=== PATIENT | female | born 1945 | race Caucasian/White ===

== ENCOUNTER 2016-11-01 10:04 | Outpatient (CLI) | payer MEDICARE, OTHER | END 2016-11-01 10:05 | disposition home or self-care (01) | DX: G47.33 Obstructive sleep apnea (adult) (pediatric) (principal) | CPT/HCPCS: 99214; G0463 ==

== ENCOUNTER 2017-01-19 09:19 | Outpatient (CLI) | payer MEDICARE, OTHER | END 2017-01-19 09:20 | disposition home or self-care (01) | LOC: SC 09:19 | PROVIDERS: ATTEND Nurse Practitioner Family | DX: G47.33 Obstructive sleep apnea (adult) (pediatric) (principal) | CPT/HCPCS: 99214; G0463; 99212 ==

== ENCOUNTER 2017-02-02 08:00 | Outpatient (CLI) | payer MEDICARE, OTHER | END 2017-02-02 08:01 | disposition home or self-care (01) | LOC: LAB.WCP 08:00 | PROVIDERS: ATTEND Specialist | DX: Z00.00 Encounter for general adult medical examination without abnormal findings (principal); R53.83 Other fatigue; E78.5 Hyperlipidemia, unspecified; R25.1 Tremor, unspecified | CPT/HCPCS: 36415; 80053; 80061; 84439; 84443; 84481; 85025 ==

== ENCOUNTER 2017-02-02 08:00 | Outpatient (CLI) | payer MEDICARE, OTHER ==
[2017-02-02 20:15] LABS: BASOPHILS # (AUTO) 0.1 10^3/uL (0.0-0.1); EOSINOPHILS # (AUTO) 0.1 10^3/uL (0.0-0.7); EOSINOPHILS % (AUTO) 1.5 %; HCT - HEMATOCRIT 43.6 % (37.0-47.0); HGB - HEMOGLOBIN 14.3 g/dL (12.0-16.0); LYMPHOCYTES # (AUTO) 2.1 10^3/uL (1.5-3.5); LYMPHOCYTES % (AUTO) 31.9 %; MEAN CORPUSCULAR HEMOGLOBIN 30.3 pg (27.0-31.0); MEAN CORPUSCULAR HGB CONC 32.8 g/dL (32.0-36.0); MEAN CORPUSCULAR VOLUME 92.3 fL (81.0-99.0); MEAN PLATELET VOLUME 9.7 fL (7.9-10.8); MONOCYTES # (AUTO) 0.5 10^3/uL (0.0-1.0); MONOCYTES % (AUTO) 7.6 %; NEUTROPHILS # (AUTO) 3.9 10^3/uL (1.5-6.6); NUCLEATED RED BLOOD CELLS AUTO 0.2 /100WBC; RED BLOOD COUNT 4.73 10^6/uL (4.20-5.40); RED CELL DISTRIBUTION WIDTH 13.6 % (12.0-15.0); UNCORRECTED WHITE BLOOD COUNT 6.7 x10^3/uL; WHITE BLOOD COUNT 6.7 x10^3/uL (4.8-10.8)
[2017-02-02 20:30] LABS: ALBUMIN/GLOBULIN RATIO 1.3 (1.0-2.2); BILIRUBIN,TOTAL 0.5 mg/dL (0.2-1.0); BUN - BLOOD UREA NITROGEN 17 mg/dL (6-20); CALCIUM 9.3 mg/dL (8.5-10.3); CARBON DIOXIDE - CO2 27 mmol/L (21-32); CHLORIDE 105 mmol/L (101-111); CHOL/HDL RATIO 3.1 (<4.4); CHOLESTEROL 206 mg/dL; CREATININE 0.9 mg/dL (0.4-1.0); GFR - MDRD 62 (>89); GLUCOSE 97 mg/dL (70-100); HDL CHOLESTEROL 66 mg/dL; LDL/HDL RATIO 1.8 (<4.4); POTASSIUM 4.2 mmol/L (3.5-5.0); SODIUM 140 mmol/L (135-145); TRIGLYCERIDES 103 mg/dL; VLDL CHOLESTEROL 21 mg/dL
== END 2017-02-02 08:01 | disposition home or self-care (01) ==
LOC: LAB.WCP 08:00
PROVIDERS: ATTEND Family Medicine
DX: Z00.00 Encounter for general adult medical examination without abnormal findings (principal); R53.83 Other fatigue; E78.5 Hyperlipidemia, unspecified
CPT/HCPCS: 36415; 80053; 80061; 84443; 85025

== ENCOUNTER 2017-03-21 11:19 | Outpatient (CLI) | payer MEDICARE, OTHER | END 2017-03-21 11:20 | disposition home or self-care (01) | LOC: SC 11:19 | PROVIDERS: ATTEND Nurse Practitioner Family | DX: G47.33 Obstructive sleep apnea (adult) (pediatric) (principal) | CPT/HCPCS: 99214; G0463; 99212 ==

== ENCOUNTER 2017-04-18 10:00 | Outpatient (CLI) | payer MEDICARE, OTHER | END 2017-04-18 10:01 | disposition home or self-care (01) | LOC: SC 10:00 | PROVIDERS: ATTEND Nurse Practitioner Family | DX: G47.33 Obstructive sleep apnea (adult) (pediatric) (principal) | CPT/HCPCS: 99214; G0463; 99212 ==

== ENCOUNTER 2017-04-27 14:27 | Outpatient (CLI) | payer MEDICARE, OTHER | END 2017-04-27 14:28 | disposition home or self-care (01) | LOC: SC 14:27 | PROVIDERS: ATTEND Nurse Practitioner Family | DX: G47.33 Obstructive sleep apnea (adult) (pediatric) (principal) | CPT/HCPCS: 99214; G0463; 99212 ==

== ENCOUNTER 2017-06-08 13:18 | Outpatient (CLI) | payer MEDICARE, OTHER | END 2017-06-08 13:19 | disposition home or self-care (01) | LOC: SC 13:18 | PROVIDERS: ATTEND Nurse Practitioner Family | DX: G47.33 Obstructive sleep apnea (adult) (pediatric) (principal) | CPT/HCPCS: 99214; G0463; 99212 ==

== ENCOUNTER 2017-07-06 13:07 | Outpatient (CLI) | payer MEDICARE, OTHER | END 2017-07-06 13:08 | disposition home or self-care (01) | LOC: SC 13:07 | PROVIDERS: ATTEND Nurse Practitioner Family | DX: G47.33 Obstructive sleep apnea (adult) (pediatric) (principal) | CPT/HCPCS: 99214; G0463; 99212 ==

== ENCOUNTER 2017-09-14 16:50 | Outpatient (CLI) | payer MEDICARE, OTHER | END 2017-09-14 16:51 | disposition home or self-care (01) | LOC: LAB.R 16:50 | PROVIDERS: ATTEND Family Medicine | DX: N39.0 Urinary tract infection, site not specified (principal) | CPT/HCPCS: 87086 ==

== ENCOUNTER 2017-09-25 16:06 | Outpatient (CLI) | payer MEDICARE, OTHER ==
--- NOTE | 2017-09-27 18:00 | Mammography Report ---
DIGITAL SCREENING MAMMOGRAM: 09/25/2017 CLINICAL INDICATION: A 72-year-old for screening. COMPARISON: 06/2016, 01/2015, 02/2013, 11/2011, 10/2010, 10/2009. TECHNIQUE: Routine CC and MLO projections were obtained of the breasts. FINDINGS: The breasts again demonstrate scattered fibroglandular densities bilaterally. Coarse and punctate, typically benign calcifications are present. No suspicious masses, clustered microcalcifications, or regions of architectural distortion are identified. IMPRESSION: BENIGN FINDINGS. RECOMMENDATION: ROUTINE ANNUAL SCREENING UNLESS OTHERWISE CLINICALLY INDICATED. BIRADS category 2 benign findings. STANDARD QUALIFYING STATEMENTS 1. This examination was reviewed with the aid of Computed-Aided Detection (CAD). 2. A negative or benign imaging report should not delay biopsy if clinically suspicious findings are present. Consider surgical consultation if warranted. More than 5% of cancers are not identified by imaging. 3. Dense breasts may obscure an underlying neoplasm. TD: 09/27/2017 17:58
== END 2017-09-25 16:07 | disposition home or self-care (01) ==
LOC: DI.N 16:06
PROVIDERS: ATTEND Family Medicine
DX: Z12.31 Encounter for screening mammogram for malignant neoplasm of breast (principal)
CPT/HCPCS: 77067

== ENCOUNTER 2017-10-05 13:15 | Outpatient (CLI) | payer MEDICARE, OTHER | END 2017-10-05 13:16 | disposition home or self-care (01) | LOC: SC 13:15 | PROVIDERS: ATTEND Nurse Practitioner Family | DX: G47.33 Obstructive sleep apnea (adult) (pediatric) (principal) | CPT/HCPCS: 99214; G0463; 99212 ==

== ENCOUNTER 2018-01-04 17:42 | Outpatient (CLI) | payer MEDICARE, OTHER ==
--- NOTE | 2018-01-04 18:18 | XRAY Report ---
Procedure Date: 01/04/2018 Accession Number: [id number] / [id number] Procedure: XR - Foot 3 View RT CPT Code: FULL RESULT: EXAM: RIGHT FOOT RADIOGRAPHY EXAM DATE: 01/04/2018 05:59 PM. CLINICAL HISTORY: FOOT PAIN,RIGHT. COMPARISON: None. TECHNIQUE: 3 views. FINDINGS: Bones: There is a 5 mm linear bony density adjacent to the lateral margin of the anterior process of the calcaneus. No other evidence of acute fracture. There is an old fracture deformity of the fifth metatarsal shaft. Joints: First MTP joint osteoarthritis. Soft Tissues: Lateral soft tissue swelling in region of calcaneus. IMPRESSION: Probable small lateral avulsion fracture of the anterior process of the calcaneus. Old fifth metatarsal fracture deformity. RADIA The call report notification system was initiated by Dr. Victor Hugo Hogan at 18:13 hrs on 01/04/18. The above findings were discussed with Dr. Kimberly Dr by Dr. Victor Hugo Hogan at 18:17 hrs on 01/04/18.
--- NOTE | 2018-01-04 18:18 | XRAY Report ---
Procedure Date: 01/04/2018 Accession Number: [id number] / [id number] Procedure: XR - Ankle 3 View RT CPT Code: FULL RESULT: EXAM: RIGHT ANKLE RADIOGRAPHY EXAM DATE: 01/04/2018 05:59 PM. CLINICAL HISTORY: FOOT PAIN, RIGHT. COMPARISON: None. TECHNIQUE: 3 views. FINDINGS: Bones: There is a 5 mm linear bony density adjacent to the lateral anterior process of the calcaneus. No other evidence of fracture. Joints: Normal. No effusion. No subluxations. The ankle mortise is normally aligned. Soft Tissues: Marked lateral soft tissue swelling. IMPRESSION: Probable small lateral calcaneus avulsion fracture. RADIA The call report notification system was initiated by Dr. Victor Hugo Hogan at 18:11 hrs on 01/04/18. The above findings were discussed with Dr. Kimberly Dr by Dr. Victor Hugo Hogan at 18:16 hrs on 01/04/18.
== END 2018-01-04 17:43 | disposition home or self-care (01) ==
LOC: DI 17:42
PROVIDERS: ATTEND Family Medicine
DX: M79.671 Pain in right foot (principal)

== ENCOUNTER 2018-05-14 08:46 | Outpatient (CLI) | payer MEDICARE, OTHER | END 2018-05-14 08:47 | disposition home or self-care (01) | LOC: SC 08:46 | PROVIDERS: ATTEND Nurse Practitioner Family | DX: G47.33 Obstructive sleep apnea (adult) (pediatric) (principal) | CPT/HCPCS: 99214; G0463; 99212 ==

== ENCOUNTER 2018-06-21 13:11 | Outpatient (CLI) | payer MEDICARE, OTHER | END 2018-06-21 13:12 | disposition home or self-care (01) | LOC: SC 13:11 | PROVIDERS: ATTEND Nurse Practitioner Family | DX: G47.33 Obstructive sleep apnea (adult) (pediatric) (principal) | CPT/HCPCS: 99214; G0463; 99212 ==

== ENCOUNTER 2018-10-09 10:42 | Outpatient (CLI) | payer MEDICARE, OTHER | END 2018-10-09 10:43 | disposition home or self-care (01) | LOC: SC 10:42 | PROVIDERS: ATTEND Nurse Practitioner Family | DX: G47.33 Obstructive sleep apnea (adult) (pediatric) (principal) | CPT/HCPCS: 99214; G0463; 99212 ==

== ENCOUNTER 2018-11-16 11:34 | Outpatient (CLI) | payer MEDICARE, OTHER ==
--- NOTE | 2018-11-19 15:35 | Mammography Report ---
Reason: SCREENING MAMMO Procedure Date: 11/16/2018 Accession Number: [id number] / [id number] Procedure: MGN - Screening Mammo Dig Bilat CPT Code: FULL RESULT: EXAM: Screening Mammo Dig Bilat DATE: 11/16/2018 11:57 AM CLINICAL HISTORY: Routine screening TECHNIQUE: (B) - Bilateral CC and MLO views were obtained. COMPARISON: 09/25/2017, 06/24/2016, 01/27/2015, 02/28/2013. PARENCHYMAL PATTERN: (A) - The breasts demonstrate scattered fibroglandular densities bilaterally. FINDINGS: There has been no significant interval change on the right. There are no suspicious masses, calcifications, or areas of distortion. On the left there is a questionable area of developing architectural distortion in the 12:00 position approximately 7 cm posterior to the nipple. Otherwise no suspicious masses, calcifications or interval change on the left. IMPRESSION: Incomplete examination. BI-RADS category 0. Needs additional evaluation left breast by spot compression and true lateral views. Negative right breast. RECOMMENDATION: (ADDMAM) - Recommend additional mammographic views. Left breast BI-RADS CATEGORY: (0) - Incomplete Examination - need additional evaluation. STANDARD QUALIFYING STATEMENTS: 1. This examination was not reviewed with the aid of Computer-Aided Detection (CAD). 2. A negative or benign imaging report should not preclude biopsy if clinically suspicious findings are present. 3. Dense breasts may obscure an underlying neoplasm. 4. This examination was reviewed without the aid of 3D breast imaging (tomosynthesis).
== END 2018-11-16 11:35 | disposition home or self-care (01) ==
LOC: DI.N 11:34
DX: Z12.31 Encounter for screening mammogram for malignant neoplasm of breast (principal); R92.8 Other abnormal and inconclusive findings on diagnostic imaging of breast
CPT/HCPCS: 77067

== ENCOUNTER 2018-11-22 10:33 | Outpatient (CLI) | payer MEDICARE, OTHER ==
--- NOTE | 2018-11-22 11:34 | Mammography Report ---
Reason: ABNORMAL MAMMOGRAM Procedure Date: 11/22/2018 Accession Number: [id number] / [id number] Procedure: ISMAEL - Diag Special Views Dig LT CPT Code: FULL RESULT: EXAM: Diag Special Views Dig LT DATE: 11/22/2018 11:11 AM CLINICAL HISTORY: Follow-up abnormal left mammogram 11/16/2018 TECHNIQUE: (B) - Bilateral CC and MLO views were obtained. COMPARISON: None PARENCHYMAL PATTERN: (A) - The breasts demonstrate scattered fibroglandular densities bilaterally. FINDINGS: The questionable area of developing architectural distortion left breast dissipates on additional views. IMPRESSION: Negative examination. BI-RADS category 1. RECOMMENDATION: (ANNUAL) - Recommend routine annual screening mammography. BI-RADS CATEGORY: (1) - Negative. STANDARD QUALIFYING STATEMENTS: 1. This examination was not reviewed with the aid of Computer-Aided Detection (CAD). 2. A negative or benign imaging report should not preclude biopsy if clinically suspicious findings are present. 3. Dense breasts may obscure an underlying neoplasm. 4. This examination was reviewed with the aid of 3D breast imaging (tomosynthesis).
== END 2018-11-22 10:34 | disposition home or self-care (01) ==
LOC: DI 10:33
PROVIDERS: ATTEND Physician Assistant Medical
DX: R92.8 Other abnormal and inconclusive findings on diagnostic imaging of breast (principal)

== ENCOUNTER 2018-11-26 10:33 | Outpatient (CLI) | payer MEDICARE, OTHER ==
[2018-11-26 19:54] LABS: BASOPHILS # (AUTO) 0.1 10^3/uL (0.0-0.1); BASOPHILS % (AUTO) 0.9 %; EOSINOPHILS # (AUTO) 0.1 10^3/uL (0.0-0.7); EOSINOPHILS % (AUTO) 1.7 %; HGB - HEMOGLOBIN 13.9 g/dL (12.0-16.0); LYMPHOCYTES # (AUTO) 1.9 10^3/uL (1.5-3.5); LYMPHOCYTES % (AUTO) 24.3 %; MEAN CORPUSCULAR HEMOGLOBIN 30.2 pg (27.0-31.0); MEAN CORPUSCULAR HGB CONC 32.7 g/dL (32.0-36.0); MEAN CORPUSCULAR VOLUME 92.3 fL (81.0-99.0); MEAN PLATELET VOLUME 9.8 fL (7.9-10.8); MONOCYTES # (AUTO) 0.5 10^3/uL (0.0-1.0); MONOCYTES % (AUTO) 6.5 %; NEUTROPHILS # (AUTO) 5.2 10^3/uL (1.5-6.6); NEUTROPHILS % (AUTO) 66.6 %; PLT - PLATELET COUNT 188 10^3/uL (130-450); RED BLOOD COUNT 4.62 10^6/uL (4.20-5.40); WHITE BLOOD COUNT 7.8 x10^3/uL (4.8-10.8)
[2018-11-26 20:25] LABS: ALBUMIN 3.9 g/dL (3.2-5.5); ALBUMIN/GLOBULIN RATIO 1.2 (1.0-2.2); ALKALINE PHOSPHATASE 81 IU/L (42-121); ALT ALANINE AMINOTRANSFERASE 17 IU/L (10-60); AST ASPARTATE AMINOTRANSFERASE 23 IU/L (10-42); BILIRUBIN,TOTAL 0.7 mg/dL (0.2-1.0); BUN - BLOOD UREA NITROGEN 17 mg/dL (6-20); CALCIUM 9.3 mg/dL (8.5-10.3); CARBON DIOXIDE - CO2 27 mmol/L (21-32); CHLORIDE 105 mmol/L (101-111); CHOL/HDL RATIO 3.1 (<4.4); CHOLESTEROL 195 mg/dL; GFR - MDRD 54 (>89); GLUCOSE 105 mg/dL (70-100); HDL CHOLESTEROL 63 mg/dL; LDL CHOLESTEROL,CALCULATED 112 mg/dL; LDL/HDL RATIO 1.8 (<4.4); SODIUM 139 mmol/L (135-145); TOTAL PROTEIN 7.1 g/dL (6.7-8.2); VLDL CHOLESTEROL 20 mg/dL
== END 2018-11-26 10:34 | disposition home or self-care (01) ==
LOC: LAB.WCP 10:33
PROVIDERS: ATTEND Family Medicine
DX: G62.9 Polyneuropathy, unspecified (principal); E78.5 Hyperlipidemia, unspecified; F03.90 Unspecified dementia, unspecified severity, without behavioral disturbance, psychotic disturbance, mood disturbance, and anxiety; M79.671 Pain in right foot; K21.9 Gastro-esophageal reflux disease without esophagitis
CPT/HCPCS: 36415; 80053; 80061; 83721; 84443; 85025

== ENCOUNTER 2019-02-07 09:47 | Day surgery (SDC) | payer MEDICARE, OTHER ==
[2019-02-07] MEDS ORDERED: LIDO GARGLE 30 ML BOTTLE ONE (10:12)
[2019-02-07] MEDS ORDERED: LACTATED RINGERS 1,000 ML IV ONE (10:23)
[2019-02-07] MEDS ORDERED: MIDAZOLAM 2 MG/2 ML VIAL IVP ONE (11:28)
[2019-02-07] MEDS ORDERED: fentaNYL 100 MCG/2 ML VIAL IVP ONE (11:28)
[2019-02-07] MEDS ORDERED: BENZOCAINE/TETRACAINE/BUTAMBEN 20 GM TOP ONE (11:30)
[2019-02-07 13:01] VITALS: BP 124/76
== END 2019-02-07 09:48 | disposition home or self-care (01) ==
LOC: SDS 09:47
PROVIDERS: ATTEND Surgery
PROC: 0DB78ZX Excision of Stomach, Pylorus, Via Natural or Artificial Opening Endoscopic, Diagnostic (ICD-10-PCS; 2019-02-07)
PROC: 0DB58ZX Excision of Esophagus, Via Natural or Artificial Opening Endoscopic, Diagnostic (ICD-10-PCS; 2019-02-07)
PROC: 0DB98ZX Excision of Duodenum, Via Natural or Artificial Opening Endoscopic, Diagnostic (ICD-10-PCS; principal; 2019-02-07 11:15)
DX: K21.9 Gastro-esophageal reflux disease without esophagitis (principal); K29.70 Gastritis, unspecified, without bleeding; K44.9 Diaphragmatic hernia without obstruction or gangrene; K20.9 Esophagitis, unspecified; E66.9 Obesity, unspecified; Z68.27 Body mass index [BMI] 27.0-27.9, adult
CPT/HCPCS: 43239; 87081; A9270; J7120

== ENCOUNTER 2019-03-04 13:39 | Outpatient (CLI) | payer MEDICARE, OTHER ==
[2019-03-04 15:04] VITALS: BP 120/60
--- NOTE | 2019-03-04 15:04 | SLEEP CARE CONSULTATION ---
Information from patient questionnaire entered by Ariadna Humphries. I have reviewed and concur with the information entered by Ariadna Humphries. This document represents the service I personally performed and the decisions made by me, Farheen Avalos, RN, MSN, BRAKE REPAIR MECHANIC. History of Present Illness Previous diagnosis: Mild, Obstructive Sleep Apnea-Hypopnea Syndrome AHI: 10.3 Reason for CPAP/BiPAP follow up: six month Accompanied by: Spouse Equipment type: CPAP Equipment obtained from: [facility] (having difficulty getting supplies especially filters so spouse is washing both.) Mask style: Nasal Mask brand: Respironics Backup mask available: No Last cushion change: a few weeks. Year and Where: 2015 [facility] additional information: She tried a full face mask but did not like. So is back to nasal mask with and without chinstrap. CPAP Compliance Data - Data Reviewed with Patient Average duration of nightly device use: 6h 10 m Compliance rate %: 81.7 Current pressure setting (cmH2O): 16-18 Humidity settin Heated hose settin Average residual AHI: 5.7 Central apnea: 1.1 Obstructive apnea: 1.1 Hypopnea: 3.5 Average large leak: 25minutes Subjective Patient concerns: reports: dry mouth, nose, throat (1/2 the time. Spouse has noted drooling most nights. ), other (headache when naps without CPAP at base of head / neck area- mild that resolves in short while after wakens. ). denies: aerophagia, mask discomfort, air blowing in eyes, mask leak noise, condensation in mask/hose, nasal congestion, epistaxis Observed to snore while using device: Yes (rare) On therapy, patient: reports: sleeping better, awakening more refreshed, being more awake and alert during the day, more rested overall. denies: drowsiness while driving Initial [place] Sleepiness Scale score: 10 Current [place] Sleepiness Scale score: 8 Allergies and Home Medications Known drug allergies: No Home medication list reviewed: Yes Allergy and home medication list: Medication Name (generic/name brand) Strength & Dosage Omeprazole 20mg tab one twice daily Colace 50mg tab daily as needed Multivitamin Tab one daily Vitamin B complex 1 tablet a day Review of Systems Gastrointestinal: reports: heartburn Urinary: reports: incontinence, frequency, urgency Neurological: reports: headaches, disorientation Psychiatric: reports: anxiety, other (jerky arms) Ear/Nose/Throat: reports: nasal congestion, sinus problems, dry mouth/throat, wisdom teeth removed Endocrine: reports: sluggishness, too hot or cold, excessive thirst, increased urination Musculoskeletal: reports: back pain Immunologic: reports: sneezing, rash Physical Exam Blood Pressure: 120/60 Cuff size: regular Heart Rate: 58 O2 Saturation: 97 Weight (kg): 64.047 kg Impression and Plan 1. Obstructive Sleep Apnea-Hypopnea Syndrome, mild with good treatment compliance and slightly elevated residual apnea control. The mask leaks may be due to large mask leaks. On CPAP therapy, the patient has better sleep quality and is more rested overall. For her oral dryness and drooling, I showed her spouse how to increase the humidity and reduce heated hose again on sample device and wrote instructions out. She also advised to use her CPAP if she needs a nap. The occipital headache could be from her apnea or position of head while sleeping. Since her spouse helps with her set up of mask, she is encouraged to practice so can use if he is out of house. The mask leaks could be from her ill fitting chinstrap. For supply problems , I will have my program coordinator executive education inform of choices and then make out a DWO prescription. A chinstrap fitting will be included as well as updating mask. spouse states current mask and headgear worn out . Patient's apnea severity and rationale for treatment to reduce apnea, improve sleep quality and reduce cardiovascular and cerebrovascular events was reviewed. I also reviewed the benefit of consistent device use of CPAP for depression/anxiety and memory. * Continue CPAP pressure at 16-18 cmH2O * Transfer to new DME * update supplies * chin strap fitting * Adjust humidity and heated hose. * Notify me if snoring with mask or feeling that the pressure is too much or too little * Attempt to lose weight * Return for follow up in 2-3 months , or sooner if concerns arise I spent 100% of this [38 ] minute visit face to face with the patient with greater than 50% of this was spent time counseling the patient and coordination of care.
== END 2019-03-04 13:40 | disposition home or self-care (01) ==
LOC: SC 13:39
PROVIDERS: ATTEND Nurse Practitioner Family
DX: G47.33 Obstructive sleep apnea (adult) (pediatric) (principal)
CPT/HCPCS: 99214; G0463; 99212

== ENCOUNTER 2019-05-09 13:10 | Outpatient (CLI) | payer MEDICARE, OTHER ==
[2019-05-09 14:16] VITALS: BP 110/60
--- NOTE | 2019-05-09 14:16 | SLEEP CARE CONSULTATION ---
Information from patient questionnaire entered by Marie Collins. I have reviewed and concur with the information entered by Marie Collins. This document represents the service I personally performed and the decisions made by me, Farheen Avalos, RN, MSN, SENIOR PAYROLL ADMINISTRATOR. History of Present Illness Previous diagnosis: Mild, Obstructive Sleep Apnea-Hypopnea Syndrome AHI: 10.3 Reason for CPAP/BiPAP follow up: other (2 month) Equipment type: CPAP Equipment obtained from: [facility] Mask style: Nasal Mask brand: Respironics HPI additional information: Tried to transfer to [facility], but due to patient and spouse hearing difficulty and hard to understand on phone they were unable to get supplies. Then they tried to get supplies from [facility] but unable to access despite several attempts. They would like to transfer to another DME that is easier for them to work with. A chinstrap was tried but still drooling and felt claustrophobic. Also has been difficult to remember how to change the humidity as instructed. . CPAP Compliance Data - Data Reviewed with Patient Average duration of nightly device use: 7.25 Compliance rate %: 95 (60 days) Current pressure setting (cmH2O): 16-18 Humidity settin Heated hose settin Average residual AHI: 5.5 Average large leak: 28 mins 13 sec Subjective Patient concerns: reports: mask discomfort, air blowing in eyes (mask dislodges in sleep intermittently ), mask leak noise (intermittently), dry mouth, nose, throat (waking with dry mouth in middle of night). denies: condensation in mask/hose, nasal congestion, epistaxis Observed to snore while using device: No (rare snore) Current pressure setting perceived as: comfortable On therapy, patient: reports: sleeping better, awakening more refreshed, being more awake and alert during the day, more rested overall. denies: drowsiness while driving (does not drive) Initial [place] Sleepiness Scale score: 11 Current [place] Sleepiness Scale score: 14 Allergies and Home Medications Known drug allergies: No Home medication list reviewed: Yes Allergy and home medication list: Omeprazole 20mg tab one twice daily Colace 50mg tab daily as needed Multivitamin Tab one daily Review of Systems Review of systems same as previous: Yes Physical Exam Blood Pressure: 110/60 Cuff size: regular Heart Rate: 74 O2 Saturation: 97 Height: 5 ft 0.5 in Weight: 138 lb Body Mass Index: 26.5 BMI Classification: Overweight Impression and Plan 1. Obstructive Sleep Apnea-Hypopnea Syndrome, mild, with good treatment compliance and good apnea control. ( The AHI is slightly elevated and current pressure the most comfortable pressure used so far so will not be changed) On CPAP therapy, the patient has better sleep quality and is more rested overall. For humidity directions, I showed them where to access in users manual and again reviewed the process on a sample CPAP. I will also print out some printed instructions to see if easier. For their supply concerns, it appears they need a company that can come to them to assist with their concerns and has a written method of obtaining supplies as current one is not working. So I will transfer again, this time to [facility] as the RT comes to home and their method of ordering can be written. A new DWO prescription will be made. For oral dryness, since the fullface mask and chinstrap did not work, the heated hose will be reduced to allow more moisture. I will also order a headgear adaptor to keep mask from dislodging which may also reduce oral dryness from the mask leaks. If continued problems, a mask refitting may be needed. Patient's apnea severity and rationale for treatment to reduce apnea, improve sleep quality and reduce cardiovascular and cerebrovascular events was reviewed. I also reviewed the benefit of consistent device use of CPAP for depression/anxiety. * Continue CPAP pressure at 16-18 cmH2O * Adjust heated hose. * Transfer to new [facility] * Notify me if snoring with mask or feeling that the pressure is too much or too little * Return for follow up in 6 months , or sooner if concerns arise I spent 100% of this 30 minute visit face to face with the patient with greater than 50% of this was spent time counseling the patient and coordination of care.
== END 2019-05-09 13:11 | disposition home or self-care (01) ==
LOC: SC 13:10
PROVIDERS: ATTEND Nurse Practitioner Family
DX: G47.33 Obstructive sleep apnea (adult) (pediatric) (principal)
CPT/HCPCS: 99214; G0463; 99212

== ENCOUNTER 2019-09-12 08:00 | Outpatient (CLI) | payer MEDICARE, OTHER | END 2019-09-12 23:59 | disposition home or self-care (01) | LOC: LAB.WCP 08:00 | PROVIDERS: ATTEND Family Medicine | DX: Z53.9 Procedure and treatment not carried out, unspecified reason (principal) ==

== ENCOUNTER 2019-09-12 08:00 | Outpatient (CLI) | payer MEDICARE, OTHER, BC | END 2019-09-12 23:59 | disposition home or self-care (01) | LOC: LAB.WCP 08:00 | PROVIDERS: ATTEND Family Medicine | DX: R30.0 Dysuria (principal) | CPT/HCPCS: 87086; 87181 ==

== ENCOUNTER 2019-09-12 09:14 | Outpatient (CLI) | payer MEDICARE, OTHER ==
--- NOTE | 2019-09-12 16:39 | XRAY Report ---
Reason: CHRONIC LOW BACK PAIN Procedure Date: 09/12/2019 Accession Number: [id number] / [id number] Procedure: WCP - Lumbar Spine 2 View CPT Code: Final Report FULL RESULT: EXAM: LUMBOSACRAL SPINE RADIOGRAPHY, 2 view EXAM DATE: 09/12/2019 09:14 AM. CLINICAL HISTORY: Chronic low back pain. COMPARISONS: None. TECHNIQUE: AP and lateral views FINDINGS: AP and lateral views of the lumbar spine have been performed. There are 5 nonrib-bearing, lumbar type vertebrae. There is generalized osteopenia, likely representing osteoporosis. There is mild anterior wedging of the T12 vertebral body, likely the sequela of old healed endplate compression fracture. There is minimal anterior wedging of the L1 vertebral body, also likely the sequela of old healed endplate compression fracture. The vertebral body heights are otherwise preserved. The pedicles appear intact. No lytic or destructive bone lesion is identified. There is a mild dextroconvex lower thoracic curvature with apex at the T10-T11 disk space and there is a mild, compensatory, levoconvex lumbar curvature with apex at L3. In the sagittal plane there appears to be minor retrolisthesis of L5 on S1 (roughly 2 mm). Alignment is otherwise unremarkable. There is fairly severe, degenerative disk space narrowing at L5-S1. There is mild to moderate degenerative disk space narrowing at L1-L2. The lumbar disk space heights are otherwise relatively preserved. There is diskogenic vertebral sclerosis in the vertebral endplates at L5-S1. Suspect degenerative facet arthrosis in the lower lumbar spine, most prominent at L4-L5 and L5-S1. There is minor opacity laterally at the left lung base, likely representing minor atelectasis or scarring. No other obvious intrathoracic pathology is demonstrated on images provided. Gas and stool are seen in nondistended colon. There is vascular calcification in the right hemipelvis. IMPRESSION: 1. Mild thoracolumbar scoliosis as described. 2. There is evidence of lower lumbar degenerative disk disease, most prominent at L5-S1 where there appears to be fairly severe disk space narrowing and reactive sclerosis in the vertebral endplates. 3. Suspect degenerative facet arthrosis in the lower lumbar spine most prominent at L4-L5 and L5-S1. 4. Mild anterior wedging of T12 with minimal anterior wedging of L1. Evaluation of acuity is limited on conventional radiographs. These probably represent old healed endplate compression fractures. However, clinical correlation is required. In particular, is there evidence of localized point tenderness at either the T12 or L1 level to suggest the possibility of acute fracture? RADIA
== END 2019-09-12 23:59 | disposition home or self-care (01) ==
LOC: DI.WCP 09:14
PROVIDERS: ATTEND Family Medicine
DX: M51.36 Other intervertebral disc degeneration, lumbar region (principal); M51.37 Other intervertebral disc degeneration, lumbosacral region; M47.816 Spondylosis without myelopathy or radiculopathy, lumbar region; M47.817 Spondylosis without myelopathy or radiculopathy, lumbosacral region; M48.56XD Collapsed vertebra, not elsewhere classified, lumbar region, subsequent encounter for fracture with routine healing; M48.54XD Collapsed vertebra, not elsewhere classified, thoracic region, subsequent encounter for fracture with routine healing; M41.9 Scoliosis, unspecified
CPT/HCPCS: 72100

== ENCOUNTER 2019-11-07 13:44 | Outpatient (CLI) | payer MEDICARE, OTHER ==
--- NOTE | 2019-11-07 11:00 | SLEEP CARE CONSULTATION ---
Information from patient questionnaire entered by Ariadna Humphries. I have reviewed and concur with the information entered by Ariadna Humphries. This document represents the service I personally performed and the decisions made by me, Farheen Avalos, RN, MSN, SOLID WASTE COLLECTOR. History of Present Illness Service Date and Time: 11/07/2019 1344 Previous diagnosis: Mild, Obstructive Sleep Apnea-Hypopnea Syndrome AHI: 10.3 Reason for follow up: six month (no usage since July due to illness) Equipment type: CPAP Equipment obtained from: [employer] Mask style: Nasal Backup mask available: Yes Last cushion change: 1 month or les Subjective Missed days of use due to: reports: other (due to difficulty using CPAP with nasal congestion / not seen by Dr has appointment 11/07) Patient concerns: reports: nasal congestion (h), dry mouth, nose, throat (dry mouth on wakening - humidifier setting is unknown. ), other (drooling with CPAP and wakes numerouc times during the night. ). denies: aerophagia, mask discomfort, air blowing in eyes, mask leak noise, condensation in mask/hose, epistaxis Observed to snore while using device: Yes Current pressure setting perceived as: comfortable On therapy, patient: reports: sleeping better (and reduction of nightmares in past ), being more awake and alert during the day (in past) Initial [place] Sleepiness Scale score: 11 Physical Exam Height: 5 ft 0.5 in Impression and Plan 1. Obstructive Sleep Apnea-Hypopnea Syndrome, mild, with no use since late last year per patient. No compliance available at this visit. Patient stopped use due to nasal congestion making it difficult to use her nasal mask and increase of drooling with use. She has tried a full face mask but she was unable to use due to claustrophobia. She also awakens to dry mouth which can be a cause of her drooling. It is unknown what her humidity setting was. She has an appointment tomorrow with Dr Orlando for evaluation of her nasal congestion which is important if patient wants to resume CPAP use. I reviewed past benefit from CPAP treatment. She reports that she slept better, had reduction of nightmares and was more alert during the day. I discussed her apnea severity and rationale for treatment to reduce apnea, improve sleep quality and reduce cardiovascular and cerebrovascular events was reviewed. I asked if she would like to resume CPAP use or stop therapy. She would like to resume use after she sees Dr. Orlando. Thus I will have the [facility] respiratory therapist contact her to discuss humidity adjustment for oral dryness and check to see if current mask is working in fit. If the mask is leaking, it can contribute to oral dryness. In addition, I will adjust pressure at next visit after use if continued snoring. Patient agreed with plan. I will have my staff contact her for a 1-2 month follow up after resuming CPAP. * Restart CPAP pressure at 16-18 cmH2O * Adjust humidity * Mask evaluation * Notify me if snoring with mask or feeling that the pressure is too much or too lit * Call this office if any problems using CPAP * Return for follow up in 1-2 months , or sooner if concerns arise Visit Type: Telehealth Phone (to minimize the risk of COVID 19 exposure, the patient has agreed to a telehealth visit and to have insurance billed.) Other Participants: Spouse/Significant Other Patient agrees and consents to this telehealth visit type: Yes Time Spent with Patient (minutes): 10 Provider Statement: I spent 100% of the Telehealth Phone Call with the patient with greater than 50% spent counseling the patient and coordination of care.
== END 2019-11-07 13:45 | disposition home or self-care (01) ==
LOC: SC 13:44
PROVIDERS: ATTEND Nurse Practitioner Family
DX: G47.33 Obstructive sleep apnea (adult) (pediatric) (principal)

== ENCOUNTER 2020-02-10 13:01 | Outpatient (CLI) | payer MEDICARE, OTHER ==
--- NOTE | 2020-02-11 07:48 | Mammography Report ---
BILATERAL DIGITAL SCREENING MAMMOGRAM: 02/10/2020 CLINICAL: Routine screening. Comparison is made to exams dated: 11/22/2018 mammogram, 11/16/2018 mammogram, 10/05/2017 mammogram, 06/24/2016 mammogram, 01/27/2015 mammogram, and 02/28/2013 mammogram - [facility]. There a re scattered fibroglandular elements in both breasts. No significant masses, calcifications, or other findings are seen in either breast. There has been no significant interval change. IMPRESSION: NEGATIVE There is no mammographic evidence of malignancy. A 1 year screening mammogram is recommended. This exam was interpreted at Station ID: [id number]. NOTE: For mammograms, a report in lay terms will be sent to the patient. Approximately 15% of breast malignancies will not be visualized mammographically. In the management of a palpable breast mass, a negative mammogram must not discourage biopsy of a clinically suspicious lesion. Electronically Signed By: Jaren Dodge M.D. [email or web address]:02/10/2020 16:50:17 ACR BI-RADS Category 1: Negative 3341F PARENCHYMAL PATTERN: (A) - The breast(s) demonstrate(s) scattered fibroglandular densities. BI-RADS CATEGORY: (1) - 1 RECOMMENDATION: (ANNUAL) - Recommend routine annual screening mammography. [id number] 1 year screening LATERALITY: (B)
== END 2020-02-10 13:02 | disposition home or self-care (01) ==
LOC: DI 13:01
PROVIDERS: ATTEND Family Medicine
DX: Z12.31 Encounter for screening mammogram for malignant neoplasm of breast (principal)
CPT/HCPCS: 77067

== ENCOUNTER 2020-03-19 15:07 | Outpatient (CLI) | payer MEDICARE, OTHER ==
--- NOTE | 2020-03-19 17:44 | XRAY Report ---
PROCEDURE: Hips 2V BILAT INDICATIONS: hip pain, bilateral TECHNIQUE: 2 views of the right hip and left hip were acquired. COMPARISON: 03/05/2015, 05/22/2014 FINDINGS: Bones: No fractures or dislocations. No suspicious bony lesions. The visualized pelvic ring appear s intact. Mild osseous hypertrophy noted in the right hip and the left hip compatible with osteoarthr itis. Soft tissues: No suspicious soft tissue masses. Curvilinear right pelvic calcifications and left pel josé antonio phleboliths are stable. IMPRESSION: Mild bilateral hip osteoarthritis. Reviewed by: Marilee Alvarez MD, PhD on 03/19/2020 5:43 PM PDT Approved by: Marilee Alvarez MD, PhD on 03/19/2020 5:43 PM PDT Station ID: [id number]
== END 2020-03-19 15:08 | disposition home or self-care (01) ==
LOC: DI.N 15:07
PROVIDERS: ATTEND Family Medicine
DX: M16.0 Bilateral primary osteoarthritis of hip (principal)
CPT/HCPCS: 73521

== ENCOUNTER 2020-03-25 09:34 | Outpatient (CLI) | payer MEDICARE, OTHER ==
--- NOTE | 2020-03-25 13:08 | SLEEP CARE CONSULTATION ---
Information from patient questionnaire entered by Tavo Vargas. I have reviewed and concur with the information entered by Tavo Vargas. This document represents the service I personally performed and the decisions made by , Kindra Montes ARNP. History of Present Illness Service Date and Time: 03/25/2020 0934 Previous diagnosis: Mild, Obstructive Sleep Apnea-Hypopnea Syndrome AHI: 10.3 Reason for follow up: other (4-month followup) Equipment type: CPAP Equipment obtained from: [employer] Prior sleep studies: Yes Year and Where: 2015 [facility] Type of Sleep Study: Polysomnography HPI additional information: ERIBERTO ZIMMERMAN was diagnosed to have mild, AHI 10.3, obstructive sleep apnea- hypopnea syndrome and returned today with spouse for CPAP therapy annual follow- up. Sleep Study - Results Year and Where: 2015 [facility] CPAP Compliance Data - Data Reviewed with Patient Average duration of nightly device use: 5 h 40 min Compliance rate %: 15.0 Current pressure setting (cmH2O): 16-18 Humidity settin Heated hose settin Average residual AHI: 6.3 Average large leak: 2 min Subjective Patient concerns: reports: air blowing in eyes, condensation in mask/hose, nasal congestion, dry mouth, nose, throat, other (headache). denies: aerophagia, mask discomfort, mask leak noise, epistaxis Observed to snore while using device: No Current pressure setting perceived as: too high On therapy, patient: reports: other (patient has not been using CPAP since end september). denies: sleeping better, awakening more refreshed, being more awake and alert during the day, more rested overall, drowsiness while driving Initial [place] Sleepiness Scale score: 11 Current [place] Sleepiness Scale score: 9 Allergies and Home Medications Drug allergies reviewed: Yes (NKDA) Home medication list reviewed: Yes (no changes) Review of Systems Review of systems same as previous: Yes (no changes) Physical Exam Heart Rate: 57 O2 Saturation: 93 Height: 5 ft 0.5 in Weight: 131 lb Body Mass Index: 25.1 BMI Classification: Overweight Impression and Plan 1. Obstructive Sleep Apnea-Hypopnea Syndrome, mild, with poor treatment compliance and poor apnea control. On CPAP therapy, the patient has had better sleep quality and is more rested overall but due to claustrophobia and night terrors she has not been using the CPAP therapy machine. Patient has a history of having night terror, panic attacks and claustrophobia issues with use of the CPAP mask according to her . She would not wear the mask and then her obtained a wedge with a neck roll/pillow for her to sleep on and he has heard less snoring intensity. He does not sleep in the same room but he has a monitor set up that picks up her sounds at night which he uses to watch her at night. He states she mainly sleeps on her back, but he has noted that when she sleeps on her side during naps that he does not hear snoring. He states his is having intermittent trouble with memory loss and inability to complete a sentence. I discussed with them that in her original study in 2016, she did not sleep on her side at all and her AHI was 10.3 on her back. We discussed in length that since we do not know how severe her AHI is on her side, I could not recommend for sure the positional therapy management without a repeat study to determine severity of apnea non-supine. She has less snoring on her side and may have less apneic events. They could consider an oral appliance since she has mild apnea as well. Patient and decided that they would like to repeat the study with her on her side and back to see if positional therapy could be considered. Patient's apnea severity and rationale for treatment to reduce apnea, improve sleep quality and reduce cardiovascular and cerebrovascular events was reviewed. I also reviewed the benefit of consistent device use of CPAP for depression/anxiety. * Schedule polysomnography with patient sleeping good amount of time on her side as well as back. * Avoid sleeping on back until study is completed. * Avoid alcohol, sedative and muscle relaxant around bedtime. * Attempt to lose weight. * Review instructions provided by trained office staff on how to prepare for the sleep study. * Return for follow-up after sleep study completed. Visit Type: In Office Time Spent with Patient (minutes): 25 Provider Statement: I spent 100% of the Face to Face Visit with the patient with greater than 50% spent counseling the patient and coordination of care.
== END 2020-03-25 09:35 | disposition home or self-care (01) ==
LOC: SC 09:34
PROVIDERS: ATTEND Nurse Practitioner Family
DX: G47.33 Obstructive sleep apnea (adult) (pediatric) (principal); E66.3 Overweight; Z68.25 Body mass index [BMI] 25.0-25.9, adult
CPT/HCPCS: 99213; G0463; 99212

== ENCOUNTER 2020-06-25 08:00 | Outpatient (CLI) | payer MEDICARE, OTHER | END 2020-06-25 23:59 | disposition home or self-care (01) | LOC: LAB.N 08:00 | PROVIDERS: ATTEND Physician Assistant Medical | DX: N30.00 Acute cystitis without hematuria (principal) | CPT/HCPCS: 87077; 87086 ==

== ENCOUNTER 2020-08-07 08:00 | Outpatient (CLI) | payer MEDICARE, OTHER | END 2020-08-07 23:59 | disposition home or self-care (01) | LOC: LAB.R 08:00 | PROVIDERS: ATTEND Physician Assistant Medical | DX: N39.46 Mixed incontinence (principal) | CPT/HCPCS: 87086 ==

== ENCOUNTER 2020-08-07 08:00 | Outpatient (CLI) | payer MEDICARE, OTHER | END 2020-08-07 23:59 | disposition home or self-care (01) | LOC: LAB.WCP 08:00 | PROVIDERS: ATTEND Physician Assistant Medical | DX: N39.46 Mixed incontinence (principal) | CPT/HCPCS: 81002 ==

== ENCOUNTER 2020-08-11 08:00 | Outpatient (CLI) | payer MEDICARE, OTHER ==
[2020-08-11 19:17] LABS: BASOPHILS # (AUTO) 0.1 10^3/uL (0.0-0.1); BASOPHILS % (AUTO) 0.5 %; EOSINOPHILS # (AUTO) 0.1 10^3/uL (0.0-0.7); EOSINOPHILS % (AUTO) 0.7 %; HGB - HEMOGLOBIN 13.9 g/dL (12.0-16.0); LYMPHOCYTES # (AUTO) 1.9 10^3/uL (1.5-3.5); LYMPHOCYTES % (AUTO) 20.4 %; MEAN CORPUSCULAR HEMOGLOBIN 30.3 pg (27.0-31.0); MEAN CORPUSCULAR HGB CONC 31.2 g/dL (32.0-36.0); MEAN CORPUSCULAR VOLUME 97.2 fL (81.0-99.0); MEAN PLATELET VOLUME 11.6 fL (7.9-10.8); MONOCYTES # (AUTO) 0.6 10^3/uL (0.0-1.0); MONOCYTES % (AUTO) 5.9 %; NEUTROPHILS # (AUTO) 6.8 10^3/uL (1.5-6.6); NEUTROPHILS % (AUTO) 72.2 %; PLT - PLATELET COUNT 177 10^3/uL (130-450); RED BLOOD COUNT 4.59 10^6/uL (4.20-5.40); RED CELL DISTRIBUTION WIDTH 13.2 % (12.0-15.0); WHITE BLOOD COUNT 9.4 x10^3/uL (4.8-10.8)
[2020-08-11 19:24] LABS: ALBUMIN 4.2 g/dL (3.2-5.5); ALBUMIN/GLOBULIN RATIO 1.2 (1.0-2.2); ALKALINE PHOSPHATASE 79 IU/L (42-121); ALT ALANINE AMINOTRANSFERASE 19 IU/L (10-60); AST ASPARTATE AMINOTRANSFERASE 21 IU/L (10-42); BILIRUBIN,TOTAL 0.6 mg/dL (0.2-1.0); BUN - BLOOD UREA NITROGEN 24 mg/dL (6-20); CALCIUM 9.5 mg/dL (8.5-10.3); CARBON DIOXIDE - CO2 25 mmol/L (21-32); CHLORIDE 104 mmol/L (101-111); CHOL/HDL RATIO 3.2 (<4.4); CHOLESTEROL 223 mg/dL; CREATININE 1.1 mg/dL (0.4-1.0); GLUCOSE 109 mg/dL (70-100); HDL CHOLESTEROL 69 mg/dL; LDL CHOLESTEROL,CALCULATED 130 mg/dL; LDL/HDL RATIO 1.9 (<4.4); TOTAL PROTEIN 7.8 g/dL (6.7-8.2); VLDL CHOLESTEROL 24 mg/dL
== END 2020-08-11 23:59 | disposition home or self-care (01) ==
LOC: LAB.WCP 08:00
PROVIDERS: ATTEND Physician Assistant Medical
DX: E78.5 Hyperlipidemia, unspecified (principal); K21.9 Gastro-esophageal reflux disease without esophagitis; N39.46 Mixed incontinence
CPT/HCPCS: 36415; 80053; 80061; 83721; 85025; 87086

== ENCOUNTER 2020-08-17 13:03 | Outpatient (CLI) | payer MEDICARE, OTHER ==
--- NOTE | 2020-08-17 14:34 | DEXA Report ---
PROCEDURE: Dexa Spine and/or Hip INDICATIONS: POSTMENOPAUSAL TECHNIQUE: Dual energy x-ray absorptiometry (DXA) was performed on a [employer] 46 System. Regions measur ed are the AP Spine, femoral neck, and if needed forearm. COMPARISON: None. FINDINGS: Lumbar Spine: Bone Mineral Density 1.044 g/cm/cm,T score -1.3, Left Hip: Bone Mineral Density 0.861 g/cm/cm,T score -1.2, Left Femoral Neck: Bone Mineral Density 0.788 g/cm/cm, T score -1.8, Impression: Osteopenia. Patients with diagnosis of osteoporosis or osteopenia should have regular bone mineral density assess ment. For those eligible for Medicare, routine testing is allowed once every 2 years. Testing frequ ency can be increased for patients who have rapidly progressing disease or for those who are receivin g medical therapy to restore bone mass. Reviewed by: Jayson Perales MD on 08/17/2020 2:32 PM PST Approved by: Jayson Perales MD on 08/17/2020 2:32 PM PST Station ID: [id number]
== END 2020-08-17 13:04 | disposition home or self-care (01) ==
LOC: DI 13:03
PROVIDERS: ATTEND Physician Assistant Medical
DX: M85.89 Other specified disorders of bone density and structure, multiple sites (principal); Z78.0 Asymptomatic menopausal state

== ENCOUNTER 2020-10-09 08:00 | Outpatient (CLI) | payer MEDICARE, OTHER ==
[2020-10-09 18:15] LABS: CALCIUM 9.7 mg/dL (8.5-10.3); POTASSIUM 4.2 mmol/L (3.5-5.0)
== END 2020-10-09 23:59 | disposition home or self-care (01) ==
LOC: LAB.WCP 08:00
PROVIDERS: ATTEND Physician Assistant Medical
DX: N18.9 Chronic kidney disease, unspecified (principal); R41.3 Other amnesia
CPT/HCPCS: 36415; 80048; 82607

== ENCOUNTER 2021-01-21 14:15 | Outpatient (CLI) | payer MEDICARE, OTHER ==
--- NOTE | 2021-01-21 16:52 | SLEEP CARE CONSULTATION ---
Information from patient questionnaire entered by Marie Collins. I have reviewed and concur with the information entered by Marie Collins. This document represents the service I personally performed and the decisions made by , Kindra Montes ARNP. History of Present Illness Service Date and Time: 01/21/2021 1415 Previous diagnosis: Mild, Obstructive Sleep Apnea-Hypopnea Syndrome AHI: 10.3 (in 2016) Reason for follow up: other (8 month, wants HST to see if she needs to use CPAP still) Equipment type: CPAP Equipment obtained from: [employer] (getting supplies as need) Mask style: Nasal Backup mask available: Yes Prior sleep studies: Yes Year and Where: [address] [facility] Type of Sleep Study: Polysomnography HPI additional information: ERIBERTO ZIMMERMAN was diagnosed to have mild, AHI 10.3, obstructive sleep apnea-hypopnea syndrome and returned today with spouse for CPAP therapy 8 month follow-up. CPAP Compliance Data - Data Reviewed with Patient Average duration of nightly device use: 5 hr 49 min Compliance rate %: 27.8 (180 days) Current pressure setting (cmH2O): 16-18 Humidity settin Heated hose settin Average residual AHI: 6.1 Average large leak: 7 min 54 sec Subjective Missed days of use due to: reports: mask issues, other (night terror) Patient concerns: reports: mask discomfort, air blowing in eyes, condensation in mask/hose, nasal congestion, dry mouth, nose, throat, other (headache, snore while using device). denies: aerophagia, epistaxis Observed to snore while using device: Yes Current pressure setting perceived as: too high On therapy, patient: denies: sleeping better, awakening more refreshed, being more awake and alert during the day, more rested overall Initial [place] Sleepiness Scale score: 10 (in 2016) Current [place] Sleepiness Scale score: 5 Allergies and Home Medications Home medication list reviewed: Yes (no new meds) Review of Systems Review of systems same as previous: Yes (no changes) Physical Exam Heart Rate: 48 O2 Saturation: 98 Height: 5 ft 0.5 in Weight: 124 lb Body Mass Index: 23.8 BMI Classification: Healthy weight Impression and Plan 1. Obstructive Sleep Apnea-Hypopnea Syndrome, mild, with poor treatment compliance and fair apnea control with minimal elevation of residual AHI. On CPAP therapy, the patient has night terrors and is unable to tolerate using the CPAP mask. She is seen a doctor of psychology that thinks it would be good to have a repeat of her sleep study. Patient and spouse would like to repeat a home study. I did order a in lab study at her last visit but she would like to do it at home since she needs a caregiver at her bedside at night. I will order home study test and follow-up with her after this is completed. I discussed with them the [employer] recall and encouraged him to go on to do would be helpful website to find the link for [employer] to register her machine. Patient has not been using her machine for the month of December and does not think she will use it before having her sleep study done. Moving forward, they are interested in possibly being evaluated for Inspire therapy but want to wait till after the sleep study before they make a decision. Patient's apnea severity and rationale for treatment to reduce apnea, improve sleep quality and reduce cardiovascular and cerebrovascular events was reviewed. I also reviewed the benefit of consistent device use of CPAP for depression/anxiety. * HST * Continue auto CPAP pressure at 16-18 cmH2O * Notify me if snoring with mask or feeling that the pressure is too much or too little * Maintain healthy weight * Call this office if any problems using CPAP * Return for follow up after HST complete, or sooner if concerns arise Counseling Topics: Spare mask, Weight control Visit Type: In Office Time Spent with Patient (minutes): 32 Provider Statement: I spent 100% of the Face to Face Visit with the patient with greater than 50% spent counseling the patient and coordination of care.
== END 2021-01-21 14:16 | disposition home or self-care (01) ==
LOC: SC 14:15
PROVIDERS: ATTEND Nurse Practitioner Family
DX: G47.33 Obstructive sleep apnea (adult) (pediatric) (principal)
CPT/HCPCS: 99213; G0463; 99212

== ENCOUNTER 2021-01-28 15:22 | Outpatient (CLI) | payer MEDICARE, OTHER | END 2021-01-28 15:23 | disposition home or self-care (01) | LOC: SC 15:22 | PROVIDERS: ATTEND Nurse Practitioner Family | DX: G47.33 Obstructive sleep apnea (adult) (pediatric) (principal); R09.02 Hypoxemia | CPT/HCPCS: G0399 ×2; 95806 ==

== ENCOUNTER 2021-02-10 14:08 | Outpatient (CLI) | payer MEDICARE, OTHER ==
--- NOTE | 2021-02-10 15:08 | SLEEP CARE CONSULTATION ---
Information from patient questionnaire entered by Marie Collins. I have reviewed and concur with the information entered by Marie Collins. This document represents the service I personally performed and the decisions made by , Kindra Montes ARNP. History of Present Illness Service Date and Time: 02/10/2021 1408 Accompanied by: Spouse Initial [place] Sleepiness Scale score: 10 (in 2016) Current [place] Sleepiness Scale score: 8 Additional HPI information: ERIBERTO ZIMMERMAN returns with spouse for follow up and results of the recently performed home sleep study. I explained the pathophysiology behind obstructive sleep apnea. We then spent quite a bit of time discussing different treatment options. For mild obstructive sleep apnea, surgery and oral appliance are alternatives to nasal CPAP therapy but in moderate or severe cases, nasal CPAP is the most effective and reliable treatment. Sleep Study - Results Type of Sleep Study: Home sleep study Prior sleep studies: Yes Year and Where: 2015(PSG) - [facility] Polysomnography/Home Sleep Study results: Physician Impression: The quality of the study is fair due to partial loss of airflow signal.. The length of the study is adequate (> 240 minutes). Please also see the tabulated and graphic data. 1. Obstructive Sleep Apnea-Hypopnea (ICD-10 G47.33), moderate, with an AHI of 24.0/hr and delilah SaO2 of 89%. During the study, the patient had 211 apneas (210 obstructive, 1 central, 0 mixed) and 5 hypopneas. The longest episode lasted 103.5 seconds. The patient only slept supine during this study (supine AHI was 24.0 and non-supine, 0.00). 2. Hypoxemia (ICD-10 R09.02), minimal, with the lowest oxygen saturation of 89 % and 0.6 minutes with SaO2 under 90%. Baseline oxygen saturation was normal (Average oxygen saturation was 93%). Allergies and Home Medications Home medication list reviewed: Yes (no changes) Review of Systems Review of systems same as previous: Yes (no changes) Physical Exam Heart Rate: 62 O2 Saturation: 93 Height: 5 ft 0.5 in Weight: 123 lb Body Mass Index: 23.6 BMI Classification: Healthy weight Impression and Plan 1. Obstructive Sleep Apnea-Hypopnea Syndrome, moderate, with lowest oxygen saturation of 89%. This study verifies patient still needs therapy to reduce her sleep apnea. Positive pressure therapy could benefit depression/anxiety. Patient has been having her CPAP machine. She stopped using it in November because she could not tolerate it. She has been sleeping on a wedge but she states helps her to feel better in the morning. I reviewed with her that her home study did verify that she has moderate obstructive sleep apnea which she could treated with the CPAP or she could try for evaluation for inspire implant. I also discussed oral appliances and positional therapy. She did not appear to sleep on her side but she states she sleeps mostly on her side due to the wedge she is using to sleep with and is feeling better. Patient would like to discontinue the CPAP at this time. She will see how she does over the next month or so and call back if she decides to seek further evaluation or restart CPAP machine. I discussed inspire implant therapy in detail with patient and her do not want to have to travel to get the testing done. I also discussed with her quality of life issues that by continuing CPAP she is disrupting her quality of life where she feels using a form of positional therapy is helping her feel better physically and is also giving her a better quality of life. We will discontinue the CPAP at this time and she will continue with her positional therapy. Follow up as needed. * Discontinue CPAP. * Positional therapy * Avoid supine sleep. * Return as needed or if decides to restart therapy. Counseling Topics: Weight control Visit Type: In Office Time Spent with Patient (minutes): 29 Provider Statement: I spent 100% of the Face to Face Visit with the patient with greater than 50% spent counseling the patient and coordination of care.
== END 2021-02-10 14:09 | disposition home or self-care (01) ==
LOC: SC 14:08
PROVIDERS: ATTEND Nurse Practitioner Family
DX: G47.33 Obstructive sleep apnea (adult) (pediatric) (principal)
CPT/HCPCS: 99213; G0463; 99212

== ENCOUNTER 2021-05-19 16:12 | Outpatient (CLI) | payer MEDICARE, OTHER ==
[2021-05-19 17:31] VITALS: BP 122/68
--- NOTE | 2021-05-19 17:31 | SLEEP CARE CONSULTATION ---
Information from patient questionnaire entered by Tavo Vargas. I have reviewed and concur with the information entered by Tavo Vargas. This document represents the service I personally performed and the decisions made by me, Kindra Montes ARNP. History of Present Illness Service Date and Time: 05/19/2021 1612 Previous diagnosis: Mild, Moderate, Obstructive Sleep Apnea-Hypopnea Syndrome AHI: 24.0 (in 2016) Reason for follow up: three month (followup - CPAP issues) Equipment type: CPAP Equipment obtained from: [employer] (getting supplies as need) Mask style: Nasal [facility] Type of Sleep Study: Home sleep study HPI additional information: ERIBERTO ZIMMERMAN was diagnosed to have moderate, AHI 24.0, obstructive sleep apnea- hypopnea syndrome and returned today with spouse for CPAP therapy three month with CPAP issues follow-up. Subjective Missed days of use due to: reports: family emergency, mask issues, other (Loss of sleep, communication) Patient concerns: reports: mask discomfort, air blowing in eyes, mask leak noise, condensation in mask/hose, nasal congestion, dry mouth, nose, throat, other (Snore while using device) Initial [place] Sleepiness Scale score: 10 (in 2016) Current [place] Sleepiness Scale score: 15 Allergies and Home Medications Home medication list reviewed: Yes (no changes) Review of Systems Review of systems same as previous: No (neurological and speech issues) Physical Exam Blood Pressure: 122/68 (left) Cuff size: wrist Heart Rate: 66 O2 Saturation: 96 Height: 5 ft 0.5 in Weight: 121 lb 1.6 oz Body Mass Index: 23.2 BMI Classification: Healthy weight Impression and Plan 1. Obstructive Sleep Apnea-Hypopnea Syndrome, moderate. Patient is using positional therapy since our last visit. Patient is accompanied by her because she is having many neurological issues, according to the . She is not talking very much in the office today. Her states she was doing well with the positional therapy but recently is having more problems. She is waking up about 1:00 AM and then wandering around doing things without much idea of what she is doing. He is just concerned about his and her PCP would like her to possibly restart the CPAP.Her does not feel she will tolerate that. Patient's also stating they have a lot of issues with communicating with doctors and other people. He would like to have his son come to the appointment to try and make sense of what they need to do. I feel this is a good idea so that we might pull our resources and try to find a good solution. Patient's will call to make a follow-up appointment once he can coordinate this with his son. * Continue positional therapy * Maintain a healthy weight * Call this office if any problems * Return for follow up as soon as can coordinate meeting with son Counseling Topics: Weight control Visit Type: In Office Other Participants: Spouse/Significant Other Time Spent with Patient (minutes): 29 Provider Statement: I spent 100% of the Face to Face Visit with the patient with greater than 50% spent counseling the patient and coordination of care.
== END 2021-05-19 16:13 | disposition home or self-care (01) ==
LOC: SC 16:12
PROVIDERS: ATTEND Nurse Practitioner Family
DX: G47.33 Obstructive sleep apnea (adult) (pediatric) (principal)
CPT/HCPCS: 99213; G0463; 99212

== ENCOUNTER 2021-06-09 16:46 | Outpatient (CLI) | payer MEDICARE, OTHER ==
--- NOTE | 2021-06-10 16:37 | XRAY Report ---
PROCEDURE: Lumbar Spine 2 View INDICATIONS: LOW BACK PX TECHNIQUE: 3 views of the lumbar spine were acquired. COMPARISON: X-ray lumbar spine 09/12/2019 FINDINGS: Bones: 5 [id number] vertebrae are present. There is normal bony alignment. No vertebral body compression fractures. No suspicious bony lesions. There is moderate to severe disc and foraminal n arrowing noted L5-S1. Multilevel degenerative disc space narrowing is present throughout the remainde r of the lumbar spine. Foraminal narrowing is also present with moderate degree at L1-2 and L2-3. Soft tissues: Overlying bowel gas pattern is normal. No suspicious soft tissue calcifications. IMPRESSION: Degenerative changes as above. Reviewed by: Harper Zapata MD on 06/10/2021 4:36 PM PST Approved by: Harper Zapata MD on 06/10/2021 4:36 PM PST Station ID: [id number]
== END 2021-06-09 16:47 | disposition home or self-care (01) ==
LOC: DI.N 16:46
PROVIDERS: ATTEND Physician Assistant Medical
DX: M47.816 Spondylosis without myelopathy or radiculopathy, lumbar region (principal); M47.817 Spondylosis without myelopathy or radiculopathy, lumbosacral region

== ENCOUNTER 2021-08-24 16:13 | Outpatient (CLI) | payer MEDICARE, OTHER ==
[2021-08-24 18:25] LABS: BASOPHILS # (AUTO) 0.1 10^3/uL (0.0-0.1); EOSINOPHILS # (AUTO) 0.1 10^3/uL (0.0-0.7); EOSINOPHILS % (AUTO) 1.1 %; HCT - HEMATOCRIT 42.9 % (37.0-47.0); LYMPHOCYTES # (AUTO) 2.5 10^3/uL (1.5-3.5); LYMPHOCYTES % (AUTO) 26.9 %; MEAN CORPUSCULAR HEMOGLOBIN 30.6 pg (27.0-31.0); MEAN CORPUSCULAR HGB CONC 32.6 g/dL (32.0-36.0); MEAN CORPUSCULAR VOLUME 93.9 fL (81.0-99.0); MEAN PLATELET VOLUME 11.5 fL (7.9-10.8); MONOCYTES # (AUTO) 0.6 10^3/uL (0.0-1.0); MONOCYTES % (AUTO) 6.6 %; NEUTROPHILS # (AUTO) 6.1 10^3/uL (1.5-6.6); NEUTROPHILS % (AUTO) 64.1 %; PLT - PLATELET COUNT 199 10^3/uL (130-450); RED BLOOD COUNT 4.57 10^6/uL (4.20-5.40); WHITE BLOOD COUNT 9.5 x10^3/uL (4.8-10.8)
[2021-08-24 18:55] LABS: ALBUMIN/GLOBULIN RATIO 1.1 (1.0-2.2); ALKALINE PHOSPHATASE 73 IU/L (42-121); ALT ALANINE AMINOTRANSFERASE 15 IU/L (10-60); AST ASPARTATE AMINOTRANSFERASE 21 IU/L (10-42); BILIRUBIN,TOTAL 0.5 mg/dL (0.2-1.0); BUN - BLOOD UREA NITROGEN 21 mg/dL (6-20); CALCIUM 9.3 mg/dL (8.5-10.3); CARBON DIOXIDE - CO2 25 mmol/L (21-32); CHLORIDE 104 mmol/L (101-111); CHOL/HDL RATIO 2.9 (<4.4); CHOLESTEROL 224 mg/dL; GFR - MDRD 54 (>89); GLUCOSE 94 mg/dL (70-100); HDL CHOLESTEROL 76 mg/dL; LDL CHOLESTEROL,CALCULATED 130 mg/dL; LDL/HDL RATIO 1.7 (<4.4); POTASSIUM 4.5 mmol/L (3.5-5.0); SODIUM 139 mmol/L (135-145); TOTAL PROTEIN 7.5 g/dL (6.7-8.2); TRIGLYCERIDES 89 mg/dL; VLDL CHOLESTEROL 18 mg/dL
== END 2021-08-24 16:14 | disposition home or self-care (01) ==
LOC: LAB.N 16:13
PROVIDERS: ATTEND Physician Assistant Medical
DX: E78.5 Hyperlipidemia, unspecified (principal); K21.9 Gastro-esophageal reflux disease without esophagitis
CPT/HCPCS: 36415; 80053; 80061; 83721; 85025

== ENCOUNTER 2021-11-24 14:32 | Outpatient (CLI) | payer MEDICARE, OTHER ==
--- NOTE | 2021-11-24 17:43 | MRI Report ---
PROCEDURE: Lumbar Spine W/O INDICATIONS: LUMBAR BACK PAIN TECHNIQUE: Noncontrast sagittal T1 spin echo and T2 fast echo, sagittal STIR, axial T1 and T2 fast spin echo thr ough the lumbar spine. In cases with scoliosis, additional coronal T2 fast spin echo may be performe d. COMPARISON: Correlation is made with prior lumbar radiographs, 06/10/2021. FINDINGS: Image quality: Motion artifact is noted. Alignment and Curvature: There is normal bony alignment. Bone Marrow: Marrow is of normal overall signal. No acute vertebral body compression fractures. Spinal Cord: Conus medullaris terminates at the L1 level. Visualized cord demonstrates normal signa l and size. Paraspinous Soft Tissues: No paravertebral masses. T12-L1: The disc height is well-preserved. There is loss of disc signal seen. No significant neur al foraminal or central canal narrowing can be seen. L1-L2: Moderate loss of disc height and signal are seen. Mildly moderate disc bulge is seen, wit h a mild central disc protrusion. Mild facet hypertrophy is seen. Moderate bilateral neural forami nal narrowing is seen. Mild central canal narrowing is seen. L2-L3: The disc height is well-preserved. There is loss of disc signal seen. Moderate disc bulge is seen at this level. Moderate facet hypertrophy is seen. Moderate bilateral neural foraminal na rrowing is seen, left worse than right. Moderate central canal narrowing is seen. L3-L4: The disc height is well-preserved. There is loss of disc signal seen. Moderate disc bulge i s seen at this level. Moderate to prominent facet hypertrophy is seen. Associated hypertrophy of the ligamentum flavum can be seen. There is at least moderate right-sided and moderate to severe left-s ided neuroforaminal narrowing. There is a mild degree of compression seen upon the exiting left L3 ne rve root. Moderate central canal narrowing is seen. L4-L5: The disc height is well-preserved. There is loss of disc signal seen. Moderate disc bulge i s seen at this level. Moderate to prominent facet hypertrophy is seen. Associated hypertrophy of th e ligamentum flavum can be seen. There is at least moderate bilateral neuroforaminal narrowing. Mini mal degree of compression can be seen upon the exiting nerve roots. Moderate to severe central canal narrowing is seen, as on series 701 image 12. L5-S1: Moderate to severe loss of disc height and disc signal can be seen. Reactive marrow endplat e changes are seen anteriorly, which are hyperintense on T1-weighted and T2-weighted imaging, without significant increased STIR signal. 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 At least moderate disc bulge is seen. Moderate facet hypertrophy is seen. There is moderate left-sided and moderate to severe right-sided neuroforaminal narrowing. There is a degree of compression seen upon the exiting right L5 nerve root. Moderate central canal narrowing is seen. IMPRESSION: Multiple levels of lumbar spine degenerative change are seen, which are worst inferiorly . Moderate to severe central canal narrowing is seen at the L4-L5 level. Several sites of significant neuroforaminal narrowing can be seen, with associated exiting nerve root compression. Reviewed by: Nate Marie MD on 11/24/2021 4:42 PM HARESH Approved by: Nate Marie MD on 11/24/2021 4:42 PM HARESH Station ID: [id number]
== END 2021-11-24 14:33 | disposition home or self-care (01) ==
LOC: DI 14:32
PROVIDERS: ATTEND Family Medicine
DX: M47.26 Other spondylosis with radiculopathy, lumbar region (principal); M47.27 Other spondylosis with radiculopathy, lumbosacral region; M51.16 Intervertebral disc disorders with radiculopathy, lumbar region; M48.061 Spinal stenosis, lumbar region without neurogenic claudication; M51.37 Other intervertebral disc degeneration, lumbosacral region; M48.07 Spinal stenosis, lumbosacral region

== ENCOUNTER 2022-02-15 17:18 | Outpatient (CLI) | payer MEDICARE, OTHER ==
[2022-02-15 20:43] LABS: BASOPHILS # (AUTO) 0.1 10^3/uL (0.0-0.1); BASOPHILS % (AUTO) 0.6 %; EOSINOPHILS # (AUTO) 0.1 10^3/uL (0.0-0.7); HCT - HEMATOCRIT 40.1 % (37.0-47.0); HGB - HEMOGLOBIN 13.1 g/dL (12.0-16.0); LYMPHOCYTES # (AUTO) 1.9 10^3/uL (1.5-3.5); LYMPHOCYTES % (AUTO) 23.3 %; MEAN CORPUSCULAR HEMOGLOBIN 30.7 pg (27.0-31.0); MEAN CORPUSCULAR HGB CONC 32.7 g/dL (32.0-36.0); MEAN CORPUSCULAR VOLUME 93.9 fL (81.0-99.0); MEAN PLATELET VOLUME 11.2 fL (7.9-10.8); MONOCYTES # (AUTO) 0.6 10^3/uL (0.0-1.0); MONOCYTES % (AUTO) 7.2 %; NEUTROPHILS # (AUTO) 5.6 10^3/uL (1.5-6.6); NEUTROPHILS % (AUTO) 67.7 %; PLT - PLATELET COUNT 198 10^3/uL (130-450); RED BLOOD COUNT 4.27 10^6/uL (4.20-5.40); RED CELL DISTRIBUTION WIDTH 13.6 % (12.0-15.0); WHITE BLOOD COUNT 8.2 x10^3/uL (4.8-10.8)
[2022-02-15 20:57] LABS: ALBUMIN/GLOBULIN RATIO 1.3 (1.0-2.2); BILIRUBIN,TOTAL 0.6 mg/dL (0.2-1.0); CALCIUM 9.6 mg/dL (8.5-10.3); CREATININE 1.2 mg/dL (0.4-1.0); POTASSIUM 4.4 mmol/L (3.5-5.0); TOTAL PROTEIN 7.1 g/dL (6.7-8.2)
== END 2022-02-15 17:19 | disposition home or self-care (01) ==
LOC: LAB.N 17:18
PROVIDERS: ATTEND Physician Assistant Medical
DX: N18.9 Chronic kidney disease, unspecified (principal); K21.9 Gastro-esophageal reflux disease without esophagitis; F03.90 Unspecified dementia, unspecified severity, without behavioral disturbance, psychotic disturbance, mood disturbance, and anxiety
CPT/HCPCS: 36415; 80053; 82607; 85025

== ENCOUNTER 2022-05-19 18:31 | Outpatient (CLI) | payer MEDICARE, OTHER | END 2022-05-19 18:32 | disposition critical access hospital (66) | LOC: EMS 18:31 | DX: R55 Syncope and collapse (principal); I95.9 Hypotension, unspecified; R53.1 Weakness | CPT/HCPCS: A0425; A0429 ==

== ENCOUNTER 2022-05-19 18:48 | Emergency (ER) | payer MEDICARE, OTHER ==
--- OUTSIDE RECORDS SUMMARY | 2022-05-19 18:55 | EXTERNAL MEDICAL SUMMARY RPT | Continuity of Care Document ---
:1945 Author Organization [facility] Address [address] [place] [address] Phone Allergies No information. Encounters No information. Functional Status No information. Immunizations No information. Medications No information. Problems No information. Procedures No information. Results/Labs test date author facility value unit interpret ation Result panel 1 (unknown) (no (unknown) (unknown) (no value) (units (unk nown) date) unknown) (unknown) (no (unknown) (unknown) [id number] (units (unkn own) date) unknown) (unknown) (no (unknown) (unknown) 05/11/22 (units (unkno wn) date) [History unknown) Confirmed 05/11/22] (unknown) (no (unknown) (unknown) 05/11/22 (units (unkno wn) date) unknown) (unknown) (no (unknown) (unknown) 05/11/22] (units (unkn own) date) unknown) (unknown) (no (unknown) (unknown) Accompanied by: (units (unknown) date) Family/Other unknown) (unknown) (no (unknown) (unknown) Age/Sex: 76 / F (units (unknown) date) Date of Service: unknown) (unknown) (no (unknown) (unknown) Allergies (units (unkn own) date) unknown) (unknown) (no (unknown) (unknown) [place] (units ( unknown) date) [id number] unknown) (unknown) (no (unknown) (unknown) Assessment + (units (u nknown) date) Plan unknown) (unknown) (no (unknown) (unknown) Attending Dr: (units ( unknown) date) Jas Campo unknown) D.O. (unknown) (no (unknown) (unknown) Confirmed (units (unkn own) date) 05/11/22] unknown) (unknown) (no (unknown) (unknown) : 1945 (units (unknown) date) Acct:[id number] unknown) (unknown) (no (unknown) (unknown) Dept at (units (unkno wn) date) . unknown) (unknown) (no (unknown) (unknown) Documented By: (units (unknown) date) Jas Campo unknown) D.O. 05/11/22 1204 (unknown) (no (unknown) (unknown) Draft (units (unkno wn) date) unknown) (unknown) (no (unknown) (unknown) Intake Clinical (units (unknown) date) Staff unknown) (unknown) (no (unknown) (unknown) Intake performed (units (unknown) date) by: Dipti Jurado unknown) (unknown) (no (unknown) (unknown) Intake (units (unkno wn) date) unknown) (unknown) (no (unknown) (unknown) Loc: PAIN (units (unkn own) date) unknown) (unknown) (no (unknown) (unknown) Medications (units (un known) date) unknown) (unknown) (no (unknown) (unknown) No Known Drug (units ( unknown) date) Allergies Allergy unknown) (Unverified 05/11/22 12:05) (unknown) (no (unknown) (unknown) Orders (units (unkno wn) date) unknown) (unknown) (no (unknown) (unknown) Orders: (units (unkno wn) date) unknown) (unknown) (no (unknown) (unknown) Pain Visit (units (unk nown) date) unknown) (unknown) (no (unknown) (unknown) Patient: (units (unkno wn) date) Roula Brewer Patricia unknown) MR#: M (unknown) (no (unknown) (unknown) Reason For Visit (units (unknown) date) unknown) (unknown) (no (unknown) (unknown) Signed By: (units (unk nown) date) unknown) (unknown) (no (unknown) (unknown) [facility] ([facility] unknown) (unknown) (no (unknown) (unknown) This note may (units ( unknown) date) have been all or unknown) partially generated using voice recognition (unknown) (no (unknown) (unknown) Visit 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 (units (unknown) date) If there are any unknown) questions, please contact the Medical Records (unknown) (no (unknown) (unknown) ketoconazole 2 % (units (unknown) date) shampoo 1 applic unknown) topical Q2W 05/11/22 [History Confirmed (unknown) (no (unknown) (unknown) ketoconazole 2 % (units (unknown) date) topical cream 1 unknown) applic topical DAILY 05/11/22 [History (unknown) (no (unknown) (unknown) may occur. (units (unk nown) date) Occasional unknown) wrong-word or 'sound-alike' substitutions may have (unknown) (no (unknown) (unknown) occurred due to (units (unknown) date) the inherent unknown) limitations of voice recognition software. Please (unknown) (no (unknown) (unknown) omeprazole 20 mg (units (unknown) date) capsule,delayed unknown) release 20 mg PO DAILY 05/11/22 [History (unknown) (no (unknown) (unknown) oxybutynin (units (unk nown) date) chloride 10 mg unknown) tablet,extended release 24 hr 10 mg PO BEDTIME (unknown) (no (unknown) (unknown) read the note (units ( unknown) date) carefully and unknown) recognize, using context, where these substitutions (unknown) (no (unknown) (unknown) software. (units (unkn own) date) Although every unknown) effort is made to edit content, stagecraft professor errors Result panel 2 (unknown) (no (unknown) (unknown) (no value) (units (unk nown) date) unknown) (unknown) (no (unknown) (unknown) [id number] (units (unkn own) date) unknown) (unknown) (no (unknown) (unknown) 05/11/22 (units (unkno wn) date) [History unknown) Confirmed 05/11/22] (unknown) (no (unknown) (unknown) 05/11/22 (units (unkno wn) date) unknown) (unknown) (no (unknown) (unknown) 05/11/22] (units (unkn own) date) unknown) (unknown) (no (unknown) (unknown) Accompanied by: (units (unknown) date) Spouse unknown) (unknown) (no (unknown) (unknown) Age/Sex: 76 / F (units (unknown) date) Date of Service: unknown) (unknown) (no (unknown) (unknown) Allergies (units (unkn own) date) unknown) (unknown) (no (unknown) (unknown) [place] (units ( unknown) date) [id number] unknown) (unknown) (no (unknown) (unknown) Assessment + (units (u nknown) date) Plan unknown) (unknown) (no (unknown) (unknown) Attending Dr: (units ( unknown) date) Jas Campo unknown) D.O. (unknown) (no (unknown) (unknown) Confirmed (units (unkn own) date) 05/11/22] unknown) (unknown) (no (unknown) (unknown) : 1945 (units (unknown) date) Acct:[id number] unknown) (unknown) (no (unknown) (unknown) Dept at (units (unkno wn) date) . unknown) (unknown) (no (unknown) (unknown) Documented By: (units (unknown) date) Jas Campo unknown) D.O. 05/11/22 1204 (unknown) (no (unknown) (unknown) Draft (units (unkno wn) date) unknown) (unknown) (no (unknown) (unknown) HERE FOR LUMBAR (units (unknown) date) SPINE unknown) (unknown) (no (unknown) (unknown) Intake Clinical (units (unknown) date) Staff unknown) (unknown) (no (unknown) (unknown) Intake Note: (units (u nknown) date) unknown) (unknown) (no (unknown) (unknown) Intake performed (units (unknown) date) by: Dipti Jurado unknown) (unknown) (no (unknown) (unknown) Intake (units (unkno wn) date) unknown) (unknown) (no (unknown) (unknown) Is patient in (units ( unknown) date) pain?: Yes (HERE unknown) FOR 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) Pain scale (1-10): 5 (unknown) (no (unknown) (unknown) Loc: PAIN (units (unkn own) date) unknown) (unknown) (no (unknown) (unknown) Medications (units (un known) date) unknown) (unknown) (no (unknown) (unknown) No Known Drug (units ( unknown) date) Allergies Allergy unknown) (Unverified 05/11/22 12:05) (unknown) (no (unknown) (unknown) Orders (units (unkno wn) date) unknown) (unknown) (no (unknown) (unknown) Orders: (units (unkno wn) date) unknown) (unknown) (no (unknown) (unknown) PFSH (units (unkno wn) date) unknown) (unknown) (no (unknown) (unknown) Pain Scale (units (unk nown) date) unknown) (unknown) (no (unknown) (unknown) Pain Visit (units (unk nown) date) unknown) (unknown) (no (unknown) (unknown) Patient: (units (unkno wn) date) Roula Brewer unknown) MR#: M (unknown) (no (unknown) (unknown) Reason For Visit (units (unknown) date) unknown) (unknown) (no (unknown) (unknown) Signed By: (units (unk nown) date) unknown) (unknown) (no (unknown) (unknown) Smoking Status: (units (unknown) date) Never smoker unknown) (unknown) (no (unknown) (unknown) [facility] ([facility] ([facility]) date) [facility] Management unknown) (unknown) (no (unknown) (unknown) This note may (units ( unknown) date) have been all or unknown) partially generated using voice recognition (unknown) (no (unknown) (unknown) Tobacco + (units (unkn own) date) Substance Use unknown) (unknown) (no (unknown) (unknown) Tobacco Status (units (unknown) date) unknown) (unknown) (no (unknown) (unknown) Visit 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 (units (unknown) date) If there are any unknown) questions, please contact the Medical Records (unknown) (no (unknown) (unknown) ibuprofen 200 mg (units (unknown) date) capsule 200 mg PO unknown) Q6H PRN 05/11/22 [History Confirmed 05/11/22] (unknown) (no (unknown) (unknown) ketoconazole 2 % (units (unknown) date) shampoo 1 applic unknown) topical Q2W 05/11/22 [History Confirmed (unknown) (no (unknown) (unknown) ketoconazole 2 % (units (unknown) date) topical cream 1 unknown) applic topical DAILY 05/11/22 [History (unknown) (no (unknown) (unknown) may occur. (units (unk nown) date) Occasional unknown) wrong-word or 'sound-alike' substitutions may have (unknown) (no (unknown) (unknown) occurred due to (units (unknown) date) the inherent unknown) limitations of voice recognition software. Please (unknown) (no (unknown) (unknown) omeprazole 20 mg (units (unknown) date) capsule,delayed unknown) release 20 mg PO DAILY 05/11/22 [History (unknown) (no (unknown) (unknown) oxybutynin (units (unk nown) date) chloride 10 mg unknown) tablet,extended release 24 hr 10 mg PO BEDTIME (unknown) (no (unknown) (unknown) read the note (units ( unknown) date) carefully and unknown) recognize, using context, where these substitutions (unknown) (no (unknown) (unknown) software. (units (unkn own) date) Although every unknown) effort is made to edit content, stagecraft professor errors Result panel 3 (unknown) (no (unknown) (unknown) (no value) (units (unk nown) date) unknown) (unknown) (no (unknown) (unknown) [id number] (units (unkn own) date) unknown) (unknown) (no (unknown) (unknown) 05/11/22 (units (unkno wn) date) [History unknown) Confirmed 05/11/22] (unknown) (no (unknown) (unknown) 05/11/22 (units (unkno wn) date) unknown) (unknown) (no (unknown) (unknown) 05/11/22] (units (unkn own) date) unknown) (unknown) (no (unknown) (unknown) 12:20 (units (unkno wn) date) unknown) (unknown) (no (unknown) (unknown) Accompanied by: (units (unknown) date) Spouse unknown) (unknown) (no (unknown) (unknown) Age/Sex: 76 / F (units (unknown) date) Date of Service: unknown) (unknown) (no (unknown) (unknown) Allergies (units (unkn own) date) unknown) (unknown) (no (unknown) (unknown) [place], [place] (units ( unknown) date) [id number] unknown) (unknown) (no (unknown) (unknown) Assessment + (units (u nknown) date) Plan unknown) (unknown) (no (unknown) (unknown) Attending Dr: (units ( unknown) date) Jas Campo unknown) D.O. (unknown) (no (unknown) (unknown) BMI 19.7 (units (unkno wn) date) unknown) (unknown) (no (unknown) (unknown) BP 100/62 (units (unkn own) date) unknown) (unknown) (no (unknown) (unknown) Blood Pressure (units (unknown) date) Location Lt unknown) brachial (unknown) (no (unknown) (unknown) Confirmed (units (unkn own) date) 05/11/22] unknown) (unknown) (no (unknown) (unknown) : 1945 (units (unknown) date) Acct:[id number] unknown) (unknown) (no (unknown) (unknown) Dept at (units (unkno wn) date) . unknown) (unknown) (no (unknown) (unknown) Documented By: (units (unknown) date) Jas Campo unknown) D.O. 05/11/22 1204 (unknown) (no (unknown) (unknown) Draft (units (unkno wn) date) unknown) (unknown) (no (unknown) (unknown) H/O: (units (unkno wn) date) hysterectomy unknown) (unknown) (no (unknown) (unknown) HERE FOR LUMBAR (units (unknown) date) SPINE unknown) (unknown) (no (unknown) (unknown) Height 5 ft 4 in (units (unknown) date) unknown) (unknown) (no (unknown) (unknown) Hx of (units (unkno wn) date) appendectomy unknown) (unknown) (no (unknown) (unknown) Intake Clinical (units (unknown) date) Staff unknown) (unknown) (no (unknown) (unknown) Intake Note: (units (u nknown) date) unknown) (unknown) (no (unknown) (unknown) Intake performed (units (unknown) date) by: Dipti Jurado unknown) (unknown) (no (unknown) (unknown) Intake (units (unkno wn) date) unknown) (unknown) (no (unknown) (unknown) Is patient in (units ( unknown) date) pain?: Yes (HERE unknown) FOR 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) Pain scale (1-10): 5 (unknown) (no (unknown) (unknown) Loc: PAIN (units (unkn own) date) unknown) (unknown) (no (unknown) (unknown) Medications (units (un known) date) unknown) (unknown) (no (unknown) (unknown) No Known Drug (units ( unknown) date) Allergies Allergy unknown) (Unverified 05/11/22 12:05) (unknown) (no (unknown) (unknown) Orders (units (unkno wn) date) unknown) (unknown) (no (unknown) (unknown) Orders: (units (unkno wn) date) unknown) (unknown) (no (unknown) (unknown) Oxygen Delivery (units (unknown) date) Method room air unknown) (unknown) (no (unknown) (unknown) PFSH (units (unkno wn) date) unknown) (unknown) (no (unknown) (unknown) Pain Scale (units (unk nown) date) unknown) (unknown) (no (unknown) (unknown) Pain Visit (units (unk nown) date) unknown) (unknown) (no (unknown) (unknown) Patient: (units (unkno wn) date) Roula Brewer unknown) MR#: M (unknown) (no (unknown) (unknown) Position Sitting (units (unknown) date) unknown) (unknown) (no (unknown) (unknown) Pulse 74 (units (unkno wn) date) unknown) (unknown) (no (unknown) (unknown) Pulse Oximetry (units (unknown) date) (%) 98 unknown) (unknown) (no (unknown) (unknown) Pulse Source (units (u nknown) date) Monitor unknown) (unknown) (no (unknown) (unknown) Reason For Visit (units (unknown) date) unknown) (unknown) (no (unknown) (unknown) Signed By: (units (unk nown) date) unknown) (unknown) (no (unknown) (unknown) Smoking Status: (units (unknown) date) Never smoker unknown) (unknown) (no (unknown) (unknown) Surgical History (units (unknown) date) (Updated 05/11/22 unknown) @ 12:19 by Dipti Jurado LPN) (unknown) (no (unknown) (unknown) Temp 97.8 F (units (un known) date) unknown) (unknown) (no (unknown) (unknown) Temp Source (units (un known) date) Temporal Artery unknown) Scan (unknown) (no (unknown) (unknown) [facility] (units (unknown) date) [facility] Management unknown) (unknown) (no (unknown) (unknown) This note may (units ( unknown) date) have been all or unknown) partially generated using voice recognition (unknown) (no (unknown) (unknown) Tobacco + (units (unkn own) date) Substance Use unknown) (unknown) (no (unknown) (unknown) Tobacco Status (units (unknown) date) unknown) (unknown) (no (unknown) (unknown) 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 (units (unknown) date) If there are any unknown) questions, please contact the Medical Records (unknown) (no (unknown) (unknown) ibuprofen 200 mg (units (unknown) date) capsule 200 mg PO unknown) Q6H PRN 05/11/22 [History Confirmed 05/11/22] (unknown) (no (unknown) (unknown) ketoconazole 2 % (units (unknown) date) shampoo 1 applic unknown) topical Q2W 05/11/22 [History Confirmed (unknown) (no (unknown) (unknown) ketoconazole 2 % (units (unknown) date) topical cream 1 unknown) applic topical DAILY 05/11/22 [History (unknown) (no (unknown) (unknown) may occur. (units (unk nown) date) Occasional unknown) wrong-word or 'sound-alike' substitutions may have (unknown) (no (unknown) (unknown) occurred due to (units (unknown) date) the inherent unknown) limitations of voice recognition software. Please (unknown) (no (unknown) (unknown) omeprazole 20 mg (units (unknown) date) capsule,delayed unknown) release 20 mg PO DAILY 05/11/22 [History (unknown) (no (unknown) (unknown) oxybutynin (units (unk nown) date) chloride 10 mg unknown) tablet,extended release 24 hr 10 mg PO BEDTIME (unknown) (no (unknown) (unknown) read the note (units ( unknown) date) carefully and unknown) recognize, using context, where these substitutions (unknown) (no (unknown) (unknown) software. (units (unkn own) date) Although every unknown) effort is made to edit content, stagecraft professor errors Result panel 4 (unknown) (no (unknown) (unknown) (no value) (units (unk nown) date) unknown) (unknown) (no (unknown) (unknown) [id number] (units (unkn own) date) unknown) (unknown) (no (unknown) (unknown) 05/11/22 [History (units (unknown) date) Confirmed 05/11/22] unknown) (unknown) (no (unknown) (unknown) 05/11/22 (units (unkno wn) date) unknown) (unknown) (no (unknown) (unknown) 05/11/22] (units (unkn own) date) unknown) (unknown) (no (unknown) (unknown) 12:20 (units (unkno wn) date) unknown) (unknown) (no (unknown) (unknown) Accompanied by: (units (unknown) date) Spouse unknown) (unknown) (no (unknown) (unknown) Age/Sex: 76 / F (units (unknown) date) Date of Service: unknown) (unknown) (no (unknown) (unknown) All other systems (units (unknown) date) reviewed and are unknown) negative except as noted in HPI. (unknown) (no (unknown) (unknown) Allergies (units (unkn own) date) unknown) (unknown) (no (unknown) (unknown) [place] [address] (unit s (unknown) date) unknown) (unknown) (no (unknown) (unknown) Assessment + Plan (units (unknown) date) unknown) (unknown) (no (unknown) (unknown) Attending Dr: (units ( unknown) date) Jas Campo D.O. unknown) (unknown) (no (unknown) (unknown) BMI 19.7 (units (unkno wn) date) unknown) (unknown) (no (unknown) (unknown) BP 100/62 (units (unkn own) date) unknown) (unknown) (no (unknown) (unknown) Blood Pressure (units (unknown) date) Location Lt brachial unknown) (unknown) (no (unknown) (unknown) Confirmed 05/11/22] (unit s (unknown) date) unknown) (unknown) (no (unknown) (unknown) : 1945 (units (unknown) date) Acct:[id number] unknown) (unknown) (no (unknown) (unknown) Denies recent (units ( unknown) date) trauma, fever or unknown) weight loss of unknown origin, immunocompromise (unknown) (no (unknown) (unknown) Dept at (units (unkno wn) date) . unknown) (unknown) (no (unknown) (unknown) Documented By: (units (unknown) date) Jas Campo D.O. unknown) 05/11/22 1204 (unknown) (no (unknown) (unknown) Draft (units (unkno wn) date) unknown) (unknown) (no (unknown) (unknown) Endorses memory (units (unknown) date) issues, chronic unknown) progressive LBP (unknown) (no (unknown) (unknown) H/O: hysterectomy (units (unknown) date) unknown) (unknown) (no (unknown) (unknown) HERE FOR LUMBAR (units (unknown) date) SPINE unknown) (unknown) (no (unknown) (unknown) Height 5 ft 4 in (units (unknown) date) unknown) (unknown) (no (unknown) (unknown) Hold Comment: None (units (unknown) date) 200 mg PO Q6H PRN unknown) (unknown) (no (unknown) (unknown) Hx of appendectomy (units (unknown) date) unknown) (unknown) (no (unknown) (unknown) Intake Clinical (units (unknown) date) Staff unknown) (unknown) (no (unknown) (unknown) Intake Note: (units (u nknown) date) unknown) (unknown) (no (unknown) (unknown) Intake performed (units (unknown) date) by: Dipti Jurado unknown) (unknown) (no (unknown) (unknown) Intake (units (unkno wn) date) unknown) (unknown) (no (unknown) (unknown) Is patient in (units ( unknown) date) pain?: Yes (HERE FOR unknown) 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) Pain scale (1-10): 5 (unknown) (no (unknown) (unknown) Loc: PAIN (units (unkn own) date) unknown) (unknown) (no (unknown) (unknown) MSK: System (units (un known) date) reviewed and no unknown) additional complaints, except as documented. (unknown) (no (unknown) (unknown) Medications (units (un known) date) unknown) (unknown) (no (unknown) (unknown) Medications: (units (u nknown) date) unknown) (unknown) (no (unknown) (unknown) Neuro: System (units ( unknown) date) reviewed and no unknown) additional complaints, except as documented. (unknown) (no (unknown) (unknown) New (units (unkno wn) date) unknown) (unknown) (no (unknown) (unknown) No Known Drug (units ( unknown) date) Allergies Allergy unknown) (Unverified 05/11/22 12:05) (unknown) (no (unknown) (unknown) On Hold (units (unkno wn) date) unknown) (unknown) (no (unknown) (unknown) Orders (units (unkno wn) date) unknown) (unknown) (no (unknown) (unknown) Orders: (units (unkno wn) date) unknown) (unknown) (no (unknown) (unknown) Oxygen Delivery (units (unknown) date) Method room air unknown) (unknown) (no (unknown) (unknown) PFSH (units (unkno wn) date) unknown) (unknown) (no (unknown) (unknown) Pain Scale (units (unk nown) date) unknown) (unknown) (no (unknown) (unknown) Pain Visit (units (unk nown) date) unknown) (unknown) (no (unknown) (unknown) Patient: (units (unkno wn) date) Roula Brewer unknown) MR#: M (unknown) (no (unknown) (unknown) Position Sitting (units (unknown) date) unknown) (unknown) (no (unknown) (unknown) Pulse 74 (units (unkno wn) date) unknown) (unknown) (no (unknown) (unknown) Pulse Oximetry (%) (units (unknown) date) 98 unknown) (unknown) (no (unknown) (unknown) Pulse Source (units (u nknown) date) Monitor unknown) (unknown) (no (unknown) (unknown) ROS Narrative (units ( unknown) date) unknown) (unknown) (no (unknown) (unknown) ROS Narrative: (units (unknown) date) unknown) (unknown) (no (unknown) (unknown) ROS (units (unkno wn) date) unknown) (unknown) (no (unknown) (unknown) Reason For Visit (units (unknown) date) unknown) (unknown) (no (unknown) (unknown) Signed By: (units (unk nown) date) unknown) (unknown) (no (unknown) (unknown) Smoking Status: (units (unknown) date) Never smoker unknown) (unknown) (no (unknown) (unknown) Surgical History (units (unknown) date) (Updated 05/11/22 @ unknown) 12:19 by Dipti Jurado LPN) (unknown) (no (unknown) (unknown) Temp 97.8 F (units (un known) date) unknown) (unknown) (no (unknown) (unknown) Temp Source (units (un known) date) Temporal Artery Scan unknown) (unknown) (no (unknown) (unknown) [facility] (unit s (unknown) date) Management unknown) (unknown) (no (unknown) (unknown) This note may have (units (unknown) date) been all or unknown) partially generated using voice recognition (unknown) (no (unknown) (unknown) Tobacco + Substance (unit s (unknown) date) Use unknown) (unknown) (no (unknown) (unknown) Tobacco Status (units (unknown) date) unknown) (unknown) (no (unknown) (unknown) Visit Reasons: (units (unknown) date) 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, 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) Lspine (unknown) (no (unknown) (unknown) Vitals (units (unkno wn) date) unknown) (unknown) (no (unknown) (unknown) Weight 115 lb (units ( unknown) date) unknown) (unknown) (no (unknown) (unknown) XR lumbar spine min (unit s (unknown) date) 4V 05/06/22 M54.9 - unknown) Dorsalgia, unspecified (unknown) (no (unknown) (unknown) celecoxib (units (unkn own) date) (Celebrex) 200 mg PO unknown) DAILY 30 caps 2RF (unknown) (no (unknown) (unknown) celecoxib 200 mg (units (unknown) date) capsule (Celebrex) unknown) 200 mg PO DAILY #30 caps 05/11/22 [Rx (unknown) (no (unknown) (unknown) donepezil 5 mg (units (unknown) date) tablet 5 mg PO unknown) BEDTIME 05/11/22 [History Confirmed 05/11/22] (unknown) (no (unknown) (unknown) have occurred. If (units (unknown) date) there are any unknown) questions, please contact the Medical Records (unknown) (no (unknown) (unknown) ibuprofen 200 mg (units (unknown) date) capsule 200 mg PO unknown) Q6H PRN 05/11/22 [History Confirmed 05/11/22] (unknown) (no (unknown) (unknown) ibuprofen (units (unkn own) date) unknown) (unknown) (no (unknown) (unknown) intravenous drug (units (unknown) date) use, sustained unknown) glucocorticoid use, osteoporosis, or a focal (unknown) (no (unknown) (unknown) ketoconazole 2 % (units (unknown) date) shampoo 1 applic unknown) topical Q2W 05/11/22 [History Confirmed (unknown) (no (unknown) (unknown) ketoconazole 2 % (units (unknown) date) topical cream 1 unknown) applic topical DAILY 05/11/22 [History (unknown) (no (unknown) (unknown) may occur. (units (unk nown) date) Occasional unknown) wrong-word or 'sound-alike' substitutions may have (unknown) (no (unknown) (unknown) neurological (units (u nknown) date) deficit with unknown) progressive or disabling symptoms. (unknown) (no (unknown) (unknown) occurred due to the (unit s (unknown) date) inherent limitations unknown) of voice recognition software. Please (unknown) (no (unknown) (unknown) omeprazole 20 mg (units (unknown) date) capsule,delayed unknown) release 20 mg PO DAILY 05/11/22 [History (unknown) (no (unknown) (unknown) or (units (unkno wn) date) immunosuppressive unknown) therapy, previous or current cancer diagnosis, history of (unknown) (no (unknown) (unknown) oxybutynin chloride (unit s (unknown) date) 10 mg unknown) tablet,extended release 24 hr 10 mg PO BEDTIME (unknown) (no (unknown) (unknown) read the note (units ( unknown) date) carefully and unknown) recognize, using context, where these substitutions (unknown) (no (unknown) (unknown) software. 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: (unknown) (no (unknown) (unknown) (3) Memory loss: (units (unknown) date) unknown) (unknown) (no (unknown) (unknown) (4) Gait (units (unkno wn) date) instability: unknown) (unknown) (no (unknown) (unknown) [id number] (units (unkn own) date) unknown) (unknown) (no (unknown) (unknown) 05/11/22 1243 (units ( unknown) date) unknown) (unknown) (no (unknown) (unknown) 05/11/22 [History (units (unknown) date) Confirmed 05/11/22] unknown) (unknown) (no (unknown) (unknown) 05/11/22 (units (unkno wn) date) unknown) (unknown) (no (unknown) (unknown) 05/11/22] (units (unkn own) date) unknown) (unknown) (no (unknown) (unknown) 12:20 (units (unkno wn) date) unknown) (unknown) (no (unknown) (unknown) Accompanied by: (units (unknown) date) Spouse unknown) (unknown) (no (unknown) (unknown) Age/Sex: 76 / F (units (unknown) date) Date of Service: unknown) (unknown) (no (unknown) (unknown) All other systems (units (unknown) date) reviewed and are unknown) negative except as noted in HPI. (unknown) (no (unknown) (unknown) Allergies (units (unkn own) date) unknown) (unknown) (no (unknown) (unknown) [place], [place] [id number] (unit s (unknown) date) unknown) (unknown) (no (unknown) (unknown) Assessment + Plan (units (unknown) date) unknown) (unknown) (no (unknown) (unknown) Attending Dr: (units ( unknown) date) Jas Billow D.O. unknown) (unknown) (no (unknown) (unknown) BMI 19.7 (units (unkno wn) date) unknown) (unknown) (no (unknown) (unknown) BP 100/62 (units (unkn own) date) unknown) (unknown) (no (unknown) (unknown) Blood Pressure (units (unknown) date) Location Lt brachial unknown) (unknown) (no (unknown) (unknown) Chief Complaint (units (unknown) date) unknown) (unknown) (no (unknown) (unknown) Chief Complaint: (units (unknown) date) chronic progressive unknown) LBP (unknown) (no (unknown) (unknown) Confirmed 05/11/22] (unit s (unknown) date) unknown) (unknown) (no (unknown) (unknown) : 1945 (units (unknown) date) Acct:[id number] unknown) (unknown) (no (unknown) (unknown) DTR's symmetric. (units (unknown) date) unknown) (unknown) (no (unknown) (unknown) Denies recent (units ( unknown) date) trauma, fever or unknown) weight loss of unknown origin, immunocompromise (unknown) (no (unknown) (unknown) Dept at (units (unkno wn) date) . unknown) (unknown) (no (unknown) (unknown) Details: (units (unkno wn) date) unknown) (unknown) (no (unknown) (unknown) Documented By: (units (unknown) date) Jas Campo D.O. unknown) 05/11/22 1204 (unknown) (no (unknown) (unknown) Endorses memory (units (unknown) date) issues, chronic unknown) progressive LBP, bladder issues, htn (unknown) (no (unknown) (unknown) Exam Narrative (units (unknown) date) unknown) (unknown) (no (unknown) (unknown) Exam Narrative: (units (unknown) date) unknown) (unknown) (no (unknown) (unknown) Exam (units (unkno wn) date) unknown) (unknown) (no (unknown) (unknown) Facet arthropathy, (units (unknown) date) lumbar unknown) (unknown) (no (unknown) (unknown) Gait instability (units (unknown) date) unknown) (unknown) (no (unknown) (unknown) Gait: Full (units (unk nown) date) weightbearing. No unknown) assistive device. Stooped Gait Posture due to (unknown) (no (unknown) (unknown) General: The (units (u nknown) date) patient is in no unknown) obvious distress. Normal affect. Fully (unknown) (no (unknown) (unknown) H/O: hysterectomy (units (unknown) date) unknown) (unknown) (no (unknown) (unknown) HERE FOR LUMBAR (units (unknown) date) SPINE unknown) (unknown) (no (unknown) (unknown) HPI (units (unkno wn) date) unknown) (unknown) (no (unknown) (unknown) Height 5 ft 4 in (units (unknown) date) unknown) (unknown) (no (unknown) (unknown) Her current (units (un known) date) clinical examination unknown) chronic progressive difficulty with axial low (unknown) (no (unknown) (unknown) Hold Comment: None (units (unknown) date) 200 mg PO Q6H PRN unknown) (unknown) (no (unknown) (unknown) Hx of appendectomy (units (unknown) date) unknown) (unknown) (no (unknown) (unknown) I would like to (units (unknown) date) follow up with her unknown) in approximately 6-8 weeks in order to (unknown) (no (unknown) (unknown) Intake Clinical (units (unknown) date) Staff unknown) (unknown) (no (unknown) (unknown) Intake Note: (units (u nknown) date) unknown) (unknown) (no (unknown) (unknown) Intake performed (units (unknown) date) by: Dipti Jurado unknown) (unknown) (no (unknown) (unknown) Intake (units (unkno wn) date) unknown) (unknown) (no (unknown) (unknown) Is patient in (units ( unknown) date) pain?: Yes (HERE FOR unknown) 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) Pain scale (1-10): 5 (unknown) (no (unknown) (unknown) Left Lower (units (unk nown) date) Extremity: No edema, unknown) joint effusion or atrophy. tenderness over the (unknown) (no (unknown) (unknown) Left Upper (units (unk nown) date) Extremity: Left unknown) upper extremity exam shows grossly normal alignment, (unknown) (no (unknown) (unknown) Loc: PAIN (units (unkn own) date) unknown) (unknown) (no (unknown) (unknown) Lumbar MRI from (units (unknown) date) 11/24/2021 [place] unknown) [facility] does reveal facet cysts at (unknown) (no (unknown) (unknown) Lumbar stenosis (units (unknown) date) with neurogenic unknown) claudication (unknown) (no (unknown) (unknown) MSK: System (units (un known) date) reviewed and no unknown) additional complaints, except as documented. (unknown) (no (unknown) (unknown) Medical History (units (unknown) date) (Updated 05/11/22 @ unknown) 12:41 by Jas Campo DO) (unknown) (no (unknown) (unknown) Medications (units (un known) date) unknown) (unknown) (no (unknown) (unknown) Medications: (units (u nknown) date) unknown) (unknown) (no (unknown) (unknown) Memory loss (units (un known) date) unknown) (unknown) (no (unknown) (unknown) Neuro: System (units ( unknown) date) reviewed and no unknown) additional complaints, except as documented. (unknown) (no (unknown) (unknown) Neurologic: (units (un known) date) Sensation is grossly unknown) intact to light touch throughout the upper and (unknown) (no (unknown) (unknown) New (units (unkno wn) date) unknown) (unknown) (no (unknown) (unknown) No Known Drug (units ( unknown) date) Allergies Allergy unknown) (Unverified 05/11/22 12:05) (unknown) (no (unknown) (unknown) Objective Data (units (unknown) date) unknown) (unknown) (no (unknown) (unknown) Objective Data: (units (unknown) date) unknown) (unknown) (no (unknown) (unknown) On Hold (units (unkno wn) date) unknown) (unknown) (no (unknown) (unknown) Orders (units (unkno wn) date) unknown) (unknown) (no (unknown) (unknown) Orders: (units (unkno wn) date) unknown) (unknown) (no (unknown) (unknown) Oxygen Delivery (units (unknown) date) Method room air unknown) (unknown) (no (unknown) (unknown) PFSH (units (unkno wn) date) unknown) (unknown) (no (unknown) (unknown) Pain Scale (units (unk nown) date) unknown) (unknown) (no (unknown) (unknown) Pain Visit (units (unk nown) date) unknown) (unknown) (no (unknown) (unknown) Patient: (units (unkno wn) date) Roula Brewer unknown) MR#: M (unknown) (no (unknown) (unknown) Plan (units (unkno wn) date) unknown) (unknown) (no (unknown) (unknown) Position Sitting (units (unknown) date) unknown) (unknown) (no (unknown) (unknown) Pulse 74 (units (unkno wn) date) unknown) (unknown) (no (unknown) (unknown) Pulse Oximetry (%) (units (unknown) date) 98 unknown) (unknown) (no (unknown) (unknown) Pulse Source (units (u nknown) date) Monitor unknown) (unknown) (no (unknown) (unknown) ROS Narrative (units ( unknown) date) unknown) (unknown) (no (unknown) (unknown) ROS Narrative: (units (unknown) date) unknown) (unknown) (no (unknown) (unknown) ROS (units (unkno wn) date) unknown) (unknown) (no (unknown) (unknown) Reason For Visit (units (unknown) date) unknown) (unknown) (no (unknown) (unknown) Right Lower (units (un known) date) Extremity: No edema, unknown) effusion or atrophy. tenderness over the (unknown) (no (unknown) (unknown) Right Upper (units (un known) date) Extremity: Right unknown) upper extremity exam shows grossly normal (unknown) (no (unknown) (unknown) Roula and her (units (u nknown) date) Олег and I unknown) discussed at length her underlying pathology. (unknown) (no (unknown) (unknown) Roual presents today (unit s (unknown) date) accompanied by her unknown) Олег for further evaluation (unknown) (no (unknown) (unknown) She reports no (units (unknown) date) other traumas or unknown) illnesses at this time and feels quite well (unknown) (no (unknown) (unknown) Signed By: (units (unk nown) date) <Electronically unknown) signed by Jas Campo D.O.> (unknown) (no (unknown) (unknown) Signed (units (unkno wn) date) unknown) (unknown) (no (unknown) (unknown) Skin: No (units (unkno wn) date) significant skin unknown) lesions are noted. (unknown) (no (unknown) (unknown) Smoking Status: (units (unknown) date) Never smoker unknown) (unknown) (no (unknown) (unknown) Spine: Cervical (units (unknown) date) spine ROM unknown) functional. Lumbar spine ROM was reduced in all (unknown) (no (unknown) (unknown) Status: Acute (units ( unknown) date) unknown) (unknown) (no (unknown) (unknown) Subsequently of (units (unknown) date) lengthy discussion unknown) with her we will elect to proceed with a (unknown) (no (unknown) (unknown) Surgical History (units (unknown) date) (Updated 05/11/22 @ unknown) 12:19 by Dipti Jurado LPN) (unknown) (no (unknown) (unknown) Temp 97.8 F (units (un known) date) unknown) (unknown) (no (unknown) (unknown) Temp Source (units (un known) date) Temporal Artery Scan unknown) (unknown) (no (unknown) (unknown) [facility] (unit s (unknown) date) Management unknown) (unknown) (no (unknown) (unknown) This note may have (units (unknown) date) been all or unknown) partially generated using voice recognition (unknown) (no (unknown) (unknown) Tobacco + Substance (unit s (unknown) date) Use unknown) (unknown) (no (unknown) (unknown) Tobacco Status (units (unknown) date) unknown) (unknown) (no (unknown) (unknown) Visit 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: (units (unknown) date) 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, 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) 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 (unknown) (no (unknown) (unknown) Vitals (units (unkno wn) date) unknown) (unknown) (no (unknown) (unknown) Weight 115 lb (units ( unknown) date) unknown) (unknown) (no (unknown) (unknown) XR lumbar spine min (unit s (unknown) date) 4V 05/06/22 M54.9 - unknown) Dorsalgia, unspecified (unknown) (no (unknown) (unknown) alignment, range of (unit s (unknown) date) motion, strength and unknown) stability with no swelling, atrophy or (unknown) (no (unknown) (unknown) and provided a copy (unit s (unknown) date) of the [facility] unknown) back exercises to further offset her (unknown) (no (unknown) (unknown) anti-inflammatories (unit s (unknown) date) she is currently unknown) utilizing. Additionally she was reviewed (unknown) (no (unknown) (unknown) as formal physical (units (unknown) date) therapy in [place] unknown) sound physical therapy. (unknown) (no (unknown) (unknown) axial LBP (units (unkn own) date) unknown) (unknown) (no (unknown) (unknown) ay occur. (units (unkn own) date) Occasional unknown) wrong-word or 'sound-alike' substitutions may have (unknown) (no (unknown) (unknown) back pain is likely (units (unknown) date) associated with the unknown) severe facet arthropathy at the L4-5 and (unknown) (no (unknown) (unknown) celecoxib (units (unkn own) date) (Celebrex) 200 mg PO unknown) DAILY 30 caps 2RF (unknown) (no (unknown) (unknown) celecoxib 200 mg (units (unknown) date) capsule (Celebrex) unknown) 200 mg PO DAILY #30 caps 05/11/22 [Rx (unknown) (no (unknown) (unknown) current (units (unkno wn) date) symptomatology. unknown) (unknown) (no (unknown) (unknown) despite this. All (units (unknown) date) their questions were unknown) answered to the best my ability they are (unknown) (no (unknown) (unknown) distance especially (unit s (unknown) date) to the corner where unknown) she regularly type attempts to walk. (unknown) (no (unknown) (unknown) donepezil 5 mg (units (unknown) date) tablet 5 mg PO unknown) BEDTIME 05/11/22 [History Confirmed 05/11/22] (unknown) (no (unknown) (unknown) effusion. (units (unkn own) date) unknown) (unknown) (no (unknown) (unknown) facet mediated (units (unknown) date) interventions at the unknown) L4-5 5 1 levels should her symptoms persist (unknown) (no (unknown) (unknown) foraminal and (units ( unknown) date) central stenosis as unknown) well as disc space narrowing at the L5-S1 (unknown) (no (unknown) (unknown) greater (units (unkno wn) date) trochanteric region unknown) (unknown) (no (unknown) (unknown) greater (units (unkno wn) date) trochanteric region. unknown) (unknown) (no (unknown) (unknown) have occurred. If (units (unknown) date) there are any unknown) questions, please contact the Medical Records (unknown) (no (unknown) (unknown) ibuprofen 200 mg (units (unknown) date) capsule 200 mg PO unknown) Q6H PRN 05/11/22 [History Confirmed 05/11/22] (unknown) (no (unknown) (unknown) ibuprofen as needed (unit s (unknown) date) but reports she unknown) tries not to take this as she is not sure (unknown) (no (unknown) (unknown) ibuprofen (units (unkn own) date) unknown) (unknown) (no (unknown) (unknown) in agreement with (units (unknown) date) the above-stated unknown) plan. (unknown) (no (unknown) (unknown) in formal physical (units (unknown) date) therapy at [place] unknown) sound physical therapy and she does believe (unknown) (no (unknown) (unknown) increased tenderness (unit s (unknown) date) with axial loading unknown) and extension based maneuvers tenderness (unknown) (no (unknown) (unknown) intravenous drug (units (unknown) date) use, sustained unknown) glucocorticoid use, osteoporosis, or a focal (unknown) (no (unknown) (unknown) ketoconazole 2 % (units (unknown) date) shampoo 1 applic unknown) topical Q2W 05/11/22 [History Confirmed (unknown) (no (unknown) (unknown) ketoconazole 2 % (units (unknown) date) topical cream 1 unknown) applic topical DAILY 05/11/22 [History (unknown) (no (unknown) (unknown) less so L5-S1 (units ( unknown) date) levels. She does unknown) have disc space loss at the L5-S1 level but does (unknown) (no (unknown) (unknown) level no signs of (units (unknown) date) fracture or occult unknown) pathology noted. (unknown) (no (unknown) (unknown) liver and kidneys. (units (unknown) date) She reports that she unknown) has difficulty ambulating any extensive (unknown) (no (unknown) (unknown) lower extremities. (units (unknown) date) motor 5/5 all LE unknown) muscle groups. Coordination appears normal. (unknown) (no (unknown) (unknown) maintain the (units (u nknown) date) Covid19 social unknown) restrictions without cough fever fatigue at this (unknown) (no (unknown) (unknown) monitor her (units (un known) date) progress with the unknown) above-stated medication regimen. We will consider (unknown) (no (unknown) (unknown) neurological (units (u nknown) date) deficit with unknown) progressive or disabling symptoms. (unknown) (no (unknown) (unknown) not have any (units (u nknown) date) current radicular unknown) features. We discussed her ongoing (unknown) (no (unknown) (unknown) occurred due to the (unit s (unknown) date) inherent limitations unknown) of voice recognition software. Please (unknown) (no (unknown) (unknown) omeprazole 20 mg (units (unknown) date) capsule,delayed unknown) release 20 mg PO DAILY 05/11/22 [History (unknown) (no (unknown) (unknown) or (units (unkno wn) date) immunosuppressive unknown) therapy, previous or current cancer diagnosis, history of (unknown) (no (unknown) (unknown) oriented. (units (unkn own) date) unknown) (unknown) (no (unknown) (unknown) oxybutynin chloride (unit s (unknown) date) 10 mg unknown) tablet,extended release 24 hr 10 mg PO BEDTIME (unknown) (no (unknown) (unknown) planes. On (units (unk nown) date) palpation, there is unknown) tenderness over the spinous processes. With (unknown) (no (unknown) (unknown) precipitated the (units (unknown) date) above-stated unknown) symptomatology. She reports she has been involved (unknown) (no (unknown) (unknown) provocative (units (unk nown) date) maneuvers including unknown) sacra shear test as well as pelvic obliquity are (unknown) (no (unknown) (unknown) range of motion, (units (unknown) date) strength and unknown) stability with no swelling, atrophy or effusion. (unknown) (no (unknown) (unknown) read the note (units ( unknown) date) carefully and unknown) recognize, using context, where these substitutions (unknown) (no (unknown) (unknown) software. Although (units (unknown) date) every effort is made unknown) to edit content, stagecraft professor errors m (unknown) (no (unknown) (unknown) symptomatology (units (unknown) date) despite her use of unknown) [id number] anti-inflammatories as well (unknown) (no (unknown) (unknown) that radiates out (units (unknown) date) to the hip. She unknown) reports no specific injury illness the (unknown) (no (unknown) (unknown) the L4-5 level with (units (unknown) date) associated unknown) significant facet arthropathy causing significant (unknown) (no (unknown) (unknown) this is mildly (units (unknown) date) beneficial for her. unknown) She additionally uses [id number] (unknown) (no (unknown) (unknown) time. She has been (units (unknown) date) fully vaccinated. unknown) (unknown) (no (unknown) (unknown) to palpation on (units (unknown) date) paraspinals.straight unknown) leg raising negative bilaterally. Sacral (unknown) (no (unknown) (unknown) treatment of (units (u nknown) date) chronic progressive unknown) low back pain. She reports axial low back pain (unknown) (no (unknown) (unknown) trial with Celebrex (units (unknown) date) 200 mg capsules p.o. unknown) q.day. This offset any [id number] (unknown) (no (unknown) (unknown) whether this (units (un known) date) beneficial at the unknown) same time is aware that it may be harmful for her (unknown) (no (unknown) (unknown) within normal (units ( unknown) date) limits. unknown) Social History No information. Vital Signs No information.
[2022-05-19 19:16] LABS: BASOPHILS # (AUTO) 0.1 10^3/uL (0.0-0.1); BASOPHILS % (AUTO) 0.8 %; EOSINOPHILS # (AUTO) 0.1 10^3/uL (0.0-0.7); EOSINOPHILS % (AUTO) 1.3 %; HCT - HEMATOCRIT 40.5 % (37.0-47.0); HGB - HEMOGLOBIN 12.7 g/dL (12.0-16.0); LYMPHOCYTES % (AUTO) 25.9 %; MEAN CORPUSCULAR HEMOGLOBIN 30.2 pg (27.0-31.0); MEAN CORPUSCULAR HGB CONC 31.4 g/dL (32.0-36.0); MEAN CORPUSCULAR VOLUME 96.2 fL (81.0-99.0); MEAN PLATELET VOLUME 10.6 fL (7.9-10.8); MONOCYTES # (AUTO) 0.5 10^3/uL (0.0-1.0); MONOCYTES % (AUTO) 6.2 %; NEUTROPHILS % (AUTO) 65.4 %; PLT - PLATELET COUNT 170 10^3/uL (130-450); RED BLOOD COUNT 4.21 10^6/uL (4.20-5.40); WHITE BLOOD COUNT 7.7 x10^3/uL (4.8-10.8)
[2022-05-19 19:32] LABS: ALBUMIN 3.7 g/dL (3.2-5.5); ALBUMIN/GLOBULIN RATIO 1.2 (1.0-2.2); BILIRUBIN,TOTAL 0.4 mg/dL (0.2-1.0); CALCIUM 9.1 mg/dL (8.5-10.3); CREATININE 1.3 mg/dL (0.4-1.0); POTASSIUM 4.6 mmol/L (3.5-5.0); TOTAL PROTEIN 6.7 g/dL (6.7-8.2)
--- NOTE | 2022-05-19 20:18 | ED Physician Documentation ---
History of Present Illness - Stated complaint Stated Complaint: SYNCOPE - Chief complaint Chief Complaint: Neuro - Additonal information Additional information: Patient is 76-year-old female presenting to the emergency department after synco pal episode. Occurred while out to dinner with family. She reports history of chronically low blood pressure. States has had multiple presyncopal and at least 1 syncopal episode in the past. States that the symptoms have been ongoing for several years. Reports that she often experiences nausea associated with her syncopal and presyncopal events and she experienced nausea this evening. She denies any chest pain, shortness of breath or heart palpitations. States that she did not hit her head and family reports that there was a telephone coin box collector in the restaurant with them who helped her to the ground. Denies taking any blood thinning medications. Currently reports that she feels somewhat sleepy but denies any other acute complaints. Review of Systems Ten Systems: 10 systems reviewed and negative Constitutional: denies: Fever Eyes: denies: Loss of vision Ears: denies: Loss of hearing Nose: denies: Rhinorrhea / runny nose Throat: denies: Dental pain / toothache Cardiac: denies: Chest pain / pressure, Palpitations Respiratory: denies: Dyspnea, Cough GI: denies: Abdominal Pain, Vomiting, Diarrhea : denies: Dysuria Musculoskeletal: denies: Neck pain Neurologic: reports: Syncope. 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 - Present Medications Home Medications: Ambulatory Orders Medication Instructions Recorded Confirmed Omeprazole 40 mg PO DAILY 07/01/13 02/23/15 Aspirin 325 mg PO 02/07/19 - Allergies Allergies/Adverse Reactions: Allergies Allergy/AdvReac Type Severity Reaction Status Date / Time No Known Drug Allergies Allergy Verified 05/19/22 18:53 - Social History Does the pt smoke?: No Smoking Status: Never smoker Results - Vitals Vitals: Vital Signs - 24 hr 05/19/22 05/19/22 05/19/22 18:53 19:31 20:40 Temperature 36.5 C Heart Rate 63 58 L Heart Rate [ 65 Sitting] Heart Rate [ 67 Standing] Heart Rate [ 65 Supine] Respiratory 16 14 Rate Blood Pressure 124/60 131/69 H Blood Pressure 117/63 [Sitting] Blood Pressure 99/61 [Standing] Blood Pressure 122/66 [Supine] O2 Saturation 100 99 05/19/22 05/19/22 05/19/22 20:54 21:51 22:16 Temperature Heart Rate 57 L 56 L 57 L Heart Rate [ Sitting] Heart Rate [ Standing] Heart Rate [ Supine] Respiratory 14 12 16 Rate Blood Pressure 99/61 110/58 L 125/74 Blood Pressure [Sitting] Blood Pressure [Standing] Blood Pressure [Supine] O2 Saturation 99 96 97 05/19/22 05/19/22 23:07 23:14 Temperature Heart Rate 54 L Heart Rate [ 55 L Sitting] Heart Rate [ 60 Standing] Heart Rate [ 61 Supine] Respiratory 12 Rate Blood Pressure 126/96 H Blood Pressure 148/62 H [Sitting] Blood Pressure 128/65 [Standing] Blood Pressure 126/96 H [Supine] O2 Saturation 97 Oxygen O2 Source Room air - EKG (time done) 1855 Rate: Rate (enter#) (63) Rhythm: NSR Intervals: Normal WI. No: Prolonged QT QRS: Normal Ischemia: Normal ST segments Compare to prior EKG: Unchanged from prior EKG - Labs Labs: Laboratory Tests 05/19/22 05/19/22 05/19/22 19:12 19:12 19:12 WBC 7.7 RBC 4.21 Hgb 12.7 Hct 40.5 MCV 96.2 MCH 30.2 MCHC 31.4 L RDW 13.0 Plt Count 170 MPV 10.6 Neut # (Auto) 5.0 Lymph # (Auto) 2.0 [place] # (Auto) 0.5 Eos # (Auto) 0.1 Baso # (Auto) 0.1 Absolute Nucleated RBC 0.00 Nucleated RBC % 0.0 Sodium 135 Potassium 4.6 Chloride 104 Carbon Dioxide 23 Anion Gap 8.0 BUN 21 H Creatinine 1.3 H Estimated GFR (MDRD) 40 L Glucose 159 H Calcium 9.1 Total Bilirubin 0.4 AST 21 ALT 16 Alkaline Phosphatase 72 Troponin I High Sens 3.0 Total Protein 6.7 Albumin 3.7 Globulin 3.0 Albumin/Globulin Ratio 1.2 Lipase 36 05/19/22 20:17 WBC RBC Hgb Hct MCV MCH MCHC RDW Plt Count MPV Neut # (Auto) Lymph # (Auto) [place] # (Auto) Eos # (Auto) Baso # (Auto) Absolute Nucleated RBC Nucleated RBC % Sodium Potassium Chloride Carbon Dioxide Anion Gap BUN Creatinine Estimated GFR (MDRD) Glucose Calcium Total Bilirubin AST ALT Alkaline Phosphatase Troponin I High Sens 3.9 Total Protein Albumin Globulin Albumin/Globulin Ratio Lipase PD MEDICAL DECISION MAKING - ED course Complexity details: reviewed results, re-evaluated patient, d/w patient, d/w family ED course: Patient is 76-year-old female presenting to the emergency department after a syncopal episode that occurred earlier this evening. She endorse for history of chronically low blood pressure and multiple presyncop al episodes and at least one syncopal episode that is occurred in the past. She reported the symptoms have been ongoing for several years. Reports that she is followed with her primary care doctor concerning these findings. Afebrile, hemodynamically stable. She denied any head trauma, stating that she was gently lowered to the ground by another attendee at the restaurant that they were in this evening. Denied any chest pain, heart palpitations or shortness of breath associated with the event. Was asymptomatic on arrival to the emergency department. EKG is on above was negative for indications of acute cardiac ischemia or dysrhythmia. Troponin negative. Labs obtained within normal limits. Patient's initial orthostatic vital signs were positive for a greater than 10 mm per mercury drop from sitting from standing. She was given IV hydration. A recheck of her orthostatic vital signs were within normal limits. Physical exam was negative for any appreciable murmur. Or overall presentation I believe is low risk and I will discharge at this time for follow-up with primary care as needed. I will encourage her to increase her fluid intake. Otherwise encouraged to return to the emergency department for new or worsening symptoms. Departure - Departure Disposition: 01 Home, Self Care Clinical Impression: Syncope Instructions: ED Fainting Unkn Cause Comments: Thank you for allowing us to care for you today at [facility]. Today in the emergency department your evaluated for any possible life- threatening medical emergency. The testing performed in the emergency department including your EKG and lab work were all very reassuring. You were noted to have a drop in blood pressure that seemed to be postural and was most notable when you stood up from a sitting position. You are given IV fluids and that this Drop in blood pressure was not identified on recheck. I would like you to increase your fluid intake over the course of the next several days. Please be extraordinarily cautious particularly with changes in p osition such as sitting up or standing up. Please perform these activities slowly and cautiously in order to ensure that they do not trigger dizzinessOr other symptoms similar to the ones you experienced this evening. Please continue to use your walker and have it available to you at all times. This can be especially helpful with changes in position. You will never regret having the walker present when you need it. You may very much regret not having it present if you need it. Please make a follow-up appoint with your primary care doctor soon as possible. If it anytime you have any new or worsening symptoms please not hesitate to return to the emergency department.
[2022-05-19] MEDS ORDERED: SODIUM CHLORIDE 0.9% 1,000 ML IV STA (22:03)
[2022-05-19 23:39] VITALS: BP 145/62
== END 2022-05-19 23:53 | disposition home or self-care (01) ==
LOC: EDBD → EDUNIT# → ED 18:48
DX: R55 Syncope and collapse (principal)
CPT/HCPCS: 36415; 80053; 83690; 84484; 85025; 93005; 96360; 99282

== ENCOUNTER 2022-05-24 11:52 | Emergency (ER) | payer MEDICARE, OTHER ==
--- OUTSIDE RECORDS SUMMARY | 2022-05-24 12:18 | EXTERNAL MEDICAL SUMMARY RPT | Continuity of Care Document ---
:1945 Author Organization [facility] Address [address] [place] [address] Phone Allergies No information. Encounters No information. Functional Status No information. Immunizations No information. Medications No information. Problems No information. Procedures No information. Results/Labs test date author facility value unit interpret ation Result panel 1 (unknown) (no (unknown) (unknown) (no value) (units (unk nown) date) unknown) (unknown) (no (unknown) (unknown) [id number] (units (unkn own) date) unknown) (unknown) (no [...] own) date) unknown) (unknown) (no (unknown) (unknown) [place], [place] (units ( unknown) date) [id number] unknown) (unknown) (no (unknown) (unknown) Assessment + (units (u nknown) date) Plan unknown) (unknown) (no (unknown) (unknown) Attending Dr: (units ( unknown) date) Jas Campo unknown) D.O. 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) SPINE (unknown) (no (unknown) [...] unknown) effort is made to edit content, product development technician errors Result panel 3 (unknown) (no (unknown) (unknown) (no value) (units (unk nown) date) unknown) (unknown) (no (unknown) (unknown) [id number] (units (unkn own) date) unknown) (unknown) (no [...] own) date) unknown) (unknown) (no (unknown) (unknown) [place], [place] (units ( unknown) date) [id number] unknown) (unknown) (no (unknown) (unknown) Assessment + [...] (unknown) (unknown) : 1945 (units (unknown) date) Acct:[id number] unknown) (unknown) (no (unknown) (unknown) Dept at [...] (unknown) (unknown) Patient: (units (unkno wn) date) Eriberto Brewer unknown) MR#: M (unknown) (no (unknown) [...] (unknown) (unknown) Visit Reasons: (units (unknown) date) 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, 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) SPINE (unknown) (no (unknown) [...] unknown) effort is made to edit content, product development technician errors Result panel 4 (unknown) (no (unknown) (unknown) (no value) (units (unk nown) date) unknown) (unknown) (no (unknown) (unknown) [id number] (units (unkn own) date) unknown) (unknown) (no [...] own) date) unknown) (unknown) (no (unknown) (unknown) [place] [address] (unit s (unknown) date) unknown) (unknown) (no [...] (unknown) (unknown) : 1945 (units (unknown) date) Acct:[id number] unknown) (unknown) (no (unknown) (unknown) Denies recent [...] (unknown) (unknown) Patient: (units (unkno wn) date) Eriberto Brewer unknown) MR#: M (unknown) (no (unknown) [...] Visit Reasons: (units (unknown) date) 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 [...] Lumbar MRI from (units (unknown) date) 11/24/2021 Pb unknown) [facility] does reveal facet cysts at (unknown) (no [...] (unknown) (unknown) Patient: (units (unkno wn) date) Eriberto Brewer unknown) MR#: M (unknown) (no (unknown) [...] shows grossly normal (unknown) (no (unknown) (unknown) Eriberto and her (units (u nknown) date) Олег and I unknown) discussed at length her underlying pathology. 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 Additionally she was reviewed (unknown) (no (unknown) (unknown) as formal physical (units (unknown) date) therapy in [place] unknown) [facility] physical therapy. (unknown) (no (unknown) [...] formal physical (units (unknown) date) therapy at [place] unknown) [facility] and she does [...] effort is made unknown) to edit content, product development technician errors m (unknown) (no (unknown) (unknown) symptomatology (units (unknown) date) despite her use of unknown) [id number] anti-inflammatories as well (unknown) (no (unknown) (unknown) that radiates out (units (unknown) date) to the hip. She unknown) reports no specific injury illness the (unknown) (no (unknown) (unknown) the L4-5 level with (units (unknown) date) associated unknown) significant facet arthropathy causing significant (unknown) (no (unknown) (unknown) this is mildly (units (unknown) date) beneficial for her. unknown) She additionally uses [id number] (unknown) (no (unknown) (unknown) time. She has [...] capsules p.o. unknown) q.day. This offset any [id number] (unknown) (no (unknown) (unknown) whether this (units (un known) date) beneficial at the unknown) same time is aware that it may be harmful for her (unknown) (no (unknown) (unknown) within normal (units ( unknown) date) limits. unknown) Social History No information. Vital Signs No information.
[2022-05-24 12:30] LABS: BASOPHILS # (AUTO) 0.1 10^3/uL (0.0-0.1); BASOPHILS % (AUTO) 0.8 %; EOSINOPHILS # (AUTO) 0.1 10^3/uL (0.0-0.7); EOSINOPHILS % (AUTO) 1.7 %; HCT - HEMATOCRIT 40.9 % (37.0-47.0); HGB - HEMOGLOBIN 13.2 g/dL (12.0-16.0); LYMPHOCYTES # (AUTO) 1.7 10^3/uL (1.5-3.5); MEAN CORPUSCULAR HEMOGLOBIN 30.5 pg (27.0-31.0); MEAN CORPUSCULAR HGB CONC 32.3 g/dL (32.0-36.0); MEAN CORPUSCULAR VOLUME 94.5 fL (81.0-99.0); MEAN PLATELET VOLUME 10.5 fL (7.9-10.8); MONOCYTES # (AUTO) 0.5 10^3/uL (0.0-1.0); MONOCYTES % (AUTO) 5.8 %; NEUTROPHILS # (AUTO) 6.1 10^3/uL (1.5-6.6); NEUTROPHILS % (AUTO) 71.6 %; PLT - PLATELET COUNT 173 10^3/uL (130-450); RED BLOOD COUNT 4.33 10^6/uL (4.20-5.40); RED CELL DISTRIBUTION WIDTH 12.7 % (12.0-15.0); WHITE BLOOD COUNT 8.5 x10^3/uL (4.8-10.8)
--- NOTE | 2022-05-24 12:36 | XRAY Report ---
PROCEDURE: Chest 1 View X-Ray INDICATIONS: Chest pain TECHNIQUE: One view of the chest was acquired. COMPARISON: Chest x-ray 2721 FINDINGS: Surgical changes and devices: None. Lungs and pleura: No pleural effusions or pneumothorax. Lungs are clear. Mediastinum: Mediastinal contours appear normal. Heart size is normal. Bones and chest wall: No suspicious bony lesions. Overlying soft tissues appear unremarkable. IMPRESSION: No acute pulmonary process. Reviewed by: Harper Zapata MD on 05/24/2022 12:35 PM PDT Approved by: Harper Zapata MD on 05/24/2022 12:35 PM PDT Station ID: [id number]
[2022-05-24 12:49] LABS: ALBUMIN/GLOBULIN RATIO 1.3 (1.0-2.2); BILIRUBIN,TOTAL 0.7 mg/dL (0.2-1.0); CALCIUM 9.5 mg/dL (8.5-10.3); CREATININE 1.2 mg/dL (0.4-1.0); POTASSIUM 4.3 mmol/L (3.5-5.0)
--- NOTE | 2022-05-24 13:28 | ED Physician Documentation ---
PD HPI CHEST PAIN - Stated complaint Stated Complaint: CHEST PX,HIGH BP,SHALLOW BREATHING - Chief complaint Chief Complaint: Cardiac - History obtained from History obtained from: Patient - History of Present Illness Timing - onset: Today, Last night Timing - onset during: Rest Timing - details: Abrupt onset, Still present Quality: Aching, Sharp, Pain Location: Substernal, Left chest Radiation: Back Improved by: Rest Worsened by: Inspiration, Movement. No: Eating, Palpation Associated symptoms: Shortness of air. No: Nausea, Vomiting, Feeling faint / dizzy, Cough Similar symptoms before: Has not had sx before Recently seen: Emergency Dept (4 days ago when had postural fainting without any testing abnormality in eR. Was feeling okay without chest pain at that time and no apparent chest/trunk injury. No URI symptoms nor cough.) Review of Systems Constitutional: denies: Fever, Chills Nose: denies: Rhinorrhea / runny nose, Congestion Throat: denies: Sore throat Cardiac: reports: Chest pain / pressure. 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, 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 - Present Medications Home Medications: Ambulatory Orders Medication Instructions Recorded Confirmed Omeprazole 40 mg PO DAILY 07/01/13 02/23/15 Aspirin 325 mg PO 02/07/19 - Allergies Allergies/Adverse Reactions: Allergies Allergy/AdvReac Type Severity Reaction Status Date / Time No Known Drug Allergies Allergy Verified 05/19/22 18:53 - Social History Does the pt smoke?: No Smoking Status: Never smoker PD ED PE NORMAL - Vitals Vital signs reviewed: Yes - General General: Alert and oriented X 3, No acute distress, Well developed/nourished - HEENT HEENT: Atraumatic - Neck Neck: Supple, no meningeal sign, No bony TTP - Cardiac Cardiac: RRR, No murmur - Respiratory Respiratory: Clear bilaterally, Other (some chest tenderness sternal area without deformity. ) - Abdomen Abdomen: Normal bowel sounds, Non tender - Back Back: No spinal TTP - Derm Derm: Normal color, Warm and dry, No rash - Extremities Extremities: Normal ROM s pain, No edema, No calf tenderness / cord - Neuro Neuro: Alert and oriented X 3, No motor deficit, No sensory deficit, Normal speech Results - Vitals Vitals: Oxygen O2 Source Room air - EKG (time done) 11:59 Rate: Rate (enter#) (52) Rhythm: Sinus bradycardia [place]: Normal Intervals: Normal MS QRS: Normal Ischemia: Normal ST segments. No: ST elevation c/w ischemia, ST depression - Labs Labs: Laboratory Tests 05/24/22 05/24/22 05/24/22 12:25 12:25 12:25 WBC 8.5 RBC 4.33 Hgb 13.2 Hct 40.9 MCV 94.5 MCH 30.5 MCHC 32.3 RDW 12.7 Plt Count 173 MPV 10.5 Neut # (Auto) 6.1 Lymph # (Auto) 1.7 [place] # (Auto) 0.5 Eos # (Auto) 0.1 Baso # (Auto) 0.1 Absolute Nucleated RBC 0.00 Nucleated RBC % 0.0 Sodium 138 Potassium 4.3 Chloride 104 Carbon Dioxide 26 Anion Gap 8.0 BUN 18 Creatinine 1.2 H Estimated GFR (MDRD) 44 L Glucose 100 Calcium 9.5 Total Bilirubin 0.7 AST 18 ALT 15 Alkaline Phosphatase 70 Troponin I High Sens 5.5 Total Protein 7.0 Albumin 4.0 Globulin 3.0 Albumin/Globulin Ratio 1.3 Lipase 29 - Rads (name of study) chest CTA Radiology: Prelim report reviewed (no pulmonary emboli, lungs are clear. No osseous abnormalities. ), See rad report PD MEDICAL DECISION MAKING - ED course Complexity details: considered differential (pain with movement and inspiration. No change with eating. Normal testing including CTA. Presume muscular/cartilage pains related to syncope/fall 4 days ago. ), d/w patient Departure - Departure Disposition: Home, Self Care Clinical Impression: Pleuritic chest pain Condition: Stable Record reviewed to determine appropriate education?: Yes Instructions: ED Chest Pain Pleurisy Comments: It is unclear the cause of your chest pain. I presume some musculoskeletal component or perhaps some inflammation around the lung. These could be treated with anti-inflammatories such as a small amount of naproxen twice daily for 4 to 5 days. Add Tylenol every 4-6 hours if needed for pain. There is no signs of more significant cause for your pain. In particular we look for signs of heart attack, heart failure, blood clots, pneumonia, spine fractures. None of these are evident. Recheck if not improving well over the next several days. Return if worse or other symptoms develop. Discharge Date/Time: 05/24/22 17:26
[2022-05-24] MEDS ORDERED: KETOROLAC 15 MG/ML VIAL IVP STA (13:56)
[2022-05-24] MEDS ORDERED: MORPHINE 2 MG/ML CARPUJECT IVP STA (13:56)
[2022-05-24] MEDS ORDERED: SODIUM CHLORIDE 0.9% 1,000 ML IV STA (13:57)
[2022-05-24] MEDS ORDERED: iohexoL-300 100 ML VIAL ONE (14:21)
--- NOTE | 2022-05-24 16:43 | CT Report ---
PROCEDURE: ANGIO CHEST W/WO INDICATIONS: chest pain with breathing; syncope CONTRAST: 80ml Omnipaque 300 TECHNIQUE: After the administration of intravenous contrast, 2 mm axial images were acquired from the pulmonary apices to the posterior costophrenic angles during the arterial phase. In addition, 1 mm lung kernel and 5 mm soft tissue kernel reconstructions were performed. 3-dimensional coronal oblique maximum int ensity projection (MIP) reformats, 8 mm axial MIP, and 5 mm coronal and sagittal MPR reformats were t hen performed through the thorax. For radiation dose reduction, the following was used: automated exp osure control, adjustment of mA and/or kV according to patient size. COMPARISON: Chest x-ray 05/24/2022 FINDINGS: Image quality: Excellent. Pulmonary arteries: Pulmonary arteries are normal in size, and demonstrate no intraluminal filling d efects to suggest central pulmonary embolism. Lungs and pleura: Lungs are clear. No pleural effusions or pneumothorax. Central and peripheral ai rways are patent. Mediastinum: Heart size is normal, without pericardial effusion. No mediastinal or hilar adenopathy . Thoracic aorta is normal in caliber and enhancement. Esophagus is normal in caliber, without hiat al hernia. Bones and chest wall: No suspicious bony lesions. Ribs and thoracic spine appear intact throughout. No axillary or supraclavicular adenopathy. The thyroid is normal in size and there are no incident al findings. Abdomen: Visualized upper abdominal solid organs appear normal in the early arterial phase of enhanc ement. IMPRESSION: No pulmonary embolus. Lungs are clear. CLINICAL RECOMMENDATION STATEMENTS: In patients <35 years with an ITN detected on CT, MRI, or extrathyroidal ultrasound, the Committee re commends further evaluation with dedicated thyroid ultrasound if the nodule is "e1 cm and has no susp icious imaging features, and if the patient has normal life expectancy. In patients "e35 years with an ITN detected on CT, MRI, or extrathyroidal ultrasound, the Committee r ecommends further evaluation with dedicated thyroid ultrasound if the nodule is "e1.5 cm and has no s uspicious imaging features, and if the patient has normal life expectancy. (ACR, 2014) Reviewed by: Harper Zapata MD on 05/24/2022 4:41 PM PDT Approved by: Harper Zapata MD on 05/24/2022 4:41 PM PDT Station ID: [id number]
[2022-05-24] MEDS ORDERED: ACETAMINOPHEN 325 MG TABLET PO STA (17:01)
[2022-05-24 17:10] VITALS: BP 174/90
[2022-05-24] MEDS ORDERED: iohexoL-300 100 ML VIAL IVP ONE (18:47)
== END 2022-05-24 17:26 | disposition home or self-care (01) ==
LOC: ED 11:52
DX: R07.81 Pleurodynia (principal)
CPT/HCPCS: 36415; 71045; 71275; 80053; 83690; 84484; 85025; 93005; 96374; 99284; A9270; Q9967

== ENCOUNTER 2022-08-14 12:13 | Outpatient (CLI) | payer MEDICARE, OTHER | END 2022-08-14 12:14 | disposition critical access hospital (66) | LOC: EMS 12:13 | DX: R53.1 Weakness (principal); R42 Dizziness and giddiness | CPT/HCPCS: A0425; A0429 ==

== ENCOUNTER 2022-08-14 12:36 | Emergency (ER) | payer MEDICARE, OTHER ==
--- NOTE | 2022-08-14 13:31 | ED Physician Documentation ---
History of Present Illness - Stated complaint Stated Complaint: WEAKNESS/DIZZINESS - Chief complaint Chief Complaint: Neuro - History obtained from History obtained from: Patient, Family, EMS - History of Present Illness Timing: Today Pain level max: 0 Pain level now: 0 - Additonal information Additional information: 77-year-old female lives at home with her . Has a history of dementia and Parkinson's. She stood up to go to the bathroom when she felt lightheaded and dizzy, her sat her down in an office chair. He is unsure if she passed out or not. He states that if she did pass out it was for a "split second". They have a caregiver that helps them at home. She does have a history of syncope in the past. Patient denies any chest pain, shortness of breath. The triage note states that this happened in the car, but the patient and his adamantly deny this. Apparently he was driving her to the hospital when he stopped at EMS quarters and had them bring her the rest of the way. Review of Systems Unable to obtain: Dementia Constitutional: denies: Fever Nose: denies: Rhinorrhea / runny nose Throat: denies: Sore throat Cardiac: denies: Chest pain / pressure, Palpitations Respiratory: denies: Dyspnea, Cough, Wheezing GI: denies: Vomiting, Diarrhea Skin: denies: Rash Musculoskeletal: denies: Neck pain, Back pain Neurologic: reports: Headache (yesterday, none today) PD PAST MEDICAL HISTORY - Past Medical History Past Medical History: Yes Cardiovascular: None Respiratory: None Endocrine/Autoimmune: None GI: GERD : Incontinence, Other HEENT: Chronic vision loss Psych: None Musculoskeletal: Osteoarthritis Derm: None - Past Surgical History Past Surgical History: Yes General: Colonoscopy, EGD, Other /RN CARDIAC REHAB: Hysterectomy, Oophrectomy - Present Medications Home Medications: Ambulatory Orders Medication Instructions Recorded Confirmed Omeprazole 40 mg PO DAILY 07/01/13 02/23/15 Aspirin 325 mg PO 02/07/19 Cefdinir 300 mg PO BID #10 cap 08/14/22 - Allergies Allergies/Adverse Reactions: Allergies Allergy/AdvReac Type Severity Reaction Status Date / Time No Known Drug Allergies Allergy Verified 05/19/22 18:53 - Social History Does the pt smoke?: No Smoking Status: Never smoker Does the pt drink ETOH?: No Does the pt have substance abuse?: No PD ED PE NORMAL - Vitals Vital signs reviewed: Yes - General General: No acute distress - HEENT HEENT: Atraumatic, PERRL, EOMI, Moist mucous membranes, Pharynx benign - Neck Neck: Supple, no meningeal sign, No bony TTP - Cardiac Cardiac: RRR - Respiratory Respiratory: No respiratory distress, Clear bilaterally - Abdomen Abdomen: Soft, Non tender, Non distended - Back Back: No CVA TTP, No spinal TTP - Derm Derm: Warm and dry, No rash - Extremities Extremities: No edema, No calf tenderness / cord - 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, No motor deficit, No sensory deficit, Other (Alert, oriented to person and place, not To time) Eye Opening: Spontaneous Motor: Obeys Commands Verbal: Oriented GCS Score: 15 - Psych Psych: Normal mood, Normal affect Results - Vitals Vitals: Vital Signs - 24 hr 08/14/22 08/14/22 08/14/22 12:46 14:47 16:00 Temperature 37.0 C 36.7 C Heart Rate 53 L 55 L 60 Respiratory 13 12 14 Rate Blood Pressure 138/65 H 150/75 H 129/87 H O2 Saturation 100 100 100 Oxygen O2 Source Room air - EKG (time done) 1341 Rate: Rate (enter#) (47) Rhythm: Sinus bradycardia [place]: Normal Intervals: Normal [place] QRS: Normal Ischemia: Normal ST segments - Labs Labs: Laboratory Tests 08/14/22 08/14/22 08/14/22 13:49 13:49 13:49 WBC 8.8 RBC 4.31 Hgb 13.1 Hct 41.1 MCV 95.4 MCH 30.4 MCHC 31.9 L RDW 12.4 Plt Count 179 MPV 10.8 Neut # (Auto) 6.1 Lymph # (Auto) 2.0 [place] # (Auto) 0.5 Eos # (Auto) 0.1 Baso # (Auto) 0.1 Absolute Nucleated RBC 0.00 Nucleated RBC % 0.0 Sodium 140 Potassium 4.8 Chloride 105 Carbon Dioxide 25 Anion Gap 10.0 BUN 41 H Creatinine 1.4 H Estimated GFR (MDRD) 36 L Glucose 109 H Calcium 9.7 Total Bilirubin 0.8 AST 17 ALT 12 Alkaline Phosphatase 66 Troponin I High Sens 11.2 Total Protein 7.4 Albumin 4.0 Globulin 3.4 Albumin/Globulin Ratio 1.2 Lipase 40 Urine Color Urine Clarity Urine pH Ur Specific [place] Urine Protein Urine Glucose (UA) Urine Ketones Urine Occult Blood Urine Nitrite Urine Bilirubin Urine Urobilinogen Ur Leukocyte Esterase Urine RBC Urine WBC Ur Epithelial Cells Ur Squamous Epith Cells Urine Bacteria Ur Microscopic Review Urine Culture Comments 08/14/22 15:11 WBC RBC Hgb Hct MCV MCH MCHC RDW Plt Count MPV Neut # (Auto) Lymph # (Auto) [place] # (Auto) Eos # (Auto) Baso # (Auto) Absolute Nucleated RBC Nucleated RBC % Sodium Potassium Chloride Carbon Dioxide Anion Gap BUN Creatinine Estimated GFR (MDRD) Glucose Calcium Total Bilirubin AST ALT Alkaline Phosphatase Troponin I High Sens Total Protein Albumin Globulin Albumin/Globulin Ratio Lipase Urine Color YELLOW Urine Clarity HAZY Urine pH 6.0 Ur Specific [place] >=1.030 H Urine Protein NEGATIVE Urine Glucose (UA) NEGATIVE Urine Ketones NEGATIVE Urine Occult Blood NEGATIVE Urine Nitrite NEGATIVE Urine Bilirubin NEGATIVE Urine Urobilinogen 0.2 (NORMAL) Ur Leukocyte Esterase MODERATE H Urine RBC 0-5 Urine WBC 11-25 H Ur Epithelial Cells FEW Transitional Ur Squamous Epith Cells MANY Squamous H Urine Bacteria Moderate H Ur Microscopic Review INDICATED Urine Culture Comments NOT INDICATED - Rads (name of study) head Ct Radiology: Final report received, See rad report cxr Radiology: Final report received, See rad report PD Medical Decision Making - ED course Complexity details: reviewed results, re-evaluated patient, considered differential, d/w patient, d/w family Reviewed Lab Results: CBC does not show any acute abnormalities. Chemistry is significant for an elevated BUN to creatinine ratio consistent with dehydration. High-sensitivity troponin is negative. LFTs are normal. Urinalysis is positive for a urinary tract infection. ED course: 77-year-old female with dehydration and a UTI. Given IV Rocephin. Also given IV normal saline. I will place on oral antibiotics for home. She is well- appearing, nontoxic. Afebrile. No hypoxia. No respiratory distress. No acute findings on chest x-ray or head CT. No acute findings on EKG. Patient lives at home with her and they have a caregiver. Patient and family counseled regarding signs and symptoms for which I believe and urgent re-evaluation would be necessary. Patient with good understanding of and agreement to plan and is comfortable going home at this time This document was made in part using voice recognition software. While efforts are made to proofread this document, sound alike and grammatical errors may occur. NIH stroke scale of 0, normal gait. No focal neurological deficits Departure - Departure Disposition: 01 Home, Self Care Clinical Impression: Dehydration UTI (urinary tract infection) Qualifiers: Urinary tract infection type: acute cystitis Hematuria presence: without hematuria Qualified Code(s): N30.00 - Acute cystitis without hematuria Condition: Good Instructions: ED Dehydration, ED UTI Cystitis Female Follow-Up: your,doctor in 3 days [Other] Prescriptions: Cefdinir 300 mg PO BID #10 cap Comments: Please follow-up with your doctor for further care. Continue her current medications at home. We will add an antibiotic on today as well. This was sent to [facility] in [place]. 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 She may take her normal medications at home tonight. Make sure she is drinking plenty of fluids. Return if she worsens. Discharge Date/Time: 08/14/22 16:40
--- NOTE | 2022-08-14 13:46 | XRAY Report ---
PROCEDURE: Chest 1 View X-Ray INDICATIONS: Chest Pain TECHNIQUE: One view of the chest was acquired. COMPARISON: 05/24/2022 FINDINGS: Surgical changes and devices: None. Lungs and pleura: No pleural effusions or pneumothorax. Lungs are clear. Mediastinum: Mediastinal contours appear normal. Heart size is normal. Bones and chest wall: No suspicious bony lesions. Overlying soft tissues appear unremarkable. IMPRESSION: No acute cardiopulmonary disease. Reviewed by: Cira Burroughs MD on 08/14/2022 12:45 PM [facility] Approved by: Cira Burroughs MD on 08/14/2022 12:45 PM [facility] Station ID: [id number]
--- NOTE | 2022-08-14 13:47 | CT Report ---
PROCEDURE: HEAD WO INDICATIONS: headache TECHNIQUE: Noncontrast 4.5 mm thick angled axial sections acquired from the foramen magnum to the vertex. For r adiation dose reduction, the following was used: automated exposure control, adjustment of mA and/or kV according to patient size. COMPARISON: 04/20/2016 FINDINGS: Image quality: Excellent. CSF spaces: Basal cisterns are patent. No extra-axial fluid collections. Ventricles are normal in size and shape. Brain: No midline shift. No intracranial masses or hemorrhage. Padilla-white matter interface is norm al. Skull and face: Calvarium and visualized facial bones are intact, without suspicious lesions. Sinuses: Visualized sinuses and mastoids are clear. IMPRESSION: 1. No CT evidence of acute intracranial process. 2. No CT evidence of acute sinus disease. Reviewed by: Cira Burroughs MD on 08/14/2022 12:46 PM [place] Approved by: Cira Burroughs MD on 08/14/2022 12:46 PM [place] Station ID: [id number]
[2022-08-14 13:57] LABS: BASOPHILS # (AUTO) 0.1 10^3/uL (0.0-0.1); BASOPHILS % (AUTO) 0.8 %; EOSINOPHILS # (AUTO) 0.1 10^3/uL (0.0-0.7); EOSINOPHILS % (AUTO) 1.4 %; HCT - HEMATOCRIT 41.1 % (37.0-47.0); HGB - HEMOGLOBIN 13.1 g/dL (12.0-16.0); LYMPHOCYTES % (AUTO) 22.5 %; MEAN CORPUSCULAR HEMOGLOBIN 30.4 pg (27.0-31.0); MEAN CORPUSCULAR HGB CONC 31.9 g/dL (32.0-36.0); MEAN CORPUSCULAR VOLUME 95.4 fL (81.0-99.0); MEAN PLATELET VOLUME 10.8 fL (7.9-10.8); MONOCYTES # (AUTO) 0.5 10^3/uL (0.0-1.0); MONOCYTES % (AUTO) 5.8 %; NEUTROPHILS # (AUTO) 6.1 10^3/uL (1.5-6.6); NEUTROPHILS % (AUTO) 69.4 %; PLT - PLATELET COUNT 179 10^3/uL (130-450); RED BLOOD COUNT 4.31 10^6/uL (4.20-5.40); RED CELL DISTRIBUTION WIDTH 12.4 % (12.0-15.0); WHITE BLOOD COUNT 8.8 x10^3/uL (4.8-10.8)
[2022-08-14 14:13] LABS: ALBUMIN/GLOBULIN RATIO 1.2 (1.0-2.2); BILIRUBIN,TOTAL 0.8 mg/dL (0.2-1.0); CALCIUM 9.7 mg/dL (8.5-10.3); CREATININE 1.4 mg/dL (0.4-1.0); POTASSIUM 4.8 mmol/L (3.5-5.0); TOTAL PROTEIN 7.4 g/dL (6.7-8.2)
[2022-08-14] MEDS ORDERED: SODIUM CHLORIDE 0.9% 1,000 ML IV STA (14:22)
[2022-08-14 15:17] LABS: BILIRUBIN,URINE NEGATIVE (NEGATIVE); GLUCOSE, URINE (UA) NEGATIVE (NEGATIVE); KETONES,URINE (UA) NEGATIVE (NEGATIVE); LEUKOCYTE ESTERASE, URINE MODERATE (NEGATIVE); NITRITE,URINE NEGATIVE (NEGATIVE); OCCULT BLOOD,URINE NEGATIVE (NEGATIVE); PROTEIN,URINE NEGATIVE (NEGATIVE); UROBILINOGEN,URINE 0.2 (NORMAL) E.U./dL (NORMAL)
[2022-08-14 15:19] LABS: CLARITY,URINE HAZY (CLEAR)
[2022-08-14 15:25] LABS: BACTERIA,URINE Moderate /HPF (None Seen); EPITHELIAL CELLS,UR FEW Transitional /HPF (<= Few); RBC,URINE 0-5 /HPF (0-5); SQUAMOUS EPITHELIAL CELL,UR MANY Squamous (<= Few)
[2022-08-14] MEDS ORDERED: cefTRIAXone 1 GM VIAL IVP STA (16:02)
[2022-08-14 16:21] VITALS: BP 129/87
== END 2022-08-14 16:40 | disposition home or self-care (01) ==
LOC: EDUNIT# → ED 12:36
DX: E86.0 Dehydration (principal); N30.00 Acute cystitis without hematuria
CPT/HCPCS: 36415; 80053; 81001; 81003; 83690; 84484; 85025; 87086; 93005; 96361; 96374; 99284

== ENCOUNTER 2022-08-25 11:00 | Outpatient (CLI) | payer MEDICARE, OTHER | END 2022-08-25 23:59 | disposition home or self-care (01) | LOC: LAB.WCP 11:00 | PROVIDERS: ATTEND Physician Assistant Medical | DX: N39.0 Urinary tract infection, site not specified (principal) | CPT/HCPCS: 87086 ==

== ENCOUNTER 2022-09-01 11:20 | Outpatient (CLI) | payer MEDICARE, OTHER ==
--- NOTE | 2022-09-06 12:22 | Mammography Report ---
BILATERAL DIGITAL SCREENING MAMMOGRAM: 09/01/2022 CLINICAL: Routine screening. Comparison is made to exams dated: 02/10/2020 mammogram, 11/22/2018 mammogram, 11/16/2018 mammogram, 09/21 mammogram, 06/24/2016 mammogram, and 01/27/2015 mammogram - [facility]. There are scattered areas of fibroglandular density in both breasts (category b / 25%-50% glandular t issue). No significant masses, calcifications, or other findings are seen in either breast. There has been no significant interval change. IMPRESSION: NEGATIVE There is no mammographic evidence of malignancy. A 1 year screening mammogram is recommended. Based on the Tyrer Cuzick model (a risk assessment model) the patients lifetime risk is 2.1% and her 10 year risk is 0.0%. According to the ACR, ACS, and NCCN guidelines, an annual breast MRI exam arely g with mammogram is recommended if the patients lifetime risk is 20% or greater. This exam was interpreted at Station ID: [id number]. NOTE: For mammograms, a report in lay terms will be sent to the patient. Approximately 15% of breast malignancies will not be visualized mammographically. In the management of a palpable breast mass, a negative mammogram must not discourage biopsy of a clinically suspicious lesion. Electronically Signed By: Edith rolon/jabari:09/05/2022 12:49:28 ACR BI-RADS Category 1: Negative 3341F PARENCHYMAL PATTERN: (A) - The breast(s) demonstrate(s) scattered fibroglandular densities. BI-RADS CATEGORY: (1) - 1 RECOMMENDATION: (ANNUAL) - Recommend routine annual screening mammography. [id number] 1 year screening LATERALITY: (B)
== END 2022-09-01 11:21 | disposition home or self-care (01) ==
LOC: DI.N 11:20
DX: Z12.31 Encounter for screening mammogram for malignant neoplasm of breast (principal)

== ENCOUNTER 2022-11-01 15:41 | Outpatient (CLI) | payer MEDICARE, OTHER | END 2022-11-01 15:42 | disposition critical access hospital (66) | LOC: EMS 15:41 | DX: R47.81 Slurred speech (principal); R47.1 Dysarthria and anarthria; R26.81 Unsteadiness on feet | CPT/HCPCS: A0425; A0429 ==

== ENCOUNTER 2022-11-01 15:57 | Emergency (ER) | payer MEDICARE, OTHER ==
[2022-11-01] MEDS ORDERED: SODIUM CHLORIDE 0.9% 1,000 ML IV STA (16:04)
[2022-11-01 16:15] LABS: BASOPHILS # (AUTO) 0.1 10^3/uL (0.0-0.1); EOSINOPHILS # (AUTO) 0.3 10^3/uL (0.0-0.7); EOSINOPHILS % (AUTO) 2.9 %; HCT - HEMATOCRIT 38.7 % (37.0-47.0); HGB - HEMOGLOBIN 12.4 g/dL (12.0-16.0); LYMPHOCYTES % (AUTO) 21.9 %; MEAN CORPUSCULAR HEMOGLOBIN 30.9 pg (27.0-31.0); MEAN CORPUSCULAR VOLUME 96.5 fL (81.0-99.0); MEAN PLATELET VOLUME 10.6 fL (7.9-10.8); MONOCYTES # (AUTO) 0.6 10^3/uL (0.0-1.0); MONOCYTES % (AUTO) 7.2 %; NEUTROPHILS % (AUTO) 66.8 %; PLT - PLATELET COUNT 212 10^3/uL (130-450); RED BLOOD COUNT 4.01 10^6/uL (4.20-5.40); RED CELL DISTRIBUTION WIDTH 12.8 % (12.0-15.0); WHITE BLOOD COUNT 8.9 x10^3/uL (4.8-10.8)
--- NOTE | 2022-11-01 16:24 | ED Physician Documentation ---
PD HPI FOCAL NEURO - Stated complaint Stated Complaint: CODE STROKE - Chief complaint Chief Complaint: General - History obtained from History obtained from: Patient, Family, EMS - Additional information Additional information: Patient is a 77-year-old female with a history of Parkinson's and dementia. She and her "overslept" this morning and she missed her morning dose of her medication for her Parkinson's. Began to feel like she was having difficulty speaking and more trouble walking. Her caregiver found the medication and gave it to her. Symptoms all resolved about an hour after receiving her Parkinson's medications. Patient is otherwise asymptomatic. No headache, no vomiting, no fevers. No falls. No trauma. Currently at her normal baseline. Review of Systems Constitutional: denies: Fever, Chills Cardiac: denies: Chest pain / pressure, Palpitations Respiratory: denies: Dyspnea, Cough GI: denies: Vomiting, Diarrhea Skin: denies: Rash Musculoskeletal: denies: Neck pain, Back pain Neurologic: denies: Focal weakness, Numbness, Headache, Head injury, LOC PD PAST MEDICAL HISTORY - Past Medical History Past Medical History: Yes Cardiovascular: None Respiratory: None Endocrine/Autoimmune: None GI: GERD : Incontinence, Other HEENT: Chronic vision loss Psych: None Musculoskeletal: Osteoarthritis Derm: None - Past Surgical History Past Surgical History: Yes General: Colonoscopy, EGD, Other /SEARCH LEAD: Hysterectomy, Oophrectomy - Present Medications Home Medications: Ambulatory Orders Medication Instructions Recorded Confirmed Omeprazole 4,010 mg PO DAILY 07/01/13 02/23/15 Aspirin 325 mg PO DAILY 02/07/19 Celecoxib [Celebrex] 200 mg PO DAILY 11/01/22 11/01/22 Donepezil HCl [Aricept] 5 mg PO DAILY 11/01/22 Oxybutynin Chloride [Ditropan Xl] 10 mg PO DAILY 11/01/22 - Allergies Allergies/Adverse Reactions: Allergies Allergy/AdvReac Type Severity Reaction Status Date / Time No Known Drug Allergies Allergy Verified 11/01/22 16:13 - Social History Does the pt smoke?: No Smoking Status: Never smoker Does the pt drink ETOH?: No Does the pt have substance abuse?: No PD ED PE NORMAL - Vitals Vital signs reviewed: Yes - General General: No acute distress, Well developed/nourished, Other (Alert, oriented to person and place, Baseline for patient) - HEENT HEENT: PERRL, EOMI, Moist mucous membranes - Neck Neck: Supple, no meningeal sign - Cardiac Cardiac: RRR, Strong equal pulses - Respiratory Respiratory: No respiratory distress, Clear bilaterally - Abdomen Abdomen: Soft, Non tender, Non distended - Back Back: No spinal TTP - Derm Derm: Warm and dry, No rash - Extremities Extremities: No edema, No calf tenderness / cord - 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, No motor deficit, No sensory deficit, Normal speech Eye Opening: Spontaneous Motor: Obeys Commands Verbal: Oriented GCS Score: 15 - Psych Psych: Normal mood, Normal affect NIHSS - Time Time: 16:00 - Level of Consciousness Level of consciousness: (0) Alert, Keenly responsive LOC Questions: (0) Answers both Q's correct LOC Commands: (0) Performs both correctly - Gaze Best Gaze: (0) Normal - Visual Visual: (0) No loss - Facial Palsy Facial Palsy: (0) Normal, symmetrical movement - Motor Arms (both separate) Motor Arm (right): (0) No drift Motor Arm (left): (0) No drift - Motor Legs (both separate) Motor Leg (right): (0) No drift Motor Leg (left): (0) No drift - Limb Ataxia Limb Ataxia: (0) Absent - Sensory Sensory: (0) Normal - Best Language Best Language: (0) No aphasia - Dysarthria Dysarthria: (0) Normal - Extinction and Inattention (formally neg Extinction and inattention: (0) No abnormality - Total Score/Results Total Score/Result: 0 Results - Vitals Vitals: Vital Signs - 24 hr 11/01/22 11/01/22 11/01/22 15:55 16:13 16:20 Temperature 36.4 C L Heart Rate 53 L 54 L Respiratory 16 16 15 Rate Blood Pressure 134/80 H O2 Saturation 100 100 11/01/22 11/01/22 18:18 19:10 Temperature 36.5 C Heart Rate 77 Respiratory 16 16 Rate Blood Pressure 170/68 H O2 Saturation 100 Oxygen O2 Source Room air - EKG (time done) 1608 EKG releavant findings:: EKG personally interpreted by author of this note. Relevant findings are: Rate: Rate (enter#) (45) Rhythm: Sinus bradycardia [place]: Normal Intervals: Normal IN QRS: Normal Ischemia: Normal ST segments - Labs Labs: Laboratory Tests 11/01/22 11/01/22 11/01/22 16:10 16:10 18:05 WBC 8.9 RBC 4.01 L Hgb 12.4 Hct 38.7 MCV 96.5 MCH 30.9 MCHC 32.0 RDW 12.8 Plt Count 212 MPV 10.6 Neut # (Auto) 6.0 Lymph # (Auto) 2.0 [place] # (Auto) 0.6 Eos # (Auto) 0.3 Baso # (Auto) 0.1 Absolute Nucleated RBC 0.00 Nucleated RBC % 0.0 Sodium 139 Potassium 4.9 Chloride 106 Carbon Dioxide 25 Anion Gap 8.0 BUN 33 H Creatinine 1.5 H Estimated GFR (MDRD) 34 L Glucose 131 H Calcium 9.4 Total Bilirubin 0.7 AST 19 ALT 17 Alkaline Phosphatase 73 Total Protein 7.1 Albumin 3.9 Globulin 3.2 Albumin/Globulin Ratio 1.2 Lipase 35 Urine Color YELLOW Urine Clarity HAZY Urine pH 6.0 Ur Specific [place] 1.010 Urine Protein NEGATIVE Urine Glucose (UA) NEGATIVE Urine Ketones NEGATIVE Urine Occult Blood NEGATIVE Urine Nitrite NEGATIVE Urine Bilirubin NEGATIVE Urine Urobilinogen 0.2 (NORMAL) Ur Leukocyte Esterase NEGATIVE Urine RBC 0-5 Urine WBC 4-5 Ur Squamous Epith Cells MANY Squamous H Amorphous Sediment Rare Urine Bacteria None Seen Urine Casts 3-5 Hyaline Casts Ur Microscopic Review INDICATED Urine Culture Comments NOT INDICATED - Rads (name of study) Head CT Relevant Findings:: Final report received, See rad report PD Medical Decision Making - ED course Complexity details: reviewed results, re-evaluated patient, considered differential, d/w patient, d/w family ED course: 77-year-old female with Parkinson's and dementia. She is at her normal baseline here. Appears that she was late taking her Parkinson's medication, likely causing her symptoms today. She is currently asymptomatic. No significant lab abnormalities. No focal neurological deficits to suggest stroke. Recommend that she take her medications as prescribed, especially the Parkinson's medication. NIH stroke scale of 0. Patient and family counseled regarding si gns and symptoms for which I believe and urgent re-evaluation would be necessary. Patient with good understanding of and agreement to plan and is comfortable going home at this time This document was made in part using voice recognition software. While efforts are made to proofread this document, sound alike and grammatical errors may occur. Departure - Departure Disposition: 01 Home, Self Care Clinical Impression: Parkinsons disease Condition: Good Instructions: Parkinson Disease Follow-Up: Candice Oreilly PA-C [Primary Care Provider] - Comments: Your testing today does not show any acute abnormalities. Please follow-up with your doctor for further care. Please make sure you are taking your medications as prescribed. There is no evidence of stroke, infection, electrolyte abnormality or other acute emergency today. Discharge Date/Time: 11/01/22 19:11
[2022-11-01 16:28] LABS: ALBUMIN 3.9 g/dL (3.2-5.5); ALBUMIN/GLOBULIN RATIO 1.2 (1.0-2.2); BILIRUBIN,TOTAL 0.7 mg/dL (0.2-1.0); CALCIUM 9.4 mg/dL (8.5-10.3); CREATININE 1.5 mg/dL (0.4-1.0); POTASSIUM 4.9 mmol/L (3.5-5.0); TOTAL PROTEIN 7.1 g/dL (6.7-8.2)
--- NOTE | 2022-11-01 16:50 | CT Report ---
PROCEDURE: HEAD WO INDICATIONS: aphasia, resolved with taking parkinsons meds TECHNIQUE: Noncontrast 4.5 mm thick angled axial sections acquired from the foramen magnum to the vertex. For r adiation dose reduction, the following was used: automated exposure control, adjustment of mA and/or kV according to patient size. COMPARISON: 08/14/2022 FINDINGS: Image quality: Good CSF spaces: Basal cisterns are patent. Lateral ventricles are symmetric. Volume: Vascular calcifications. Periventricular white matter disease is commonly seen with chronic m icroangiopathy. Volume loss is present. These findings are moderate. Brain: No intracranial hemorrhage. Padilla-white differentiation is grossly maintained. Craniofacial structures: No displaced fracture. Sinuses are clear. Orbits are intact. IMPRESSION: No acute intracranial abnormality. If there is high concern for parenchymal pathology, consider furth er evaluation with MRI. Reviewed by: Temo Fox MD on 11/01/2022 4:49 PM PDT Approved by: Temo Fox MD on 11/01/2022 4:49 PM PDT Station ID: [id number]
[2022-11-01 18:19] VITALS: BP 170/68
[2022-11-01 18:30] LABS: BILIRUBIN,URINE NEGATIVE (NEGATIVE); GLUCOSE, URINE (UA) NEGATIVE (NEGATIVE); KETONES,URINE (UA) NEGATIVE (NEGATIVE); LEUKOCYTE ESTERASE, URINE NEGATIVE (NEGATIVE); NITRITE,URINE NEGATIVE (NEGATIVE); OCCULT BLOOD,URINE NEGATIVE (NEGATIVE); PROTEIN,URINE NEGATIVE (NEGATIVE); UROBILINOGEN,URINE 0.2 (NORMAL) E.U./dL (NORMAL)
[2022-11-01 18:41] LABS: CLARITY,URINE HAZY (CLEAR)
[2022-11-01 18:43] LABS: AMORPHOUS SEDIMENT,UR Rare /LPF; BACTERIA,URINE None Seen /HPF (None Seen); CASTS, URINE 3-5 Hyaline Casts /LPF; RBC,URINE 0-5 /HPF (0-5); SQUAMOUS EPITHELIAL CELL,UR MANY Squamous (<= Few)
== END 2022-11-01 19:11 | disposition home or self-care (01) ==
LOC: EDUNIT# → ED 15:57
DX: G20 Parkinson's disease (principal); F02.80 Dementia in other diseases classified elsewhere, unspecified severity, without behavioral disturbance, psychotic disturbance, mood disturbance, and anxiety
CPT/HCPCS: 36415; 80053; 81001; 81003; 83690; 85025; 87086; 93005; 99283; 99284

== ENCOUNTER 2022-11-08 14:22 | Outpatient (CLI) | payer MEDICARE, OTHER ==
[2022-11-08 14:45] LABS: CREATININE 1.5 mg/dL (0.4-1.0)
[2022-11-08] MEDS ORDERED: iohexoL-300 100 ML VIAL ONE (15:35)
[2022-11-08] MEDS ORDERED: iohexoL-300 100 ML VIAL IVP ONE (16:01)
--- NOTE | 2022-11-08 17:03 | CT Report ---
PROCEDURE: ABDOMEN/PELVIS W INDICATIONS: WEIGHT LOSS CONTRAST: 100mL Omni 300 TECHNIQUE: After the administration of oral and intravenous contrast, 5 mm thick sections acquired from the diap hragms to the symphysis. 5 mm thick coronal and sagittal reformats were acquired. For radiation dos e reduction, the following was used: automated exposure control, adjustment of mA and/or kV accordin g to patient size. COMPARISON: None FINDINGS: Image quality: Excellent. Lung bases and heart: Unremarkable. Liver: Peripheral hyperattenuation in segment IVb, likely a vascular shunt. Gallbladder and biliary tree: Unremarkable. No biliary dilation. Spleen: Unremarkable. Pancreas: No pancreatic ductal dilation. Generalized atrophy. Adrenals: Unremarkable. Kidneys and ureters: No complex renal cystic lesions which require follow-up. Bowel and peritoneum: No bowel distension. No pathologic free fluid. Prominence of the ileocecal valv e (series 7, image 58). Lymph nodes: No central or retroperitoneal adenopathy. Vessels: Unremarkable. PELVIS Reproductive organs: Unremarkable. Bladder: Unremarkable. Lymph nodes: Unremarkable. Bones: No aggressive osseous abnormality. Other: None. IMPRESSION: Prominence of the ileocecal valve. Differential includes artifact from fecal debris/intraluminal cont rast versus mass. Consider colonoscopy, if not performed recently. Reviewed by: Solitario Camarena on 11/08/2022 5:01 PM PDT Approved by: Solitario Camarena on 11/08/2022 5:01 PM PDT Station ID: [id number]
== END 2022-11-08 14:23 | disposition home or self-care (01) ==
LOC: LAB 14:22
PROVIDERS: ATTEND Physician Assistant Medical
DX: R63.4 Abnormal weight loss (principal); R93.3 Abnormal findings on diagnostic imaging of other parts of digestive tract
CPT/HCPCS: 36415; 74177; 82565; Q9967

== ENCOUNTER 2022-12-22 08:00 | Outpatient (CLI) | payer MEDICARE, OTHER | END 2022-12-22 23:59 | disposition home or self-care (01) | LOC: LAB.WCP 08:00 | PROVIDERS: ATTEND Physician Assistant Medical | DX: R35.0 Frequency of micturition (principal) | CPT/HCPCS: 87086 ==

== ENCOUNTER 2022-12-23 14:24 | Outpatient (CLI) | payer MEDICARE, OTHER ==
[2022-12-23 17:59] LABS: BASOPHILS # (AUTO) 0.1 10^3/uL (0.0-0.1); BASOPHILS % (AUTO) 0.8 %; EOSINOPHILS # (AUTO) 0.2 10^3/uL (0.0-0.7); EOSINOPHILS % (AUTO) 1.9 %; HCT - HEMATOCRIT 36.9 % (37.0-47.0); HGB - HEMOGLOBIN 11.7 g/dL (12.0-16.0); LYMPHOCYTES # (AUTO) 2.4 10^3/uL (1.5-3.5); LYMPHOCYTES % (AUTO) 23.6 %; MEAN CORPUSCULAR HEMOGLOBIN 30.9 pg (27.0-31.0); MEAN CORPUSCULAR HGB CONC 31.7 g/dL (32.0-36.0); MEAN CORPUSCULAR VOLUME 97.4 fL (81.0-99.0); MEAN PLATELET VOLUME 11.4 fL (7.9-10.8); MONOCYTES # (AUTO) 0.7 10^3/uL (0.0-1.0); MONOCYTES % (AUTO) 7.2 %; NEUTROPHILS # (AUTO) 6.7 10^3/uL (1.5-6.6); NEUTROPHILS % (AUTO) 66.4 %; PLT - PLATELET COUNT 204 10^3/uL (130-450); RED BLOOD COUNT 3.79 10^6/uL (4.20-5.40); RED CELL DISTRIBUTION WIDTH 12.6 % (12.0-15.0); WHITE BLOOD COUNT 10.1 x10^3/uL (4.8-10.8)
[2022-12-23 18:10] LABS: ALBUMIN 3.8 g/dL (3.2-5.5); ALBUMIN/GLOBULIN RATIO 1.2 (1.0-2.2); BILIRUBIN,TOTAL 0.6 mg/dL (0.2-1.0); CALCIUM 9.2 mg/dL (8.5-10.3); CREATININE 1.6 mg/dL (0.4-1.0); POTASSIUM 5.1 mmol/L (3.5-5.0)
== END 2022-12-23 14:25 | disposition home or self-care (01) ==
LOC: LAB.N 14:24
PROVIDERS: ATTEND Physician Assistant Medical
DX: N18.9 Chronic kidney disease, unspecified (principal); I95.9 Hypotension, unspecified; R35.0 Frequency of micturition
CPT/HCPCS: 36415; 80053; 85025

== ENCOUNTER 2023-01-05 14:11 | Outpatient (CLI) | payer MEDICARE, OTHER ==
--- NOTE | 2023-01-05 17:06 | Ultrasound Report ---
PROCEDURE: Retroperitoneal INDICATIONS: RENAL INSUFFICIENCY TECHNIQUE: Real-time scanning was performed of the retroperitoneal organs, with image documentation. COMPARISON: None. FINDINGS: Kidneys: Kidneys are small in size. Right kidney measures 8 cm long; left kidney measures 8.9 cm lo ng. Right renal cortical thickness is 1.3 cm; left renal cortical thickness is 0.9 cm. No solid mas ses, hydronephrosis, or nephrolithiasis. Slightly increased echogenicity. Bladder: Pre-void bladder volume is 95 mL. Post-void residual is 82 mL. Pre-void images demonstrat e no intraluminal masses or stones. On pre-void images, neither ureteral jets are noted with color D oppler interrogation. (Of note, ureteral jets may not be detectable in up to 25% of cases due to ins ufficient differences in specific gravity between ureteral and bladder urine). Miscellaneous: No free abdominal fluid. IMPRESSION: Small kidneys with increased echogenicity, favoring chronic kidney disease. Reviewed by: Solitario Camarena on 01/05/2023 5:04 PM PDT Approved by: Solitario Camarena on 01/05/2023 5:04 PM PDT Station ID: [id number]
== END 2023-01-05 23:59 | disposition home or self-care (01) ==
LOC: DI 14:11
PROVIDERS: ATTEND Family Medicine
DX: N18.9 Chronic kidney disease, unspecified (principal)

== ENCOUNTER 2023-01-18 12:10 | Outpatient (CLI) | payer MEDICARE, OTHER | END 2023-01-18 23:59 | disposition short-term general hospital (02) | LOC: EMS 12:10 | DX: I95.9 Hypotension, unspecified (principal) | CPT/HCPCS: A0425; A0429 ==

== ENCOUNTER 2023-03-01 14:25 | Outpatient (CLI) | payer MEDICARE, OTHER ==
[2023-03-01 18:08] LABS: CREATININE 1.2 mg/dL (0.6-1.3); POTASSIUM 4.8 mmol/L (3.5-4.5)
[2023-03-01 18:14] LABS: CREATININE,URINE 75.4 mg/dL; SODIUM, URINE 33.6 mmol/L
== END 2023-03-01 14:26 | disposition home or self-care (01) ==
LOC: LAB.N 14:25
PROVIDERS: ATTEND Internal Medicine Nephrology
DX: N05.9 Unspecified nephritic syndrome with unspecified morphologic changes (principal); I50.32 Chronic diastolic (congestive) heart failure; N18.9 Chronic kidney disease, unspecified
CPT/HCPCS: 36415; 80048; 82570; 83880; 84300

== ENCOUNTER 2023-05-09 12:30 | Outpatient (CLI) | payer MEDICARE, OTHER | END 2023-05-09 12:31 | disposition home or self-care (01) | LOC: DI 12:30 | PROVIDERS: ATTEND Physician Assistant Medical | DX: I08.0 Rheumatic disorders of both mitral and aortic valves (principal); R07.9 Chest pain, unspecified | CPT/HCPCS: 93306 ==

== ENCOUNTER 2023-05-26 11:18 | Outpatient (CLI) | payer MEDICARE, OTHER ==
[2023-05-26 18:43] LABS: ALBUMIN 3.9 g/dL (3.2-5.5); ALBUMIN/GLOBULIN RATIO 1.3 (1.0-2.2); BILIRUBIN,TOTAL 0.4 mg/dL (0.2-1.0); CALCIUM 9.6 mg/dL (8.5-10.3); CREATININE 1.3 mg/dL (0.6-1.3); POTASSIUM 4.5 mmol/L (3.5-4.5); TOTAL PROTEIN 6.8 g/dL (6.4-8.9)
[2023-05-26 18:57] LABS: THYROID STIMULATING HORMONE 2.25 uIU/mL (0.34-5.60)
== END 2023-05-26 11:19 | disposition home or self-care (01) ==
LOC: LAB.N 11:18
PROVIDERS: ATTEND Psychiatry & Neurology Neurology
DX: R41.3 Other amnesia (principal); Z81.8 Family history of other mental and behavioral disorders; R53.83 Other fatigue; E55.9 Vitamin D deficiency, unspecified; R25.1 Tremor, unspecified
CPT/HCPCS: 36415; 80053; 81599; 82306; 82607; 82746; 84439; 84443

== ENCOUNTER 2023-06-24 09:55 | Outpatient (CLI) | payer MEDICARE, OTHER | END 2023-06-24 23:59 | disposition critical access hospital (66) | LOC: EMS 09:55 | DX: R52 Pain, unspecified (principal); R53.1 Weakness; R03.0 Elevated blood-pressure reading, without diagnosis of hypertension | CPT/HCPCS: A0425; A0429 ==

== ENCOUNTER 2023-06-24 10:15 | Emergency (ER) | payer MEDICARE, OTHER ==
[2023-06-24 10:33] VITALS: O2SAT 99
--- NOTE | 2023-06-24 10:40 | ED Physician Documentation ---
History of Present Illness - Stated complaint Stated Complaint: BODY PX - Chief complaint Chief Complaint: General - History obtained from History obtained from: Patient, Family (spouse), EMS - History of Present Illness Timing: Today Quality: the patient had episode of arm spasms/wide movements and some smaller tremorings for 30 seconds or so, followed by less responsive. Back to baseline alertness enroute here. Has had similar episodes though less dramatic at times in the past. Review of Systems Unable to obtain: Dementia (info per spouse and son) Constitutional: denies: Fever, Chills PD PAST MEDICAL HISTORY - Past Medical History Past Medical History: Yes Cardiovascular: None Respiratory: None Neuro: Dementia Endocrine/Autoimmune: None GI: GERD FACIAL OPERATOR: None : Incontinence, Other HEENT: Chronic vision loss Psych: None Musculoskeletal: Osteoarthritis Derm: None Other Past Medical History: Lewy Body Dementia - Past Surgical History Past Surgical History: Yes General: Colonoscopy, EGD, Other /FACIAL OPERATOR: Hysterectomy, Oophrectomy - Present Medications Home Medications: Ambulatory Orders Medication Instructions Recorded Confirmed Cholecalciferol [Vitamin D3] 400 unit PO DAILY 06/24/23 06/24/23 Lutein/Zeaxanthin [Ocuvite Lutein 1 each PO DAILY 06/24/23 06/24/23 25-5 mg Softgel] Multivitamin 1 each PO DAILY 06/24/23 06/24/23 Naproxen Sodium [Aleve] 220 mg PO DAILY 06/24/23 06/24/23 cephALEXin [Keflex] 500 mg PO TID #18 cap 06/24/23 - Allergies Allergies/Adverse Reactions: Allergies Allergy/AdvReac Type Severity Reaction Status Date / Time No Known Drug Allergies Allergy Verified 06/24/23 10:32 - Social History Does the pt smoke?: No Smoking Status: Never smoker Does the pt drink ETOH?: No Does the pt have substance abuse?: No - Immunizations Immunizations are current?: No - POLST Patient has POLST: No PD ED PE NORMAL - Vitals Vital signs reviewed: Yes - General General: No acute distress, Well developed/nourished, Other (awake and open eyed, looking at events around her, attentive. Nonverbal at this time. Follows simple commands. ) - HEENT HEENT: Atraumatic, PERRL, EOMI - Neck Neck: Supple, no meningeal sign, No adenopathy - Cardiac Cardiac: RRR, No murmur - Respiratory Respiratory: Clear bilaterally - Abdomen Abdomen: Soft, Non tender - Derm Derm: Normal color, Warm and dry - Extremities Extremities: Normal ROM s pain - Neuro Neuro: No motor deficit, No sensory deficit Eye Opening: Spontaneous Motor: Obeys Commands Verbal: None GCS Score: 11 Results - Vitals Vitals: Vital Signs - 24 hr 06/24/23 06/24/23 10:15 13:08 Temperature 36.5 C Heart Rate 55 L 59 L Respiratory 16 16 Rate Blood Pressure 154/97 H 148/113 H O2 Saturation 99 99 Oxygen O2 Source Room air - Labs Labs: Laboratory Tests 06/24/23 06/24/23 06/24/23 10:55 10:55 10:55 WBC 7.2 RBC 4.01 L Hgb 12.0 Hct 38.4 MCV 95.8 MCH 29.9 MCHC 31.3 L RDW 13.1 Plt Count 189 MPV 10.4 Neut # (Auto) 4.7 Lymph # (Auto) 1.7 [place] # (Auto) 0.5 Eos # (Auto) 0.2 Baso # (Auto) 0.1 Absolute Nucleated RBC 0.00 Nucleated RBC % 0.0 ESR 24 Sodium 138 Potassium 4.7 H Chloride 106 Carbon Dioxide 26 Anion Gap 6.0 BUN 25 H Creatinine 1.3 Estimated GFR (MDRD) 40 L Glucose 106 H Calcium 9.9 Magnesium 1.9 Total Bilirubin 0.4 AST 13 ALT 12 Alkaline Phosphatase 60 Total Protein 6.7 Albumin 4.0 Globulin 2.7 Albumin/Globulin Ratio 1.5 Lipase 24 Vitamin B12 1407 H Prolactin 14.72 Urine Color Urine Clarity Urine pH Ur Specific [place] Urine Protein Urine Glucose (UA) Urine Ketones Urine Occult Blood Urine Nitrite Urine Bilirubin Urine Urobilinogen Ur Leukocyte Esterase Urine RBC Urine WBC Ur Squamous Epith Cells Urine Bacteria Ur Microscopic Review Urine Culture Comments 06/24/23 11:19 WBC RBC Hgb Hct MCV MCH MCHC RDW Plt Count MPV Neut # (Auto) Lymph # (Auto) [place] # (Auto) Eos # (Auto) Baso # (Auto) Absolute Nucleated RBC Nucleated RBC % ESR Sodium Potassium Chloride Carbon Dioxide Anion Gap BUN Creatinine Estimated GFR (MDRD) Glucose Calcium Magnesium Total Bilirubin AST ALT Alkaline Phosphatase Total Protein Albumin Globulin Albumin/Globulin Ratio Lipase Vitamin B12 Prolactin Urine Color LIGHT YELLOW Urine Clarity CLEAR Urine pH 6.5 Ur Specific [place] 1.010 Urine Protein NEGATIVE Urine Glucose (UA) NEGATIVE Urine Ketones NEGATIVE Urine Occult Blood NEGATIVE Urine Nitrite NEGATIVE Urine Bilirubin NEGATIVE Urine Urobilinogen 0.2 (NORMAL) Ur Leukocyte Esterase TRACE H Urine RBC 0-5 Urine WBC 4-5 Ur Squamous Epith Cells RARE Squamous Urine Bacteria Moderate H Ur Microscopic Review INDICATED Urine Culture Comments INDICATED - Rads (name of study) brain MRI Relevant Findings:: Prelim report reviewed (Senescent changes without any acute abnormality nor signs of prior stroke.) PD Medical Decision Making - ED course Complexity details: re-evaluated patient, considered differential, d/w family (spouse and sons), 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 However since she was here in the ER, it was pointed out that she was not able to be registered for 2 spots at the same time so I ordered the brain MRI through the ER instead as she cannot be checked in for the outpatient 1. Tests were still pending so I cannot discharge her just yet. The brain MRI did not show any acute abnormalities other than senescent changes. ED course: The patient had an episode of seeming less responsive there was still having eyes open though unclear whether she is still fully awake as she does have baseline dementia and poor verbal interaction. The son and spouse states she appeared a little bit pale and had spasm type movement of her arms and a wide movement. Her son states that then was a little bit of tremoring of the arms as well. It did not appear to be full body tonic-clonic movements. However she was poorly interacting for 20 to 30 seconds and then seemed dazed for another few minutes. She had had similar episodes though not quite as dramatic epis odically in the past. They had seen her neurologist about a month ago and was trying carbidopa levodopa for some of her dementia. She had side effects to this in the family stopped the medicine in conjunction with their neurologist. The patient did not have any wetting of herself nor tongue biting. However the description could sound suggestive of seizure type episodes. I did talk with Dr. Mcleod who is neurologist on-call for Dr. Portillo. She stated the patient's with dementia Alzheimer's could have spasticity episodes like this and they can look at other medications to try to help. However she will pass a note to Dr. Portillo as an EEG will most likely be appropriate to evaluate. At this point not to start any new medications but to discuss with the neurologist, for the family to discuss with the neurologist any other medicines. Patient's blood test otherwise are good without any sodium more glucose or electrolyte problems. There is suggestion of UTI. I did discuss with the family that likely coincidental and not causative of the UTI causing any symptoms but we can treat it with antibiotics. Departure - Departure Disposition: Home, Self Care Clinical Impression: Dementia, Near syncope, Muscle stiffness, UTI (urinary tract infection) Condition: Stable Record reviewed to determine appropriate education?: Yes Follow-Up: Candice Oreilly PA-C [Primary Care Provider] - CAIN PORTILLO MD [Physician No Access] - Prescriptions: cephALEXin [Keflex] 500 mg PO TID #18 cap Comments: I talked with Dr. Mendez who is the neurologist on-call for Dr. Hussein. She will pass the information to your neurologist regarding the episodes. Your MRI did not show any obvious acute abnormalities aside from chronic age-related changes. Basic blood tests here are okay as well. Follow-up with your neurologist office on Monday to discuss it the episodes with the nurse there. They would likely want to do further testing that may include an EEG to look for seizure type episodes versus dementia related spasm episodes. Your neurologist will be able to discuss other medication options or perhaps a lower dose of the carbidopa/levodopa that may help with some of these. Otherwise stay well- hydrated. There is evidence for possible mild bladder infection which is likely just coincidental and unlikely to be causative of these episodes. However we can t reat with cephalexin 3 times daily for 5 days for that. I sent a prescription to [facility]. Forms: PCP List Discharge Date/Time: 06/24/23 13:55
[2023-06-24] MEDS ORDERED: SODIUM CHLORIDE 0.9% 1,000 ML IV STA (10:51)
[2023-06-24 11:04] LABS: BASOPHILS # (AUTO) 0.1 10^3/uL (0.0-0.1); BASOPHILS % (AUTO) 0.8 %; EOSINOPHILS # (AUTO) 0.2 10^3/uL (0.0-0.7); EOSINOPHILS % (AUTO) 2.1 %; HCT - HEMATOCRIT 38.4 % (37.0-47.0); LYMPHOCYTES # (AUTO) 1.7 10^3/uL (1.5-3.5); LYMPHOCYTES % (AUTO) 24.2 %; MEAN CORPUSCULAR HEMOGLOBIN 29.9 pg (27.0-31.0); MEAN CORPUSCULAR HGB CONC 31.3 g/dL (32.0-36.0); MEAN CORPUSCULAR VOLUME 95.8 fL (81.0-99.0); MEAN PLATELET VOLUME 10.4 fL (7.9-10.8); MONOCYTES # (AUTO) 0.5 10^3/uL (0.0-1.0); NEUTROPHILS # (AUTO) 4.7 10^3/uL (1.5-6.6); NEUTROPHILS % (AUTO) 65.6 %; PLT - PLATELET COUNT 189 10^3/uL (130-450); RED BLOOD COUNT 4.01 10^6/uL (4.20-5.40); RED CELL DISTRIBUTION WIDTH 13.1 % (12.0-15.0); WHITE BLOOD COUNT 7.2 x10^3/uL (4.8-10.8)
[2023-06-24 11:19] LABS: ALBUMIN/GLOBULIN RATIO 1.5 (1.0-2.2); BILIRUBIN,TOTAL 0.4 mg/dL (0.2-1.0); CALCIUM 9.9 mg/dL (8.5-10.3); CREATININE 1.3 mg/dL (0.6-1.3); MAGNESIUM 1.9 mg/dL (1.7-2.3); POTASSIUM 4.7 mmol/L (3.5-4.5); TOTAL PROTEIN 6.7 g/dL (6.4-8.9)
[2023-06-24 11:33] LABS: BILIRUBIN,URINE NEGATIVE (NEGATIVE); GLUCOSE, URINE (UA) NEGATIVE (NEGATIVE); KETONES,URINE (UA) NEGATIVE (NEGATIVE); LEUKOCYTE ESTERASE, URINE TRACE (NEGATIVE); NITRITE,URINE NEGATIVE (NEGATIVE); OCCULT BLOOD,URINE NEGATIVE (NEGATIVE); PH,URINE 6.5 PH (5.0-7.5); PROTEIN,URINE NEGATIVE (NEGATIVE); UROBILINOGEN,URINE 0.2 (NORMAL) E.U./dL (NORMAL)
[2023-06-24 11:36] LABS: PROLACTIN 14.72 ng/mL
[2023-06-24 11:59] LABS: CLARITY,URINE CLEAR (CLEAR)
[2023-06-24 12:13] LABS: BACTERIA,URINE Moderate /HPF (None Seen); RBC,URINE 0-5 /HPF (0-5); SQUAMOUS EPITHELIAL CELL,UR RARE Squamous (<= Few)
--- NOTE | 2023-06-24 13:05 | MRI Report ---
PROCEDURE: BRAIN WO INDICATIONS: altered mentation; tremors TECHNIQUE: Noncontrast axial T1 spin echo, axial T2 fast spin echo, sagittal and axial FLAIR, coronal T2 fast sp in echo, axial gradient echo, axial diffusion and ADC through the brain. COMPARISON: MRI dated 04/21/2016. Head CT 11/01/2022 and 08/14/2022 FINDINGS: Image quality: Diagnostic. CSF Spaces: Basal cisterns are patent. No extra-axial fluid collections. Ventricles are normal in size and shape. Brain: No intracranial masses or hemorrhage. Padilla/white matter interface is normal. Brainstem appe ars normal. Diffusion-weighted images demonstrate no acute ischemic insult. No chronic ischemic ins ults. Normal intravascular flow voids are present. Age-related senescent changes and diffuse cortic al volume loss. Skull and face: Calvarium has normal marrow signal. Orbits appear normal. Sinuses: Sinuses and mastoids are clear. IMPRESSION: MRI brain without acute intracranial abnormalities. No mass or mass effect. No evidence for acute cer ebral ischemia/infarction. Reviewed by: Jaren Dodge MD on 06/24/2023 1:04 PM PST Approved by: Jaren Dodge MD on 06/24/2023 1:04 PM PST Station ID: [id number]
[2023-06-24] MEDS ORDERED: cephALEXin 250 MG CAPSULE PO STA (13:11)
[2023-06-24 13:17] VITALS: BP 148/113
== END 2023-06-24 13:55 | disposition home or self-care (01) ==
LOC: EDUNIT# → ED 10:15
DX: N39.0 Urinary tract infection, site not specified (principal); R55 Syncope and collapse; F03.90 Unspecified dementia, unspecified severity, without behavioral disturbance, psychotic disturbance, mood disturbance, and anxiety; R53.83 Other fatigue
CPT/HCPCS: 36415; 70551; 80053; 81001; 82607; 83690; 83735; 84146; 85025; 85651; 87086; 99284; A9270; 81003

== ENCOUNTER 2023-08-03 11:10 | Outpatient (CLI) | payer MEDICARE, OTHER ==
--- NOTE | 2023-08-03 15:15 | XRAY Report ---
PROCEDURE: Hips w/Pelvis 2-3V BL INDICATIONS: HIP PAIN, BILATERAL TECHNIQUE: 3 view(s) of the hip were acquired. COMPARISON: 3 views of the hips and pelvis dated 03/19/2020. FINDINGS: Bones: No fractures or dislocations. No suspicious bony lesions. The visualized pelvic ring appears intact. Soft tissues: No suspicious soft tissue calcifications or masses. IMPRESSION: No acute bony abnormality. If there remains a high clinical concern for fracture, consider cross-sect ional imaging now. If pain persists, consider repeat x-ray in 10-14 days or cross-sectional imaging. Joint spaces are preserved. No significant osteoarthritis of the bilateral hip joints. Reviewed by: Edith Ferrer MD on 08/03/2023 3:13 PM PST Approved by: Edith Ferrer MD on 08/03/2023 3:13 PM PST Station ID: [id number]
== END 2023-08-03 11:11 | disposition home or self-care (01) ==
LOC: DI.N 11:10
PROVIDERS: ATTEND Physician Assistant Medical
DX: M25.551 Pain in right hip (principal)

== ENCOUNTER 2024-02-27 10:37 | Outpatient (CLI) | payer MEDICARE, OTHER ==
[2024-02-27 19:33] LABS: BASOPHILS # (AUTO) 0.1 10^3/uL (0.0-0.1); BASOPHILS % (AUTO) 1.1 %; EOSINOPHILS # (AUTO) 0.4 10^3/uL (0.0-0.7); EOSINOPHILS % (AUTO) 4.1 %; HCT - HEMATOCRIT 37.9 % (37.0-47.0); HGB - HEMOGLOBIN 11.8 g/dL (12.0-16.0); LYMPHOCYTES # (AUTO) 2.5 10^3/uL (1.5-3.5); LYMPHOCYTES % (AUTO) 27.8 %; MEAN CORPUSCULAR HEMOGLOBIN 30.4 pg (27.0-31.0); MEAN CORPUSCULAR HGB CONC 31.1 g/dL (32.0-36.0); MEAN CORPUSCULAR VOLUME 97.7 fL (81.0-99.0); MONOCYTES # (AUTO) 0.6 10^3/uL (0.0-1.0); MONOCYTES % (AUTO) 7.1 %; NEUTROPHILS # (AUTO) 5.4 10^3/uL (1.5-6.6); NEUTROPHILS % (AUTO) 59.6 %; PLT - PLATELET COUNT 221 10^3/uL (130-450); RED BLOOD COUNT 3.88 10^6/uL (4.20-5.40); RED CELL DISTRIBUTION WIDTH 13.2 % (12.0-15.0)
[2024-02-27 19:39] LABS: ALBUMIN 3.7 g/dL (3.2-5.5); ALBUMIN/GLOBULIN RATIO 1.4 (1.0-2.2); ALKALINE PHOSPHATASE 64 IU/L (42-121); ALT ALANINE AMINOTRANSFERASE 10 IU/L (10-60); AST ASPARTATE AMINOTRANSFERASE 12 IU/L (10-42); BILIRUBIN,TOTAL 0.3 mg/dL (0.2-1.0); BUN - BLOOD UREA NITROGEN 41 mg/dL (6-20); CALCIUM 9.4 mg/dL (8.5-10.3); CARBON DIOXIDE - CO2 26 mmol/L (21-32); CHLORIDE 108 mmol/L (101-111); CHOL/HDL RATIO 2.8 (<4.4); CHOLESTEROL 222 mg/dL; CREATININE 1.3 mg/dL (0.6-1.3); GFR - MDRD 40 (>89); GLUCOSE 92 mg/dL (74-104); HDL CHOLESTEROL 80 mg/dL; LDL CHOLESTEROL,CALCULATED 128 mg/dL; LDL/HDL RATIO 1.6 (<4.4); POTASSIUM 4.6 mmol/L (3.5-4.5); SODIUM 140 mmol/L (135-145); TOTAL PROTEIN 6.3 g/dL (6.4-8.9); TRIGLYCERIDES 69 mg/dL; VLDL CHOLESTEROL 14 mg/dL
== END 2024-02-27 10:38 | disposition home or self-care (01) ==
LOC: LAB.N 10:37
PROVIDERS: ATTEND Physician Assistant Medical
DX: E78.5 Hyperlipidemia, unspecified (principal); K21.9 Gastro-esophageal reflux disease without esophagitis
CPT/HCPCS: 36415; 80053; 80061; 83721; 85025

== ENCOUNTER 2024-03-18 20:27 | Outpatient (CLI) | payer MEDICARE, OTHER | END 2024-03-18 20:28 | disposition critical access hospital (66) | LOC: EMS 20:27 | DX: R53.83 Other fatigue (principal); R53.1 Weakness | CPT/HCPCS: A0425; A0429 ==

== ENCOUNTER 2024-03-18 20:46 | Emergency (ER) | payer MEDICARE, OTHER ==
--- NOTE | 2024-03-18 20:45 | ED Physician Documentation ---
History of Present Illness - Stated complaint Stated Complaint: LETHARGIC - History obtained from History obtained from: Patient, Family, EMS - Additonal information Additional information: BIBA. HPI from patient, family (at bedside), and EMS. Patient's family called 911 tonight due to patient exhibiting generalized weakness and lethargy since approximately 3 PM today. Symptoms were of gradual onset and without inciting event. No apparent exacerbating nor ameliorating factors. No fevers, sweats, chills. Denies cough, TORRES, visual changes, recent injury/fall, numbness. PMHx includes PD and dementia. FSBS 149 by EMS, bp 140s/70s en route , heart rate 50s sinus bradycardia and 99% pulse ox on room air. PD PAST MEDICAL HISTORY - Past Medical History Past Medical History: Yes Other Past Medical History: parkinsons disease, dementia - Present Medications Home Medications: Ambulatory Orders Medication Instructions Recorded Confirmed Cholecalciferol [Vitamin D3] 400 unit PO DAILY 06/24/23 06/24/23 Lutein/Zeaxanthin [Ocuvite Lutein 1 each PO DAILY 06/24/23 06/24/23 25-5 mg Softgel] Multivitamin 1 each PO DAILY 06/24/23 06/24/23 Naproxen Sodium [Aleve] 220 mg PO DAILY 06/24/23 06/24/23 cephALEXin [Keflex] 500 mg PO TID #18 cap 06/24/23 - Allergies Allergies/Adverse Reactions: Allergies Allergy/AdvReac Type Severity Reaction Status Date / Time No Known Drug Allergies Allergy Verified 03/18/24 20:57 PD ED PE NORMAL - Vitals Vital signs reviewed: Yes - General General: No acute distress, Well developed/nourished, Other (AAOx2 (says year is 2003; given second attempt but restates same)) - HEENT HEENT: Atraumatic, PERRL, EOMI, Other (tacky mucous membranes) - Neck Neck: Supple, no meningeal sign - Cardiac Cardiac: RRR, No murmur - Respiratory Respiratory: No respiratory distress, Clear bilaterally - Abdomen Abdomen: Normal bowel sounds, Soft, Non tender, Non distended - Neuro Neuro: mobile home servicer 2-12 intact, No motor deficit (cogwheel rigidity with movement of extremities noted but no tremulousness at rest), No sensory deficit, Normal speech Results - Vitals Vitals: Oxygen O2 Source Room air - Labs Labs: Laboratory Tests 03/18/24 03/18/24 03/18/24 20:53 20:53 21:18 WBC 8.3 RBC 3.75 L Hgb 11.6 L Hct 36.4 L MCV 97.1 MCH 30.9 MCHC 31.9 L RDW 13.1 Plt Count 179 MPV 10.7 Neut # (Auto) 5.2 Lymph # (Auto) 2.1 [place] # (Auto) 0.8 Eos # (Auto) 0.2 Baso # (Auto) 0.1 Absolute Nucleated RBC 0.00 Nucleated RBC % 0.0 Sodium 138 Potassium 4.6 H Chloride 107 Carbon Dioxide 25 Anion Gap 6.0 BUN 39 H Creatinine 1.3 Estimated GFR (MDRD) 40 L Glucose 129 H Lactic Acid 1.3 Calcium 9.5 Phosphorus 3.5 Magnesium 2.0 Total Bilirubin 0.3 AST 20 ALT 16 Alkaline Phosphatase 63 Total Protein 6.7 Albumin 3.6 Globulin 3.1 Albumin/Globulin Ratio 1.2 Lipase 35 Urine Color Urine Clarity Urine pH Ur Specific [place] Urine Protein Urine Glucose (UA) Urine Ketones Urine Occult Blood Urine Nitrite Urine Bilirubin Urine Urobilinogen Ur Leukocyte Esterase Ur Microscopic Review Urine Culture Comments 03/18/24 21:47 WBC RBC Hgb Hct MCV MCH MCHC RDW Plt Count MPV Neut # (Auto) Lymph # (Auto) [place] # (Auto) Eos # (Auto) Baso # (Auto) Absolute Nucleated RBC Nucleated RBC % Sodium Potassium Chloride Carbon Dioxide Anion Gap BUN Creatinine Estimated GFR (MDRD) Glucose Lactic Acid Calcium Phosphorus Magnesium Total Bilirubin AST ALT Alkaline Phosphatase Total Protein Albumin Globulin Albumin/Globulin Ratio Lipase Urine Color YELLOW Urine Clarity CLEAR Urine pH 6.0 Ur Specific [place] 1.025 Urine Protein NEGATIVE Urine Glucose (UA) NEGATIVE Urine Ketones NEGATIVE Urine Occult Blood TRACE-LYSE Urine Nitrite NEGATIVE Urine Bilirubin NEGATIVE Urine Urobilinogen 0.2 (NORMAL) Ur Leukocyte Esterase NEGATIVE Ur Microscopic Review NOT INDICATED Urine Culture Comments NOT INDICATED - Rads (name of study) CTA head/neck Relevant Findings:: Prelim report reviewed, See rad report chest xray Relevant Findings:: Prelim report reviewed, See rad report PD Medical Decision Making - ED course Complexity details: reviewed old records, reviewed results, re-evaluated patient, considered differential, d/w patient, d/w family ED course: No concerning nor diagnostic findings on tonight's tests including CBC, ER abdominal panel. Minimal hyperkalemia noted (4.6). Elevated BUN (39)/creatinine (1.3) ratio, differential would include dehydration and thus given 1 liter NS IV after which patient says she feels much improved. She is AAOx3 on reevaluation and patient and family are requesting d/c home. Also noted are normal UA and normal lactate level. CXR and CTA head/neck are without notable findings. Results d/w patient and family, return precautions reviewed. Advised to seek follow up with PCP as soon as can be arranged. Etiology of symptoms is not apparent at this time but no evidence of concerning cause such as infectious or electrolyte abnormality. Dehydration might have played a role given the elevated bun/cr ratio and improvement after IV fluids. Departure - Departure Disposition: 01 Home, Self Care Clinical Impression: Weakness Condition: Good Instructions: ED Altered Loc Follow-Up: Candice Oreilly PA-C [Primary Care Provider] - Comments: There were no concerning nor diagnostic findings on tonight's tests, including the blood tests, urinalysis, and the CT scans of your head and neck. Your chest x-ray was also unremarkable. The cause of your symptoms is not apparent at this time. Contact your primary care provider in the morning when their office next opens to arrange for the next available appointment for follow-up/reevaluation. Forms: PCP List Discharge Date/Time: 03/18/24 23:45
[2024-03-18 21:11] LABS: BASOPHILS # (AUTO) 0.1 10^3/uL (0.0-0.1); BASOPHILS % (AUTO) 0.8 %; EOSINOPHILS # (AUTO) 0.2 10^3/uL (0.0-0.7); EOSINOPHILS % (AUTO) 1.9 %; HCT - HEMATOCRIT 36.4 % (37.0-47.0); HGB - HEMOGLOBIN 11.6 g/dL (12.0-16.0); LYMPHOCYTES # (AUTO) 2.1 10^3/uL (1.5-3.5); LYMPHOCYTES % (AUTO) 25.2 %; MEAN CORPUSCULAR HEMOGLOBIN 30.9 pg (27.0-31.0); MEAN CORPUSCULAR HGB CONC 31.9 g/dL (32.0-36.0); MEAN CORPUSCULAR VOLUME 97.1 fL (81.0-99.0); MEAN PLATELET VOLUME 10.7 fL (7.9-10.8); MONOCYTES # (AUTO) 0.8 10^3/uL (0.0-1.0); MONOCYTES % (AUTO) 9.8 %; NEUTROPHILS # (AUTO) 5.2 10^3/uL (1.5-6.6); NEUTROPHILS % (AUTO) 62.2 %; PLT - PLATELET COUNT 179 10^3/uL (130-450); RED BLOOD COUNT 3.75 10^6/uL (4.20-5.40); RED CELL DISTRIBUTION WIDTH 13.1 % (12.0-15.0); WHITE BLOOD COUNT 8.3 x10^3/uL (4.8-10.8)
[2024-03-18] MEDS: SODIUM CHLORIDE 0.9% 1,000 ML IV STA (21:12)
[2024-03-18 21:26] LABS: ALBUMIN 3.6 g/dL (3.2-5.5); ALBUMIN/GLOBULIN RATIO 1.2 (1.0-2.2); BILIRUBIN,TOTAL 0.3 mg/dL (0.2-1.0); CALCIUM 9.5 mg/dL (8.5-10.3); CREATININE 1.3 mg/dL (0.6-1.3); PHOSPHORUS 3.5 mg/dL (2.5-5.0); POTASSIUM 4.6 mmol/L (3.5-4.5); TOTAL PROTEIN 6.7 g/dL (6.4-8.9)
[2024-03-18] MEDS ORDERED: iohexoL-300 100 ML VIAL ONE (21:35)
[2024-03-18 21:50] LABS: BILIRUBIN,URINE NEGATIVE (NEGATIVE); GLUCOSE, URINE (UA) NEGATIVE (NEGATIVE); KETONES,URINE (UA) NEGATIVE (NEGATIVE); LEUKOCYTE ESTERASE, URINE NEGATIVE (NEGATIVE); NITRITE,URINE NEGATIVE (NEGATIVE); OCCULT BLOOD,URINE TRACE-LYSE (NEGATIVE); PROTEIN,URINE NEGATIVE (NEGATIVE); UROBILINOGEN,URINE 0.2 (NORMAL) E.U./dL (NORMAL)
[2024-03-18 21:51] LABS: CLARITY,URINE CLEAR (CLEAR)
[2024-03-18] MEDS: iohexoL-300 100 ML VIAL IVP ONE (22:00)
--- NOTE | 2024-03-18 22:46 | XRAY Report ---
PROCEDURE: Chest 1V INDICATIONS: weakness, AMS TECHNIQUE: One view of the chest was acquired. COMPARISON: 08/14/2022 FINDINGS: Surgical changes and devices: None. Lungs and pleura: No pleural effusions or pneumothorax. Lungs are clear. Mediastinum: Mediastinal contours appear normal. Heart size is normal. Bones and chest wall: No suspicious bony lesions. Overlying soft tissues appear unremarkable. IMPRESSION: No acute cardiopulmonary process. Reviewed by: Jaren Gomes MD on 03/18/2024 10:45 PM PDT Approved by: Jaren Gomes MD on 03/18/2024 10:45 PM PDT Station ID: [id number]
--- NOTE | 2024-03-18 22:55 | CT Report ---
PROCEDURE: Angio Head/Neck INDICATIONS: AMS, generalized weakness TECHNIQUE: After the administration of intravenous contrast, 1 mm thick sections acquired from the aortic arch t hrough the [place]. 3-dimensional wutftqx-[id number]-[id number] (MIP) and/or volume renderin g reformats were acquired of the central intracranial vasculature and neck separately. For radiation dose reduction, the following was used: automated exposure control, adjustment of mA and/or kV acco rding to patient size. CONTRAST: OMNI 300, 80ml COMPARISON: MRI brain dated 06/24/2023, head CT dated 11/01/2022 FINDINGS: Image quality: Diagnostic. HEAD CT: CSF Spaces: Basal cisterns are patent. No extra-axial fluid collections. Ventricles are normal in size and shape. Brain: No significant abnormality is seen for scanning technique. Skull and face: Calvarium and visualized facial bones appear intact, without suspicious lesions. Sinuses: Scattered ethmoid and left maxillary sinus mucosal thickening. Other paranasal sinuses and mastoids are clear. HEAD CT ANGIOGRAPHY: Anterior circulation: Intracranial internal carotid arteries are normal in size and flow. The flow within the paired anterior cerebral arteries is normal and symmetric. The flow within the middle cer ebral arteries is normal and symmetric. The anterior communicating artery is seen. No aneurysms are seen. Posterior circulation: Visualized portions of the vertebral arteries demonstrate normal caliber, and join to form a normal appearing basilar artery. Flow within the posterior cerebral arteries is norm al and symmetric. No aneurysms are seen. NECK CT ANGIOGRAPHY: Carotid system: The great vessels demonstrate a conventional anatomy as they arise from the aortic a rch. The origins of the common carotid arteries appear patent. The common carotid arteries demonstr ate normal caliber and courses. The bifurcation regions are both widely patent. The internal caroti d arteries demonstrate normal calibers and courses. Posterior circulation: The origins of the vertebral arteries both appear widely patent. The more yanes perior extracranial portions of both vertebral arteries also demonstrate normal courses and calibers. They join to form a normal appearing basilar artery. Soft tissues: Visualized neck soft tissues demonstrate no suspicious abnormalities. No apical pneum othoraces. Bones: No suspicious bony lesions. Visualized cervical spine appears normally aligned. Multilevel cervical spondylosis. No acute compression fractures. Moderate degenerative changes of the left tempo romandibular joint. IMPRESSION: No significant intracranial arterial abnormality is seen. No significant abnormality is seen within the arteries of the neck. If there is persistent clinical concern for cerebral infarction, further evaluation with MRI can BE c onsidered. The estimate of stenosis included in the report of the imaging study was calculated using the NASCET method Reviewed by: Jaren Dodge MD on 03/18/2024 10:54 PM PDT Approved by: Jaren Dodge MD on 03/18/2024 10:54 PM PDT Station ID: [id number]
[2024-03-18 23:50] VITALS: BP 138/65; O2SAT 98
== END 2024-03-18 23:45 | disposition home or self-care (01) ==
LOC: EDUNIT# → ED 20:46
DX: R53.1 Weakness (principal)
CPT/HCPCS: 36415; 70496; 70498; 71045; 80053; 81003; 83605; 83690; 83735; 84100; 85025; 99283; 99284; Q9967; 81001; 87086

== ENCOUNTER 2024-04-04 11:30 | Outpatient (CLI) | payer MEDICARE, OTHER ==
[2024-04-04 18:09] LABS: BASOPHILS # (AUTO) 0.1 10^3/uL (0.0-0.1); BASOPHILS % (AUTO) 0.7 %; EOSINOPHILS # (AUTO) 0.4 10^3/uL (0.0-0.7); EOSINOPHILS % (AUTO) 3.6 %; HCT - HEMATOCRIT 39.9 % (37.0-47.0); HGB - HEMOGLOBIN 12.6 g/dL (12.0-16.0); LYMPHOCYTES # (AUTO) 1.9 10^3/uL (1.5-3.5); LYMPHOCYTES % (AUTO) 16.7 %; MEAN CORPUSCULAR HEMOGLOBIN 30.9 pg (27.0-31.0); MEAN CORPUSCULAR HGB CONC 31.6 g/dL (32.0-36.0); MEAN CORPUSCULAR VOLUME 97.8 fL (81.0-99.0); MEAN PLATELET VOLUME 10.8 fL (7.9-10.8); MONOCYTES # (AUTO) 0.6 10^3/uL (0.0-1.0); MONOCYTES % (AUTO) 5.4 %; NEUTROPHILS # (AUTO) 8.4 10^3/uL (1.5-6.6); NEUTROPHILS % (AUTO) 73.4 %; PLT - PLATELET COUNT 221 10^3/uL (130-450); RED BLOOD COUNT 4.08 10^6/uL (4.20-5.40); RED CELL DISTRIBUTION WIDTH 12.9 % (12.0-15.0); WHITE BLOOD COUNT 11.5 x10^3/uL (4.8-10.8)
[2024-04-04 18:46] LABS: ALBUMIN/GLOBULIN RATIO 1.2 (1.0-2.2); BILIRUBIN,TOTAL 0.3 mg/dL (0.2-1.0); CALCIUM 9.9 mg/dL (8.5-10.3); CREATININE 1.4 mg/dL (0.6-1.3); POTASSIUM 4.3 mmol/L (3.5-4.5); TOTAL PROTEIN 7.3 g/dL (6.4-8.9)
== END 2024-04-04 11:45 | disposition home or self-care (01) ==
LOC: LAB.N 11:30
PROVIDERS: ATTEND Family Medicine
DX: R10.9 Unspecified abdominal pain (principal)
CPT/HCPCS: 36415; 80053; 83690; 85025

== ENCOUNTER 2024-04-05 10:36 | Outpatient (CLI) | payer MEDICARE ==
--- NOTE | 2024-04-05 12:29 | CT Report ---
Abdomen/Pelvis WO: 04/05/2024 10:48 AM PDT CLINICAL HISTORY: 78 years of age, Female, ABD PAIN. COMPARISON: 11/08/2022. TECHNIQUE: A CT scan of the abdomen and pelvis was performed without the use of intravenous contrast. Images were recorded and evaluated at appropriate window settings. Reformats: coronal and sagittal. For radiation dose reduction, the following was used: automated exposure control, adjustment of mA a nd/or kV according to patient size. FINDINGS: Lower Chest: Within normal limits. Liver: Within normal limits. Gallbladder: unremarkable Pancreas: Within normal limits. Spleen: 9 mm small nodule anterior to the left kidney, unchanged from prior exam, and may represent a small splenial. Adrenal Glands: Within normal limits. Right kidney: No hydronephrosis or renal stone. Left kidney:Lobulated, 3.4 cm indeterminant lesion abutting the superior pole of the left kidney, unc hanged in size from prior exam. This lesion appears cystic on prior exam but measures soft tissue den sity on today's exam. Additional 1.1 cm indeterminate lesion in the upper pole (series 4, image 28) w hich appears cystic on prior exam as well. No hydronephrosis or renal stone. Bladder: Unremarkable Reproductive organ: Status post hysterectomy. 3.0 cm left adnexal cyst, with mildly thickened wall, n ew from prior exam. The right ovary is not visualized. GI Tract: Colonic diverticulosis, most pronounced and moderate in the sigmoid colon. No diverticuliti s. Appendix is nonvisualized. No bowel obstruction or bowel wall thickening. Aorta: Mild atherosclerotic calcification of the abdominal aorta and its side branches. No abdominal aortic aneurysm. Peritoneum/Retroperitoneum: No ascites. No abdominal or pelvic lymphadenopathy. Abdominal/Pelvic Wall: Within normal limits. Bones: No lytic or blastic lesion. IMPRESSION: 1.3.4 cm indeterminate lesion abutting the superior pole of the left kidney, and 1.1 cm indeterminate lesion in the upper pole of the left kidney, previously appeared cystic on prior exam but measures s oft tissue density on today's exam. No definitive correlate on prior ultrasound on 01/06/2023. Recomme nd further evaluation with CT or MR renal protocol. 2.3.0 cm left adnexal cyst, with mildly thickened mas. Recommend further evaluation with pelvic ult rasound. 3.Additional chronic findings described above. Reviewed by: Thelma Ruiz MD on 04/05/2024 12:28 PM PDT Approved by: Thelma Ruiz MD on 04/05/2024 12:28 PM PDT Station ID: [id number]
== END 2024-04-05 10:37 | disposition home or self-care (01) ==
LOC: DI 10:36
PROVIDERS: ATTEND Family Medicine
DX: N28.1 Cyst of kidney, acquired (principal); R19.09 Other intra-abdominal and pelvic swelling, mass and lump; K57.30 Diverticulosis of large intestine without perforation or abscess without bleeding

== ENCOUNTER 2025-02-23 17:25 | Inpatient (IN) ==
--- NOTE | 2025-02-23 17:34 | ED Physician Documentation ---
History of Present Illness Stated complaint Stated Complaint: AMS Chief complaint Chief Complaint: Neuro History obtained from History obtained from: Patient History of Present Illness Timing: Prior to arrival Additonal information Additional information: Patient is a 79-year-old female with history of recurrent UTIs presents to the emergency department with increased fatigue baseline GCS of 13 presents today with difficulty getting out of bed increased altered mental status and generalized weakness. She presents from home where her son takes care of her mainly. He notes usually she is able to ambulate from the bed to a chair but over the last 2 days she has not been able to blood sugar on EMS arrival was in the 100s that she has no nausea or vomiting no complaints of abdominal pain she has some mild back pain but that is not abnormal for her to complain about. She has no fevers or chills she was started on oxygen via EMS at 1 L nasal cannula for hypoxia 90% on their arrival but this seems to have resolved. Patient on room air at 96% she has had a dry cough for about a week and a half as well according to son. She has not eaten or drink much over the last 2 days. Patient unable to provide history she does follow simple commands at bedside. Raine Coma Scale Assess Eye opening: None Verbal response: Confused Motor response: Localizes to Pain Total score: 10 Meds/Allgy Home Medications Ambulatory Orders Medication Instructions Recorded Confirmed lutein 25 mg-zeaxanthin 5 mg 1 ea PO DAILY 06/24/23 capsule (Ocuvite Lutein) multivitamin 1 ea PO DAILY 06/24/2302/12 nystatin 100,000 unit/gram topical 1 applic topical BI D #30 grams 11/21/24 02/12/25 cream omeprazole 20 mg capsule,delayed See Rx Instructions . Route 12/02/24 02/23/25 release .COMPLEX #90 caps donepezil 5 mg tablet 2.5 mg (1/2 x 5 mg) PO QDAY #90 12/18/24 02/23/25 tabs estradiol 0.01% (0.1 mg/gram) See Rx Instructions vagi nal 02/12/25 02/12/25 vaginal cream .COMPLEX #42.5 grams Allergies Allergies Allergy/AdvReac Type Severity Reaction Status Date / Time sertraline (From Zoloft) Allergy Severe Unknown Verified 02/23/25 18:06 GRASSES, SPECIFIC HAY, WHEAT Allergy Severe Unknown Uncoded 02/23/25 18:06 [facility] Active Problems All Active Problems (Updated 02/23/25 @ 19:21 by Bianca Palacio PA-C) Weakness (Acute) Metabolic encephalopathy (Acute) Acute cystitis (Acute) GERD (gastroesophageal reflux disease) (Acute) Menopause (Acute) Mixed incontinence urge and stress (Acute) Hyperlipidemia (Acute) Night terrors (Acute) Memory loss (Acute) Constipation (Acute) Obstructive sleep apnea of adult (Acute) Neuropathy (Acute) Chronic renal insufficiency (Acute) Low back pain, unspecified (Acute) Lumbar back pain with radiculopathy affecting lower extremity (Acute) Hypotension (Acute) Physical deconditioning (Acute) Chronic neck pain (Acute) Weight loss (Acute) Mass of colon (Acute) Colon cancer screening (Acute) Frequency of urination (Acute) Vesicular rash (Acute) Toe pain, right (Acute) Vision changes (Acute) Hip pain, bilateral (Acute) Lewy body dementia (Acute) Abdominal pain (Acute) Renal mass (Acute) Adnexal mass (Acute) Chronic pelvic pain in female (Acute) Dysphasia (Acute) Medication side effect (Acute) Social History Social History Smoking Status: Never smoker Second hand tobacco smoke exposure: No Do you dip or chew tobacco?: No Do you vape?: No Patient requests smoking cessation consult: No Initiate information on smoking cessation: No Relationship: Caregiver Level: Dependent Home Mobility Equipment: Wheelchair Do you feel safe in your home environment?: Yes History of Abuse: No POLST Patient has POLST: No Exam Exam Vital Signs: Vital Signs x48h Temp Pulse Resp BP Pulse Ox 02/23/25 18:45 53 L 21 144/63 H 94 02/23/25 18:15 59 L 15 116/74 94 02/23/25 18:02 59 L 19 123/73 93 02/23/25 17:25 36.9 C 60 18 123/73 94 Constitutional Patient keeping eyes closed on initial exam she does follow commands and seemed to respond to my voice when asking her questions she responds to pain and sternal rub here in the ED. A & O x 0 HENMT normocephalic and head/scalp atraumatic Eyes PERRL, EOMs intact bilaterally and conjunctivae normal Results Vitals Vitals: Vital Signs - 24 hr 02/23/25 17:25 02/23/25 18:02 02/23/25 18:15 Temperature 36.9 C Temperature Source Oral Pulse Rate 60 59 L 59 L Respiratory Rate 18 19 15 Blood Pressure 123/73 123/73 116/74 O2 Saturation 94 93 94 O2 Source Room air Room air Room air Pain Intensity 0 8 02/23/25 18:45 Temperature Temperature Source Pulse Rate 53 L Respiratory Rate 21 Blood Pressure 144/63 H O2 Saturation 94 O2 Source Room air Pain Intensity Oxygen O2 Source Room air Labs Labs: Laboratory Tests 02/23/25 02/23/25 02/23/25 17:46 18:33 19:24 WBC 6.6 RBC 4.23 Hgb 13.1 Hct 40.0 MCV 94.6 MCH 31.0 MCHC 32.8 RDW 13.0 Plt Count 130 MPV 10.5 Neut # (Auto) 4.2 Lymph # (Auto) 1.6 [place] # (Auto) 0.8 Eos # (Auto) 0.0 Baso # (Auto) 0.0 Absolute Nucleated RBC 0.00 Nucleated RBC % 0.0 Sodium 135 Potassium 4.4 Chloride 102 Carbon Dioxide 25 Anion Gap 8.0 BUN 25 H Creatinine 1.2 Estimated GFR (MDRD) 43 L Glucose 110 H Lactic Acid 2.0 Calcium 9.8 Magnesium 2.0 Total Bilirubin 0.4 AST 22 ALT 24 Alkaline Phosphatase 90 Ammonia 27.3 Total Protein 7.5 Albumin 4.0 Globulin 3.5 Albumin/Globulin Ratio 1.1 Lipase 29 Urine Color LIGHT YELLOW Urine Clarity HAZY Urine pH 6.0 Ur Specific [place] 1.020 Urine Protein NEGATIVE Urine Glucose (UA) NEGATIVE Urine Ketones NEGATIVE Urine Occult Blood MODERATE H Urine Nitrite NEGATIVE Urine Bilirubin NEGATIVE Urine Urobilinogen 0.2 (NORMAL) Ur Leukocyte Esterase NEGATIVE Urine RBC 6-10 H Urine WBC 0-3 Ur Squamous Epith Cells MOD Squamous H Urine Bacteria Many H Ur Microscopic Review INDICATED Urine Culture Comments NOT INDICATED PD Medical Decision Making ED course Complexity details: reviewed old records and reviewed results ED course: Patient is a 79-year-old female presenting with generalized weakness and confusion worse than her baseline presents with suspected UTI she had been on 02/05 but at that time only grew polymicrobial bacteria. Per son on arrival whom she resides but she has significant weakness and difficulty ambulating x 1 day which is abnormal for her as she usually is able to get to the toilet and back he is concerned for her worsening demeanor and concerns for UTI. Vitals are stable here in the ED initially on EMS arrival she was hypoxic but she appears to be saturating well on room air here in the ED blood sugar in the 130s on arrival physical exam patient opening eyes to command with moving all extremities without drift here in the ED. no signs of trauma or head injury she is not on any blood thinners. Labs here in the emergency department showed no leukocytosis CMP is unremarkable UA shows blood but could be from straight cath trauma and shows no signs of bacteria or infection blood cultures are obtained lactic acid is negative ammonia levels are pending as well as respiratory swab but chest x-ray shows no acute cardiopulmonary findings and CT head shows no acute intracranial findings to explain her symptoms. I discussed with son he is concerned to bring patient home as she is not answering questions appropriately she usually is able to have a full conversation with him but today she is additionally she is unable to get up out of bed and be transferred which she is able to do more at baseline I discussed with nurs practitioner Abel who does accept patient to observation status for be evaluated by physical therapy in the a.m. Discharge Plan Discharge Patient Disposition: [facility] DC/Xfer Condition: Good Clinical Impression: Metabolic encephalopathy, Weakness Interventions: ED Admission Assessment Last Done: 02/23/25 20:16
--- OUTSIDE RECORDS SUMMARY | 2025-02-23 17:39 | EXTERNAL MEDICAL SUMMARY RPT | Continuity of Care Document ---
Author Organization [facility] Address [address] [place] [id number] Phone Problems date description facility 2024-12-03 07:15 Other chronic pain [facility] 2024-12-03 07:15 [facility] 2024-12-09 13:46 Other chronic pain [facility] 2024-12-09 13:46 [facility] 2024-12-09 13:48 Other chronic pain [facility] 2024-12-09 13:48 [facility]ine[facility] 2024-12-10 11:56 Other chronic pain [facility] 2024-12-10 11:56 Pelvic and [facility]ineal [facility] 2024-12-11 00:02 Other chronic pain [facility] 2024-12-11 00:02 [facility] 2025-02-05 12:03 Chronic kidney disease, [facility]speci fied [facility] 2025-02-05 12:24 Chronic kidney disease, [facility]speci fied [facility] 2025-02-05 12:24 Acute cystitis with hematuria [facility] 2025-02-05 12:30 Chronic kidney disease, [facility]speci fied [facility] 2025-02-05 12:30 Acute cystitis with hematuria [facility] 2025-02-06 00:04 Chronic kidney disease, unspeci fied [facility] 2025-02-06 00:04 Acute cystitis with hematuria [facility] 2025-02-12 15:11 Weakness [facility] 2025-02-12 15:11 Other [facility] 2025-02-12 16:10 Dementia in other di seases classified elsewhere, unspecified severity, without behavioral disturbance, psychotic disturbance, mood disturbance, and anxiety [facility] 2025-02-12 16:10 Neurocognitive disorder with [place] [facility] 2025-02-12 16:10 [facility]12 16:10 Other specified cond itions associated with female genital organs and menstrual cycle [facility] 2025-02-12 16:10 Other amnesia [facility] Results/Labs test date facility value unit notes Result panel 1 BILIRUBIN,TOTAL 2025-02-05 11:01 [facility] 0.4 mg /dl As of January 2023 testing method has changed, this may include reference ranges. ALBUMIN/GLOBULIN RATIO 2025-02-05 11:01 [facility] 1.3 (missing) (missing) CREATININE 2025-02-05 11:01 [facility] 1.3 mg/dl As of January 2023 testing method has changed, this may include reference ranges. CHLORIDE 2025-02-05 11:01 [facility] 107 mmol/l As of January 2023 testing method has changed, this may include reference ranges. GLUCOSE 2025-02-05 11:01 [facility] 121 mg/dl As of January 2023 testing method has changed, this may include reference ranges. SODIUM 2025-02-05 11:01 [facility] 139 mmol/l Unknown AST ASPARTATE AMINOTRANSFERASE 2025-02-05 11:01 [facility] 18 iu/l As of January 2023 testing method has changed, this may include reference ranges. GLOBULIN 2025-02-05 11:01 [facility] 2.9 g/dl (missing) ALT ALANINE AMINOTRANSFERASE 2025-02-05 11:01 [facility] 21 iu/l As of January 2023 testing method has changed, this may include reference ranges. BUN - BLOOD UREA NITROGEN 2025-02-05 11:01 [facility] 27 mg/dl As of Jan testing method has changed, this may include reference ranges. CARBON DIOXIDE - CO2 2025-02-05 11:01 [facility] 28 mmol/l As of January 2023 testing method has changed, this may include reference ranges. ALBUMIN 2025-02-05 11:01 [facility] 3.7 g/dl As of January 2023 testing method has changed, this may include reference ranges. ANION GAP 2025-02-05 11:01 [facility] 4.0 (missing ) (missing) POTASSIUM 2025-02-05 11:01 [facility] 4.2 mmol/l As of January 2023 testing method has changed, this may include reference ranges. GFR - MDRD 2025-02-05 11:01 [facility] 40 (montana rubio) Social History date description facility
[2025-02-23 17:57] LABS: HCT - HEMATOCRIT 40.0 % (37.0-47.0); HGB - HEMOGLOBIN 13.1 g/dL (12.0-16.0); MEAN PLATELET VOLUME 10.5 fL (7.9-10.8); NRBC ABSOLUTE COUNT (AUTO) 0.00 x10^3/uL; NUCLEATED RED BLOOD CELLS AUTO 0.0 /100WBC; PLT - PLATELET COUNT 130 10^3/uL (130-450); RED CELL DISTRIBUTION WIDTH 13.0 % (12.0-15.0)
--- NOTE | 2025-02-23 18:02 | XRAY Report ---
PROCEDURE: XR Chest 1V INDICATIONS: cough TECHNIQUE: One view of the chest was acquired. COMPARISON: 03/18/2024 FINDINGS: Surgical changes and devices: None. Lungs and pleura: On the semiupright images, no large pneumothorax or large pleural effusions can be seen. No focal infiltrates are seen. Low lung volumes can be seen, causing a crowded appearance to the lung markings. Mediastinum: Mediastinal contours appear normal. Heart size is normal. Bones and chest wall: No suspicious bony lesions. Overlying soft tissues appear unremarkable. IMPRESSION: Limited portable chest examination, without an acute abnormality identified. No randy infiltrates are seen. Reviewed by: Nate Marie MD on 02/23/2025 5:00 PM HARESH Approved by: Nate Marie MD on 02/23/2025 5:00 PM TNKAREN Station ID: [id number]
[2025-02-23 18:11] LABS: ALT ALANINE AMINOTRANSFERASE 24.0 IU/L (10-60); AST ASPARTATE AMINOTRANSFERASE 22.0 IU/L (10-42); BUN - BLOOD UREA NITROGEN 25.0 mg/dL (6-20); CARBON DIOXIDE - CO2 25.0 mmol/L (21-32); CREATININE 1.2 mg/dL (0.6-1.3); GFR - MDRD 43.0 (>89)
[2025-02-23 18:41] LABS: GLUCOSE, URINE (UA) NEGATIVE (NEGATIVE); KETONES,URINE (UA) NEGATIVE (NEGATIVE); OCCULT BLOOD,URINE MODERATE (NEGATIVE)
--- NOTE | 2025-02-23 18:49 | CT Report ---
PROCEDURE: CT Head WO INDICATIONS: increased confusion TECHNIQUE: CT of the head was performed, without intravenous contrast. Reformats: Coronal and sagittal. For radiation dose reduction, the following was used: automated exposure control, adjustment of mA and/or kV according to patient size. COMPARISON: 11/01/2022, 08/14/2022. Correlation is made with the accompanying imaging. FINDINGS: Image quality: Diagnostic. CSF spaces: Basal cisterns are patent. No extra-axial fluid collections. Ventricles are normal in size and shape. Brain: No midline shift. No intracranial mass effect or hemorrhage. Padilla- white matter interface is normal. Age-appropriate brain parenchymal volume loss and chronic small vessel ischemic change can be seen. Skull and face: Calvarium and visualized facial bones are intact, without suspicious lesions. Sinuses: Mild mucosal thickening can be seen within the inferior visualized left maxillary sinus. Visualized sinuses and mastoids are otherwise clear. IMPRESSION: No imaging explanation is found for the patient's presenting symptoms. Age-appropriate brain parenchymal volume loss and chronic small vessel ischemic change can be seen. To the limits of this noncontrast study, no findings of masses or mass effect can be seen. Reviewed by: Nate Marie MD on 02/23/2025 5:47 PM HARESH Approved by: Nate Marie MD on 02/23/2025 5:47 PM HARESH Station ID: [id number]
[2025-02-23 18:55] LABS: SQUAMOUS EPITHELIAL CELL,UR MOD Squamous (<= Few)
--- NOTE | 2025-02-23 19:56 | HISTORY & PHYSICAL EXAMINATION ---
Chief Complaint Chief Complaint Chief Complaint: Altered mental status History of Present Illness Admitted From Admitted From:: Home with son History Obtained From History obtained from: Interview with son at bedside History of Present Illness HPI Comment/Other: 79-year-old female with history of Lewy body dementia on Aricept, recurrent UTI presents to the hospital with altered mental status. Son reports that at baseline she is occasionally conversant and typically oriented, but usually needs significant assistance in transferring from bed to chair to toilet. He reports that he has been getting worse over the past few days, and today she would not eat or drink anything. He reports she felt warm at some point yesterday, but no objective fevers. Patient reports no fevers. She denies chest pain, dyspnea, bowel/bladder abnormalities In the ER, workup was overall unremarkable. White blood cell count normal, chemistry normal, UA with no concern for infection, ammonia level normal, CT head, chest x-ray normal. Given her history of Lewy body dementia and inability to ambulate and now she is not eating, hospitalist was contacted for observation for further Workup of AMS Meds/Allgy Home Medications Ambulatory Orders Medication Instructions Recorded Confirmed lutein 25 mg-zeaxanthin 5 mg 1 ea PO DAILY 06/24/23 capsule (Ocuvite Lutein) multivitamin 1 ea PO DAILY 06/24/2302/12 nystatin 100,000 unit/gram topical 1 applic topical BI D #30 grams 11/21/24 02/12/25 cream omeprazole 20 mg capsule,delayed See Rx Instructions . Route 12/02/24 02/23/25 release .COMPLEX #90 caps donepezil 5 mg tablet 2.5 mg (1/2 x 5 mg) PO QDAY #90 12/18/24 02/23/25 tabs estradiol 0.01% (0.1 mg/gram) See Rx Instructions vagi nal 02/12/25 02/12/25 vaginal cream .COMPLEX #42.5 grams Allergies Allergies Allergy/AdvReac Type Severity Reaction Status Date / Time sertraline (From Zoloft) Allergy Severe Unknown Verified 02/23/25 18:06 GRASSES, SPECIFIC HAY, WHEAT Allergy Severe Unknown Uncoded 02/23/25 18:06 PF[facility] Active Problems All Active Problems (Updated 02/23/25 @ 19:21 by Bianca Palacio PA-C) Weakness (Acute) Metabolic encephalopathy (Acute) Acute cystitis (Acute) GERD (gastroesophageal reflux disease) (Acute) Menopause (Acute) Mixed incontinence urge and stress (Acute) Hyperlipidemia (Acute) Night terrors (Acute) Memory loss (Acute) Constipation (Acute) Obstructive sleep apnea of adult (Acute) Neuropathy (Acute) Chronic renal insufficiency (Acute) Low back pain, unspecified (Acute) Lumbar back pain with radiculopathy affecting lower extremity (Acute) Hypotension (Acute) Physical deconditioning (Acute) Chronic neck pain (Acute) Weight loss (Acute) Mass of colon (Acute) Colon cancer screening (Acute) Frequency of urination (Acute) Vesicular rash (Acute) Toe pain, right (Acute) Vision changes (Acute) Hip pain, bilateral (Acute) Lewy body dementia (Acute) Abdominal pain (Acute) Renal mass (Acute) Adnexal mass (Acute) Chronic pelvic pain in female (Acute) Dysphasia (Acute) Medication side effect (Acute) Social History Social History Smoking Status: Never smoker Second hand tobacco smoke exposure: No Do you dip or chew tobacco?: No Do you vape?: No Relationship: Child History of Abuse: No POLST Patient has POLST: No Review of Systems Status of ROS: 10 or more systems reviewed and unremarkable except as noted in history and below Constitutional Reports: Fever (Son reported she felt warm) Cardiovascular Denies: Irregular heart rate, chest pain, palpitations or shortness of breath with exertion Respiratory Denies: Shortness of breath or Cough Gastrointestinal Denies: Abdominal pain Genitourinary Denies: Painful urination Exam Exam Vital Signs: Vital Signs x48h Temp Pulse Resp BP Pulse Ox 02/23/25 18:45 53 L 21 144/63 H 94 02/23/25 18:15 59 L 15 116/74 94 02/23/25 18:02 59 L 19 123/73 93 02/23/25 17:25 36.9 C 60 18 123/73 94 Elderly female in no acute distress [facility] normocephalic and head/scalp atraumatic Eyes EOMs intact bilaterally Neck/C-Spine visual inspection normal Lymph no lymphadenopathy noted Chest inspection of chest normal Respiratory breath sounds equal bilaterally, normal respiratory effort and clear to auscultation bilaterally Cardiovascular normal heart rate noted and regular rhythm noted Gastrointestinal abdomen normal to inspection and abdomen soft to palpation Extremities normal to inspection Neurology GCS calculation - Eye opening: Spontaneous Verbal response: Confused Motor response: Obeys Commands Raine Coma Scale total score: 14 Psychiatry orientation abnormal (disoriented to place) and (disoriented to time) Skin skin color normal Delayed skin turgor, Flaky skin Conclusion/Plan Problem List (1) Metabolic encephalopathy: Plan: At baseline, she is typically oriented and conversant. She does need help moving from bed to chair Today, son has not been able to get her to eat or drink anything, and she hardly talks UA, CXR, CT head all normal Respiratory viral panel pending She appears dehydrated, I have ordered 1 L LR bolus as well as LR at 100 This could possibly be progression of her Lewy body dementia PT eval MRI brain if symptoms persist (2) Lewy body dementia: Plan: Managed with donepezil at home This has been known to cause confusion, hallucinations, delirium Holding Aricept for now Plan Placed in observation DNR/DNI Her son is her surrogate decision maker and DPOA Lab Results Lab results reviewed: Yes 02/23/25 17:46 02/23/25 17:46 Core Measures Anticipated LOS I expect patient to be DC'd or transferred within 96 hours.: Yes DVT/VTE - Prophylaxis VTE/DVT Prophylaxis med ordered at admit?: Yes
[2025-02-23] MEDS ORDERED: ONDANSETRON ODT 4 MG TABLET TL PRN (20:18)
[2025-02-23] MEDS: LACTATED RINGERS 1,000 ML IV ONE (20:43)
[2025-02-23] MEDS: THIAMINE 100 MG/1 ML 2 ML MDV IVP STA (20:43)
[2025-02-23 21:05] LABS: CORONAVIRUS 229E-RESP PCR NOT DETECTED; CORONAVIRUS HKU1-RESP PCR NOT DETECTED; CORONAVIRUS NL63-RESP PCR NOT DETECTED; CORONAVIRUS OC43-RESP PCR NOT DETECTED
[2025-02-23 21:06] LABS: B. PARAPERTUSSIS- RESP PCR PAN NOT DETECTED; B. PERTUSSIS- RESP PCR PANEL NOT DETECTED; C. PNEUMONIAE- RESP PCR PANEL NOT DETECTED; HUMAN METAPNEUMOVIRUS NOT DETECTED; INFLUENZA A- RESP PCR PANEL NOT DETECTED; INFLUENZA B - RESP PCR PANEL NOT DETECTED; M. PNEUMONIAE- RESP PCR PANEL NOT DETECTED; PARAINFLUENZA VIRUS 1 NOT DETECTED; PARAINFLUENZA VIRUS 2 NOT DETECTED; PARAINFLUENZA VIRUS 4 NOT DETECTED; RHINOVIRUS/ENTEROVIRUS NOT DETECTED; RSV- RESP PCR PANEL NOT DETECTED; SARS-CoV-2 -RESP PCR PANEL DETECTED
[2025-02-23] MEDS: ACETAMINOPHEN 325 MG TABLET PO PRN (22:02)
[2025-02-23] MEDS: LACTATED RINGERS 1,000 ML IV SCH (22:02)
[2025-02-23] MEDS: PRENATAL VITAMIN TABLET PO SCH (22:02)
[2025-02-24] MEDS: SODIUM CHLORIDE FLUSH 0.9% 10 ML SYRINGE IVP SCH (00:08)
[2025-02-24 05:42] LABS: HCT - HEMATOCRIT 35.6 % (37.0-47.0); HGB - HEMOGLOBIN 11.8 g/dL (12.0-16.0); MEAN PLATELET VOLUME 10.4 fL (7.9-10.8); NRBC ABSOLUTE COUNT (AUTO) 0.00 x10^3/uL; NUCLEATED RED BLOOD CELLS AUTO 0.0 /100WBC; PLT - PLATELET COUNT 105 10^3/uL (130-450); RED CELL DISTRIBUTION WIDTH 13.0 % (12.0-15.0)
[2025-02-24 05:59] LABS: BUN - BLOOD UREA NITROGEN 22.0 mg/dL (6-20); CARBON DIOXIDE - CO2 25.0 mmol/L (21-32); CREATININE 1.1 mg/dL (0.6-1.3); GFR - MDRD 48.0 (>89)
[2025-02-24] MEDS: THIAMINE 100 MG TABLET PO SCH (08:09)
[2025-02-24] MEDS: ENOXAPARIN 30 MG/0.3 ML SYRINGE SUBQ SCH (08:18)
[2025-02-24] MEDS: NYSTATIN 500000 UNITS/5 ML UDC PO SCH (13:23)
[2025-02-24] MEDS: CARBOXYMETHYLCELLULOSE OPHTH DROPS EACHEYE SCH (13:23)
--- NOTE | 2025-02-24 14:12 | PHARMACY PROGRESS NOTE ---
Best Possible Medication History Admit Date and Time: 02/23/251941 Home Medications Medication Instructions Recorded Confirmed Type estradiol 0.01% (0.1 mg/gram) See Rx Instructions vagi nal 02/12/25 02/24/25 Rx vaginal cream .COMPLEX #42.5 grams donepezil 5 mg tablet 2.5 mg PO QPM 02/24/2502/24 History omeprazole 20 mg capsule,delayed 20 mg PO QDAC 5 02/24/25 History release Processed by: Pharmacy Medications reviewed in ED?: No Medication History completed: Yes Patient Interview: Pt unable to participate Secondary Source(s): Other family member (Son, Joshua) and Insurance records [facility] Statement: As the person ultimately responsible for medication therapy, providers are able to order a medication from an existing home medication list in [facility] via the "Reconcile Routine" prior to Confirmation of that medication by application support analyst. Such practice is discouraged except when the physician, in their clinical judg ment, deems that a medical need exists for a medication without regard to previous use. Joshua reports that his mother takes some vitamins but he is unsure of the names/strengths. I instructed him to bring in the list of medications/supplements if able so that the patient's chart can be updated accordingly.
--- NOTE | 2025-02-24 17:15 | PROVIDER PROGRESS NOTE ---
Subjective Prog Note Date Prog Note Date: 02/24/25 Subjective Pt reports feeling: No change Current Medications Current Medications Current Medications: Current Medications Generic Name Dose Route Start Last Admin Trade Name Freq PRN Reason Stop Dose Admin Acetaminophen 650 mg 02/23/25 20:18 02/23/25 22:02 Acetaminophen 325 Mg Tablet PO 650 mg Q4HR PRN Administration Pain 1 to 4, or Fever Carboxymethylcellulose 1 drops 02/24/25 14:00 02/24/25 16:12 Carboxymethylcellulose Ophth Drops EACHEYE 1 drops Q4HR BART Administration Cholecalciferol 50 mcg 02/25/25 09:00 Cholecalciferol 25 Mcg Tablet PO DAILY BART Donepezil HCl 2.5 mg 02/24/25 21:00 Donepezil 5 Mg Tablet PO QPM BART Enoxaparin Sodium 30 mg 02/24/25 09:00 02/24/25 08:18 Enoxaparin 30 Mg/0.3 Ml Syringe SUBQ 30 mg DAILY BART Administration Lactated Ringer's 1,000 mls @ 100 mls/hr 02/23/25 20:18 02/24/25 15:41 Lr IV 100 mls/hr .Q10H BART Administration Nystatin 5 ml 02/24/25 13:12 02/24/25 16:12 Nystatin 830848 Units/5 Ml Udc PO 5 ml QID BART Administration Ondansetron HCl 4 mg 02/23/25 20:18 Ondansetron Odt 4 Mg Tablet TL Q6HR PRN Nausea / Vomiting Ondansetron HCl 4 mg 02/23/25 20:18 Ondansetron 4 Mg/2 Ml Vial IVP Q6HR PRN Nausea / Vomiting Multivit/Folic Acid/Iron 1 tab 02/23/25 20:18 02/24/25 08:09 Vitamin Tablet PO 1 tab DAILYWM BART Administration Sodium Chloride 10 ml 02/23/25 20:18 Sodium Chloride Flush 0.9% 10 Ml Syringe IVP PRN PRN NEEDED PER PROVIDER ORDERS Sodium Chloride 10 ml 02/24/25 01:00 02/24/25 15:41 Sodium Chloride Flush 0.9% 10 Ml Syringe IVP 10 ml 0100,0900,1700 BART Administration Thiamine HCl 100 mg 02/24/25 09:00 08/04/25 08:09 Thiamine 100 Mg Tablet PO 100 mg DAILY BART Administration Objective Vital Signs/Intake & Output Reviewed Vital Signs: Yes Vital Signs: Vital Signs x48h Temp Pulse Resp BP BP Pulse Ox 02/24/25 15:36 36.7 C 62 16 143/61 H 94 02/24/25 13:00 36.5 C 58 L 16 154/62 H 94 02/24/25 12:15 36.5 C 58 L 16 154/62 H 94 Intake & Output: Intake & Output 02/21/25 02/22/25 02/23/25 02/24/25 23:59 23:59 23:59 23:59 Intake Total 1100 / 1100 2585 / 2585 Output Total 1575 / 1575 Balance 1100 / 1100 1010 / 1010 Weight (kg) 50.5 kg Objective General Appearance: positive No acute distress and Alert Eyes Bilateral: negative No lid inflammation Respiratory: positive Chest non-tender and No respiratory distress Cardiovascular: positive Regular rate & rhythm Abdomen: positive Non-tender Skin: positive Color nml Extremities: positive Non-tender Neurologic/Psychiatric: positive Other (Oriented x 2) Lab Results 02/24/25 05:31 02/24/25 05:31 Other Labs: Lab Results x24hrs 02/24/25 02/23/25 02/23/25 Range/Units 05:31 19:50 19:24 WBC 5.1 (4.8-10.8) x10^3/uL RBC 3.76 L (4.20-5.40) 10^6/uL Hgb 11.8 L (12.0-16.0) g/dL Hct 35.6 L (37.0-47.0) % MCV 94.7 (81.0-99.0) fL MCH 31.4 H (27.0-31.0) pg MCHC 33.1 (32.0-36.0) g/dL RDW 13.0 (12.0-15.0) % Plt Count 105 L (130-450) 10^3/uL MPV 10.4 (7.9-10.8) fL Neut # (Auto) 2.7 (1.5-6.6) 10^3/uL Lymph # (Auto) 1.7 (1.5-3.5) 10^3/uL Jenkins # (Auto) 0.7 (0.0-1.0) 10^3/uL Eos # (Auto) 0.0 (0.0-0.7) 10^3/uL Baso # (Auto) 0.0 (0.0-0.1) 10^3/uL Absolute Nucleated RBC 0.00 x10^3/uL Nucleated RBC % 0.0 /100WBC Sodium 137 (135-145) mmol/L Potassium 3.9 (3.5-4.5) mmol/L Chloride 105 (101-111) mmol/L Carbon Dioxide 25 (21-32) mmol/L Anion Gap 7.0 (6-13) BUN 22 H (6-20) mg/dL Creatinine 1.1 (0.6-1.3) mg/dL Estimated GFR (MDRD) 48 L (>89) Glucose 92 (74-104) mg/dL Lactic Acid (0.5-2.2) mmol/L Calcium 8.9 (8.5-10.3) mg/dL Magnesium (1.7-2.3) mg/dL Total Bilirubin (0.2-1.0) mg/dL AST (10-42) IU/L ALT (10-60) IU/L Alkaline Phosphatase (42-121) IU/L Ammonia 27.3 (18-72) umol/L Total Protein (6.4-8.9) g/dL Albumin (3.2-5.5) g/dL Globulin (2.1-4.2) g/dL Albumin/Globulin Ratio (1.0-2.2) Lipase (11-82) U/L Urine Color Urine Clarity (CLEAR) Urine pH (5.0-7.5) PH Ur Specific Turner (1.002-1.030) Urine Protein (NEGATIVE) mg/dL Urine Glucose (UA) (NEGATIVE) mg/dL Urine Ketones (NEGATIVE) mg/dL Urine Occult Blood (NEGATIVE) Urine Nitrite (NEGATIVE) Urine Bilirubin (NEGATIVE) Urine Urobilinogen (NORMAL) E.U./dL Ur Leukocyte Esterase (NEGATIVE) Urine RBC (0-5) /HPF Urine WBC (0-5) /HPF Ur Squamous Epith Cells (<= Few) Urine Bacteria (None Seen) /HPF Ur Microscopic Review Urine Culture Comments Nasal Adenovirus (PCR) NOT DETECTED Nasal B. parapertussis DNA (PCR) NOT DETECTED Nasal Coronavir 229E PCR NOT DETECTED Nasal Coronavir HKU1 PCR NOT DETECTED Nasal Coronavir NL63 PCR NOT DETECTED Nasal Coronavir OC43 PCR NOT DETECTED Nasal Enterovir/Rhinovir PCR NOT DETECTED Nasal Influenza B PCR NOT DETECTED Nasal Influenza A PCR NOT DETECTED Nasal Parainfluen 1 PCR NOT DETECTED Nasal Parainfluen 2 PCR NOT DETECTED Nasal Parainfluen 3 PCR NOT DETECTED Nasal Parainfluen 4 PCR NOT DETECTED Nasal RSV (PCR) NOT DETECTED Nasal B.pertussis DNA PCR NOT DETECTED Nasal C.pneumoniae (PCR) NOT DETECTED Neeraj Human Metapneumo PCR NOT DETECTED Nasal M.pneumoniae (PCR) NOT DETECTED Nasal SARS-CoV-2 (PCR) DETECTED A 02/23/25 02/23/25 Range/Units 18:33 17:46 WBC 6.6 (4.8-10.8) x10^3/uL RBC 4.23 (4.20-5.40) 10^6/uL Hgb 13.1 (12.0-16.0) g/dL Hct 40.0 (37.0-47.0) % MCV 94.6 (81.0-99.0) fL MCH 31.0 (27.0-31.0) pg MCHC 32.8 (32.0-36.0) g/dL RDW 13.0 (12.0-15.0) % Plt Count 130 (130-450) 10^3/uL MPV 10.5 (7.9-10.8) fL Neut # (Auto) 4.2 (1.5-6.6) 10^3/uL Lymph # (Auto) 1.6 (1.5-3.5) 10^3/uL Jenkins # (Auto) 0.8 (0.0-1.0) 10^3/uL Eos # (Auto) 0.0 (0.0-0.7) 10^3/uL Baso # (Auto) 0.0 (0.0-0.1) 10^3/uL Absolute Nucleated RBC 0.00 x10^3/uL Nucleated RBC % 0.0 /100WBC Sodium 135 (135-145) mmol/L Potassium 4.4 (3.5-4.5) mmol/L Chloride 102 (101-111) mmol/L Carbon Dioxide 25 (21-32) mmol/L Anion Gap 8.0 (6-13) BUN 25 H (6-20) mg/dL Creatinine 1.2 (0.6-1.3) mg/dL Estimated GFR (MDRD) 43 L (>89) Glucose 110 H (74-104) mg/dL Lactic Acid 2.0 (0.5-2.2) mmol/L Calcium 9.8 (8.5-10.3) mg/dL Magnesium 2.0 (1.7-2.3) mg/dL Total Bilirubin 0.4 (0.2-1.0) mg/dL AST 22 (10-42) IU/L ALT 24 (10-60) IU/L Alkaline Phosphatase 90 (42-121) IU/L Ammonia (18-72) umol/L Total Protein 7.5 (6.4-8.9) g/dL Albumin 4.0 (3.2-5.5) g/dL Globulin 3.5 (2.1-4.2) g/dL Albumin/Globulin Ratio 1.1 (1.0-2.2) Lipase 29 (11-82) U/L Urine Color LIGHT YELLOW Urine Clarity HAZY (CLEAR) Urine pH 6.0 (5.0-7.5) PH Ur Specific Turner 1.020 (1.002-1.030) Urine Protein NEGATIVE (NEGATIVE) mg/dL Urine Glucose (UA) NEGATIVE (NEGATIVE) mg/dL Urine Ketones NEGATIVE (NEGATIVE) mg/dL Urine Occult Blood MODERATE H (NEGATIVE) Urine Nitrite NEGATIVE (NEGATIVE) Urine Bilirubin NEGATIVE (NEGATIVE) Urine Urobilinogen 0.2 (NORMAL) (NORMAL) E.U./dL Ur Leukocyte Esterase NEGATIVE (NEGATIVE) Urine RBC 6-10 H (0-5) /HPF Urine WBC 0-3 (0-5) /HPF Ur Squamous Epith Cells MOD Squamous H (<= Few) Urine Bacteria Many H (None Seen) /HPF Ur Microscopic Review INDICATED Urine Culture Comments NOT INDICATED Nasal Adenovirus (PCR) Nasal B. parapertussis DNA (PCR) Nasal Coronavir 229E PCR Nasal Coronavir HKU1 PCR Nasal Coronavir NL63 PCR Nasal Coronavir OC43 PCR Nasal Enterovir/Rhinovir PCR Nasal Influenza B PCR Nasal Influenza A PCR Nasal Parainfluen 1 PCR Nasal Parainfluen 2 PCR Nasal Parainfluen 3 PCR Nasal Parainfluen 4 PCR Nasal RSV (PCR) Nasal B.pertussis DNA PCR Nasal C.pneumoniae (PCR) Neeraj Human Metapneumo PCR Nasal M.pneumoniae (PCR) Nasal SARS-CoV-2 (PCR) Assessment/Plan Problem List (1) Metabolic encephalopathy: Impression: When she is at baseline, she is typically oriented and conversant but needs help moving from bed to chair Her appetite is improving, she is a little bit more interactive UA, CXR, CT head all normal Respiratory viral panel shows COVID Continue IV fluids with LR at 100 PT eval Check MRI brain Lab reports that blood cultures are positive in 1 bottle. This is likely contaminant, will wait for PCR and likely redraw (2) Lewy body dementia: Impression: Restart Aricept
[2025-02-24] MEDS: DONEPEZIL 5 MG TABLET PO SCH (22:07)
[2025-02-25 05:28] LABS: HCT - HEMATOCRIT 33.5 % (37.0-47.0); HGB - HEMOGLOBIN 10.9 g/dL (12.0-16.0); MEAN PLATELET VOLUME 10.4 fL (7.9-10.8); NRBC ABSOLUTE COUNT (AUTO) 0.00 x10^3/uL; NUCLEATED RED BLOOD CELLS AUTO 0.0 /100WBC; PLT - PLATELET COUNT 111 10^3/uL (130-450); RED CELL DISTRIBUTION WIDTH 12.8 % (12.0-15.0)
[2025-02-25 05:49] LABS: BUN - BLOOD UREA NITROGEN 18.0 mg/dL (6-20); CARBON DIOXIDE - CO2 26.0 mmol/L (21-32); CREATININE 1.2 mg/dL (0.6-1.3); GFR - MDRD 43.0 (>89)
[2025-02-25] MEDS: CHOLECALCIFEROL 25 MCG TABLET PO SCH (08:15)
--- NOTE | 2025-02-25 12:02 | PROVIDER PROGRESS NOTE ---
Subjective Prog Note Date Prog Note Date: 02/25/25 Subjective Pt reports feeling: No change Current Medications Current Medications Current Medications: Current Medications Generic Name Dose Route Start Last Admin Trade Name Freq PRN Reason Stop Dose Admin Acetaminophen 650 mg 02/23/25 20:18 02/24/25 22:07 Acetaminophen 325 Mg Tablet PO 650 mg Q4HR PRN Administration Pain 1 to 4, or Fever Benzonatate 100 mg 02/25/25 04:02 Benzonatate 100 Mg Capsule PO TID PRN Cough Carboxymethylcellulose 1 drops 02/24/25 14:00 02/25/25 08:14 Carboxymethylcellulose Ophth Drops EACHEYE 1 drops Q4HR BART Administration Cholecalciferol 50 mcg 02/25/25 09:00 02/25/25 08:15 Cholecalciferol 25 Mcg Tablet PO 50 mcg DAILY BART Administration Donepezil HCl 2.5 mg 02/24/25 21:00 02/24/25 22:07 Donepezil 5 Mg Tablet PO 2.5 mg QPM BART Administration Enoxaparin Sodium 30 mg 02/24/25 09:00 02/25/25 08:16 Enoxaparin 30 Mg/0.3 Ml Syringe SUBQ 30 mg DAILY BART Administration Guaifenesin 600 mg 02/25/25 04:05 02/25/25 08:15 Guaifenesin 600 Mg Tablet PO 600 mg BID BART Administration Lactated Ringer's 1,000 mls @ 100 mls/hr 02/23/25 20:18 02/25/25 10:08 Lr IV 100 mls/hr .Q10H BART Administration Nystatin 5 ml 02/24/25 13:12 02/25/25 08:15 Nystatin 733055 Units/5 Ml Udc PO 5 ml QID BART Administration Ondansetron HCl 4 mg 02/23/25 20:18 Ondansetron Odt 4 Mg Tablet TL Q6HR PRN Nausea / Vomiting Ondansetron HCl 4 mg 02/23/25 20:18 Ondansetron 4 Mg/2 Ml Vial IVP Q6HR PRN Nausea / Vomiting Multivit/Folic Acid/Iron 1 tab 02/23/25 20:18 02/25/25 08:15 Vitamin Tablet PO 1 tab DAILYWM BART Administration Sodium Chloride 10 ml 02/23/25 20:18 Sodium Chloride Flush 0.9% 10 Ml Syringe IVP PRN PRN NEEDED PER PROVIDER ORDERS Sodium Chloride 10 ml 02/24/25 01:00 02/25/25 08:15 Sodium Chloride Flush 0.9% 10 Ml Syringe IVP 10 ml 0100,0900,1700 BART Administration Thiamine HCl 100 mg 02/24/25 09:00 02/25/25 08:15 Thiamine 100 Mg Tablet PO 100 mg DAILY BART Administration Objective Vital Signs/Intake & Output Reviewed Vital Signs: Yes Vital Signs: Vital Signs x48h Temp Pulse Resp BP BP Pulse Ox O2 Flow Rate 02/25/25 08:25 2 02/25/25 08:21 36.7 C 65 18 132/60 H 96 2 02/25/25 06:00 36.7 C 72 16 126/75 96 Intake & Output: Intake & Output 02/22/25 02/23/25 02/24/25 02/25/25 23:59 23:59 23:59 23:59 Intake Total 1100 / 1100 2705 / 2705 1944 Output Total 2275 / 2275 Balance 1100 / 1100 430 / 430 1944 Weight (kg) 50.5 kg Objective General Appearance: positive No acute distress and Alert Eyes Bilateral: negative No lid inflammation Respiratory: positive Chest non-tender and No respiratory distress Cardiovascular: positive Regular rate & rhythm Abdomen: positive Non-tender Skin: positive Color nml Extremities: positive Non-tender Neurologic/Psychiatric: positive Other (Oriented x 2) Lab Results 02/25/25 04:57 02/25/25 04:57 Other Labs: Lab Results x24hrs 02/25/25 Range/Units 04:57 WBC 6.4 (4.8-10.8) x10^3/uL RBC 3.53 L (4.20-5.40) 10^6/uL Hgb 10.9 L (12.0-16.0) g/dL Hct 33.5 L (37.0-47.0) % MCV 94.9 (81.0-99.0) fL MCH 30.9 (27.0-31.0) pg MCHC 32.5 (32.0-36.0) g/dL RDW 12.8 (12.0-15.0) % Plt Count 111 L (130-450) 10^3/uL MPV 10.4 (7.9-10.8) fL Neut # (Auto) 4.2 (1.5-6.6) 10^3/uL Lymph # (Auto) 1.6 (1.5-3.5) 10^3/uL Jefferson # (Auto) 0.6 (0.0-1.0) 10^3/uL Eos # (Auto) 0.0 (0.0-0.7) 10^3/uL Baso # (Auto) 0.0 (0.0-0.1) 10^3/uL Absolute Nucleated RBC 0.00 x10^3/uL Nucleated RBC % 0.0 /100WBC Sodium 137 (135-145) mmol/L Potassium 3.7 (3.5-4.5) mmol/L Chloride 104 (101-111) mmol/L Carbon Dioxide 26 (21-32) mmol/L Anion Gap 7.0 (6-13) BUN 18 (6-20) mg/dL Creatinine 1.2 (0.6-1.3) mg/dL Estimated GFR (MDRD) 43 L (>89) Glucose 97 (74-104) mg/dL Calcium 8.9 (8.5-10.3) mg/dL Assessment/Plan Problem List (1) Metabolic encephalopathy: Impression: When she is at baseline, she is typically oriented and conversant but needs help moving from bed to chair Her appetite is improving, she is a little bit more interactive UA, CXR, CT head all normal Respiratory viral panel shows COVID Continue IV fluids with LR at 100 PT eval Check MRI brain Lab reports that blood cultures are positive in 1 bottle. This is likely contaminant, will wait for PCR and likely redraw 02/25: MRI in process. PCR not able to identify organism that is present in one of the blood culture bottles. Redrawing blood cultures as this is likely contaminant. Manage COVID as below (2) COVID-19: Impression: She was placed on oxygen overnight. I have instructed nursing staff to attempt to wean this. If she continues to require, will start Decadron 6 mg p.o. daily (3) Lewy body dementia: Impression: Restart Aricept
--- NOTE | 2025-02-25 13:58 | MRI Report ---
PROCEDURE: MRI Brain WO INDICATIONS: AMS TECHNIQUE: Multisequence MRI of the brain was performed without intravenous contrast. COMPARISON: 06/24/2023. Correlation is made with head CT, 02/23/2025. FINDINGS: Image quality: Motion artifact is noted. CSF Spaces: Basal cisterns are patent. No extra-axial fluid collections. Ventricles are normal in size and shape. Brain: No intracranial masses or hemorrhage. Padilla/white matter interface is normal. Brainstem appears normal. Diffusion-weighted images demonstrate no acute ischemic insult. No chronic ischemic insults. Normal intravascular flow voids are present. Age-appropriate brain parenchymal volume loss and chronic small vessel ischemic change can be seen. Skull and face: Calvarium has normal marrow signal. Orbits appear normal. Incidental note is made of bilateral lens replacements. Sinuses: Moderate mucosal thickening is seen involving the left maxillary sinus and the ethmoid air cells. There is also mild to moderate mucosal thickening within the sphenoid sinuses. No significant abnormal fluid can be seen within the mastoid air cells. IMPRESSION: No findings of acute or subacute infarction are seen. Age-appropriate brain parenchymal volume loss and chronic small vessel ischemic change can be seen. Underlying paranasal sinus disease noted. Reviewed by: Nate Marie MD on 02/25/2025 1:56 PM PDT Approved by: Nate Marie MD on 02/25/2025 1:56 PM PDT Station ID: [id number]
[2025-02-26 05:35] LABS: HCT - HEMATOCRIT 31.6 % (37.0-47.0); HGB - HEMOGLOBIN 10.3 g/dL (12.0-16.0); MEAN PLATELET VOLUME 10.0 fL (7.9-10.8); NRBC ABSOLUTE COUNT (AUTO) 0.00 x10^3/uL; NUCLEATED RED BLOOD CELLS AUTO 0.0 /100WBC; PLT - PLATELET COUNT 107 10^3/uL (130-450); RED CELL DISTRIBUTION WIDTH 12.4 % (12.0-15.0)
[2025-02-26 05:57] LABS: BUN - BLOOD UREA NITROGEN 14.0 mg/dL (6-20); CARBON DIOXIDE - CO2 27.0 mmol/L (21-32); CREATININE 1.2 mg/dL (0.6-1.3); GFR - MDRD 43.0 (>89)
[2025-02-26] MEDS: BENZONATATE 100 MG CAPSULE PO PRN (09:07)
--- NOTE | 2025-02-26 11:21 | PROVIDER PROGRESS NOTE ---
Subjective Prog Note Date Prog Note Date: 02/26/25 Subjective Subjective: She is not awake today. Son at bedside. She did eat 25% breakfast, but seems to be continually coughing. requiring about 0.5L oxygen via [place]. yesterday, was able to drink well. two of her sons present via phone at my visit today. Current Medications Current Medications Current Medications: Current Medications Generic Name Dose Route Start Last Admin Trade Name Freq PRN Reason Stop Dose Admin Acetaminophen 650 mg 02/23/25 20:18 02/24/25 22:07 Acetaminophen 325 Mg Tablet PO 650 mg Q4HR PRN Administration Pain 1 to 4, or Fever Benzonatate 100 mg 02/25/25 04:02 02/26/25 09:07 Benzonatate 100 Mg Capsule PO 100 mg TID PRN Administration Cough Carboxymethylcellulose 1 drops 02/24/25 14:00 02/26/25 08:09 Carboxymethylcellulose Ophth Drops EACHEYE 1 drops Q4HR BART Administration Cholecalciferol 50 mcg 02/25/25 09:00 02/26/25 08:10 Cholecalciferol 25 Mcg Tablet PO 50 mcg DAILY BART Administration Dexamethasone 10 mg 02/26/25 11:19 Dexamethasone 20 Mg/5 Ml Vial IVP 02/26/25 11:20 ONCE ONE Donepezil HCl 2.5 mg 02/24/25 21:00 02/25/25 21:10 Donepezil 5 Mg Tablet PO 2.5 mg QPM BART Administration Enoxaparin Sodium 30 mg 02/24/25 09:00 02/26/25 08:09 Enoxaparin 30 Mg/0.3 Ml Syringe SUBQ 30 mg DAILY BART Administration Guaifenesin 600 mg 02/25/25 04:05 02/26/25 08:10 Guaifenesin 600 Mg Tablet PO 600 mg BID BART Administration Lactated Ringer's 1,000 mls @ 100 mls/hr 02/23/25 20:18 02/26/25 07:27 Lr IV 100 mls/hr .Q10H BART Administration Nystatin 5 ml 02/24/25 13:12 02/26/25 08:09 Nystatin 882606 Units/5 Ml Udc PO 5 ml QID BART Administration Ondansetron HCl 4 mg 02/23/25 20:18 Ondansetron Odt 4 Mg Tablet TL Q6HR PRN Nausea / Vomiting Ondansetron HCl 4 mg 02/23/25 20:18 Ondansetron 4 Mg/2 Ml Vial IVP Q6HR PRN Nausea / Vomiting Multivit/Folic Acid/Iron 1 tab 02/23/25 20:18 02/26/25 08:09 Vitamin Tablet PO 1 tab DAILYWM BART Administration Sodium Chloride 10 ml 02/23/25 20:18 Sodium Chloride Flush 0.9% 10 Ml Syringe IVP PRN PRN NEEDED PER PROVIDER ORDERS Sodium Chloride 10 ml 02/24/25 01:00 02/26/25 08:10 Sodium Chloride Flush 0.9% 10 Ml Syringe IVP Not Given 0100,0900,1700 BART Thiamine HCl 100 mg 02/24/25 09:00 02/26/25 08:10 Thiamine 100 Mg Tablet PO 100 mg DAILY BART Administration Objective Vital Signs/Intake & Output Reviewed Vital Signs: Yes Vital Signs: Vital Signs x48h Temp Pulse Resp BP Pulse Ox O2 Flow Rate 02/26/25 07:45 0.5 02/26/25 07:43 36.6 C 69 18 164/69 H 95 0.5 Intake & Output: Intake & Output 02/23/25 02/24/25 02/25/25 02/26/25 23:59 23:59 23:59 23:59 Intake Total 1100 / 1100 2705 / 2705 3045 / 3045 1000 / 1000 Output Total 2275 / 2275 400 / 400 Balance 1100 / 1100 430 / 430 3045 / 3045 600 / 600 Weight (kg) 50.5 kg 59.5 kg 59.5 kg Objective General Appearance: positive No acute distress and Other (eyes closed, coughing, does not follow commands. ) Eyes Bilateral: positive Other (conjunctival dc without erythema, refuses to open eyes, squeezes them shut if I try to pry them open. ) ENT: positive ENT inspection nml Neck: positive Nml inspection Respiratory: positive No respiratory distress, Rhonchi (R>L) and Other (coughing continuously); negative Wheezes or Rales Cardiovascular: positive Regular rate & rhythm Skin: positive Color nml and No rash Extremities: positive Non-tender and No pedal edema Neurologic/Psychiatric: positive Other (not engaging with me. eyes closed. does not follow commands. ) Lab Results 02/26/25 05:21 02/26/25 05:21 Other Labs: Lab Results x24hrs 02/26/25 Range/Units 05:21 WBC 5.9 (4.8-10.8) x10^3/uL RBC 3.33 L (4.20-5.40) 10^6/uL Hgb 10.3 L (12.0-16.0) g/dL Hct 31.6 L (37.0-47.0) % MCV 94.9 (81.0-99.0) fL MCH 30.9 (27.0-31.0) pg MCHC 32.6 (32.0-36.0) g/dL RDW 12.4 (12.0-15.0) % Plt Count 107 L (130-450) 10^3/uL MPV 10.0 (7.9-10.8) fL Neut # (Auto) 3.8 (1.5-6.6) 10^3/uL Lymph # (Auto) 1.4 L (1.5-3.5) 10^3/uL Mora # (Auto) 0.6 (0.0-1.0) 10^3/uL Eos # (Auto) 0.1 (0.0-0.7) 10^3/uL Baso # (Auto) 0.0 (0.0-0.1) 10^3/uL Absolute Nucleated RBC 0.00 x10^3/uL Nucleated RBC % 0.0 /100WBC Sodium 136 (135-145) mmol/L Potassium 3.8 (3.5-4.5) mmol/L Chloride 104 (101-111) mmol/L Carbon Dioxide 27 (21-32) mmol/L Anion Gap 5.0 L (6-13) BUN 14 (6-20) mg/dL Creatinine 1.2 (0.6-1.3) mg/dL Estimated GFR (MDRD) 43 L (>89) Glucose 100 (74-104) mg/dL Calcium 8.6 (8.5-10.3) mg/dL Assessment/Plan Problem List (1) Metabolic encephalopathy: Impression: When she is at baseline, she is typically oriented and conversant but needs help moving from bed to chair Her appetite is improving a bit. 25% breakfast, bites of lunch UA, CXR, CT head, MRI brain all normal Respiratory viral panel shows COVID decreasing LR to 50cc/hr. PT eval- not appropriate today. Lab reports that blood cultures are positive in 1 bottle. This is likely contaminant, PCR negative, no growth for one day on 2nd set. (2) COVID-19: Impression: She was placed on oxygen overnight. She remains on 0.5L oxygen and cough this mid day is continuous. I have started her on decadron, 10mg given today. Start 6mg daily tomorrow. This evening, still on oxygen, but coughing much less. remains w rhonchi on exam (3) Lewy body dementia: Impression: Aricept has been restarted. I have spent 42 minutes in the care of this patient today. This includes time [id number], review and ordering of diagnostic imaging and laboratory studies and consultation with other providers. Monitoring the patient's signs symptoms, evaluation of medication effectiveness and patient's response to treatment. This patient's diagnosis and treatment plan was discussed this AM with attending physician as a part of multi disciplinary rounding meeting..
[2025-02-26] MEDS: DEXAMETHASONE 10 MG/ML VIAL IVP ONE (13:09)
[2025-02-26 19:49] LABS: FECAL OCCULT BLOOD (FIT) NEGATIVE (NEGATIVE)
[2025-02-26] MEDS: ONDANSETRON 4 MG/2 ML VIAL IVP PRN (19:59)
[2025-02-27 07:45] LABS: BUN - BLOOD UREA NITROGEN 18.0 mg/dL (6-20); CARBON DIOXIDE - CO2 26.0 mmol/L (21-32); CREATININE 1.1 mg/dL (0.6-1.3); GFR - MDRD 48.0 (>89)
[2025-02-27 08:14] LABS: HCT - HEMATOCRIT 32.5 % (37.0-47.0); HGB - HEMOGLOBIN 10.9 g/dL (12.0-16.0); MEAN PLATELET VOLUME 10.5 fL (7.9-10.8); NRBC ABSOLUTE COUNT (AUTO) 0.00 x10^3/uL; NUCLEATED RED BLOOD CELLS AUTO 0.0 /100WBC; PLT - PLATELET COUNT 105 10^3/uL (130-450); RED CELL DISTRIBUTION WIDTH 12.1 % (12.0-15.0)
--- NOTE | 2025-02-27 12:45 | PROVIDER PROGRESS NOTE ---
Subjective Prog Note Date Prog Note Date: 02/27/25 Subjective Subjective: awake this AM. coughing less, and more conversant. Her voice is weak, She is not able to tell me where she is or the date, but names all 3 of her sons. No family at the bedside today. Current Medications Current Medications Current Medications: Current Medications Generic Name Dose Route Start Last Admin Trade Name Freq PRN Reason Stop Dose Admin Acetaminophen 650 mg 02/23/25 20:18 02/24/25 22:07 Acetaminophen 325 Mg Tablet PO 650 mg Q4HR PRN Administration Pain 1 to 4, or Fever Benzonatate 100 mg 02/25/25 04:02 02/26/25 09:07 Benzonatate 100 Mg Capsule PO 100 mg TID PRN Administration Cough Carboxymethylcellulose 1 drops 02/24/25 14:00 02/27/25 08:40 Carboxymethylcellulose Ophth Drops EACHEYE Not Given Q4HR BART Cholecalciferol 50 mcg 02/25/25 09:00 02/27/25 08:14 Cholecalciferol 25 Mcg Tablet PO 50 mcg DAILY BART Administration Dexamethasone 6 mg 02/27/25 09:00 02/27/25 08:14 Dexamethasone 4 Mg Tablet PO 6 mg DAILY BART Administration Donepezil HCl 2.5 mg 02/24/25 21:00 02/26/25 23:35 Donepezil 5 Mg Tablet PO 2.5 mg QPM BART Administration Enoxaparin Sodium 30 mg 02/24/25 09:00 02/27/25 08:15 Enoxaparin 30 Mg/0.3 Ml Syringe SUBQ 30 mg DAILY BART Administration Guaifenesin 600 mg 02/25/25 04:05 02/27/25 08:14 Guaifenesin 600 Mg Tablet PO 600 mg BID BART Administration Lactated Ringer's 1,000 mls @ 50 mls/hr 02/23/25 20:18 02/26/25 18:08 Lr IV 50 mls/hr .Q20H BART Administration Nystatin 5 ml 02/24/25 13:12 02/27/25 08:15 Nystatin 947282 Units/5 Ml Udc PO 5 ml QID BART Administration Ondansetron HCl 4 mg 02/23/25 20:18 Ondansetron Odt 4 Mg Tablet TL Q6HR PRN Nausea / Vomiting Ondansetron HCl 4 mg 02/23/25 20:18 02/26/25 19:59 Ondansetron 4 Mg/2 Ml Vial IVP 4 mg Q6HR PRN Administration Nausea / Vomiting Multivit/Folic Acid/Iron 1 tab 02/23/25 20:18 02/27/25 08:14 Vitamin Tablet PO 1 tab DAILYWM BART Administration Sodium Chloride 10 ml 02/23/25 20:18 Sodium Chloride Flush 0.9% 10 Ml Syringe IVP PRN PRN NEEDED PER PROVIDER ORDERS Sodium Chloride 10 ml 02/24/25 01:00 02/27/25 08:15 Sodium Chloride Flush 0.9% 10 Ml Syringe IVP 10 ml 0100,0900,1700 ABRT Administration Thiamine HCl 100 mg 02/24/25 09:00 02/27/25 08:14 Thiamine 100 Mg Tablet PO 100 mg DAILY BART Administration Objective Vital Signs/Intake & Output Reviewed Vital Signs: Yes Vital Signs: Vital Signs x48h Temp Pulse Resp BP Pulse Ox O2 Flow Rate 02/27/25 08:10 0.5 02/27/25 08:10 36.7 C 62 16 115/73 93 0.5 Intake & Output: Intake & Output 02/24/25 02/25/25 02/26/25 02/27/25 23:59 23:59 23:59 23:59 Intake Total 2705 / 2705 3045 / 3045 1972 Output Total 2275 / 2275 400 / 400 Balance 430 / 430 3045 / 3045 1573 / 1573 Weight (kg) 59.5 kg 59.5 kg 59.5 kg Objective General Appearance: positive No acute distress Eyes Bilateral: positive Other (conjunctival dc without erythema ) ENT: positive ENT inspection nml Neck: positive Nml inspection Respiratory: positive No respiratory distress and Other (not coughing today, lungs are clear but diminished at bases. ); negative Wheezes, Rales or Rhonchi Cardiovascular: positive Regular rate & rhythm Skin: positive Color nml and No rash Extremities: positive Non-tender and No pedal edema Neurologic/Psychiatric: positive Disoriented to place, Disoriented to time and Other (opens eyes to voice, responds in whispers, difficult to undersand. ) Lab Results 02/27/25 07:08 02/27/25 07:08 Other Labs: Lab Results x24hrs 02/27/25 02/26/25 Range/Units 07:08 19:20 WBC 5.2 (4.8-10.8) x10^3/uL RBC 3.48 L (4.20-5.40) 10^6/uL Hgb 10.9 L (12.0-16.0) g/dL Hct 32.5 L (37.0-47.0) % MCV 93.4 (81.0-99.0) fL MCH 31.3 H (27.0-31.0) pg MCHC 33.5 (32.0-36.0) g/dL RDW 12.1 (12.0-15.0) % Plt Count 105 L (130-450) 10^3/uL MPV 10.5 (7.9-10.8) fL Neut # (Auto) 3.9 (1.5-6.6) 10^3/uL Lymph # (Auto) 0.9 L (1.5-3.5) 10^3/uL [place] # (Auto) 0.4 (0.0-1.0) 10^3/uL Eos # (Auto) 0.0 (0.0-0.7) 10^3/uL Baso # (Auto) 0.0 (0.0-0.1) 10^3/uL Absolute Nucleated RBC 0.00 x10^3/uL Nucleated RBC % 0.0 /100WBC Sodium 138 (135-145) mmol/L Potassium 4.0 (3.5-4.5) mmol/L Chloride 105 (101-111) mmol/L Carbon Dioxide 26 (21-32) mmol/L Anion Gap 7.0 (6-13) BUN 18 (6-20) mg/dL Creatinine 1.1 (0.6-1.3) mg/dL Estimated GFR (MDRD) 48 L (>89) Glucose 165 H (74-104) mg/dL Calcium 9.1 (8.5-10.3) mg/dL Stl Occult Blood (IFOB) NEGATIVE (NEGATIVE) Assessment/Plan Problem List (1) Metabolic encephalopathy: Impression: When she is at baseline, she is typically oriented and conversant but needs help moving from bed to chair Her appetite is improving and she is more alert. UA, CXR, CT head, MRI brain all normal Respiratory viral panel shows COVID stopping IVF PT has recommended that she get OOB with RN and family for an ambulation trial. Lab reports that blood cultures are positive in 1 bottle, positive for aerococcus urineae. This is not a usual contaminant, but her clinical status is improving. Her UA was negative on admit. She has no growth for one day on 2nd set. I will obtain a urine culture today. (2) COVID-19: Impression: Has not been able to wean off oxygen, remains on 0.5. She is day 2 decadron, this seems to be the thing that is helping her improve. She is coughing less and eating more. lung exam is improved. (3) Lewy body dementia: Impression: Aricept has been restarted. I have spent 37 minutes in the care of this patient today. This includes time [id number], review and ordering of diagnostic imaging and laboratory studies and consultation with other providers. Monitoring the patient's signs symptoms, evaluation of medication effectiveness and patient's response to treatment. This patient's diagnosis and treatment plan was discussed this AM with attending physician as a part of multi disciplinary rounding meeting.
--- NOTE | 2025-02-27 14:17 | PT Plan of Care ---
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 PMH significant for Lewy body dementia, please see chart for further PMH. Pt lives with son who is her CG and has additional CG help approx. 4hrs/day. Per chart review pt is primarily a wc user and able to take limited steps from bed to chair with some assist at baseline. Pt cleared for eval by hospitalist. Upon PT eval, met supine in bed on 0.5L O2. SpO2 97% at rest, 93-95% with activity. A&Ox2 and follows cueing well. Transfers with mod to maxAx1. Attempted FWW for STS transfer but pt unable to coordinate BUE for AD use. Squat pivot transfer with maxAx1 from EOB to chair. Requires significant pillow support for trunk stability in chair. Non-productive cough and hoarse voice but pt able to verbalize 3-5 word phrases with some clarity. Pt will benefit from PT in acute setting to progress her upright tolerance and restore PLOF. When medically clear, PT rec dc to SNF vs home with increased CG support. She will need up to maxA for transfers so will need to clarify with family if they are able to meet this LOC. Goals Improve bed mobility to: Minimal Assist Improve supine to sit to: Minimal Assist Improve sit to stand to: Minimal Assist Improve pivot transfer ability Minimal Assist to: Improve sit to supine to: Minimal Assist Other transfer goal: able to stand x1 min in support of return to stand pivot transfer baseline Improve Sitting Balance to: Good Improve Standing Balance to: Fair PT Plan of Care Frequency 1-2x/day Duration Until goals are met Discharge Recommendations Discharge Location SNF vs home Support/Services Needed With assist Other reportedly has wc at home, other need TBD Transport Needs at Discharge B.L.S Other BLS d/t confusion, unable to sit unsupported/ poor trunk control, covid +
[2025-02-27 19:45] LABS: GLUCOSE, URINE (UA) NEGATIVE (NEGATIVE); KETONES,URINE (UA) NEGATIVE (NEGATIVE); OCCULT BLOOD,URINE NEGATIVE (NEGATIVE); SQUAMOUS EPITHELIAL CELL,UR FEW Squamous (<= Few)
[2025-02-28 05:48] LABS: HCT - HEMATOCRIT 32.1 % (37.0-47.0); HGB - HEMOGLOBIN 10.6 g/dL (12.0-16.0); MEAN PLATELET VOLUME 10.7 fL (7.9-10.8); NRBC ABSOLUTE COUNT (AUTO) 0.00 x10^3/uL; NUCLEATED RED BLOOD CELLS AUTO 0.0 /100WBC; PLT - PLATELET COUNT 143 10^3/uL (130-450); RED CELL DISTRIBUTION WIDTH 12.3 % (12.0-15.0)
[2025-02-28 06:07] LABS: BUN - BLOOD UREA NITROGEN 26.0 mg/dL (6-20); CARBON DIOXIDE - CO2 28.0 mmol/L (21-32); CREATININE 1.1 mg/dL (0.6-1.3); GFR - MDRD 48.0 (>89)
[2025-02-28] MEDS: cefTRIAXone 1 GM VIAL IVP SCH (09:02)
--- NOTE | 2025-02-28 17:08 | PROVIDER PROGRESS NOTE ---
Subjective Prog Note Date Prog Note Date: 02/28/25 Subjective Pt reports feeling: Improved Subjective: She is more awake and alert today. She is not oriented to place or time but is aware of her son at the bedside and tells me his name. She continues to have a very soft voice. She is occasionally coughing Current Medications Current Medications Current Medications: Current Medications Generic Name Dose Route Start Last Admin Trade Name Freq PRN Reason Stop Dose Admin Acetaminophen 650 mg 02/23/25 20:18 02/24/25 22:07 Acetaminophen 325 Mg Tablet PO 650 mg Q4HR PRN Administration Pain 1 to 4, or Fever Benzonatate 100 mg 02/25/25 04:02 02/26/25 09:07 Benzonatate 100 Mg Capsule PO 100 mg TID PRN Administration Cough Carboxymethylcellulose 1 drops 02/24/25 14:00 02/28/25 16:31 Carboxymethylcellulose Ophth Drops EACHEYE Not Given Q4HR BART Ceftriaxone Sodium 1 gm 02/28/25 09:00 02/28/25 09:02 Ceftriaxone 1 Gm Vial IVP 1 gm DAILY BART Administration Cholecalciferol 50 mcg 02/25/25 09:00 02/28/25 09:02 Cholecalciferol 25 Mcg Tablet PO 50 mcg DAILY BART Administration Dexamethasone 6 mg 02/27/25 09:00 02/28/25 09:06 Dexamethasone 4 Mg Tablet PO 6 mg DAILY BART Administration Donepezil HCl 2.5 mg 02/24/25 21:00 02/27/25 23:34 Donepezil 5 Mg Tablet PO 2.5 mg QPM BART Administration Enoxaparin Sodium 30 mg 02/24/25 09:00 02/28/25 09:02 Enoxaparin 30 Mg/0.3 Ml Syringe SUBQ 30 mg DAILY BART Administration Guaifenesin 600 mg 02/25/25 04:05 02/28/25 09:02 Guaifenesin 600 Mg Tablet PO 600 mg BID BART Administration Nystatin 5 ml 02/24/25 13:12 02/28/25 16:32 Nystatin 852396 Units/5 Ml Udc PO Not Given QID BART Ondansetron HCl 4 mg 02/23/25 20:18 Ondansetron Odt 4 Mg Tablet TL Q6HR PRN Nausea / Vomiting Ondansetron HCl 4 mg 02/23/25 20:18 02/26/25 19:59 Ondansetron 4 Mg/2 Ml Vial IVP 4 mg Q6HR PRN Administration Nausea / Vomiting Multivit/Folic Acid/Iron 1 tab 02/23/25 20:18 02/28/25 09:02 Vitamin Tablet PO 1 tab DAILYWM BART Administration Sodium Chloride 10 ml 02/23/25 20:18 Sodium Chloride Flush 0.9% 10 Ml Syringe IVP PRN PRN NEEDED PER PROVIDER ORDERS Sodium Chloride 10 ml 02/24/25 01:00 02/28/25 16:03 Sodium Chloride Flush 0.9% 10 Ml Syringe IVP 10 ml 0100,0900,1700 BART Administration Thiamine HCl 100 mg 02/24/25 09:00 02/28/25 09:02 Thiamine 100 Mg Tablet PO 100 mg DAILY BART Administration Objective Vital Signs/Intake & Output Reviewed Vital Signs: Yes Vital Signs: Vital Signs x48h Temp Pulse Resp BP Pulse Ox 02/28/25 16:44 36.5 C 60 22 120/53 L 92 Intake & Output: Intake & Output 02/25/25 02/26/25 02/27/25 02/28/25 23:59 23:59 23:59 23:59 Intake Total 3045 / 3045 1972 / 1972 1507 / 1507 310 / 310 Output Total 400 / 400 900 / 900 500 / 500 Balance 3045 / 3045 1573 / 1573 607 / 607 -190 / -190 Weight (kg) 59.5 kg 59.5 kg 59.5 kg 59 kg Objective General Appearance: positive No acute distress Eyes Bilateral: positive Other (conjunctival dc without erythema ) ENT: positive ENT inspection nml Neck: positive Nml inspection Respiratory: positive No respiratory distress and Other ( lungs are clear but diminished at bases. ); negative Wheezes, Rales or Rhonchi Cardiovascular: positive Regular rate & rhythm Skin: positive Color nml and No rash Extremities: positive Non-tender and No pedal edema Neurologic/Psychiatric: positive Disoriented to place, Disoriented to time and Other (Eyes are open. She interacts with me and with her son at the bedside this is an improvement, responds in whispers, difficult to undersand. ) Lab Results 02/28/25 05:18 02/28/25 05:18 Other Labs: Lab Results x24hrs 02/28/25 02/27/25 Range/Units 05:18 18:45 WBC 10.3 (4.8-10.8) x10^3/uL RBC 3.42 L (4.20-5.40) 10^6/uL Hgb 10.6 L (12.0-16.0) g/dL Hct 32.1 L (37.0-47.0) % MCV 93.9 (81.0-99.0) fL MCH 31.0 (27.0-31.0) pg MCHC 33.0 (32.0-36.0) g/dL RDW 12.3 (12.0-15.0) % Plt Count 143 (130-450) 10^3/uL MPV 10.7 (7.9-10.8) fL Neut # (Auto) 8.0 H (1.5-6.6) 10^3/uL Lymph # (Auto) 1.5 (1.5-3.5) 10^3/uL [place] # (Auto) 0.8 (0.0-1.0) 10^3/uL Eos # (Auto) 0.0 (0.0-0.7) 10^3/uL Baso # (Auto) 0.0 (0.0-0.1) 10^3/uL Absolute Nucleated RBC 0.00 x10^3/uL Nucleated RBC % 0.0 /100WBC Sodium 139 (135-145) mmol/L Potassium 4.1 (3.5-4.5) mmol/L Chloride 107 (101-111) mmol/L Carbon Dioxide 28 (21-32) mmol/L Anion Gap 4.0 L (6-13) BUN 26 H (6-20) mg/dL Creatinine 1.1 (0.6-1.3) mg/dL Estimated GFR (MDRD) 48 L (>89) Glucose 131 H (74-104) mg/dL Calcium 8.9 (8.5-10.3) mg/dL Urine Color YELLOW Urine Clarity CLOUDY (CLEAR) Urine pH 6.5 (5.0-7.5) PH Ur Specific [place] 1.005 (1.002-1.030) Urine Protein NEGATIVE (NEGATIVE) mg/dL Urine Glucose (UA) NEGATIVE (NEGATIVE) mg/dL Urine Ketones NEGATIVE (NEGATIVE) mg/dL Urine Occult Blood NEGATIVE (NEGATIVE) Urine Nitrite POSITIVE H (NEGATIVE) Urine Bilirubin NEGATIVE (NEGATIVE) Urine Urobilinogen 0.2 (NORMAL) (NORMAL) E.U./dL Ur Leukocyte Esterase LARGE H (NEGATIVE) Urine RBC 0-5 (0-5) /HPF Urine WBC 0-3 (0-5) /HPF Ur Squamous Epith Cells FEW Squamous (<= Few) Urine Bacteria Many H (None Seen) /HPF Ur Microscopic Review INDICATED Urine Culture Comments INDICATED Assessment/Plan Problem List (1) Metabolic encephalopathy: Impression: When she is at baseline, she is typically oriented and conversant but needs help moving from bed to chair Her appetite is improving and she is more alert. UA, CXR, CT head, MRI brain all normal Respiratory viral panel shows COVID stopping IVF PT has recommended that she get OOB with RN and family for an ambulation trial. Lab reports that blood cultures are positive in 1 bottle, positive for aerococcus urineae. This is not a usual contaminant, but her clinical status is improving. Her UA was negative on admit. now is positive, see below (2) COVID-19: Impression: Has not been able to wean off oxygen, remains on 0.5. She is day 3 decadron, this seems to be the thing that is helping her improve. She is coughing less and eating more. She ate 65% of her dinner this evening. lung exam remains improved. She is medically clear today for SNF. Family elects [facility]. SNF will not take her until day 11 of her COVID. She is day 8 today. (3) Acute cystitis: Impression: blood cultures on admission significant for Aerococcus urinae. I repeated blood cultures on 02/25/2025. No growth after 2 days. Urinalysis negative on admission but positive on 02/27/2025. I therefore started the patient on Rocephin IV 1 g daily. Her urine culture is now showing gram-negative rods with 10- 50,000 colony-forming units. I will continue Rocephin. She is day #2 Qualifiers: Hematuria presence: with hematuria Qualified Code(s): N30.01 - Acute cystitis with hematuria (4) Lewy body dementia: Impression: Aricept has been restarted. I have spent 36 minutes in the care of this patient today. This includes time [id number], review and ordering of diagnostic imaging and laboratory studies and consultation with other providers. Monitoring the patient's signs symptoms, evaluation of medication effectiveness and patient's response to treatment. This patient's diagnosis and treatment plan was discussed this AM with attending physician as a part of multi disciplinary rounding meeting.
--- NOTE | 2025-03-01 17:29 | PROVIDER PROGRESS NOTE ---
Subjective Prog Note Date Prog Note Date: 03/01/25 Subjective Subjective: She has been sleepy today. She had a bad night with coughing, and was up some. cough suppressants do not seem to help. Son Rojelio is at the bedside this afternoon, he spent the night with her. Current Medications Current Medications Current Medications: Current Medications Generic Name Dose Route Start Last Admin Trade Name Freq PRN Reason Stop Dose Admin Acetaminophen 650 mg 02/23/25 20:18 02/24/25 22:07 Acetaminophen 325 Mg Tablet PO 650 mg Q4HR PRN Administration Pain 1 to 4, or Fever Carboxymethylcellulose 1 drops 02/24/25 14:00 03/01/25 16:43 Carboxymethylcellulose Ophth Drops EACHEYE 1 drops Q4HR BART Administration Ceftriaxone Sodium 1 gm 02/28/25 09:00 03/01/25 08:54 Ceftriaxone 1 Gm Vial IVP 1 gm DAILY BART Administration Cholecalciferol 50 mcg 02/25/25 09:00 03/01/25 08:53 Cholecalciferol 25 Mcg Tablet PO 50 mcg DAILY BART Administration Dexamethasone 6 mg 02/27/25 09:00 03/01/25 08:53 Dexamethasone 4 Mg Tablet PO 6 mg DAILY BART Administration Donepezil HCl 2.5 mg 03/01/25 21:00 Donepezil 5 Mg Tablet PO QPM BART Enoxaparin Sodium 30 mg 02/24/25 09:00 03/01/25 08:54 Enoxaparin 30 Mg/0.3 Ml Syringe SUBQ 30 mg DAILY BART Administration Guaifenesin 600 mg 02/25/25 04:05 03/01/25 08:53 Guaifenesin 600 Mg Tablet PO 600 mg BID BART Administration Nystatin 5 ml 02/24/25 13:12 03/01/25 12:36 Nystatin [id number] Units/5 Ml Udc PO Not Given QID BART Ondansetron HCl 4 mg 02/23/25 20:18 Ondansetron Odt 4 Mg Tablet TL Q6HR PRN Nausea / Vomiting Ondansetron HCl 4 mg 02/23/25 20:18 02/26/25 19:59 Ondansetron 4 Mg/2 Ml Vial IVP 4 mg Q6HR PRN Administration Nausea / Vomiting Multivit/Folic Acid/Iron 1 tab 02/23/25 20:18 03/01/25 08:52 Vitamin Tablet PO 1 tab DAILYWM BART Administration Sodium Chloride 10 ml 02/23/25 20:18 Sodium Chloride Flush 0.9% 10 Ml Syringe IVP PRN PRN NEEDED PER PROVIDER ORDERS Sodium Chloride 10 ml 02/24/25 01:00 03/01/25 16:43 Sodium Chloride Flush 0.9% 10 Ml Syringe IVP 10 ml 0100,0900,1700 BART Administration Thiamine HCl 100 mg 02/24/25 09:00 03/01/25 08:53 Thiamine 100 Mg Tablet PO 100 mg DAILY BART Administration Objective Vital Signs/Intake & Output Reviewed Vital Signs: Yes Vital Signs: Vital Signs x48h Temp Pulse Resp BP Pulse Ox 03/01/25 16:51 36.6 C 65 22 156/75 H 96 Intake & Output: Intake & Output 02/26/25 02/27/25 02/28/25 03/01/25 23:59 23:59 23:59 23:59 Intake Total 1972 / 1972 1507 / 1507 460 / 460 160 / 160 Output Total 400 / 400 900 / 900 850 / 850 550 / 550 Balance 1573 / 1573 607 / 607 -390 / -390 -390 / -390 Weight (kg) 59.5 kg 59.5 kg 59 kg 60 kg Objective General Appearance: positive No acute distress Eyes Bilateral: positive Other (conjunctival dc without erythema ) ENT: positive ENT inspection nml Neck: positive Nml inspection Respiratory: positive No respiratory distress and Other ( lungs are clear but diminished at bases. ); negative Wheezes, Rales or Rhonchi Cardiovascular: positive Regular rate & rhythm Skin: positive Color nml and No rash Extremities: positive Non-tender and No pedal edema Neurologic/Psychiatric: positive Disoriented to place, Disoriented to time and Other (arrousable to vigorous stimuli. ) Lab Results 02/28/25 05:18 02/28/25 05:18 Other Labs: Lab Results x24hrs 02/28/25 02/27/25 Range/Units 05:18 18:45 WBC 10.3 (4.8-10.8) x10^3/uL RBC 3.42 L (4.20-5.40) 10^6/uL Hgb 10.6 L (12.0-16.0) g/dL Hct 32.1 L (37.0-47.0) % MCV 93.9 (81.0-99.0) fL MCH 31.0 (27.0-31.0) pg MCHC 33.0 (32.0-36.0) g/dL RDW 12.3 (12.0-15.0) % Plt Count 143 (130-450) 10^3/uL MPV 10.7 (7.9-10.8) fL Neut # (Auto) 8.0 H (1.5-6.6) 10^3/uL Lymph # (Auto) 1.5 (1.5-3.5) 10^3/uL [place] # (Auto) 0.8 (0.0-1.0) 10^3/uL Eos # (Auto) 0.0 (0.0-0.7) 10^3/uL Baso # (Auto) 0.0 (0.0-0.1) 10^3/uL Absolute Nucleated RBC 0.00 x10^3/uL Nucleated RBC % 0.0 /100WBC Sodium 139 (135-145) mmol/L Potassium 4.1 (3.5-4.5) mmol/L Chloride 107 (101-111) mmol/L Carbon Dioxide 28 (21-32) mmol/L Anion Gap 4.0 L (6-13) BUN 26 H (6-20) mg/dL Creatinine 1.1 (0.6-1.3) mg/dL Estimated GFR (MDRD) 48 L (>89) Glucose 131 H (74-104) mg/dL Calcium 8.9 (8.5-10.3) mg/dL Urine Color YELLOW Urine Clarity CLOUDY (CLEAR) Urine pH 6.5 (5.0-7.5) PH Ur Specific [place] 1.005 (1.002-1.030) Urine Protein NEGATIVE (NEGATIVE) mg/dL Urine Glucose (UA) NEGATIVE (NEGATIVE) mg/dL Urine Ketones NEGATIVE (NEGATIVE) mg/dL Urine Occult Blood NEGATIVE (NEGATIVE) Urine Nitrite POSITIVE H (NEGATIVE) Urine Bilirubin NEGATIVE (NEGATIVE) Urine Urobilinogen 0.2 (NORMAL) (NORMAL) E.U./dL Ur Leukocyte Esterase LARGE H (NEGATIVE) Urine RBC 0-5 (0-5) /HPF Urine WBC 0-3 (0-5) /HPF Ur Squamous Epith Cells FEW Squamous (<= Few) Urine Bacteria Many H (None Seen) /HPF Ur Microscopic Review INDICATED Urine Culture Comments INDICATED Assessment/Plan Problem List (1) Metabolic encephalopathy: Impression: When she is at baseline, she is typically oriented and conversant but needs help moving from bed to chair, this has been a significant change for her, and her family is well aware that she needs rehab, and it will take quite a while before she improves to previous baseline, if she does do that. Her appetite is improving, overall, but today has not been a good day UA, CXR, CT head, MRI brain all normal Respiratory viral panel shows COVID stopping IVF She will be OOB to chair for dinner tonight. Lab reports that blood cultures are positive in 1 bottle, positive for aerococcus urineae. This is not a usual contaminant, but her clinical status is improving. Her UA was negative on admit. now is positive, see below (2) COVID-19: Impression: She has weaned to room air. She is day 4 decadron, this seems to be the thing that is helping her improve. She is medically clear 02/28 for SNF. Family elects [facility]. SNF will not take her until day 11 of her COVID. She is day 9 today. (3) Acute cystitis: Impression: blood cultures on admission significant for Aerococcus urinae. I repeated blood cultures on 02/25/2025. No growth after 2 days. Urinalysis negative on admission but positive on 02/27/2025. I therefore started the patient on Rocephin IV 1 g daily. Her urine culture is now showing gram-negative rods with 10- 50,000 colony-forming units- this is growing E coli, not the expected bacteria. I will continue Rocephin. She is day #3. I will treat for a total of 7 days, to cover both E Coli and the Aerococcus. I will change to PO abx when she can go to SNF. Qualifiers: Hematuria presence: with hematuria Qualified Code(s): N30.01 - Acute cystitis with hematuria (4) Lewy body dementia: Impression: Aricept has been restarted. I have spent 36 minutes in the care of this patient today. This includes time [id number], review and ordering of diagnostic imaging and laboratory studies and consultation with other providers. Monitoring the patient's signs symptoms, evaluation of medication effectiveness and patient's response to treatment. This patient's diagnosis and treatment plan was discussed this AM with attending physician as a part of multi disciplinary rounding meeting.
[2025-03-01] MEDS: DONEPEZIL 5 MG TABLET PO SCH (20:59)
[2025-03-02] MEDS: LACTATED RINGERS 1,000 ML IV SCH ×3 (02:21→15:07)
[2025-03-02 05:27] LABS: HCT - HEMATOCRIT 33.1 % (37.0-47.0); HGB - HEMOGLOBIN 10.9 g/dL (12.0-16.0); MEAN PLATELET VOLUME 10.6 fL (7.9-10.8); NRBC ABSOLUTE COUNT (AUTO) 0.00 x10^3/uL; NUCLEATED RED BLOOD CELLS AUTO 0.0 /100WBC; PLT - PLATELET COUNT 192 10^3/uL (130-450); RED CELL DISTRIBUTION WIDTH 12.0 % (12.0-15.0)
[2025-03-02 05:45] LABS: BUN - BLOOD UREA NITROGEN 25.0 mg/dL (6-20); CARBON DIOXIDE - CO2 25.0 mmol/L (21-32); CREATININE 1.2 mg/dL (0.6-1.3); GFR - MDRD 43.0 (>89)
--- NOTE | 2025-03-02 11:11 | PROVIDER PROGRESS NOTE ---
Subjective Prog Note Date Prog Note Date: 03/02/25 Subjective Subjective: She was very sleepy all day yesterday, but seems to be waking up today. Family insisted on changing to minced and moist diet yesterday, that is not working for her, and she does better on puree. Son at bedside today has asked that we restart her puree diet. She is awake and takes apple juice through the straw from me without coughing. She is non verbal, but makes eye contact with me today. Current Medications Current Medications Current Medications: Current Medications Generic Name Dose Route Start Last Admin Trade Name Freq PRN Reason Stop Dose Admin Acetaminophen 650 mg 02/23/25 20:18 03/01/25 21:00 Acetaminophen 325 Mg Tablet PO 650 mg Q4HR PRN Administration Pain 1 to 4, or Fever Carboxymethylcellulose 1 drops 02/24/25 14:00 03/02/25 08:22 Carboxymethylcellulose Ophth Drops EACHEYE 1 drops Q4HR BART Administration Ceftriaxone Sodium 1 gm 02/28/25 09:00 03/02/25 08:21 Ceftriaxone 1 Gm Vial IVP 1 gm DAILY BART Administration Cholecalciferol 50 mcg 02/25/25 09:00 03/02/25 08:22 Cholecalciferol 25 Mcg Tablet PO 50 mcg DAILY BART Administration Dexamethasone 6 mg 02/27/25 09:00 03/02/25 08:22 Dexamethasone 4 Mg Tablet PO 6 mg DAILY BART Administration Donepezil HCl 2.5 mg 03/01/25 21:00 03/01/25 20:59 Donepezil 5 Mg Tablet PO 2.5 mg QPM BART Administration Enoxaparin Sodium 30 mg 02/24/25 09:00 03/02/25 08:21 Enoxaparin 30 Mg/0.3 Ml Syringe SUBQ 30 mg DAILY BART Administration Guaifenesin 600 mg 02/25/25 04:05 03/02/25 08:22 Guaifenesin 600 Mg Tablet PO 600 mg BID BART Administration Lactated Ringer's 1,000 mls @ 50 mls/hr 03/02/25 11:00 Lr IV 03/04/25 02:59 .Q20H BART Nystatin 5 ml 02/24/25 13:12 03/02/25 08:21 Nystatin 475269 Units/5 Ml Udc PO 5 ml QID BART Administration Ondansetron HCl 4 mg 02/23/25 20:18 Ondansetron Odt 4 Mg Tablet TL Q6HR PRN Nausea / Vomiting Ondansetron HCl 4 mg 02/23/25 20:18 02/26/25 19:59 Ondansetron 4 Mg/2 Ml Vial IVP 4 mg Q6HR PRN Administration Nausea / Vomiting Multivit/Folic Acid/Iron 1 tab 02/23/25 20:18 03/02/25 08:22 Vitamin Tablet PO 1 tab DAILYWM BART Administration Sodium Chloride 10 ml 02/23/25 20:18 Sodium Chloride Flush 0.9% 10 Ml Syringe IVP PRN PRN NEEDED PER PROVIDER ORDERS Sodium Chloride 10 ml 02/24/25 01:00 03/02/25 08:21 Sodium Chloride Flush 0.9% 10 Ml Syringe IVP 10 ml 0100,0900,1700 BART Administration Thiamine HCl 100 mg 02/24/25 09:00 03/02/25 08:22 Thiamine 100 Mg Tablet PO 100 mg DAILY BART Administration Objective Vital Signs/Intake & Output Reviewed Vital Signs: Yes Vital Signs: Vital Signs x48h Temp Pulse Resp BP Pulse Ox 03/02/25 09:08 36.4 C L 51 L 18 144/61 H 91 L Intake & Output: Intake & Output 02/27/25 02/28/25 03/01/25 03/02/25 23:59 23:59 23:59 23:59 Intake Total 1507 / 1507 460 / 460 220 / 220 50 / 50 Output Total 900 / 900 850 / 850 900 / 900 310 / 310 Balance 607 / 607 -390 / -390 -680 / -680 -260 / -260 Weight (kg) 59.5 kg 59 kg 60 kg 58.5 kg Objective General Appearance: positive No acute distress and Alert Eyes Bilateral: positive Normal inspection and Conjunctivae nml ENT: positive ENT inspection nml Neck: positive Nml inspection Respiratory: positive No respiratory distress and Breath sounds nml Cardiovascular: positive No murmur and Bradycardia Abdomen: positive Non-tender and No distention Skin: positive Color nml and No rash Extremities: positive Non-tender and No pedal edema Neurologic/Psychiatric: positive Other (non verbal. moves all extremities. ) Lab Results 03/02/25 04:55 03/02/25 04:55 Other Labs: Lab Results x24hrs 03/02/25 Range/Units 04:55 WBC 10.4 (4.8-10.8) x10^3/uL RBC 3.57 L (4.20-5.40) 10^6/uL Hgb 10.9 L (12.0-16.0) g/dL Hct 33.1 L (37.0-47.0) % MCV 92.7 (81.0-99.0) fL MCH 30.5 (27.0-31.0) pg MCHC 32.9 (32.0-36.0) g/dL RDW 12.0 (12.0-15.0) % Plt Count 192 (130-450) 10^3/uL MPV 10.6 (7.9-10.8) fL Neut # (Auto) 7.4 H (1.5-6.6) 10^3/uL Lymph # (Auto) 1.8 (1.5-3.5) 10^3/uL [place] # (Auto) 1.1 H (0.0-1.0) 10^3/uL Eos # (Auto) 0.0 (0.0-0.7) 10^3/uL Baso # (Auto) 0.0 (0.0-0.1) 10^3/uL Absolute Nucleated RBC 0.00 x10^3/uL Nucleated RBC % 0.0 /100WBC Sodium 139 (135-145) mmol/L Potassium 3.8 (3.5-4.5) mmol/L Chloride 105 (101-111) mmol/L Carbon Dioxide 25 (21-32) mmol/L Anion Gap 9.0 (6-13) BUN 25 H (6-20) mg/dL Creatinine 1.2 (0.6-1.3) mg/dL Estimated GFR (MDRD) 43 L (>89) Glucose 133 H (74-104) mg/dL Calcium 8.8 (8.5-10.3) mg/dL Assessment/Plan Problem List (1) Metabolic encephalopathy: Impression: When she is at baseline, she is typically oriented and conversant but needs help moving from bed to chair, this has been a significant change for her, and her family is well aware that she needs rehab, and it will take quite a while before she improves to previous baseline, if she does do that. discussion with son today about ultimate goals. They would like her to go to [facility], hopefully improve and transtion to home vs senior care care there. How well she recovers from this insult is unknown at this time. Family wants to continue with maximal medical management at this time. Her appetite is improving, overall, her progress today remains unknown. UA, CXR, CT head, MRI brain all normal Respiratory viral panel shows COVID IVF restarted. She was not out of bed yesterday, although that was the plan. Lab reports that blood cultures are positive in 1 bottle, positive for aerococcus urineae. This is not a usual contaminant, but her clinical status is improving. Her UA was negative on admit. now is positive, see below (2) COVID-19: Impression: She has weaned to room air. She is day 5 decadron, this seems to be the thing that is helping her improve. May discontinue this tomorrow. Up to 10 days can be given with severe and critical Covid, but this is not that. She was medically clear 02/28 for SNF. She is not medically clear today because she is requiring IVF. Family elects [facility]. SNF will not take her until day 11 of her COVID. She is day 10 today. Whether she is clear tomorrow depends on how things go with oral intake today and the need for supportive care. (3) Acute cystitis: Impression: blood cultures on admission significant for Aerococcus urinae. I repeated blood cultures on 02/25/2025. NGTD. Urinalysis negative on admission but positive on 02/27/2025. I therefore started the patient on Rocephin IV 1 g daily. Her urine culture is now showing gram-negative rods with 10-50,000 colony- forming units- this is growing E coli, not the expected bacteria. I will continue Rocephin. She is day #4 I will treat for a total of 7 days, to cover both E Coli and the Aerococcus. I will change to PO abx when she can go to SNF. Qualifiers: Hematuria presence: with hematuria Qualified Code(s): N30.01 - Acute cystitis with hematuria (4) Lewy body dementia: Impression: Aricept has been restarted. I have spent 38 minutes in the care of this patient today. This includes time [id number], review and ordering of diagnostic imaging and laboratory studies and consultation with other providers. Monitoring the patient's signs symptoms, evaluation of medication effectiveness and patient's response to treatment. This patient's diagnosis and treatment plan was discussed this AM with attending physician as a part of multi disciplinary rounding meeting.
[2025-03-03 04:57] LABS: HCT - HEMATOCRIT 34.5 % (37.0-47.0); HGB - HEMOGLOBIN 11.0 g/dL (12.0-16.0); MEAN PLATELET VOLUME 10.5 fL (7.9-10.8); NRBC ABSOLUTE COUNT (AUTO) 0.00 x10^3/uL; NUCLEATED RED BLOOD CELLS AUTO 0.0 /100WBC; PLT - PLATELET COUNT 222 10^3/uL (130-450); RED CELL DISTRIBUTION WIDTH 12.3 % (12.0-15.0)
[2025-03-03 05:13] LABS: BUN - BLOOD UREA NITROGEN 24.0 mg/dL (6-20); CARBON DIOXIDE - CO2 28.0 mmol/L (21-32); CREATININE 1.2 mg/dL (0.6-1.3); GFR - MDRD 43.0 (>89)
--- NOTE | 2025-03-03 13:08 | PROVIDER PROGRESS NOTE ---
Subjective Prog Note Date Prog Note Date: 03/03/25 Subjective Subjective: awake, alert and eating today. She wants to go home to [place]. oriented to self. Her son Sudhir at bedside, and continues to agree with SNF for rehab. Current Medications Current Medications Current Medications: Current Medications Generic Name Dose Route Start Last Admin Trade Name Freq PRN Reason Stop Dose Admin Acetaminophen 650 mg 02/23/25 20:18 03/02/25 22:03 Acetaminophen 325 Mg Tablet PO 650 mg Q4HR PRN Administration Pain 1 to 4, or Fever Carboxymethylcellulose 1 drops 02/24/25 14:00 03/03/25 09:44 Carboxymethylcellulose Ophth Drops EACHEYE 1 drops Q4HR BART Administration Ceftriaxone Sodium 1 gm 02/28/25 09:00 03/03/25 09:44 Ceftriaxone 1 Gm Vial IVP 1 gm DAILY BART Administration Cholecalciferol 50 mcg 02/25/25 09:00 03/03/25 09:45 Cholecalciferol 25 Mcg Tablet PO 50 mcg DAILY BART Administration Dexamethasone 6 mg 02/27/25 09:00 03/03/25 09:45 Dexamethasone 4 Mg Tablet PO 6 mg DAILY BART Administration Donepezil HCl 2.5 mg 03/01/25 21:00 03/02/25 22:03 Donepezil 5 Mg Tablet PO 2.5 mg QPM BART Administration Enoxaparin Sodium 30 mg 02/24/25 09:00 03/03/25 09:44 Enoxaparin 30 Mg/0.3 Ml Syringe SUBQ 30 mg DAILY BART Administration Guaifenesin 600 mg 02/25/25 04:05 03/03/25 09:44 Guaifenesin 600 Mg Tablet PO 600 mg BID BART Administration Lactated Ringer's 1,000 mls @ 50 mls/hr 03/02/25 11:00 03/02/25 22:04 Lr IV 03/04/25 02:59 50 mls/hr .Q20H BART Administration Nystatin 5 ml 02/24/25 13:12 03/03/25 09:44 Nystatin [id number] Units/5 Ml Udc PO 5 ml QID BART Administration Ondansetron HCl 4 mg 02/23/25 20:18 Ondansetron Odt 4 Mg Tablet TL Q6HR PRN Nausea / Vomiting Ondansetron HCl 4 mg 02/23/25 20:18 02/26/25 19:59 Ondansetron 4 Mg/2 Ml Vial IVP 4 mg Q6HR PRN Administration Nausea / Vomiting Multivit/Folic Acid/Iron 1 tab 02/23/25 20:18 03/03/25 09:45 Vitamin Tablet PO 1 tab DAILYWM BART Administration Sodium Chloride 10 ml 02/23/25 20:18 Sodium Chloride Flush 0.9% 10 Ml Syringe IVP PRN PRN NEEDED PER PROVIDER ORDERS Sodium Chloride 10 ml 02/24/25 01:00 03/03/25 09:45 Sodium Chloride Flush 0.9% 10 Ml Syringe IVP 10 ml 0100,0900,1700 BART Administration Thiamine HCl 100 mg 02/24/25 09:00 03/03/25 09:44 Thiamine 100 Mg Tablet PO 100 mg DAILY BART Administration Objective Vital Signs/Intake & Output Reviewed Vital Signs: Yes Vital Signs: Vital Signs x48h Temp Pulse Resp BP Pulse Ox 03/02/25 09:08 36.4 C L 51 L 18 144/61 H 91 L Intake & Output: Intake & Output 02/28/25 03/01/25 03/02/25 03/03/25 23:59 23:59 23:59 23:59 Intake Total 460 / 460 220 / 220 1870 / 1870 60 / 60 Output Total 850 / 850 900 / 900 1560 / 1560 650 / 650 Balance -390 / -390 -680 / -680 310 / 310 -590 / -590 Weight (kg) 59 kg 60 kg 58.5 kg 58 kg Objective General Appearance: positive No acute distress and Alert Eyes Bilateral: positive Normal inspection and Conjunctivae nml ENT: positive ENT inspection nml Neck: positive Nml inspection Respiratory: positive No respiratory distress and Breath sounds nml Cardiovascular: positive No murmur and Bradycardia Abdomen: positive Non-tender and No distention Skin: positive Color nml and No rash Extremities: positive Non-tender and No pedal edema Neurologic/Psychiatric: positive Other (non verbal. moves all extremities. ) Lab Results 03/03/25 04:46 03/03/25 04:46 Other Labs: Lab Results x24hrs 03/03/25 Range/Units 04:46 WBC 13.5 H (4.8-10.8) x10^3/uL RBC 3.70 L (4.20-5.40) 10^6/uL Hgb 11.0 L (12.0-16.0) g/dL Hct 34.5 L (37.0-47.0) % MCV 93.2 (81.0-99.0) fL MCH 29.7 (27.0-31.0) pg MCHC 31.9 L (32.0-36.0) g/dL RDW 12.3 (12.0-15.0) % Plt Count 222 (130-450) 10^3/uL MPV 10.5 (7.9-10.8) fL Neut # (Auto) 9.1 H (1.5-6.6) 10^3/uL Lymph # (Auto) 2.8 (1.5-3.5) 10^3/uL [place] # (Auto) 1.3 H (0.0-1.0) 10^3/uL Eos # (Auto) 0.0 (0.0-0.7) 10^3/uL Baso # (Auto) 0.0 (0.0-0.1) 10^3/uL Absolute Nucleated RBC 0.00 x10^3/uL Nucleated RBC % 0.0 /100WBC Sodium 139 (135-145) mmol/L Potassium 3.9 (3.5-4.5) mmol/L Chloride 106 (101-111) mmol/L Carbon Dioxide 28 (21-32) mmol/L Anion Gap 5.0 L (6-13) BUN 24 H (6-20) mg/dL Creatinine 1.2 (0.6-1.3) mg/dL Estimated GFR (MDRD) 43 L (>89) Glucose 113 H (74-104) mg/dL Calcium 8.8 (8.5-10.3) mg/dL Assessment/Plan Problem List (1) Metabolic encephalopathy: Impression: When she is at baseline, she is typically oriented and conversant but needs help moving from bed to chair, this has been a significant change for her, and her family is well aware that she needs rehab, and it will take quite a while before she improves to previous baseline, if she does do that. discussion with son today about ultimate goals. They would like her to go to [facility], hopefully improve and transtion to home vs terminal make up operator care there. How well she recovers from this insult is unknown at this time. Family wants to continue with maximal medical management at this time. Her appetite is improving, overall, her progress today remains unknown. UA, CXR, CT head, MRI brain all normal Respiratory viral panel shows COVID IVF restarted. Stopped again today after 24 hours of good po intake. . Lab reports that blood cultures are positive in 1 bottle, positive for aerococcus urineae. This is not a usual contaminant, but her clinical status is improving. Her UA was negative on admit. now is positive, see below (2) COVID-19: Impression: She has weaned to room air. She is day 6 decadron, this seems to be the thing that is helping her improve. I have stopped this today, she will not get decadron on AM 8/12. Up to 10 days can be given with severe and critical Covid, but this is not that. She was medically clear 02/28 for SNF. She then stopped taking oral intake again and we were not able to clear her for SNf. She has developed new leukocytosis today Family elects [facility]. SNF will not take her until day 11 of her COVID. She is day 11 today. If she remains with good oral intake for the rest of the day and does not have fever or ecalation of her WBC, should go to [facility] tomorrow. . (3) Leukocytosis: Impression: new today. perhaps secondary to decadron. I will check CBC in the AM. (4) Acute cystitis: Impression: blood cultures on admission significant for Aerococcus urinae. I repeated blood cultures on 02/25/2025. NGTD. Urinalysis negative on admission but positive on 02/27/2025. I therefore started the patient on Rocephin IV 1 g daily. Her urine culture is now showing gram-negative rods with 10-50,000 colony- forming units- this is growing E coli, not the expected bacteria. I will continue Rocephin. She is day #5 I will treat for a total of 7 days, to cover both E Coli and the Aerococcus. I will change to PO abx when she can go to SNF. Qualifiers: Hematuria presence: with hematuria Qualified Code(s): N30.01 - Acute cystitis with hematuria (5) Lewy body dementia: Impression: Aricept has been restarted. I have spent 36 minutes in the care of this patient today. This includes time [id number], review and ordering of diagnostic imaging and laboratory studies. Monitoring the patient's signs symptoms, evaluation of medication effectiveness and patient's response to treatment. This patient's diagnosis and treatment plan was discussed this AM with attending physician as a part of multi disciplinary rounding meeting.
[2025-03-04 05:34] LABS: HCT - HEMATOCRIT 33.9 % (37.0-47.0); HGB - HEMOGLOBIN 11.4 g/dL (12.0-16.0); MEAN PLATELET VOLUME 10.0 fL (7.9-10.8); NRBC ABSOLUTE COUNT (AUTO) 0.00 x10^3/uL; NUCLEATED RED BLOOD CELLS AUTO 0.0 /100WBC; PLT - PLATELET COUNT 275 10^3/uL (130-450); RED CELL DISTRIBUTION WIDTH 12.3 % (12.0-15.0)
[2025-03-04 05:49] LABS: BUN - BLOOD UREA NITROGEN 27.0 mg/dL (6-20); CARBON DIOXIDE - CO2 25.0 mmol/L (21-32); CREATININE 1.1 mg/dL (0.6-1.3); GFR - MDRD 48.0 (>89)
--- NOTE | 2025-03-04 11:25 | PROVIDER PROGRESS NOTE ---
Subjective Prog Note Date Prog Note Date: 03/04/25 Subjective Subjective: She is improving. no fevers. still intermittent cough. She does not like her lunch today, except for the broccoli. She is more verbal. her son Sudhir has been at the bedside almost constantly. She is asking to see other family members today (son Sudhir has COVID and therefore he is staying with her and no one else is coming in). Current Medications Current Medications Current Medications: Current Medications Generic Name Dose Route Start Last Admin Trade Name Freq PRN Reason Stop Dose Admin Acetaminophen 650 mg 02/23/25 20:18 03/02/25 22:03 Acetaminophen 325 Mg Tablet PO 650 mg Q4HR PRN Administration Pain 1 to 4, or Fever Carboxymethylcellulose 1 drops 02/24/25 14:00 03/04/25 08:53 Carboxymethylcellulose Ophth Drops EACHEYE 1 drops Q4HR BART Administration Ceftriaxone Sodium 1 gm 02/28/25 09:00 03/04/25 08:52 Ceftriaxone 1 Gm Vial IVP 1 gm DAILY BART Administration Cholecalciferol 50 mcg 02/25/25 09:00 03/04/25 08:53 Cholecalciferol 25 Mcg Tablet PO 50 mcg DAILY BART Administration Donepezil HCl 2.5 mg 03/01/25 21:00 03/03/25 21:17 Donepezil 5 Mg Tablet PO 2.5 mg QPM BART Administration Enoxaparin Sodium 30 mg 02/24/25 09:00 03/04/25 09:18 Enoxaparin 30 Mg/0.3 Ml Syringe SUBQ Not Given DAILY BART Nystatin 5 ml 02/24/25 13:12 03/04/25 08:52 Nystatin [id number] Units/5 Ml Udc PO 5 ml QID BART Administration Ondansetron HCl 4 mg 02/23/25 20:18 Ondansetron Odt 4 Mg Tablet TL Q6HR PRN Nausea / Vomiting Ondansetron HCl 4 mg 02/23/25 20:18 02/26/25 19:59 Ondansetron 4 Mg/2 Ml Vial IVP 4 mg Q6HR PRN Administration Nausea / Vomiting Polyethylene Glycol 17 gm 03/04/25 09:00 03/04/25 08:52 Polyethylene Glycol 3350 17 Gm Packet PO 17 gm DAILY BART Administration Multivit/Folic Acid/Iron 1 tab 02/23/25 20:18 03/04/25 08:53 Vitamin Tablet PO 1 tab DAILYWM BART Administration Sodium Chloride 10 ml 02/23/25 20:18 Sodium Chloride Flush 0.9% 10 Ml Syringe IVP PRN PRN NEEDED PER PROVIDER ORDERS Sodium Chloride 10 ml 02/24/25 01:00 03/04/25 08:53 Sodium Chloride Flush 0.9% 10 Ml Syringe IVP 10 ml 0100,0900,1700 BART Administration Thiamine HCl 100 mg 02/24/25 09:00 03/04/25 08:53 Thiamine 100 Mg Tablet PO 100 mg DAILY BART Administration Objective Vital Signs/Intake & Output Reviewed Vital Signs: Yes Vital Signs: Vital Signs x48h Temp Pulse Resp BP Pulse Ox 03/02/25 09:08 36.4 C L 51 L 18 144/61 H 91 L Intake & Output: Intake & Output 03/01/25 03/02/25 03/03/25 03/04/25 23:59 23:59 23:59 23:59 Intake Total 220 / 220 1870 / 1870 1627 / 1627 120 / 120 Output Total 900 / 900 1560 / 1560 1200 / 1200 125 / 125 Balance -680 / -680 310 / 310 427 / 427 -5 / -5 Weight (kg) 60 kg 58.5 kg 58 kg 59.5 kg Objective General Appearance: positive No acute distress and Alert Eyes Bilateral: positive Normal inspection and Conjunctivae nml ENT: positive ENT inspection nml Neck: positive Nml inspection Respiratory: positive No respiratory distress and Breath sounds nml Cardiovascular: positive No murmur and Bradycardia Abdomen: positive Non-tender and No distention Skin: positive Color nml and No rash Extremities: positive Non-tender and No pedal edema Neurologic/Psychiatric: positive Other (not oriented. moves all extremities. smiles. ) Lab Results 03/04/25 05:16 03/04/25 05:16 Other Labs: Lab Results x24hrs 03/04/25 Range/Units 05:16 WBC 16.2 H (4.8-10.8) x10^3/uL RBC 3.71 L (4.20-5.40) 10^6/uL Hgb 11.4 L (12.0-16.0) g/dL Hct 33.9 L (37.0-47.0) % MCV 91.4 (81.0-99.0) fL MCH 30.7 (27.0-31.0) pg MCHC 33.6 (32.0-36.0) g/dL RDW 12.3 (12.0-15.0) % Plt Count 275 (130-450) 10^3/uL MPV 10.0 (7.9-10.8) fL Neut # (Auto) 11.7 H (1.5-6.6) 10^3/uL Lymph # (Auto) 2.8 (1.5-3.5) 10^3/uL [place] # (Auto) 1.2 H (0.0-1.0) 10^3/uL Eos # (Auto) 0.0 (0.0-0.7) 10^3/uL Baso # (Auto) 0.0 (0.0-0.1) 10^3/uL Absolute Nucleated RBC 0.00 x10^3/uL Nucleated RBC % 0.0 /100WBC Sodium 137 (135-145) mmol/L Potassium 4.1 (3.5-4.5) mmol/L Chloride 105 (101-111) mmol/L Carbon Dioxide 25 (21-32) mmol/L Anion Gap 7.0 (6-13) BUN 27 H (6-20) mg/dL Creatinine 1.1 (0.6-1.3) mg/dL Estimated GFR (MDRD) 48 L (>89) Glucose 108 H (74-104) mg/dL Calcium 8.8 (8.5-10.3) mg/dL Assessment/Plan Problem List (1) Leukocytosis: Impression: Continues to rise. This is what is keeping her hospitalized. She has not been running fevers, and clinically continues to look well. Decadron was stopped 03/03. I have ordred repeat CBC for the AM. I think that in the absence of any other signs of infection, she can probably go to SNF 03/05. (2) Metabolic encephalopathy: Impression: When she is at baseline, she is typically oriented and conversant but needs help moving from bed to chair, this has been a significant change for her, and her family is well aware that she needs rehab, and it will take quite a while before she improves to previous baseline, if she does do that. discussion with son today about ultimate goals. They would like her to go to [facility], hopefully improve and transtion to home vs assisted care there. How well she recovers from this insult is unknown at this time. Family wants to continue with maximal medical management at this time. Her appetite is improving, overall, her progress today remains unknown. UA, CXR, CT head, MRI brain all normal Respiratory viral panel shows COVID IVF restarted. Stopped again today after 24 hours of good po intake. . Lab reports that blood cultures are positive in 1 bottle, positive for aerococcus urineae. This is not a usual contaminant, but her clinical status is improving. Her UA was negative on admit. now is positive, see below (3) COVID-19: Impression: She has weaned to room air. Shecompleted 6 days of decadron Up to 10 days can be given with severe and critical Covid, but this is not that. She was medically clear 02/28 for SNF. She then stopped taking oral intake again and we were not able to clear her for SNf. She then developed new leukocytosis Family elects [facility]. SNF will not take her until day 11 of her COVID. She is day 12 today. She looks well with the exception of her rising leukocytosis. . (4) Acute cystitis: Impression: blood cultures on admission significant for Aerococcus urinae. I repeated blood cultures on 02/25/2025. NG after 5d Urinalysis negative on admission but positive on 02/27/2025. I therefore started the patient on Rocephin IV 1 g daily. Her urine culture is now showing gram-negative rods with 10-50,000 colony- forming units- this is growing E coli, not the expected bacteria. I will continue Rocephin. She is day #6 She should be able to get a total of 7 days then go to SNF, as will dose in the AM. Qualifiers: Hematuria presence: with hematuria Qualified Code(s): N30.01 - Acute cystitis with hematuria (5) Lewy body dementia: Impression: Aricept has been restarted. I have spent 38 minutes in the care of this patient today. This includes time [id number], review and ordering of diagnostic imaging and laboratory studies. Monitoring the patient's signs symptoms, evaluation of medication effectiveness and patient's response to treatment. This patient's diagnosis and treatment plan was discussed this AM with attending physician as a part of multi disciplinary rounding meeting.
--- NOTE | 2025-03-04 12:37 | XRAY Report ---
PROCEDURE: XR Chest 1V INDICATIONS: rising wbc TECHNIQUE: One view of the chest was acquired. COMPARISON: 02/23/2025 FINDINGS: Surgical changes and devices: None. Lungs and pleura: No pleural effusions or pneumothorax. No consolidation. Low lung volumes accentuate pulmonary interstitium and heart size. Atherosclerotic vascular calcification noted in the aortic arch. Mediastinum: Mediastinal contours appear normal. Heart size is normal. Bones and chest wall: No suspicious bony lesions. Overlying soft tissues appear unremarkable. IMPRESSION: No acute cardiopulmonary process. Reviewed by: Liam Muñoz MD on 03/04/2025 11:36 AM HARESH Approved by: Liam Muñoz MD on 03/04/2025 11:36 AM HARESH Station ID: [id number]
[2025-03-05 05:21] LABS: HCT - HEMATOCRIT 33.8 % (37.0-47.0); HGB - HEMOGLOBIN 11.2 g/dL (12.0-16.0); MEAN PLATELET VOLUME 9.5 fL (7.9-10.8); NRBC ABSOLUTE COUNT (AUTO) 0.00 x10^3/uL; NUCLEATED RED BLOOD CELLS AUTO 0.0 /100WBC; PLT - PLATELET COUNT 271 10^3/uL (130-450); RED CELL DISTRIBUTION WIDTH 12.6 % (12.0-15.0)
[2025-03-05 05:39] LABS: BUN - BLOOD UREA NITROGEN 25.0 mg/dL (6-20); CARBON DIOXIDE - CO2 26.0 mmol/L (21-32); CREATININE 1.1 mg/dL (0.6-1.3); GFR - MDRD 48.0 (>89)
--- NOTE | 2025-03-05 11:46 | PROVIDER PROGRESS NOTE ---
Subjective Prog Note Date Prog Note Date: 03/05/25 Subjective Pt reports feeling: No change Current Medications Current Medications Current Medications: Current Medications Generic Name Dose Route Start Last Admin Trade Name Freq PRN Reason Stop Dose Admin Acetaminophen 650 mg 02/23/25 20:18 03/02/25 22:03 Acetaminophen 325 Mg Tablet PO 650 mg Q4HR PRN Administration Pain 1 to 4, or Fever Carboxymethylcellulose 1 drops 02/24/25 14:00 03/05/25 08:55 Carboxymethylcellulose Ophth Drops EACHEYE 1 drops Q4HR BART Administration Ceftriaxone Sodium 1 gm 02/28/25 09:00 03/05/25 08:55 Ceftriaxone 1 Gm Vial IVP 1 gm DAILY BART Administration Cholecalciferol 50 mcg 02/25/25 09:00 03/05/25 08:55 Cholecalciferol 25 Mcg Tablet PO 50 mcg DAILY BART Administration Donepezil HCl 2.5 mg 03/01/25 21:00 03/04/25 20:46 Donepezil 5 Mg Tablet PO 2.5 mg QPM BART Administration Enoxaparin Sodium 30 mg 02/24/25 09:00 03/05/25 08:55 Enoxaparin 30 Mg/0.3 Ml Syringe SUBQ Not Given DAILY BART Nystatin 5 ml 02/24/25 13:12 03/05/25 08:55 Nystatin 850459 Units/5 Ml Udc PO 5 ml QID BART Administration Ondansetron HCl 4 mg 02/23/25 20:18 Ondansetron Odt 4 Mg Tablet TL Q6HR PRN Nausea / Vomiting Ondansetron HCl 4 mg 02/23/25 20:18 02/26/25 19:59 Ondansetron 4 Mg/2 Ml Vial IVP 4 mg Q6HR PRN Administration Nausea / Vomiting Polyethylene Glycol 17 gm 03/04/25 09:00 03/05/25 08:54 Polyethylene Glycol 3350 17 Gm Packet PO 17 gm DAILY BART Administration Multivit/Folic Acid/Iron 1 tab 02/23/25 20:18 03/05/25 08:55 Vitamin Tablet PO 1 tab DAILYWM BART Administration Sodium Chloride 10 ml 02/23/25 20:18 Sodium Chloride Flush 0.9% 10 Ml Syringe IVP PRN PRN NEEDED PER PROVIDER ORDERS Sodium Chloride 10 ml 02/24/25 01:00 03/05/25 08:55 Sodium Chloride Flush 0.9% 10 Ml Syringe IVP 10 ml 0100,0900,1700 BART Administration Thiamine HCl 100 mg 02/24/25 09:00 03/05/25 08:55 Thiamine 100 Mg Tablet PO 100 mg DAILY BART Administration Objective Vital Signs/Intake & Output Reviewed Vital Signs: Yes Vital Signs: Vital Signs x48h Temp Pulse Resp BP Pulse Ox 03/05/25 08:18 36.5 C 54 L 16 128/71 96 Intake & Output: Intake & Output 03/02/25 03/03/25 03/04/25 03/05/25 23:59 23:59 23:59 23:59 Intake Total 1870 / 1870 1627 / 1627 1020 / 1020 Output Total 1560 / 1560 1200 / 1200 925 / 925 500 / 500 Balance 310 / 310 427 / 427 95 / 95 -500 / -500 Weight (kg) 58.5 kg 58 kg 59.5 kg 58 kg Objective General Appearance: positive No acute distress and Alert Eyes Bilateral: positive Normal inspection and Conjunctivae nml ENT: positive ENT inspection nml Neck: positive Nml inspection Respiratory: positive No respiratory distress and Breath sounds nml Cardiovascular: positive No murmur and Bradycardia Abdomen: positive Non-tender and No distention Skin: positive Color nml and No rash Extremities: positive Non-tender and No pedal edema Neurologic/Psychiatric: positive Other (not oriented. moves all extremities. smiles. ) Lab Results 03/05/25 05:11 03/05/25 05:11 Other Labs: Lab Results x24hrs 03/05/25 Range/Units 05:11 WBC 12.1 H (4.8-10.8) x10^3/uL RBC 3.65 L (4.20-5.40) 10^6/uL Hgb 11.2 L (12.0-16.0) g/dL Hct 33.8 L (37.0-47.0) % MCV 92.6 (81.0-99.0) fL MCH 30.7 (27.0-31.0) pg MCHC 33.1 (32.0-36.0) g/dL RDW 12.6 (12.0-15.0) % Plt Count 271 (130-450) 10^3/uL MPV 9.5 (7.9-10.8) fL Neut # (Auto) 6.7 H (1.5-6.6) 10^3/uL Lymph # (Auto) 3.6 H (1.5-3.5) 10^3/uL [place] # (Auto) 1.2 H (0.0-1.0) 10^3/uL Eos # (Auto) 0.3 (0.0-0.7) 10^3/uL Baso # (Auto) 0.1 (0.0-0.1) 10^3/uL Absolute Nucleated RBC 0.00 x10^3/uL Nucleated RBC % 0.0 /100WBC Sodium 138 (135-145) mmol/L Potassium 3.9 (3.5-4.5) mmol/L Chloride 106 (101-111) mmol/L Carbon Dioxide 26 (21-32) mmol/L Anion Gap 6.0 (6-13) BUN 25 H (6-20) mg/dL Creatinine 1.1 (0.6-1.3) mg/dL Estimated GFR (MDRD) 48 L (>89) Glucose 92 (74-104) mg/dL Calcium 8.4 L (8.5-10.3) mg/dL Assessment/Plan Problem List (1) Leukocytosis: Impression: WBC went from 16.2-12.1 today. Still with no signs of infection. Outside her isolation window for COVID. Given her gram-positive bacteremia, will place PICC line and plan for 14-day total course of Rocephin (2) Metabolic encephalopathy: Impression: When she is at baseline, she is typically oriented and conversant but needs help moving from bed to chair, this has been a significant change for her, and her family is well aware that she needs rehab, and it will take quite a while before she improves to previous baseline, if she does do that. Discharging to [facility], then home versus long-term care afterwards UA, CXR, CT head, MRI brain all normal COVID-positive, Is now out of her isolation window E. coli UTI, receiving antibiotics (3) COVID-19: Impression: She has weaned to room air. Shecompleted 6 days of decadron Up to 10 days can be given with severe and critical Covid, but this is not that. She was medically clear 02/28 for SNF. She then stopped taking oral intake again and we were not able to clear her for SNf. She then developed new leukocytosis Planning DC to [facility] Now that she is out of COVID isolation (4) Acute cystitis: Impression: E. coli UTI. Today is day 7 of Rocephin. She has completed Rocephin for UTI, now continuing for her bacteremia Qualifiers: Hematuria presence: with hematuria Qualified Code(s): N30.01 - Acute cystitis with hematuria (5) Lewy body dementia: Impression: Aricept has been restarted.
--- NOTE | 2025-03-05 16:25 | MISCELLANEOUS PROVIDER NOTE ---
Miscellaneous Provider Note - Note: Called for PICC placement for patient needing 2-3 weeks of IVFs and ABXs. Bi lateral arms scanned prior to start. Both arms appear difficult and without large diameter veins. R appears more desireable as 2 small vessels are seen. Attempt venous access x5 in 3 different locations. Despite return blood flow, unable to thread wire at first 3, unable to thread catheter on last attempt. Patient with difficulty positioning arm for procedure and had complaints throughout. Of note, the patient continued to cough throughout procedure, COVID positive 12 days ago. RN assisted with arm positioning and patient reassurance throughout. Unsuccessful after 45 mins of attempting unsucessfully. Decision made to stop with patient, son, reattempt at later time after intentional IVF hydration and encouragement of PO intake over night. Patient denies pain at site following procedure, no bleeding, swelling, or discoloration at sites.
[2025-03-05] MEDS: LACTATED RINGERS 1,000 ML IV SCH (17:28)
[2025-03-06] MEDS ORDERED: BENZOCAINE/MENTHOL LOZENGE MM PRN (02:08)
[2025-03-06] MEDS ORDERED: PHENOL THROAT SPRAY 177 ML MM PRN (02:08)
[2025-03-06 05:25] LABS: HCT - HEMATOCRIT 33.8 % (37.0-47.0); HGB - HEMOGLOBIN 10.9 g/dL (12.0-16.0); MEAN PLATELET VOLUME 9.6 fL (7.9-10.8); NRBC ABSOLUTE COUNT (AUTO) 0.00 x10^3/uL; NUCLEATED RED BLOOD CELLS AUTO 0.0 /100WBC; PLT - PLATELET COUNT 276 10^3/uL (130-450); RED CELL DISTRIBUTION WIDTH 12.7 % (12.0-15.0)
[2025-03-06 05:41] LABS: BUN - BLOOD UREA NITROGEN 20.0 mg/dL (6-20); CARBON DIOXIDE - CO2 29.0 mmol/L (21-32); CREATININE 1.2 mg/dL (0.6-1.3); GFR - MDRD 43.0 (>89)
--- NOTE | 2025-03-06 11:41 | PROVIDER PROGRESS NOTE ---
Subjective Prog Note Date Prog Note Date: 03/06/25 Subjective Pt reports feeling: No change Current Medications Current Medications Current Medications: Current Medications Generic Name Dose Route Start Last Admin Trade Name Freq PRN Reason Stop Dose Admin Acetaminophen 650 mg 02/23/25 20:18 03/06/25 08:59 Acetaminophen 325 Mg Tablet PO 650 mg Q4HR PRN Administration Pain 1 to 4, or Fever Benzonatate 100 mg 03/06/25 02:08 Benzonatate 100 Mg Capsule PO TID PRN Cough Carboxymethylcellulose 1 drops 02/24/25 14:00 03/06/25 08:37 Carboxymethylcellulose Ophth Drops EACHEYE 1 drops Q4HR BART Administration Ceftriaxone Sodium 1 gm 02/28/25 09:00 03/06/25 08:37 Ceftriaxone 1 Gm Vial IVP 1 gm DAILY BART Administration Cholecalciferol 50 mcg 02/25/25 09:00 03/06/25 08:37 Cholecalciferol 25 Mcg Tablet PO 50 mcg DAILY BART Administration Donepezil HCl 2.5 mg 03/01/25 21:00 03/05/25 21:22 Donepezil 5 Mg Tablet PO 2.5 mg QPM BART Administration Enoxaparin Sodium 30 mg 02/24/25 09:00 03/06/25 08:38 Enoxaparin 30 Mg/0.3 Ml Syringe SUBQ Not Given DAILY BART Nystatin 5 ml 02/24/25 13:12 03/06/25 08:37 Nystatin 343054 Units/5 Ml Udc PO 5 ml QID BART Administration Ondansetron HCl 4 mg 02/23/25 20:18 Ondansetron Odt 4 Mg Tablet TL Q6HR PRN Nausea / Vomiting Ondansetron HCl 4 mg 02/23/25 20:18 02/26/25 19:59 Ondansetron 4 Mg/2 Ml Vial IVP 4 mg Q6HR PRN Administration Nausea / Vomiting Phenol/Menthol 1 sprays 03/06/25 02:08 Phenol Throat [place] 177 Ml MM Q4HR PRN Mouth Sore Pain Polyethylene Glycol 17 gm 03/04/25 09:00 03/06/25 08:37 Polyethylene Glycol 3350 17 Gm Packet PO 17 gm DAILY BART Administration Multivit/Folic Acid/Iron 1 tab 02/23/25 20:18 03/06/25 08:37 Vitamin Tablet PO 1 tab DAILYWM BART Administration Sodium Chloride 10 ml 02/23/25 20:18 Sodium Chloride Flush 0.9% 10 Ml Syringe IVP PRN PRN NEEDED PER PROVIDER ORDERS Sodium Chloride 10 ml 02/24/25 01:00 03/06/25 08:37 Sodium Chloride Flush 0.9% 10 Ml Syringe IVP 10 ml 0100,0900,1700 BART Administration Thiamine HCl 100 mg 02/24/25 09:00 03/06/25 08:37 Thiamine 100 Mg Tablet PO 100 mg DAILY BART Administration Throat Lozenges 1 lozenge 03/06/25 02:08 Benzocaine/Menthol Lozenge MM Q2HR PRN Mouth Sore Pain Objective Vital Signs/Intake & Output Reviewed Vital Signs: Yes Vital Signs: Vital Signs x48h Temp Pulse Resp BP Pulse Ox 03/06/25 08:00 36.4 C L 59 L 16 115/53 L 93 Intake & Output: Intake & Output 03/03/25 03/04/25 03/05/25 03/06/25 23:59 23:59 23:59 23:59 Intake Total 1627 / 1627 1020 / 1020 440 / 440 1853 Output Total 1200 / 1200 925 / 925 2400 / 2400 Balance 427 / 427 95 / 95 -1960 / -1959 Weight (kg) 58 kg 59.5 kg 58 kg 56.5 kg Objective General Appearance: positive No acute distress and Alert Eyes Bilateral: positive Normal inspection and Conjunctivae nml ENT: positive ENT inspection nml Neck: positive Nml inspection Respiratory: positive No respiratory distress and Breath sounds nml Cardiovascular: positive No murmur and Bradycardia Abdomen: positive Non-tender and No distention Skin: positive Color nml and No rash Extremities: positive Non-tender and No pedal edema Neurologic/Psychiatric: positive Other (not oriented. moves all extremities. smiles. ) Lab Results 03/06/25 04:58 03/06/25 04:58 Other Labs: Lab Results x24hrs 03/06/25 Range/Units 04:58 WBC 12.2 H (4.8-10.8) x10^3/uL RBC 3.56 L (4.20-5.40) 10^6/uL Hgb 10.9 L (12.0-16.0) g/dL Hct 33.8 L (37.0-47.0) % MCV 94.9 (81.0-99.0) fL MCH 30.6 (27.0-31.0) pg MCHC 32.2 (32.0-36.0) g/dL RDW 12.7 (12.0-15.0) % Plt Count 276 (130-450) 10^3/uL MPV 9.6 (7.9-10.8) fL Neut # (Auto) 7.0 H (1.5-6.6) 10^3/uL Lymph # (Auto) 3.4 (1.5-3.5) 10^3/uL [place] # (Auto) 1.1 H (0.0-1.0) 10^3/uL Eos # (Auto) 0.3 (0.0-0.7) 10^3/uL Baso # (Auto) 0.1 (0.0-0.1) 10^3/uL Absolute Nucleated RBC 0.00 x10^3/uL Nucleated RBC % 0.0 /100WBC Sodium 140 (135-145) mmol/L Potassium 4.2 (3.5-4.5) mmol/L Chloride 107 (101-111) mmol/L Carbon Dioxide 29 (21-32) mmol/L Anion Gap 4.0 L (6-13) BUN 20 (6-20) mg/dL Creatinine 1.2 (0.6-1.3) mg/dL Estimated GFR (MDRD) 43 L (>89) Glucose 96 (74-104) mg/dL Calcium 8.7 (8.5-10.3) mg/dL Assessment/Plan Problem List (1) Bacteremia: Impression: Has an Aerococcus urinae bacteremia noted on blood cultures on 02/23/2025 Has been on Rocephin for a week Still waiting on echo Repeat blood cultures no growth to date Assuming echo is clear, she can discharge with another week of IV Rocephin (2) Leukocytosis: Impression: WBC 12.2 today. Vital signs stable (3) Metabolic encephalopathy: Impression: When she is at baseline, she is typically oriented and conversant but needs help moving from bed to chair, this has been a significant change for her, and her family is well aware that she needs rehab, and it will take quite a while before she improves to previous baseline, if she does do that. She was evaluated by physical therapy, who reports that she needs max assist x 1 for any ambulation Plan to DC to SNF. Received denial from insurance, appealing this now UA, CXR, CT head, MRI brain all normal COVID-positive, Is now out of her isolation window E. coli UTI, receiving antibiotics (4) COVID-19: Impression: She has weaned to room air. Shecompleted 6 days of decadron Up to 10 days can be given with severe and critical Covid, but this is not that. She was medically clear 02/28 for SNF. She then stopped taking oral intake again and we were not able to clear her for SNf. She then developed new leukocytosis Planning DC to [facility] Now that she is out of COVID isolation (5) Acute cystitis: Impression: E. coli UTI. Today is day 7 of Rocephin. She has completed Rocephin for UTI, now continuing for her bacteremia Qualifiers: Hematuria presence: with hematuria Qualified Code(s): N30.01 - Acute cystitis with hematuria (6) Lewy body dementia: Impression: Aricept has been restarted.
[2025-03-06] MEDS ORDERED: MIDAZOLAM 2 MG/2 ML VIAL ONE (14:42)
--- NOTE | 2025-03-06 19:20 | ECHO Report ---
Version: 1 Study ID: [id number] [id number] Adult Echocardiogram Report Name: Roula Brewer Study Date: 03/06/2025, 3: 28 PM BP: 115 / 53 mmHg [place] [facility] [id number] HR: 55 bpm : 1945 (MM/DD/YYYY) Gender: Female Height: 62 in Age: 79 Years Weight: 124.561 lb BSA: 1.56 m² Reason For Study: gram positive bacteremia History: gram positive bacteremia, COVID+ Interpretation Summary Global left ventricular systolic function is normal. The right ventricular systolic function is normal. Mild aortic regurgitation is present. Left Ventricle: The left ventricle is normal in size. Global left ventricular systolic function is normal. Right Ventricle: The right ventricle is normal in size and function. The right ventricular systolic function is normal. Aortic Valve: The aortic valve is trileaflet. The aortic valve is mildly thickened. Aortic valve sclerosis is present without stenosis. Mild aortic regurgitation is present. The aortic regurgitant jet appears to be directed centrally. Mitral Valve: The mitral valve leaflets appear thickened, but with normal motion. Cannot exclude mitral valve vegetation. No evidence of mitral stenosis is seen. There is trace mitral regurgitation. Tricuspid Valve: The tricuspid valve is normal in structure and function. Cannot exclude tricuspid valve vegetation. Trace tricuspid regurgitation present. Pulmonic Valve: The pulmonic valve is not well seen. Cannot exclude pulmonic valve vegetation. Left Atrium: The left atrium is mildly dilated. The left atrial volume indexed to body surface area is 35 ml/m2. This refers to the maximal volume measured prior to mitral valve opening. Right Atrium: The right atrium is mildly dilated. The inferior vena cava is normal in diameter (<2.1cm) but collapse <50% with sniff (estimated right atrial pressure 5-10mmHg). Atrial Septum: The interatrial septum is not well seen. Interatrial shunt cannot be excluded. Aorta: The ascending aorta is not well seen. The sinuses of Valsalva are not well visualized. Pulmonary Artery: Pulmonary artery systolic pressure could not be estimated due to an insufficient tricuspid regurgitant jet. Pericardium/Pleural Space: There is no pericardial effusion. Left Ventricle IVSd: 1.02 cm LVIDd: 4.0 cm LVPWd: 1.04 cm LVIDs: 2.9 cm ESV(sp4-el): 50.0 ml Atria LA dimension: 5.0 cm LAV(MOD-sp4): 58.4 ml LAV(MOD-sp2): 55.6 ml MMode/2D Measurements & Calculations BMI: 22.8 kilograms/m² BSA([place]): 1.58 m² EF (est.): 39.9 % ESV(sp4-el): 50.0 ml IVSd: 1.02 cm LA A4C-A/L: 16.4 cm² LA dimension: 5.0 cm LA ESV-A/L: 42.1 ml LAV(MOD-sp2): 55.6 ml LAV(MOD-sp4): 58.4 ml LVIDd: 4.0 cm LVIDs: 2.9 cm LVPWd: 1.04 cm Doppler Measurements & Calculations PA max P.22 mmHg PA V2 max: 55.2 cm/sec Other Measurements & Calculations EDV(Teich): 68.7 ml EF(sp-el): 50.0 % EF(Teich): 53.0 % ESV(Teich): 32.3 ml FS: 26.8 % Procedure Notes: A complete two-dimensional transthoracic echocardiogram was performed (2D, M- mode, Doppler and color flow Doppler). Indication: Evaluate for endocarditis. The patient was uncomfortable and uncooperative throughout the procedure, causing significant difficulties in image acquisition. Patient coughing throughout exam. CPT Codes: 04659/[id number]: Transthoracic Echo with Spectral and Color Doppler. MD Aida Tinajero 03/06/2025, 7: 20 PM Ordering Physician: Kya Atkinson Referring Physician: Bianca Palacio Performed By: Xi Johnson RDCS
--- NOTE | 2025-03-07 00:48 | CONSULTATION NOTE ---
Consultation Report: Requested by Hospitalist to place PICC line, attempt by Javier Stewart on 03/05 unsuccessfull as unable to thread, patient hydrated overnight. I scanned both arms and no viable vessels seen, all smaller than the 4Fr PICC, I explaned to Abel that to place a line in too small vessels will result in thrombosis. Plan to maintain perpheral IV until 6days of antibiotics complete. PFSH Active Problems All Active Problems (Updated 03/06/25 @ 11:39 by Abel Marrero DNP) Bacteremia (Acute) Leukocytosis (Acute) COVID-19 (Acute) Weakness (Acute) Metabolic encephalopathy (Acute) Acute cystitis (Acute) GERD (gastroesophageal reflux disease) (Acute) Menopause (Acute) Mixed incontinence urge and stress (Acute) Hyperlipidemia (Acute) Night terrors (Acute) Memory loss (Acute) Constipation (Acute) Obstructive sleep apnea of adult (Acute) Neuropathy (Acute) Chronic renal insufficiency (Acute) Low back pain, unspecified (Acute) Lumbar back pain with radiculopathy affecting lower extremity (Acute) Hypotension (Acute) Physical deconditioning (Acute) Chronic neck pain (Acute) Weight loss (Acute) Mass of colon (Acute) Colon cancer screening (Acute) Frequency of urination (Acute) Vesicular rash (Acute) Toe pain, right (Acute) Vision changes (Acute) Hip pain, bilateral (Acute) Lewy body dementia (Acute) Abdominal pain (Acute) Renal mass (Acute) Adnexal mass (Acute) Chronic pelvic pain in female (Acute) Dysphasia (Acute) Medication side effect (Acute) Social History Social History Smoking Status: Never smoker Second hand tobacco smoke exposure: No Do you dip or chew tobacco?: No Do you vape?: No Patient requests smoking cessation consult: No Initiate information on smoking cessation: No Relationship: Child Level: Dependent Home Mobility Equipment: Wheelchair Do you feel safe in your home environment?: Yes History of Abuse: No POLST Patient has POLST: No Conclusion/Plan Problem List (1) Bacteremia: (2) Leukocytosis: (3) Metabolic encephalopathy: (4) COVID-19: (5) Acute cystitis: Qualifiers: Hematuria presence: with hematuria Qualified Code(s): N30.01 - Acute cystitis with hematuria (6) Lewy body dementia: Lab Results Lab results reviewed: Yes 03/06/25 04:58 03/06/25 04:58 Meds/Allgy Home Medications Ambulatory Orders Medication Instructions Recorded Confirmed estradiol 0.01% (0.1 mg/gram) See Rx Instructions vagi nal 02/12/25 02/24/25 vaginal cream .COMPLEX #42.5 grams donepezil 5 mg tablet 2.5 mg PO QPM 02/24/2502/24 omeprazole 20 mg capsule,delayed 20 mg PO QDAC 5 02/24/25 release Allergies Allergies Allergy/AdvReac Type Severity Reaction Status Date / Time sertraline (From Zoloft) Allergy Severe Unknown Verified 02/23/25 18:06 grass pollen Allergy Itching Verified 02/26/25 10:44 Exam Exam Vital Signs: Vital Signs x48h Temp Pulse Resp BP Pulse Ox 03/07/25 00:10 36.4 C L 60 22 154/68 H 96
--- NOTE | 2025-03-07 13:30 | PROVIDER PROGRESS NOTE ---
Subjective Prog Note Date Prog Note Date: 03/07/25 Subjective Pt reports feeling: No change Current Medications Current Medications Current Medications: Current Medications Generic Name Dose Route Start Last Admin Trade Name Freq PRN Reason Stop Dose Admin Acetaminophen 650 mg 02/23/25 20:18 03/06/25 08:59 Acetaminophen 325 Mg Tablet PO 650 mg Q4HR PRN Administration Pain 1 to 4, or Fever Benzonatate 100 mg 03/06/25 02:08 Benzonatate 100 Mg Capsule PO TID PRN Cough Carboxymethylcellulose 1 drops 02/24/25 14:00 03/07/25 08:43 Carboxymethylcellulose Ophth Drops EACHEYE 1 drops Q4HR BART Administration Ceftriaxone Sodium 1 gm 02/28/25 09:00 03/07/25 08:44 Ceftriaxone 1 Gm Vial IVP 1 gm DAILY BART Administration Cholecalciferol 50 mcg 02/25/25 09:00 03/07/25 08:43 Cholecalciferol 25 Mcg Tablet PO 50 mcg DAILY BART Administration Donepezil HCl 2.5 mg 03/01/25 21:00 03/06/25 21:39 Donepezil 5 Mg Tablet PO 2.5 mg QPM BART Administration Enoxaparin Sodium 30 mg 02/24/25 09:00 03/07/25 09:02 Enoxaparin 30 Mg/0.3 Ml Syringe SUBQ Not Given DAILY BART Mirtazapine 15 mg 03/07/25 21:00 Mirtazapine 15 Mg Tablet PO QPM BART Nystatin 5 ml 02/24/25 13:12 03/07/25 08:45 Nystatin 538230 Units/5 Ml Udc PO 5 ml QID BART Administration Ondansetron HCl 4 mg 02/23/25 20:18 Ondansetron Odt 4 Mg Tablet TL Q6HR PRN Nausea / Vomiting Ondansetron HCl 4 mg 02/23/25 20:18 02/26/25 19:59 Ondansetron 4 Mg/2 Ml Vial IVP 4 mg Q6HR PRN Administration Nausea / Vomiting Phenol/Menthol 1 sprays 03/06/25 02:08 Phenol Throat [place] 177 Ml MM Q4HR PRN Mouth Sore Pain Polyethylene Glycol 17 gm 03/04/25 09:00 03/07/25 08:44 Polyethylene Glycol 3350 17 Gm Packet PO 17 gm DAILY BART Administration Multivit/Folic Acid/Iron 1 tab 02/23/25 20:18 03/07/25 08:43 Vitamin Tablet PO 1 tab DAILYWM BART Administration Sodium Chloride 10 ml 02/23/25 20:18 Sodium Chloride Flush 0.9% 10 Ml Syringe IVP PRN PRN NEEDED PER PROVIDER ORDERS Sodium Chloride 10 ml 02/24/25 01:00 03/07/25 08:44 Sodium Chloride Flush 0.9% 10 Ml Syringe IVP 10 ml 0100,0900,1700 BART Administration Thiamine HCl 100 mg 02/24/25 09:00 03/07/25 08:45 Thiamine 100 Mg Tablet PO 100 mg DAILY BART Administration Throat Lozenges 1 lozenge 03/06/25 02:08 Benzocaine/Menthol Lozenge MM Q2HR PRN Mouth Sore Pain Objective Vital Signs/Intake & Output Reviewed Vital Signs: Yes Vital Signs: Vital Signs x48h Temp Pulse Resp BP Pulse Ox 03/07/25 08:30 36.2 C L 60 20 145/69 H 98 Intake & Output: Intake & Output 03/04/25 03/05/25 03/06/25 03/07/25 23:59 23:59 23:59 23:59 Intake Total 1020 / 1020 440 / 440 2174 / 2174 60 / 60 Output Total 925 / 925 2400 / 2400 1300 / 1300 650 / 650 Balance 95 / 95 -1960 / -1960 874 / 874 -590 / -590 Weight (kg) 59.5 kg 58 kg 56.5 kg 57 kg Objective General Appearance: positive No acute distress and Alert Eyes Bilateral: positive Normal inspection and Conjunctivae nml ENT: positive ENT inspection nml Neck: positive Nml inspection Respiratory: positive No respiratory distress and Breath sounds nml Cardiovascular: positive No murmur and Bradycardia Abdomen: positive Non-tender and No distention Skin: positive Color nml and No rash Extremities: positive Non-tender and No pedal edema Neurologic/Psychiatric: positive Other (not oriented. moves all extremities. smiles. ) Lab Results 03/06/25 04:58 03/06/25 04:58 Other Labs: Lab Results x24hrs 03/06/25 Range/Units 04:58 WBC 12.2 H (4.8-10.8) x10^3/uL RBC 3.56 L (4.20-5.40) 10^6/uL Hgb 10.9 L (12.0-16.0) g/dL Hct 33.8 L (37.0-47.0) % MCV 94.9 (81.0-99.0) fL MCH 30.6 (27.0-31.0) pg MCHC 32.2 (32.0-36.0) g/dL RDW 12.7 (12.0-15.0) % Plt Count 276 (130-450) 10^3/uL MPV 9.6 (7.9-10.8) fL Neut # (Auto) 7.0 H (1.5-6.6) 10^3/uL Lymph # (Auto) 3.4 (1.5-3.5) 10^3/uL [place] # (Auto) 1.1 H (0.0-1.0) 10^3/uL Eos # (Auto) 0.3 (0.0-0.7) 10^3/uL Baso # (Auto) 0.1 (0.0-0.1) 10^3/uL Absolute Nucleated RBC 0.00 x10^3/uL Nucleated RBC % 0.0 /100WBC Sodium 140 (135-145) mmol/L Potassium 4.2 (3.5-4.5) mmol/L Chloride 107 (101-111) mmol/L Carbon Dioxide 29 (21-32) mmol/L Anion Gap 4.0 L (6-13) BUN 20 (6-20) mg/dL Creatinine 1.2 (0.6-1.3) mg/dL Estimated GFR (MDRD) 43 L (>89) Glucose 96 (74-104) mg/dL Calcium 8.7 (8.5-10.3) mg/dL Assessment/Plan Problem List (1) Bacteremia: Impression: Has an Aerococcus urinae bacteremia noted on blood cultures on 02/23/2025 Has been on Rocephin for a week Echo with no concern for vegetation Repeat blood cultures no growth to date Assuming echo is clear, she can discharge with another week of IV Rocephin 03/07: Anesthesia attempted to place PICC line twice. They report that her vasculature will not be able to tolerate a PICC line as her veins are just too small. Given that she needs IV antibiotics and at least a jail setting, she will remain inpatient to finish her course of IV Rocephin. She may still need SNF at discharge, she will continue to work with PT in the inpatient setting to determine discharge planning (2) Leukocytosis: Impression: VSS, ABX as above (3) Metabolic encephalopathy: Impression: When she is at baseline, she is typically oriented and conversant but needs help moving from bed to chair, this has been a significant change for her, and her family is well aware that she needs rehab, and it will take quite a while before she improves to previous baseline, if she does do that. She was evaluated by physical therapy, who reports that she needs max assist x 1 for any ambulation Plan to DC to SNF. Received denial from insurance, appealing this now UA, CXR, CT head, MRI brain all normal COVID-positive, Is now out of her isolation window E. coli UTI, receiving antibiotics 03/07: Started mirtazapine for appetite stimulation. Monitoring for serotonin syndrome (4) COVID-19: Impression: She has weaned to room air. Shecompleted 6 days of decadron Up to 10 days can be given with severe and critical Covid, but this is not that. She was medically clear 02/28 for SNF. She then stopped taking oral intake again and we were not able to clear her for SNf. She then developed new leukocytosis Planning DC to [facility] Now that she is out of COVID isolation (5) Acute cystitis: Impression: E. coli UTI. Today is day 7 of Rocephin. She has completed Rocephin for UTI, now continuing for her bacteremia Qualifiers: Hematuria presence: with hematuria Qualified Code(s): N30.01 - Acute cystitis with hematuria (6) Lewy body dementia: Impression: Aricept has been restarted.
[2025-03-07] MEDS: MIRTAZAPINE 15 MG TABLET PO SCH (22:05)
[2025-03-08] MEDS: BENZONATATE 100 MG CAPSULE PO PRN (02:12)
[2025-03-08 05:48] LABS: HCT - HEMATOCRIT 36.2 % (37.0-47.0); HGB - HEMOGLOBIN 11.4 g/dL (12.0-16.0); MEAN PLATELET VOLUME 9.8 fL (7.9-10.8); NRBC ABSOLUTE COUNT (AUTO) 0.00 x10^3/uL; NUCLEATED RED BLOOD CELLS AUTO 0.0 /100WBC; PLT - PLATELET COUNT 276 10^3/uL (130-450); RED CELL DISTRIBUTION WIDTH 13.1 % (12.0-15.0)
[2025-03-08 06:10] LABS: BUN - BLOOD UREA NITROGEN 17.0 mg/dL (6-20); CARBON DIOXIDE - CO2 29.0 mmol/L (21-32); CREATININE 1.4 mg/dL (0.6-1.3); GFR - MDRD 36.0 (>89)
--- NOTE | 2025-03-08 12:39 | PROVIDER PROGRESS NOTE ---
Subjective Prog Note Date Prog Note Date: 03/08/25 Subjective Pt reports feeling: No change Current Medications Current Medications Current Medications: Current Medications Generic Name Dose Route Start Last Admin Trade Name Freq PRN Reason Stop Dose Admin Acetaminophen 650 mg 02/23/25 20:18 03/06/25 08:59 Acetaminophen 325 Mg Tablet PO 650 mg Q4HR PRN Administration Pain 1 to 4, or Fever Benzonatate 100 mg 03/06/25 02:08 03/08/25 02:12 Benzonatate 100 Mg Capsule PO 100 mg TID PRN Administration Cough Carboxymethylcellulose 1 drops 02/24/25 14:00 03/08/25 08:27 Carboxymethylcellulose Ophth Drops EACHEYE 1 drops Q4HR BART Administration Ceftriaxone Sodium 1 gm 02/28/25 09:00 03/08/25 08:27 Ceftriaxone 1 Gm Vial IVP 1 gm DAILY BART Administration Cholecalciferol 50 mcg 02/25/25 09:00 03/08/25 08:26 Cholecalciferol 25 Mcg Tablet PO 50 mcg DAILY BART Administration Donepezil HCl 2.5 mg 03/01/25 21:00 03/07/25 22:06 Donepezil 5 Mg Tablet PO 2.5 mg QPM BART Administration Enoxaparin Sodium 30 mg 02/24/25 09:00 03/08/25 08:27 Enoxaparin 30 Mg/0.3 Ml Syringe SUBQ 30 mg DAILY BART Administration Mirtazapine 15 mg 03/07/25 21:00 03/07/25 22:05 Mirtazapine 15 Mg Tablet PO 15 mg QPM BART Administration Nystatin 5 ml 02/24/25 13:12 03/08/25 08:27 Nystatin 198012 Units/5 Ml Udc PO 5 ml QID BART Administration Ondansetron HCl 4 mg 02/23/25 20:18 Ondansetron Odt 4 Mg Tablet TL Q6HR PRN Nausea / Vomiting Ondansetron HCl 4 mg 02/23/25 20:18 02/26/25 19:59 Ondansetron 4 Mg/2 Ml Vial IVP 4 mg Q6HR PRN Administration Nausea / Vomiting Phenol/Menthol 1 sprays 03/06/25 02:08 Phenol Throat [place] 177 Ml MM Q4HR PRN Mouth Sore Pain Polyethylene Glycol 17 gm 03/04/25 09:00 03/08/25 08:45 Polyethylene Glycol 3350 17 Gm Packet PO 17 gm DAILY BART Administration Multivit/Folic Acid/Iron 1 tab 02/23/25 20:18 03/08/25 08:27 Vitamin Tablet PO 1 tab DAILYWM BATR Administration Sodium Chloride 10 ml 02/23/25 20:18 Sodium Chloride Flush 0.9% 10 Ml Syringe IVP PRN PRN NEEDED PER PROVIDER ORDERS Sodium Chloride 10 ml 02/24/25 01:00 03/08/25 08:27 Sodium Chloride Flush 0.9% 10 Ml Syringe IVP 10 ml 0100,0900,1700 BART Administration Thiamine HCl 100 mg 02/24/25 09:00 03/08/25 08:27 Thiamine 100 Mg Tablet PO 100 mg DAILY BART Administration Throat Lozenges 1 lozenge 03/06/25 02:08 Benzocaine/Menthol Lozenge MM Q2HR PRN Mouth Sore Pain Zinc Oxide 113 gm 03/08/25 07:04 Cod Liver Oil/Zinc Oxide 113 Gm Tube TOP PRN PRN Skin Care Objective Vital Signs/Intake & Output Reviewed Vital Signs: Yes Vital Signs: Vital Signs x48h Temp Pulse Resp BP Pulse Ox 03/08/25 08:43 36.2 C L 56 L 16 108/52 L 96 Intake & Output: Intake & Output 03/05/25 03/06/25 03/07/25 03/08/25 23:59 23:59 23:59 23:59 Intake Total 440 / 440 2174 / 2174 330 / 330 Output Total 2400 / 2400 1300 / 1300 1500 / 1500 151 / 151 Balance -1960 / -1960 874 / 874 -1170 / -1170 -151 / -151 Weight (kg) 58 kg 56.5 kg 57 kg 58.5 kg Objective General Appearance: positive No acute distress and Alert Eyes Bilateral: positive Normal inspection and Conjunctivae nml ENT: positive ENT inspection nml Neck: positive Nml inspection Respiratory: positive No respiratory distress and Breath sounds nml Cardiovascular: positive No murmur and Bradycardia Abdomen: positive Non-tender and No distention Skin: positive Color nml and No rash Extremities: positive Non-tender and No pedal edema Neurologic/Psychiatric: positive Other (not oriented. moves all extremities. smiles. ) Lab Results 03/08/25 05:00 03/08/25 05:00 Other Labs: Lab Results x24hrs 03/08/25 Range/Units 05:00 WBC 13.8 H (4.8-10.8) x10^3/uL RBC 3.75 L (4.20-5.40) 10^6/uL Hgb 11.4 L (12.0-16.0) g/dL Hct 36.2 L (37.0-47.0) % MCV 96.5 (81.0-99.0) fL MCH 30.4 (27.0-31.0) pg MCHC 31.5 L (32.0-36.0) g/dL RDW 13.1 (12.0-15.0) % Plt Count 276 (130-450) 10^3/uL MPV 9.8 (7.9-10.8) fL Neut # (Auto) 8.7 H (1.5-6.6) 10^3/uL Lymph # (Auto) 3.6 H (1.5-3.5) 10^3/uL [place] # (Auto) 1.0 (0.0-1.0) 10^3/uL Eos # (Auto) 0.3 (0.0-0.7) 10^3/uL Baso # (Auto) 0.1 (0.0-0.1) 10^3/uL Absolute Nucleated RBC 0.00 x10^3/uL Nucleated RBC % 0.0 /100WBC Sodium 138 (135-145) mmol/L Potassium 4.2 (3.5-4.5) mmol/L Chloride 104 (101-111) mmol/L Carbon Dioxide 29 (21-32) mmol/L Anion Gap 5.0 L (6-13) BUN 17 (6-20) mg/dL Creatinine 1.4 H (0.6-1.3) mg/dL Estimated GFR (MDRD) 36 L (>89) Glucose 109 H (74-104) mg/dL Calcium 8.9 (8.5-10.3) mg/dL Assessment/Plan Problem List (1) Bacteremia: Impression: Has an Aerococcus urinae bacteremia noted on blood cultures on 02/23/2025 Has been on Rocephin for a week Echo with no concern for vegetation Repeat blood cultures no growth to date Assuming echo is clear, she can discharge with another week of IV Rocephin 03/07: Anesthesia attempted to place PICC line twice. They report that her vasculature will not be able to tolerate a PICC line as her veins are just too small. Given that she needs IV antibiotics and at least a halfway setting, she will remain inpatient to finish her course of IV Rocephin. She may still need SNF at discharge, she will continue to work with PT in the inpatient setting to determine discharge planning 03/08: Continuing daily Rocephin. WBC still elevated, VSS (2) Leukocytosis: Impression: VSS, ABX as above (3) Metabolic encephalopathy: Impression: When she is at baseline, she is typically oriented and conversant but needs help moving from bed to chair, this has been a significant change for her, and her family is well aware that she needs rehab, and it will take quite a while before she improves to previous baseline, if she does do that. She was evaluated by physical therapy, who reports that she needs max assist x 1 for any ambulation Plan to DC to SNF. Received denial from insurance, appealing this now UA, CXR, CT head, MRI brain all normal COVID-positive, Is now out of her isolation window E. coli UTI, receiving antibiotics 03/07: Started mirtazapine for appetite stimulation. Monitoring for serotonin syndrome (4) COVID-19: Impression: She has weaned to room air. Shecompleted 6 days of decadron Up to 10 days can be given with severe and critical Covid, but this is not that. She was medically clear 02/28 for SNF. She then stopped taking oral intake again and we were not able to clear her for SNf. She then developed new leukocytosis Planning DC to [facility] Now that she is out of COVID isolation (5) Acute cystitis: Impression: E. coli UTI. Today is day 7 of Rocephin. She has completed Rocephin for UTI, now continuing for her bacteremia Qualifiers: Hematuria presence: with hematuria Qualified Code(s): N30.01 - Acute cystitis with hematuria (6) Lewy body dementia: Impression: Aricept has been restarted.
[2025-03-08] MEDS: COD LIVER OIL/ZINC OXIDE 113 GM TUBE TOP PRN (13:55)
[2025-03-09] MEDS: SODIUM CHLORIDE 0.9% 1,000 ML IV SCH (01:41)
[2025-03-09 04:56] LABS: HCT - HEMATOCRIT 33.8 % (37.0-47.0); HGB - HEMOGLOBIN 11.2 g/dL (12.0-16.0); MEAN PLATELET VOLUME 9.7 fL (7.9-10.8); NRBC ABSOLUTE COUNT (AUTO) 0.00 x10^3/uL; NUCLEATED RED BLOOD CELLS AUTO 0.0 /100WBC; PLT - PLATELET COUNT 265 10^3/uL (130-450); RED CELL DISTRIBUTION WIDTH 13.3 % (12.0-15.0)
[2025-03-09 05:10] LABS: BUN - BLOOD UREA NITROGEN 21.0 mg/dL (6-20); CARBON DIOXIDE - CO2 29.0 mmol/L (21-32); CREATININE 1.4 mg/dL (0.6-1.3); GFR - MDRD 36.0 (>89)
--- NOTE | 2025-03-09 11:25 | PROVIDER PROGRESS NOTE ---
Subjective Prog Note Date Prog Note Date: 03/09/25 Subjective Pt reports feeling: No change Current Medications Current Medications Current Medications: Current Medications Generic Name Dose Route Start Last Admin Trade Name Freq PRN Reason Stop Dose Admin Acetaminophen 650 mg 02/23/25 20:18 03/06/25 08:59 Acetaminophen 325 Mg Tablet PO 650 mg Q4HR PRN Administration Pain 1 to 4, or Fever Benzonatate 100 mg 03/06/25 02:08 03/08/25 02:12 Benzonatate 100 Mg Capsule PO 100 mg TID PRN Administration Cough Carboxymethylcellulose 1 drops 02/24/25 14:00 03/09/25 11:02 Carboxymethylcellulose Ophth Drops EACHEYE Not Given Q4HR BART Ceftriaxone Sodium 1 gm 02/28/25 09:00 03/09/25 09:07 Ceftriaxone 1 Gm Vial IVP 1 gm DAILY BART Administration Cholecalciferol 50 mcg 02/25/25 09:00 03/09/25 11:02 Cholecalciferol 25 Mcg Tablet PO Not Given DAILY BART Donepezil HCl 2.5 mg 03/01/25 21:00 03/08/25 22:54 Donepezil 5 Mg Tablet PO 2.5 mg QPM BART Administration Enoxaparin Sodium 30 mg 02/24/25 09:00 03/09/25 11:03 Enoxaparin 30 Mg/0.3 Ml Syringe SUBQ Not Given DAILY BART Sodium Chloride 1,000 mls @ 100 mls/hr 03/09/25 02:00 03/09/25 08:01 Normal Saline 0.9% IV 100 mls/hr .Q10H BART Infusion Mirtazapine 15 mg 03/07/25 21:00 03/08/25 22:54 Mirtazapine 15 Mg Tablet PO 15 mg QPM BART Administration Nystatin 5 ml 02/24/25 13:12 03/09/25 11:02 Nystatin 707522 Units/5 Ml Udc PO Not Given QID BART Ondansetron HCl 4 mg 02/23/25 20:18 Ondansetron Odt 4 Mg Tablet TL Q6HR PRN Nausea / Vomiting Ondansetron HCl 4 mg 02/23/25 20:18 02/26/25 19:59 Ondansetron 4 Mg/2 Ml Vial IVP 4 mg Q6HR PRN Administration Nausea / Vomiting Phenol/Menthol 1 sprays 03/06/25 02:08 Phenol Throat [place] 177 Ml MM Q4HR PRN Mouth Sore Pain Polyethylene Glycol 17 gm 03/04/25 09:00 03/09/25 11:02 Polyethylene Glycol 3350 17 Gm Packet PO Not Given DAILY BART Multivit/Folic Acid/Iron 1 tab 02/23/25 20:18 03/09/25 11:01 Vitamin Tablet PO Not Given DAILYWM BART Sodium Chloride 10 ml 02/23/25 20:18 Sodium Chloride Flush 0.9% 10 Ml Syringe IVP PRN PRN NEEDED PER PROVIDER ORDERS Sodium Chloride 10 ml 02/24/25 01:00 03/09/25 09:10 Sodium Chloride Flush 0.9% 10 Ml Syringe IVP 10 ml 0100,0900,1700 BART Administration Thiamine HCl 100 mg 02/24/25 09:00 03/09/25 11:03 Thiamine 100 Mg Tablet PO Not Given DAILY BART Throat Lozenges 1 lozenge 03/06/25 02:08 Benzocaine/Menthol Lozenge MM Q2HR PRN Mouth Sore Pain Zinc Oxide 113 gm 03/08/25 07:04 03/09/25 01:41 Cod Liver Oil/Zinc Oxide 113 Gm Tube TOP 1 applic PRN PRN Administration Skin Care Objective Vital Signs/Intake & Output Reviewed Vital Signs: Yes Vital Signs: Vital Signs x48h Temp Pulse Resp BP Pulse Ox 03/09/25 08:55 36.0 C L 49 L 16 108/50 L 96 03/09/25 04:42 51 L 100/56 L Intake & Output: Intake & Output 03/06/25 03/07/25 03/08/25 03/09/25 23:59 23:59 23:59 23:59 Intake Total 2174 / 2174 330 / 330 300 / 300 437 / 437 Output Total 1300 / 1300 1500 / 1500 451 / 451 50 / 50 Balance 874 / 874 -1170 / -1170 -151 / -151 387 / 387 Weight (kg) 56.5 kg 57 kg 58.5 kg 58 kg Objective General Appearance: positive No acute distress and Alert Eyes Bilateral: positive Normal inspection and Conjunctivae nml ENT: positive ENT inspection nml Neck: positive Nml inspection Respiratory: positive No respiratory distress and Breath sounds nml Cardiovascular: positive No murmur and Bradycardia Abdomen: positive Non-tender and No distention Skin: positive Color nml and No rash Extremities: positive Non-tender and No pedal edema Neurologic/Psychiatric: positive Other (not oriented. moves all extremities. smiles. ) Lab Results 03/09/25 04:11 03/09/25 04:11 Other Labs: Lab Results x24hrs 03/09/25 Range/Units 04:11 WBC 11.7 H (4.8-10.8) x10^3/uL RBC 3.54 L (4.20-5.40) 10^6/uL Hgb 11.2 L (12.0-16.0) g/dL Hct 33.8 L (37.0-47.0) % MCV 95.5 (81.0-99.0) fL MCH 31.6 H (27.0-31.0) pg MCHC 33.1 (32.0-36.0) g/dL RDW 13.3 (12.0-15.0) % Plt Count 265 (130-450) 10^3/uL MPV 9.7 (7.9-10.8) fL Neut # (Auto) 7.1 H (1.5-6.6) 10^3/uL Lymph # (Auto) 3.3 (1.5-3.5) 10^3/uL [place] # (Auto) 0.9 (0.0-1.0) 10^3/uL Eos # (Auto) 0.3 (0.0-0.7) 10^3/uL Baso # (Auto) 0.1 (0.0-0.1) 10^3/uL Absolute Nucleated RBC 0.00 x10^3/uL Nucleated RBC % 0.0 /100WBC Sodium 139 (135-145) mmol/L Potassium 4.4 (3.5-4.5) mmol/L Chloride 106 (101-111) mmol/L Carbon Dioxide 29 (21-32) mmol/L Anion Gap 4.0 L (6-13) BUN 21 H (6-20) mg/dL Creatinine 1.4 H (0.6-1.3) mg/dL Estimated GFR (MDRD) 36 L (>89) Glucose 99 (74-104) mg/dL Calcium 8.7 (8.5-10.3) mg/dL Assessment/Plan Problem List (1) Bacteremia: Impression: Has an Aerococcus urinae bacteremia noted on blood cultures on 02/23/2025 Has been on Rocephin for a week Echo with no concern for vegetation Repeat blood cultures no growth to date Assuming echo is clear, she can discharge with another week of IV Rocephin 03/07: Anesthesia attempted to place PICC line twice. They report that her vasculature will not be able to tolerate a PICC line as her veins are just too small. Given that she needs IV antibiotics and at least a longterm setting, she will remain inpatient to finish her course of IV Rocephin. She may still need SNF at discharge, she will continue to work with PT in the inpatient setting to determine discharge planning 03/08: Continuing daily Rocephin. WBC still elevated, VSS 03/09: WBC has improved to 11.7. Continue Rocephin daily. Last dose of Rocephin on 03/12 (2) Leukocytosis: Impression: VSS, ABX as above (3) Metabolic encephalopathy: Impression: When she is at baseline, she is typically oriented and conversant but needs help moving from bed to chair, this has been a significant change for her, and her family is well aware that she needs rehab, and it will take quite a while before she improves to previous baseline, if she does do that. She was evaluated by physical therapy, who reports that she needs max assist x 1 for any ambulation Plan to DC to SNF. Received denial from insurance, appealing this now UA, CXR, CT head, MRI brain all normal COVID-positive, Is now out of her isolation window E. coli UTI, receiving antibiotics 03/07: Started mirtazapine for appetite stimulation. Monitoring for serotonin syndrome (4) COVID-19: Impression: Completed course of Decadron. Out of isolation (5) Acute cystitis: Impression: E. coli UTI. She has completed Rocephin for UTI, now continuing for her bacteremia Qualifiers: Hematuria presence: with hematuria Qualified Code(s): N30.01 - Acute cystitis with hematuria (6) Lewy body dementia: Impression: Aricept has been restarted.
[2025-03-10 04:57] LABS: HCT - HEMATOCRIT 32.8 % (37.0-47.0); HGB - HEMOGLOBIN 10.5 g/dL (12.0-16.0); MEAN PLATELET VOLUME 9.7 fL (7.9-10.8); NRBC ABSOLUTE COUNT (AUTO) 0.00 x10^3/uL; NUCLEATED RED BLOOD CELLS AUTO 0.0 /100WBC; PLT - PLATELET COUNT 242 10^3/uL (130-450); RED CELL DISTRIBUTION WIDTH 13.4 % (12.0-15.0)
[2025-03-10 05:17] LABS: BUN - BLOOD UREA NITROGEN 20.0 mg/dL (6-20); CARBON DIOXIDE - CO2 26.0 mmol/L (21-32); CREATININE 1.2 mg/dL (0.6-1.3); GFR - MDRD 43.0 (>89)
--- NOTE | 2025-03-10 13:01 | PROVIDER PROGRESS NOTE ---
Subjective Prog Note Date Prog Note Date: 03/10/25 Subjective Pt reports feeling: No change Current Medications Current Medications Current Medications: Current Medications Generic Name Dose Route Start Last Admin Trade Name Freq PRN Reason Stop Dose Admin Acetaminophen 650 mg 02/23/25 20:18 03/06/25 08:59 Acetaminophen 325 Mg Tablet PO 650 mg Q4HR PRN Administration Pain 1 to 4, or Fever Benzonatate 100 mg 03/06/25 02:08 03/08/25 02:12 Benzonatate 100 Mg Capsule PO 100 mg TID PRN Administration Cough Carboxymethylcellulose 1 drops 02/24/25 14:00 03/10/25 12:36 Carboxymethylcellulose Ophth Drops EACHEYE 1 drops Q4HR BART Administration Ceftriaxone Sodium 1 gm 02/28/25 09:00 03/10/25 08:11 Ceftriaxone 1 Gm Vial IVP 1 gm DAILY BART Administration Cholecalciferol 50 mcg 02/25/25 09:00 03/10/25 08:12 Cholecalciferol 25 Mcg Tablet PO 50 mcg DAILY BART Administration Donepezil HCl 2.5 mg 03/01/25 21:00 03/09/25 22:04 Donepezil 5 Mg Tablet PO 2.5 mg QPM BART Administration Enoxaparin Sodium 30 mg 02/24/25 09:00 03/10/25 08:11 Enoxaparin 30 Mg/0.3 Ml Syringe SUBQ 30 mg DAILY BART Administration Sodium Chloride 1,000 mls @ 75 mls/hr 03/09/25 02:00 03/10/25 11:09 Normal Saline 0.9% IV 75 mls/hr .[id number] BART Infusion Mirtazapine 15 mg 03/07/25 21:00 03/09/25 22:05 Mirtazapine 15 Mg Tablet PO 15 mg QPM BART Administration Nystatin 5 ml 02/24/25 13:12 03/10/25 12:36 Nystatin 448166 Units/5 Ml Udc PO 5 ml QID BART Administration Ondansetron HCl 4 mg 02/23/25 20:18 Ondansetron Odt 4 Mg Tablet TL Q6HR PRN Nausea / Vomiting Ondansetron HCl 4 mg 02/23/25 20:18 02/26/25 19:59 Ondansetron 4 Mg/2 Ml Vial IVP 4 mg Q6HR PRN Administration Nausea / Vomiting Phenol/Menthol 1 sprays 03/06/25 02:08 Phenol Throat [place] 177 Ml MM Q4HR PRN Mouth Sore Pain Polyethylene Glycol 17 gm 03/04/25 09:00 03/10/25 08:11 Polyethylene Glycol 3350 17 Gm Packet PO 17 gm DAILY BART Administration Multivit/Folic Acid/Iron 1 tab 02/23/25 20:18 03/10/25 08:12 Vitamin Tablet PO 1 tab DAILYWM BART Administration Sodium Chloride 10 ml 02/23/25 20:18 Sodium Chloride Flush 0.9% 10 Ml Syringe IVP PRN PRN NEEDED PER PROVIDER ORDERS Sodium Chloride 10 ml 02/24/25 01:00 03/10/25 08:12 Sodium Chloride Flush 0.9% 10 Ml Syringe IVP 10 ml 0100,0900,1700 BART Administration Thiamine HCl 100 mg 02/24/25 09:00 03/10/25 08:13 Thiamine 100 Mg Tablet PO 100 mg DAILY BART Administration Throat Lozenges 1 lozenge 03/06/25 02:08 Benzocaine/Menthol Lozenge MM Q2HR PRN Mouth Sore Pain Zinc Oxide 113 gm 03/08/25 07:04 03/09/25 01:41 Cod Liver Oil/Zinc Oxide 113 Gm Tube TOP 1 applic PRN PRN Administration Skin Care Objective Vital Signs/Intake & Output Reviewed Vital Signs: Yes Vital Signs: Vital Signs x48h Temp Pulse Resp BP BP Pulse Ox 03/10/25 07:37 62 162/66 H 160/78 H 03/10/25 07:31 36.2 C L 66 20 170/79 H 182/87 H 99 Intake & Output: Intake & Output 03/07/25 03/08/25 03/09/25 03/10/25 23:59 23:59 23:59 23:59 Intake Total 330 / 330 300 / 300 2225 / 2225 1375 / 1375 Output Total 1500 / 1500 451 / 451 850 / 850 550 / 550 Balance -1170 / -1170 -151 / -151 1375 / 1375 825 / 825 Weight (kg) 57 kg 58.5 kg 58 kg 58.5 kg Objective General Appearance: positive No acute distress and Alert Eyes Bilateral: positive Normal inspection and Conjunctivae nml ENT: positive ENT inspection nml Neck: positive Nml inspection Respiratory: positive No respiratory distress and Breath sounds nml Cardiovascular: positive No murmur and Bradycardia Abdomen: positive Non-tender and No distention Skin: positive Color nml and No rash Extremities: positive Non-tender and No pedal edema Neurologic/Psychiatric: positive Other (not oriented. moves all extremities. smiles. ) Lab Results 03/10/25 04:15 03/10/25 04:15 Other Labs: Lab Results x24hrs 03/10/25 Range/Units 04:15 WBC 10.4 (4.8-10.8) x10^3/uL RBC 3.36 L (4.20-5.40) 10^6/uL Hgb 10.5 L (12.0-16.0) g/dL Hct 32.8 L (37.0-47.0) % MCV 97.6 (81.0-99.0) fL MCH 31.3 H (27.0-31.0) pg MCHC 32.0 (32.0-36.0) g/dL RDW 13.4 (12.0-15.0) % Plt Count 242 (130-450) 10^3/uL MPV 9.7 (7.9-10.8) fL Neut # (Auto) 6.6 (1.5-6.6) 10^3/uL Lymph # (Auto) 2.7 (1.5-3.5) 10^3/uL [place] # (Auto) 0.7 (0.0-1.0) 10^3/uL Eos # (Auto) 0.3 (0.0-0.7) 10^3/uL Baso # (Auto) 0.1 (0.0-0.1) 10^3/uL Absolute Nucleated RBC 0.00 x10^3/uL Nucleated RBC % 0.0 /100WBC Sodium 140 (135-145) mmol/L Potassium 4.4 (3.5-4.5) mmol/L Chloride 111 (101-111) mmol/L Carbon Dioxide 26 (21-32) mmol/L Anion Gap 3.0 L (6-13) BUN 20 (6-20) mg/dL Creatinine 1.2 (0.6-1.3) mg/dL Estimated GFR (MDRD) 43 L (>89) Glucose 94 (74-104) mg/dL Calcium 8.3 L (8.5-10.3) mg/dL Assessment/Plan Problem List (1) Bacteremia: Impression: Has an Aerococcus urinae bacteremia noted on blood cultures on 02/23/2025 Has been on Rocephin for a week Echo with no concern for vegetation Repeat blood cultures no growth to date Assuming echo is clear, she can discharge with another week of IV Rocephin 03/07: Anesthesia attempted to place PICC line twice. They report that her vasculature will not be able to tolerate a PICC line as her veins are just too small. Given that she needs IV antibiotics and at least a care home setting, she will remain inpatient to finish her course of IV Rocephin. She may still need SNF at discharge, she will continue to work with PT in the inpatient setting to determine discharge planning 03/08: Continuing daily Rocephin. WBC still elevated, VSS 03/09: WBC has improved to 11.7. Continue Rocephin daily. Last dose of Rocephin on 03/12 (2) Leukocytosis: Impression: 10.4 today (3) Hypertension: Impression: BP 160/78 on morning check. Reduce dose of IV fluid to 75 an hour. Will continue to monitor (4) Metabolic encephalopathy: Impression: When she is at baseline, she is typically oriented and conversant but needs help moving from bed to chair, this has been a significant change for her, and her family is well aware that she needs rehab, and it will take quite a while before she improves to previous baseline, if she does do that. She was evaluated by physical therapy, who reports that she needs max assist x 1 for any ambulation Plan to DC to SNF. Received denial from insurance, appealing this now UA, CXR, CT head, MRI brain all normal COVID-positive, Is now out of her isolation window E. coli UTI, receiving antibiotics 03/07: Started mirtazapine for appetite stimulation. Monitoring for serotonin syndrome (5) COVID-19: Impression: Completed course of Decadron. Out of isolation (6) Acute cystitis: Impression: E. coli UTI. She has completed Rocephin for UTI, now continuing for her bacteremia Qualifiers: Hematuria presence: with hematuria Qualified Code(s): N30.01 - Acute cystitis with hematuria (7) Lewy body dementia: Impression: Aricept has been restarted.
[2025-03-10] MEDS: CALCIUM CARBONATE CHEW 500 MG TABLET PO PRN (19:07)
[2025-03-11 04:56] LABS: HCT - HEMATOCRIT 32.4 % (37.0-47.0); HGB - HEMOGLOBIN 10.4 g/dL (12.0-16.0); MEAN PLATELET VOLUME 9.8 fL (7.9-10.8); NRBC ABSOLUTE COUNT (AUTO) 0.00 x10^3/uL; NUCLEATED RED BLOOD CELLS AUTO 0.0 /100WBC; PLT - PLATELET COUNT 243 10^3/uL (130-450); RED CELL DISTRIBUTION WIDTH 13.1 % (12.0-15.0)
[2025-03-11 05:15] LABS: BUN - BLOOD UREA NITROGEN 18.0 mg/dL (6-20); CARBON DIOXIDE - CO2 27.0 mmol/L (21-32); CREATININE 1.2 mg/dL (0.6-1.3); GFR - MDRD 43.0 (>89)
[2025-03-11] MEDS: SODIUM CHLORIDE FLUSH 0.9% 10 ML SYRINGE IVP PRN (11:22)
--- NOTE | 2025-03-11 11:48 | PROVIDER PROGRESS NOTE ---
Subjective Prog Note Date Prog Note Date: 03/11/25 Subjective Pt reports feeling: No change Current Medications Current Medications Current Medications: Current Medications Generic Name Dose Route Start Last Admin Trade Name Freq PRN Reason Stop Dose Admin Acetaminophen 650 mg 02/23/25 20:18 03/10/25 23:46 Acetaminophen 325 Mg Tablet PO 650 mg Q4HR PRN Administration Pain 1 to 4, or Fever Benzonatate 100 mg 03/06/25 02:08 03/08/25 02:12 Benzonatate 100 Mg Capsule PO 100 mg TID PRN Administration Cough Calcium Carbonate/Glycine 500 mg 03/10/25 18:45 03/10/25 19:07 Calcium Carbonate Chew 500 Mg Tablet PO 500 mg BID PRN Administration Heartburn Carboxymethylcellulose 1 drops 02/24/25 14:00 03/11/25 08:33 Carboxymethylcellulose Ophth Drops EACHEYE 1 drops Q4HR BART Administration Ceftriaxone Sodium 1 gm 02/28/25 09:00 03/11/25 08:33 Ceftriaxone 1 Gm Vial IVP 03/13/25 09:01 1 gm DAILY BART Administration Cholecalciferol 50 mcg 02/25/25 09:00 03/11/25 08:34 Cholecalciferol 25 Mcg Tablet PO 50 mcg DAILY BART Administration Donepezil HCl 2.5 mg 03/01/25 21:00 03/10/25 21:32 Donepezil 5 Mg Tablet PO 2.5 mg QPM BART Administration Enoxaparin Sodium 30 mg 02/24/25 09:00 03/11/25 08:33 Enoxaparin 30 Mg/0.3 Ml Syringe SUBQ 30 mg DAILY BART Administration Sodium Chloride 1,000 mls @ 75 mls/hr 03/09/25 02:00 03/11/25 11:22 Normal Saline 0.9% IV 75 mls/hr .[id number] BART Administration Mirtazapine 15 mg 03/07/25 21:00 03/10/25 21:32 Mirtazapine 15 Mg Tablet PO 15 mg QPM BART Administration Nystatin 5 ml 02/24/25 13:12 03/11/25 08:33 Nystatin [id number] Units/5 Ml Udc PO 5 ml QID BART Administration Ondansetron HCl 4 mg 02/23/25 20:18 Ondansetron Odt 4 Mg Tablet TL Q6HR PRN Nausea / Vomiting Ondansetron HCl 4 mg 02/23/25 20:18 02/26/25 19:59 Ondansetron 4 Mg/2 Ml Vial IVP 4 mg Q6HR PRN Administration Nausea / Vomiting Phenol/Menthol 1 sprays 03/06/25 02:08 Phenol Throat [place] 177 Ml MM Q4HR PRN Mouth Sore Pain Polyethylene Glycol 17 gm 03/04/25 09:00 03/11/25 08:34 Polyethylene Glycol 3350 17 Gm Packet PO 17 gm DAILY BART Administration Multivit/Folic Acid/Iron 1 tab 02/23/25 20:18 03/11/25 08:34 Vitamin Tablet PO 1 tab DAILYWM BART Administration Sodium Chloride 10 ml 02/23/25 20:18 03/11/25 11:22 Sodium Chloride Flush 0.9% 10 Ml Syringe IVP 10 ml PRN PRN Administration NEEDED PER PROVIDER ORDERS Sodium Chloride 10 ml 02/24/25 01:00 03/11/25 08:33 Sodium Chloride Flush 0.9% 10 Ml Syringe IVP 10 ml 0100,0900,1700 BART Administration Thiamine HCl 100 mg 02/24/25 09:00 03/11/25 08:34 Thiamine 100 Mg Tablet PO 100 mg DAILY BART Administration Throat Lozenges 1 lozenge 03/06/25 02:08 Benzocaine/Menthol Lozenge MM Q2HR PRN Mouth Sore Pain Zinc Oxide 113 gm 03/08/25 07:04 03/09/25 01:41 Cod Liver Oil/Zinc Oxide 113 Gm Tube TOP 1 applic PRN PRN Administration Skin Care Objective Vital Signs/Intake & Output Reviewed Vital Signs: Yes Vital Signs: Vital Signs x48h Temp Pulse Resp BP Pulse Ox 03/11/25 07:40 36.2 C L 52 L 16 147/63 H 94 Intake & Output: Intake & Output 03/08/25 03/09/25 03/10/25 03/11/25 23:59 23:59 23:59 23:59 Intake Total 300 / 300 2225 / 2225 3080 / 3080 1220 / 1220 Output Total 451 / 451 850 / 850 1350 / 1350 950 / 950 Balance -151 / -151 1375 / 1375 1730 / 1730 270 / 270 Weight (kg) 58.5 kg 58 kg 58.5 kg 59.5 kg Objective General Appearance: positive No acute distress and Alert Eyes Bilateral: positive Normal inspection and Conjunctivae nml ENT: positive ENT inspection nml Neck: positive Nml inspection Respiratory: positive No respiratory distress and Breath sounds nml Cardiovascular: positive No murmur and Bradycardia Abdomen: positive Non-tender and No distention Skin: positive Color nml and No rash Extremities: positive Non-tender and No pedal edema Neurologic/Psychiatric: positive Other (not oriented. moves all extremities. smiles. ) Lab Results 03/11/25 04:13 03/11/25 04:13 Other Labs: Lab Results x24hrs 03/11/25 Range/Units 04:13 WBC 9.7 (4.8-10.8) x10^3/uL RBC 3.34 L (4.20-5.40) 10^6/uL Hgb 10.4 L (12.0-16.0) g/dL Hct 32.4 L (37.0-47.0) % MCV 97.0 (81.0-99.0) fL MCH 31.1 H (27.0-31.0) pg MCHC 32.1 (32.0-36.0) g/dL RDW 13.1 (12.0-15.0) % Plt Count 243 (130-450) 10^3/uL MPV 9.8 (7.9-10.8) fL Neut # (Auto) 6.0 (1.5-6.6) 10^3/uL Lymph # (Auto) 2.5 (1.5-3.5) 10^3/uL [place] # (Auto) 0.8 (0.0-1.0) 10^3/uL Eos # (Auto) 0.3 (0.0-0.7) 10^3/uL Baso # (Auto) 0.1 (0.0-0.1) 10^3/uL Absolute Nucleated RBC 0.00 x10^3/uL Nucleated RBC % 0.0 /100WBC Sodium 141 (135-145) mmol/L Potassium 4.6 H (3.5-4.5) mmol/L Chloride 112 H (101-111) mmol/L Carbon Dioxide 27 (21-32) mmol/L Anion Gap 2.0 L (6-13) BUN 18 (6-20) mg/dL Creatinine 1.2 (0.6-1.3) mg/dL Estimated GFR (MDRD) 43 L (>89) Glucose 96 (74-104) mg/dL Calcium 8.7 (8.5-10.3) mg/dL Assessment/Plan Problem List (1) Bacteremia: Impression: Has an Aerococcus urinae bacteremia noted on blood cultures on 02/23/2025 Has been on Rocephin for a week Echo with no concern for vegetation Repeat blood cultures no growth to date Assuming echo is clear, she can discharge with another week of IV Rocephin 03/07: Anesthesia attempted to place PICC line twice. They report that her vasculature will not be able to tolerate a PICC line as her veins are just too small. Given that she needs IV antibiotics and at least a prison setting, she will remain inpatient to finish her course of IV Rocephin. She may still need SNF at discharge, she will continue to work with PT in the inpatient setting to determine discharge planning 03/08: Continuing daily Rocephin. WBC still elevated, VSS 03/09: WBC has improved to 11.7. Continue Rocephin daily. Last dose of Rocephin on 03/13 03/10: No update continue Rocephin 03/11: Continuing Rocephin. PT recommends SNF. Working with insurance to make this happen. Anticipate medical readiness for discharge on , When she will have completed her 14-day course of IV Rocephin (2) Leukocytosis: Impression: 10.4 today (3) Hypertension: Impression: BP 160/78 on morning check. Reduce dose of IV fluid to 75 an hour. Will continue to monitor (4) Metabolic encephalopathy: Impression: When she is at baseline, she is typically oriented and conversant but needs help moving from bed to chair, this has been a significant change for her, and her family is well aware that she needs rehab, and it will take quite a while before she improves to previous baseline, if she does do that. She was evaluated by physical therapy, who reports that she needs max assist x 1 for any ambulation Plan to DC to SNF. Received denial from insurance, appealing this now UA, CXR, CT head, MRI brain all normal COVID-positive, Is now out of her isolation window E. coli UTI, receiving antibiotics 03/07: Started mirtazapine for appetite stimulation. Monitoring for serotonin syndrome (5) COVID-19: Impression: Completed course of Decadron. Out of isolation (6) Acute cystitis: Impression: E. coli UTI. She has completed Rocephin for UTI, now continuing for her bacteremia Qualifiers: Hematuria presence: with hematuria Qualified Code(s): N30.01 - Acute cystitis with hematuria (7) Lewy body dementia: Impression: Aricept has been restarted.
[2025-03-12 04:48] LABS: HCT - HEMATOCRIT 34.0 % (37.0-47.0); HGB - HEMOGLOBIN 10.6 g/dL (12.0-16.0); MEAN PLATELET VOLUME 9.7 fL (7.9-10.8); NRBC ABSOLUTE COUNT (AUTO) 0.00 x10^3/uL; NUCLEATED RED BLOOD CELLS AUTO 0.0 /100WBC; PLT - PLATELET COUNT 247 10^3/uL (130-450); RED CELL DISTRIBUTION WIDTH 13.4 % (12.0-15.0)
[2025-03-12 05:04] LABS: BUN - BLOOD UREA NITROGEN 19.0 mg/dL (6-20); CARBON DIOXIDE - CO2 27.0 mmol/L (21-32); CREATININE 1.2 mg/dL (0.6-1.3); GFR - MDRD 43.0 (>89)
--- NOTE | 2025-03-12 20:38 | PROVIDER PROGRESS NOTE ---
Subjective Prog Note Date Prog Note Date: 03/12/25 Subjective Pt reports feeling: No change Subjective: She is awake and alert. Son Rojelio at bedside all day today. He is stating they would like to take her home with caregiver assistance vs SNF. Spoke with son Jones who is POA. he is working to get the home set for her to be there, but not ready. He would like her to go to SNF for rehab prior to transition home. Current Medications Current Medications Current Medications: Current Medications Generic Name Dose Route Start Last Admin Trade Name Freq PRN Reason Stop Dose Admin Acetaminophen 650 mg 02/23/25 20:18 03/12/25 16:00 Acetaminophen 325 Mg Tablet PO 650 mg Q4HR PRN Administration Pain 1 to 4, or Fever Benzonatate 100 mg 03/06/25 02:08 03/08/25 02:12 Benzonatate 100 Mg Capsule PO 100 mg TID PRN Administration Cough Calcium Carbonate/Glycine 500 mg 03/10/25 18:45 03/12/25 16:00 Calcium Carbonate Chew 500 Mg Tablet PO 500 mg BID PRN Administration Heartburn Carboxymethylcellulose 1 drops 02/24/25 14:00 03/12/25 16:00 Carboxymethylcellulose Ophth Drops EACHEYE 1 drops Q4HR BART Administration Ceftriaxone Sodium 1 gm 02/28/25 09:00 03/12/25 08:53 Ceftriaxone 1 Gm Vial IVP 03/13/25 09:01 1 gm DAILY BART Administration Cholecalciferol 50 mcg 02/25/25 09:00 03/12/25 08:53 Cholecalciferol 25 Mcg Tablet PO 50 mcg DAILY BART Administration Donepezil HCl 2.5 mg 03/01/25 21:00 03/11/25 21:45 Donepezil 5 Mg Tablet PO 2.5 mg QPM BART Administration Enoxaparin Sodium 30 mg 02/24/25 09:00 03/12/25 08:53 Enoxaparin 30 Mg/0.3 Ml Syringe SUBQ 30 mg DAILY BART Administration Sodium Chloride 1,000 mls @ 75 mls/hr 03/09/25 02:00 03/12/25 14:19 Normal Saline 0.9% IV 75 mls/hr .[id number] BART Administration Mirtazapine 15 mg 03/07/25 21:00 03/11/25 21:45 Mirtazapine 15 Mg Tablet PO 15 mg QPM BART Administration Nystatin 5 ml 02/24/25 13:12 03/12/25 16:00 Nystatin [id number] Units/5 Ml Udc PO 5 ml QID BART Administration Ondansetron HCl 4 mg 02/23/25 20:18 Ondansetron Odt 4 Mg Tablet TL Q6HR PRN Nausea / Vomiting Ondansetron HCl 4 mg 02/23/25 20:18 02/26/25 19:59 Ondansetron 4 Mg/2 Ml Vial IVP 4 mg Q6HR PRN Administration Nausea / Vomiting Phenol/Menthol 1 sprays 03/06/25 02:08 Phenol Throat [place] 177 Ml MM Q4HR PRN Mouth Sore Pain Polyethylene Glycol 17 gm 03/04/25 09:00 03/12/25 08:53 Polyethylene Glycol 3350 17 Gm Packet PO 17 gm DAILY BART Administration Multivit/Folic Acid/Iron 1 tab 02/23/25 20:18 03/12/25 08:53 Vitamin Tablet PO 1 tab DAILYWM BART Administration Sodium Chloride 10 ml 02/23/25 20:18 03/11/25 11:22 Sodium Chloride Flush 0.9% 10 Ml Syringe IVP 10 ml PRN PRN Administration NEEDED PER PROVIDER ORDERS Sodium Chloride 10 ml 02/24/25 01:00 03/12/25 16:01 Sodium Chloride Flush 0.9% 10 Ml Syringe IVP Not Given 0100,0900,1700 BART Thiamine HCl 100 mg 02/24/25 09:00 03/12/25 08:53 Thiamine 100 Mg Tablet PO 100 mg DAILY BART Administration Throat Lozenges 1 lozenge 03/06/25 02:08 Benzocaine/Menthol Lozenge MM Q2HR PRN Mouth Sore Pain Zinc Oxide 113 gm 03/08/25 07:04 03/09/25 01:41 Cod Liver Oil/Zinc Oxide 113 Gm Tube TOP 1 applic PRN PRN Administration Skin Care Objective Vital Signs/Intake & Output Reviewed Vital Signs: Yes Vital Signs: Vital Signs x48h Temp Pulse Resp BP Pulse Ox 03/12/25 16:01 36.4 C L 66 20 152/67 H 95 Intake & Output: Intake & Output 03/09/25 03/10/25 03/11/25 03/12/25 23:59 23:59 23:59 23:59 Intake Total 2225 / 2225 3080 / 3080 1640 / 1640 2180 / 2180 Output Total 850 / 850 1350 / 1350 1550 / 1550 550 / 550 Balance 1375 / 1375 1730 / 1730 90 / 90 1630 / 1630 Weight (kg) 58 kg 58.5 kg 59.5 kg 59.5 kg Objective General Appearance: positive No acute distress and Alert Eyes Bilateral: positive Normal inspection and Conjunctivae nml ENT: positive ENT inspection nml Neck: positive Nml inspection Respiratory: positive No respiratory distress and Breath sounds nml Cardiovascular: positive No murmur and Bradycardia Abdomen: positive Non-tender and No distention Skin: positive Color nml and No rash Extremities: positive Non-tender and No pedal edema Neurologic/Psychiatric: positive Other (oriented to self, place and situation, but not time. ) Lab Results 03/12/25 04:10 03/12/25 04:10 Other Labs: Lab Results x24hrs 03/12/25 Range/Units 04:10 WBC 10.0 (4.8-10.8) x10^3/uL RBC 3.52 L (4.20-5.40) 10^6/uL Hgb 10.6 L (12.0-16.0) g/dL Hct 34.0 L (37.0-47.0) % MCV 96.6 (81.0-99.0) fL MCH 30.1 (27.0-31.0) pg MCHC 31.2 L (32.0-36.0) g/dL RDW 13.4 (12.0-15.0) % Plt Count 247 (130-450) 10^3/uL MPV 9.7 (7.9-10.8) fL Neut # (Auto) 6.2 (1.5-6.6) 10^3/uL Lymph # (Auto) 2.6 (1.5-3.5) 10^3/uL [place] # (Auto) 0.8 (0.0-1.0) 10^3/uL Eos # (Auto) 0.3 (0.0-0.7) 10^3/uL Baso # (Auto) 0.1 (0.0-0.1) 10^3/uL Absolute Nucleated RBC 0.00 x10^3/uL Nucleated RBC % 0.0 /100WBC Sodium 141 (135-145) mmol/L Potassium 4.3 (3.5-4.5) mmol/L Chloride 111 (101-111) mmol/L Carbon Dioxide 27 (21-32) mmol/L Anion Gap 3.0 L (6-13) BUN 19 (6-20) mg/dL Creatinine 1.2 (0.6-1.3) mg/dL Estimated GFR (MDRD) 43 L (>89) Glucose 96 (74-104) mg/dL Calcium 8.6 (8.5-10.3) mg/dL Assessment/Plan Problem List (1) Bacteremia: Impression: Has an Aerococcus urinae bacteremia noted on blood cultures on 02/23/2025 Will have completed 2 weeks of IV Rocephin on 03/13 She is eating and drinking well. I have stopped IVF (2) Leukocytosis: Impression: this has resolved with treatment of her positive blood cultures and urinary tract infection. (3) Hypertension: Impression: Selected Entries 03/12/25 00:48 03/12/25 07:37 03/12/25 16:01 Blood Pressure [Left Brachial artery] 165/75 H 146/87 H 152/67 H No blood pressure meds listed in home meds. with her SBP mostly <160, and her health status, I will not start blood pressure meds. (4) Metabolic encephalopathy: Impression: When she is at baseline, she is typically oriented and conversant but needs help moving from bed to chair, this has been a significant change for her, and her family is well aware that she needs rehab, and it will take quite a while before she improves to previous baseline, if she does do that. She was evaluated by physical therapy, who reports that she needs max assist x 1 for any ambulation Plan to DC to SNF. Insurance auth in progress at accepting facility. UA, CXR, CT head, MRI brain all normal COVID-positive, Is now out of her isolation window E. coli UTI, receiving antibiotics 03/07: Started mirtazapine for appetite stimulation. Monitoring for serotonin syndrome (5) COVID-19: Impression: Completed course of Decadron. Out of isolation (6) Acute cystitis: Impression: E. coli UTI. She has completed Rocephin for UTI, now continuing for her bacteremia Qualifiers: Hematuria presence: with hematuria Qualified Code(s): N30.01 - Acute cystitis with hematuria (7) Lewy body dementia: Impression: Aricept has been restarted. I have spent 36 minutes in the care of this patient today. This includes time [id number], review and ordering of laboratory studies. Monitoring the patient's signs symptoms, evaluation of medication effectiveness and patient's response to treatment.
--- NOTE | 2025-03-13 14:58 | PROVIDER PROGRESS NOTE ---
Subjective Prog Note Date Prog Note Date: 03/13/25 Subjective Pt reports feeling: No change Subjective: She is sitting up in the bedside chair. enjoyed family today. she tells me that she does not want to go to [facility]. I explained to her that I spoke with her son Jones last evening, and that home is just not ready for her yet. Current Medications Current Medications Current Medications: Current Medications Generic Name Dose Route Start Last Admin Trade Name Freq PRN Reason Stop Dose Admin Acetaminophen 650 mg 02/23/25 20:18 03/12/25 16:00 Acetaminophen 325 Mg Tablet PO 650 mg Q4HR PRN Administration Pain 1 to 4, or Fever Benzonatate 100 mg 03/06/25 02:08 03/08/25 02:12 Benzonatate 100 Mg Capsule PO 100 mg TID PRN Administration Cough Calcium Carbonate/Glycine 500 mg 03/10/25 18:45 03/12/25 16:00 Calcium Carbonate Chew 500 Mg Tablet PO 500 mg BID PRN Administration Heartburn Carboxymethylcellulose 1 drops 02/24/25 14:00 03/13/25 13:13 Carboxymethylcellulose Ophth Drops EACHEYE 1 drops Q4HR BART Administration Cholecalciferol 50 mcg 02/25/25 09:00 03/13/25 09:42 Cholecalciferol 25 Mcg Tablet PO 50 mcg DAILY BART Administration Donepezil HCl 2.5 mg 03/01/25 21:00 03/12/25 20:59 Donepezil 5 Mg Tablet PO 2.5 mg QPM BART Administration Enoxaparin Sodium 30 mg 02/24/25 09:00 03/13/25 09:55 Enoxaparin 30 Mg/0.3 Ml Syringe SUBQ Not Given DAILY BART Sodium Chloride 1,000 mls @ 75 mls/hr 03/09/25 02:00 03/13/25 05:17 Normal Saline 0.9% IV 75 mls/hr .[id number] BART Administration Mirtazapine 15 mg 03/07/25 21:00 03/12/25 20:59 Mirtazapine 15 Mg Tablet PO 15 mg QPM BART Administration Nystatin 5 ml 02/24/25 13:12 03/13/25 13:13 Nystatin [id number] Units/5 Ml Udc PO 5 ml QID BART Administration Ondansetron HCl 4 mg 02/23/25 20:18 Ondansetron Odt 4 Mg Tablet TL Q6HR PRN Nausea / Vomiting Ondansetron HCl 4 mg 02/23/25 20:18 02/26/25 19:59 Ondansetron 4 Mg/2 Ml Vial IVP 4 mg Q6HR PRN Administration Nausea / Vomiting Phenol/Menthol 1 sprays 03/06/25 02:08 Phenol Throat [place] 177 Ml MM Q4HR PRN Mouth Sore Pain Polyethylene Glycol 17 gm 03/04/25 09:00 03/13/25 09:42 Polyethylene Glycol 3350 17 Gm Packet PO 17 gm DAILY BART Administration Multivit/Folic Acid/Iron 1 tab 02/23/25 20:18 03/13/25 09:42 Vitamin Tablet PO 1 tab DAILYWM BART Administration Sodium Chloride 10 ml 02/23/25 20:18 03/11/25 11:22 Sodium Chloride Flush 0.9% 10 Ml Syringe IVP 10 ml PRN PRN Administration NEEDED PER PROVIDER ORDERS Sodium Chloride 10 ml 02/24/25 01:00 03/13/25 09:43 Sodium Chloride Flush 0.9% 10 Ml Syringe IVP 10 ml 0100,0900,1700 BART Administration Thiamine HCl 100 mg 02/24/25 09:00 03/13/25 09:42 Thiamine 100 Mg Tablet PO 100 mg DAILY BART Administration Throat Lozenges 1 lozenge 03/06/25 02:08 Benzocaine/Menthol Lozenge MM Q2HR PRN Mouth Sore Pain Zinc Oxide 113 gm 03/08/25 07:04 03/13/25 05:18 Cod Liver Oil/Zinc Oxide 113 Gm Tube TOP 1 applic PRN PRN Administration Skin Care Objective Vital Signs/Intake & Output Reviewed Vital Signs: Yes Vital Signs: Vital Signs x48h Temp Pulse Resp BP Pulse Ox 03/13/25 09:00 36.3 C L 56 L 16 127/75 98 Intake & Output: Intake & Output 03/10/25 03/11/25 03/12/25 03/13/25 23:59 23:59 23:59 23:59 Intake Total 3080 / 3080 1640 / 1640 2358 / 2358 1300 / 1300 Output Total 1350 / 1350 1550 / 1550 1300 / 1300 1300 / 1300 Balance 1730 / 1730 90 / 90 1058 / 1058 0 / 0 Weight (kg) 58.5 kg 59.5 kg 59.5 kg 59.5 kg Objective General Appearance: positive No acute distress and Alert Eyes Bilateral: positive Normal inspection and Conjunctivae nml ENT: positive ENT inspection nml Neck: positive Nml inspection Respiratory: positive No respiratory distress and Breath sounds nml Cardiovascular: positive No murmur and Bradycardia Abdomen: positive Non-tender and No distention Skin: positive Color nml and No rash Extremities: positive Non-tender and No pedal edema Neurologic/Psychiatric: positive Other (oriented to self, place and situation, but not time. ) Lab Results 03/12/25 04:10 03/12/25 04:10 Other Labs: Lab Results x24hrs 03/12/25 Range/Units 04:10 WBC 10.0 (4.8-10.8) x10^3/uL RBC 3.52 L (4.20-5.40) 10^6/uL Hgb 10.6 L (12.0-16.0) g/dL Hct 34.0 L (37.0-47.0) % MCV 96.6 (81.0-99.0) fL MCH 30.1 (27.0-31.0) pg MCHC 31.2 L (32.0-36.0) g/dL RDW 13.4 (12.0-15.0) % Plt Count 247 (130-450) 10^3/uL MPV 9.7 (7.9-10.8) fL Neut # (Auto) 6.2 (1.5-6.6) 10^3/uL Lymph # (Auto) 2.6 (1.5-3.5) 10^3/uL [place] # (Auto) 0.8 (0.0-1.0) 10^3/uL Eos # (Auto) 0.3 (0.0-0.7) 10^3/uL Baso # (Auto) 0.1 (0.0-0.1) 10^3/uL Absolute Nucleated RBC 0.00 x10^3/uL Nucleated RBC % 0.0 /100WBC Sodium 141 (135-145) mmol/L Potassium 4.3 (3.5-4.5) mmol/L Chloride 111 (101-111) mmol/L Carbon Dioxide 27 (21-32) mmol/L Anion Gap 3.0 L (6-13) BUN 19 (6-20) mg/dL Creatinine 1.2 (0.6-1.3) mg/dL Estimated GFR (MDRD) 43 L (>89) Glucose 96 (74-104) mg/dL Calcium 8.6 (8.5-10.3) mg/dL Assessment/Plan Problem List (1) Bacteremia: Impression: Has an Aerococcus urinae bacteremia noted on blood cultures on 02/23/2025 She completed abx today. She is medically clear to go to SNF as of today. She is eating and drinking well. I have stopped IVF (2) Leukocytosis: Impression: this has resolved with treatment of her positive blood cultures and urinary tract infection. (3) Hypertension: Impression: Selected Entries 03/13/25 00:42 03/13/25 09:00 03/13/25 16:09 Blood Pressure [Left Brachial artery] 136/63 H 127/75 114/66 No blood pressure meds listed in home meds. with her SBP mostly <160, and her health status, I will not start blood pressure meds. (4) Metabolic encephalopathy: Impression: When she is at baseline, she is typically oriented and conversant but needs help moving from bed to chair, this has been a significant change for her, and her family is well aware that she needs rehab, and it will take quite a while before she improves to previous baseline, if she does do that. She is making progress, but still requires more care than previous to her illness. She was evaluated by physical therapy, who reports that she needs max assist x 1 for any ambulation Plan to DC to SNF. Insurance auth in progress at accepting facility. UA, CXR, CT head, MRI brain all normal COVID-positive, Is now out of her isolation window E. coli UTI, abx complete. 03/07: Started mirtazapine for appetite stimulation. Monitoring for serotonin syndrome- no indication that this is developing. (5) COVID-19: Impression: Completed course of Decadron. Out of isolation (6) Acute cystitis: Impression: E. coli UTI. She has completed Rocephin for UTI, now finished for her bacteremia Qualifiers: Hematuria presence: with hematuria Qualified Code(s): N30.01 - Acute cystitis with hematuria (7) Lewy body dementia: Impression: Aricept has been restarted. I have spent 28 minutes in the care of this patient today. This includes time [id number], review and ordering of laboratory studies. Monitoring the patient's signs symptoms, evaluation of medication effectiveness and patient's response to treatment.
[2025-03-14 12:10] LABS: HCT - HEMATOCRIT 32.9 % (37.0-47.0); HGB - HEMOGLOBIN 10.7 g/dL (12.0-16.0); MEAN PLATELET VOLUME 9.9 fL (7.9-10.8); NRBC ABSOLUTE COUNT (AUTO) 0.00 x10^3/uL; NUCLEATED RED BLOOD CELLS AUTO 0.0 /100WBC; PLT - PLATELET COUNT 233 10^3/uL (130-450); RED CELL DISTRIBUTION WIDTH 13.5 % (12.0-15.0)
[2025-03-14 12:45] LABS: BUN - BLOOD UREA NITROGEN 21.0 mg/dL (6-20); CARBON DIOXIDE - CO2 29.0 mmol/L (21-32); CREATININE 1.1 mg/dL (0.6-1.3); GFR - MDRD 48.0 (>89)
--- NOTE | 2025-03-14 18:38 | PROVIDER PROGRESS NOTE ---
Subjective Prog Note Date Prog Note Date: 03/14/25 Subjective Subjective: son at bedside. She is confused this evening, but pleasantly so. no complaints aside from wanting to go home. Current Medications Current Medications Current Medications: Current Medications Generic Name Dose Route Start Last Admin Trade Name Freq PRN Reason Stop Dose Admin Acetaminophen 650 mg 02/23/25 20:18 03/14/25 16:16 Acetaminophen 325 Mg Tablet PO 650 mg Q4HR PRN Administration Pain 1 to 4, or Fever Benzonatate 100 mg 03/06/25 02:08 03/08/25 02:12 Benzonatate 100 Mg Capsule PO 100 mg TID PRN Administration Cough Calcium Carbonate/Glycine 500 mg 03/10/25 18:45 03/13/25 21:22 Calcium Carbonate Chew 500 Mg Tablet PO 500 mg BID PRN Administration Heartburn Carboxymethylcellulose 1 drops 02/24/25 14:00 03/14/25 16:16 Carboxymethylcellulose Ophth Drops EACHEYE 1 drops Q4HR BART Administration Cholecalciferol 50 mcg 02/25/25 09:00 03/14/25 09:17 Cholecalciferol 25 Mcg Tablet PO 50 mcg DAILY BART Administration Donepezil HCl 2.5 mg 03/01/25 21:00 03/13/25 20:55 Donepezil 5 Mg Tablet PO 2.5 mg QPM BART Administration Enoxaparin Sodium 30 mg 02/24/25 09:00 03/14/25 09:17 Enoxaparin 30 Mg/0.3 Ml Syringe SUBQ Not Given DAILY BART Mirtazapine 15 mg 03/07/25 21:00 03/13/25 20:56 Mirtazapine 15 Mg Tablet PO 15 mg QPM BART Administration Nystatin 5 ml 02/24/25 13:12 03/14/25 16:16 Nystatin [id number] Units/5 Ml Udc PO 5 ml QID BART Administration Ondansetron HCl 4 mg 02/23/25 20:18 Ondansetron Odt 4 Mg Tablet TL Q6HR PRN Nausea / Vomiting Ondansetron HCl 4 mg 02/23/25 20:18 02/26/25 19:59 Ondansetron 4 Mg/2 Ml Vial IVP 4 mg Q6HR PRN Administration Nausea / Vomiting Phenol/Menthol 1 sprays 03/06/25 02:08 Phenol Throat [place] 177 Ml MM Q4HR PRN Mouth Sore Pain Polyethylene Glycol 17 gm 03/04/25 09:00 03/14/25 09:17 Polyethylene Glycol 3350 17 Gm Packet PO 17 gm DAILY BART Administration Multivit/Folic Acid/Iron 1 tab 02/23/25 20:18 03/14/25 09:17 Vitamin Tablet PO 1 tab DAILYWM BART Administration Sodium Chloride 10 ml 02/23/25 20:18 03/11/25 11:22 Sodium Chloride Flush 0.9% 10 Ml Syringe IVP 10 ml PRN PRN Administration NEEDED PER PROVIDER ORDERS Sodium Chloride 10 ml 02/24/25 01:00 03/14/25 16:16 Sodium Chloride Flush 0.9% 10 Ml Syringe IVP 10 ml 0100,0900,1700 BART Administration Thiamine HCl 100 mg 02/24/25 09:00 03/14/25 09:17 Thiamine 100 Mg Tablet PO 100 mg DAILY BART Administration Throat Lozenges 1 lozenge 03/06/25 02:08 Benzocaine/Menthol Lozenge MM Q2HR PRN Mouth Sore Pain Zinc Oxide 113 gm 03/08/25 07:04 03/13/25 05:18 Cod Liver Oil/Zinc Oxide 113 Gm Tube TOP 1 applic PRN PRN Administration Skin Care Objective Vital Signs/Intake & Output Reviewed Vital Signs: Yes Vital Signs: Vital Signs x48h Temp Pulse Resp BP Pulse Ox 03/14/25 17:19 36.5 C 69 16 136/90 H 95 Intake & Output: Intake & Output 03/11/25 03/12/25 03/13/25 03/14/25 23:59 23:59 23:59 23:59 Intake Total 1640 / 1640 2358 / 2358 2695 / 2695 710 / 710 Output Total 1550 / 1550 1300 / 1300 2350 / 2350 750 / 750 Balance 90 / 90 1058 / 1058 345 / 345 -40 / -40 Weight (kg) 59.5 kg 59.5 kg 59.5 kg 59.5 kg Objective General Appearance: positive No acute distress and Alert Eyes Bilateral: positive Normal inspection and Conjunctivae nml ENT: positive ENT inspection nml Neck: positive Nml inspection Respiratory: positive No respiratory distress and Breath sounds nml Cardiovascular: positive No murmur and Bradycardia Abdomen: positive Non-tender and No distention Skin: positive Color nml and No rash Extremities: positive Non-tender and No pedal edema Neurologic/Psychiatric: positive Other (oriented to self, place and situation, but not time. ) Lab Results 03/14/25 11:47 03/14/25 11:47 Other Labs: Lab Results x24hrs 03/14/25 Range/Units 11:47 WBC 9.5 (4.8-10.8) x10^3/uL RBC 3.49 L (4.20-5.40) 10^6/uL Hgb 10.7 L (12.0-16.0) g/dL Hct 32.9 L (37.0-47.0) % MCV 94.3 (81.0-99.0) fL MCH 30.7 (27.0-31.0) pg MCHC 32.5 (32.0-36.0) g/dL RDW 13.5 (12.0-15.0) % Plt Count 233 (130-450) 10^3/uL MPV 9.9 (7.9-10.8) fL Neut # (Auto) 6.9 H (1.5-6.6) 10^3/uL Lymph # (Auto) 1.7 (1.5-3.5) 10^3/uL [place] # (Auto) 0.7 (0.0-1.0) 10^3/uL Eos # (Auto) 0.1 (0.0-0.7) 10^3/uL Baso # (Auto) 0.1 (0.0-0.1) 10^3/uL Absolute Nucleated RBC 0.00 x10^3/uL Nucleated RBC % 0.0 /100WBC Sodium 141 (135-145) mmol/L Potassium 4.1 (3.5-4.5) mmol/L Chloride 107 (101-111) mmol/L Carbon Dioxide 29 (21-32) mmol/L Anion Gap 5.0 L (6-13) BUN 21 H (6-20) mg/dL Creatinine 1.1 (0.6-1.3) mg/dL Estimated GFR (MDRD) 48 L (>89) Glucose 125 H (74-104) mg/dL Calcium 9.2 (8.5-10.3) mg/dL Assessment/Plan Problem List (1) Bacteremia: Impression: Has an Aerococcus urinae bacteremia noted on blood cultures on 02/23/2025 She completed abx 03/13. She is medically clear to go to SNF as of today. She is eating and drinking well. I have stopped IVF Today is an avoidable day. She is medically clear. (2) Leukocytosis: Impression: this has resolved with treatment of her positive blood cultures and urinary tract infection. (3) Hypertension: Impression: Selected Entries 03/13/25 00:42 03/13/25 09:00 03/13/25 16:09 Blood Pressure [Left Brachial artery] 136/63 H 127/75 114/66 No blood pressure meds listed in home meds. with her SBP mostly <160, and her health status, I will not start blood pressure meds. (4) Metabolic encephalopathy: Impression: When she is at baseline, she is typically oriented and conversant but needs help moving from bed to chair, this has been a significant change for her, and her family is well aware that she needs rehab, and it will take quite a while before she improves to previous baseline, if she does do that. She is making progress, but still requires more care than previous to her illness. She was evaluated by physical therapy, who reports that she needs max assist x 1 for any ambulation Plan to DC to SNF. Insurance auth in progress at accepting facility, we had hoped to get that completed today, but we are continuing to wait. UA, CXR, CT head, MRI brain all normal COVID-positive, Is now out of her isolation window E. coli UTI, abx complete. 03/07: Started mirtazapine for appetite stimulation. Monitoring for serotonin syndrome- no indication that this is developing. (5) COVID-19: Impression: Completed course of Decadron. Out of isolation (6) Acute cystitis: Impression: E. coli UTI. She has completed Rocephin for UTI, now finished for her bacteremia Qualifiers: Hematuria presence: with hematuria Qualified Code(s): N30.01 - Acute cystitis with hematuria (7) Lewy body dementia: Impression: Aricept has been restarted. I have spent 28 minutes in the care of this patient today. This includes time [id number], review and ordering of laboratory studies. Monitoring the patient's signs symptoms, evaluation of medication effectiveness and patient's response to treatment.
--- NOTE | 2025-03-15 18:22 | PROVIDER PROGRESS NOTE ---
Subjective Prog Note Date Prog Note Date: 03/15/25 Subjective Subjective: and son at bedside this evening. She is without complaints. voice remains soft and hard to understand. Current Medications Current Medications Current Medications: Current Medications Generic Name Dose Route Start Last Admin Trade Name Freq PRN Reason Stop Dose Admin Acetaminophen 650 mg 02/23/25 20:18 03/15/25 08:03 Acetaminophen 325 Mg Tablet PO 650 mg Q4HR PRN Administration Pain 1 to 4, or Fever Benzonatate 100 mg 03/06/25 02:08 03/08/25 02:12 Benzonatate 100 Mg Capsule PO 100 mg TID PRN Administration Cough Calcium Carbonate/Glycine 500 mg 03/10/25 18:45 03/14/25 20:41 Calcium Carbonate Chew 500 Mg Tablet PO 500 mg BID PRN Administration Heartburn Carboxymethylcellulose 1 drops 02/24/25 14:00 03/15/25 13:41 Carboxymethylcellulose Ophth Drops EACHEYE 1 drops Q4HR BART Administration Cholecalciferol 50 mcg 02/25/25 09:00 03/15/25 09:16 Cholecalciferol 25 Mcg Tablet PO 50 mcg DAILY BART Administration Donepezil HCl 2.5 mg 03/01/25 21:00 03/14/25 20:41 Donepezil 5 Mg Tablet PO 2.5 mg QPM BART Administration Enoxaparin Sodium 30 mg 02/24/25 09:00 03/15/25 09:16 Enoxaparin 30 Mg/0.3 Ml Syringe SUBQ Not Given DAILY BART Mirtazapine 15 mg 03/07/25 21:00 03/14/25 20:41 Mirtazapine 15 Mg Tablet PO 15 mg QPM BART Administration Ondansetron HCl 4 mg 02/23/25 20:18 Ondansetron Odt 4 Mg Tablet TL Q6HR PRN Nausea / Vomiting Ondansetron HCl 4 mg 02/23/25 20:18 02/26/25 19:59 Ondansetron 4 Mg/2 Ml Vial IVP 4 mg Q6HR PRN Administration Nausea / Vomiting Phenol/Menthol 1 sprays 03/06/25 02:08 Phenol Throat [place] 177 Ml MM Q4HR PRN Mouth Sore Pain Polyethylene Glycol 17 gm 03/04/25 09:00 03/15/25 09:16 Polyethylene Glycol 3350 17 Gm Packet PO 17 gm DAILY BART Administration Multivit/Folic Acid/Iron 1 tab 02/23/25 20:18 03/15/25 09:16 Vitamin Tablet PO 1 tab DAILYWM BART Administration Sodium Chloride 10 ml 02/23/25 20:18 03/11/25 11:22 Sodium Chloride Flush 0.9% 10 Ml Syringe IVP 10 ml PRN PRN Administration NEEDED PER PROVIDER ORDERS Sodium Chloride 10 ml 02/24/25 01:00 03/15/25 09:16 Sodium Chloride Flush 0.9% 10 Ml Syringe IVP 10 ml 0100,0900,1700 BART Administration Thiamine HCl 100 mg 02/24/25 09:00 03/15/25 09:16 Thiamine 100 Mg Tablet PO 100 mg DAILY BART Administration Throat Lozenges 1 lozenge 03/06/25 02:08 Benzocaine/Menthol Lozenge MM Q2HR PRN Mouth Sore Pain Zinc Oxide 113 gm 03/08/25 07:04 03/13/25 05:18 Cod Liver Oil/Zinc Oxide 113 Gm Tube TOP 1 applic PRN PRN Administration Skin Care Objective Vital Signs/Intake & Output Reviewed Vital Signs: Yes Vital Signs: Vital Signs x48h Temp Pulse Resp BP Pulse Ox 03/15/25 17:00 36.5 C 64 16 152/75 H 96 Intake & Output: Intake & Output 03/12/25 03/13/25 03/14/25 03/15/25 23:59 23:59 23:59 23:59 Intake Total 2358 / 2358 2695 / 2695 710 / 710 580 / 580 Output Total 1300 / 1300 2350 / 2350 1150 / 1150 650 / 650 Balance 1058 / 1058 345 / 345 -440 / -440 -70 / -70 Weight (kg) 59.5 kg 59.5 kg 59.5 kg 59 kg Objective General Appearance: positive No acute distress and Alert Eyes Bilateral: positive Normal inspection and Conjunctivae nml ENT: positive ENT inspection nml Neck: positive Nml inspection Respiratory: positive No respiratory distress and Breath sounds nml Cardiovascular: positive No murmur Abdomen: positive No distention Skin: positive Color nml and No rash Extremities: positive Non-tender and No pedal edema Neurologic/Psychiatric: positive Other (oriented to self, place and situation, but not time. ) Lab Results 03/14/25 11:47 03/14/25 11:47 Other Labs: Lab Results x24hrs 03/14/25 Range/Units 11:47 WBC 9.5 (4.8-10.8) x10^3/uL RBC 3.49 L (4.20-5.40) 10^6/uL Hgb 10.7 L (12.0-16.0) g/dL Hct 32.9 L (37.0-47.0) % MCV 94.3 (81.0-99.0) fL MCH 30.7 (27.0-31.0) pg MCHC 32.5 (32.0-36.0) g/dL RDW 13.5 (12.0-15.0) % Plt Count 233 (130-450) 10^3/uL MPV 9.9 (7.9-10.8) fL Neut # (Auto) 6.9 H (1.5-6.6) 10^3/uL Lymph # (Auto) 1.7 (1.5-3.5) 10^3/uL [place] # (Auto) 0.7 (0.0-1.0) 10^3/uL Eos # (Auto) 0.1 (0.0-0.7) 10^3/uL Baso # (Auto) 0.1 (0.0-0.1) 10^3/uL Absolute Nucleated RBC 0.00 x10^3/uL Nucleated RBC % 0.0 /100WBC Sodium 141 (135-145) mmol/L Potassium 4.1 (3.5-4.5) mmol/L Chloride 107 (101-111) mmol/L Carbon Dioxide 29 (21-32) mmol/L Anion Gap 5.0 L (6-13) BUN 21 H (6-20) mg/dL Creatinine 1.1 (0.6-1.3) mg/dL Estimated GFR (MDRD) 48 L (>89) Glucose 125 H (74-104) mg/dL Calcium 9.2 (8.5-10.3) mg/dL Assessment/Plan Problem List (1) Bacteremia: Impression: Has an Aerococcus urinae bacteremia noted on blood cultures on 02/23/2025 She completed abx 03/13. She is medically clear to go to SNF as of 8/22. She is eating and drinking well. I have stopped IVF Today is an avoidable day. She is medically clear. (2) Leukocytosis: Impression: this has resolved with treatment of her positive blood cultures and urinary tract infection. (3) Hypertension: Impression: No blood pressure meds listed in home meds. with her SBP mostly <160, and her health status, I will not start blood pressure meds. (4) Metabolic encephalopathy: Impression: When she is at baseline, she is typically oriented and conversant but needs help moving from bed to chair, this has been a significant change for her, and her family is well aware that she needs rehab, and it will take quite a while before she improves to previous baseline, if she does do that. She is making progress, but still requires more care than previous to her illness. She was evaluated by physical therapy, who reports that she needs max assist x 1 for any ambulation Plan to DC to SNF. Insurance auth in progress at accepting facility, we had hoped to get that completed today, but we are continuing to wait. I think she will benefit greatly from a short course at SNF. She should also have speech tx while she is there, this might help with her weak voice. We do not have speech therapy here. UA, CXR, CT head, MRI brain all normal COVID-positive, Is now out of her isolation window E. coli UTI, abx complete. 03/07: Started mirtazapine for appetite stimulation. Monitoring for serotonin syndrome- no indication that this is developing. (5) COVID-19: Impression: Completed course of Decadron. Out of isolation (6) Acute cystitis: Impression: E. coli UTI. She has completed Rocephin for UTI, now finished for her bacteremia Qualifiers: Hematuria presence: with hematuria Qualified Code(s): N30.01 - Acute cystitis with hematuria (7) Lewy body dementia: Impression: Aricept has been restarted. I have spent 26 minutes in the care of this patient today. This includes time [id number], review and ordering of laboratory studies. Monitoring the patient's signs symptoms, evaluation of medication effectiveness and patient's response to treatment.
--- NOTE | 2025-03-16 14:24 | PROVIDER PROGRESS NOTE ---
Subjective Prog Note Date Prog Note Date: 03/16/25 Subjective Subjective: Son and grandson at bedside. She is falling asleep in her chair. Current Medications Current Medications Current Medications: Current Medications Generic Name Dose Route Start Last Admin Trade Name Freq PRN Reason Stop Dose Admin Acetaminophen 650 mg 02/23/25 20:18 03/16/25 08:46 Acetaminophen 325 Mg Tablet PO 650 mg Q4HR PRN Administration Pain 1 to 4, or Fever Benzonatate 100 mg 03/06/25 02:08 03/08/25 02:12 Benzonatate 100 Mg Capsule PO 100 mg TID PRN Administration Cough Calcium Carbonate/Glycine 500 mg 03/10/25 18:45 03/15/25 20:34 Calcium Carbonate Chew 500 Mg Tablet PO 500 mg BID PRN Administration Heartburn Carboxymethylcellulose 1 drops 02/24/25 14:00 03/16/25 08:46 Carboxymethylcellulose Ophth Drops EACHEYE 1 drops Q4HR BART Administration Cholecalciferol 50 mcg 02/25/25 09:00 03/16/25 08:46 Cholecalciferol 25 Mcg Tablet PO 50 mcg DAILY BART Administration Donepezil HCl 2.5 mg 03/01/25 21:00 03/15/25 20:33 Donepezil 5 Mg Tablet PO 2.5 mg QPM BART Administration Enoxaparin Sodium 30 mg 02/24/25 09:00 03/16/25 09:36 Enoxaparin 30 Mg/0.3 Ml Syringe SUBQ 30 mg DAILY BART Administration Mirtazapine 15 mg 03/07/25 21:00 03/15/25 20:33 Mirtazapine 15 Mg Tablet PO 15 mg QPM BART Administration Ondansetron HCl 4 mg 02/23/25 20:18 Ondansetron Odt 4 Mg Tablet TL Q6HR PRN Nausea / Vomiting Ondansetron HCl 4 mg 02/23/25 20:18 02/26/25 19:59 Ondansetron 4 Mg/2 Ml Vial IVP 4 mg Q6HR PRN Administration Nausea / Vomiting Phenol/Menthol 1 sprays 03/06/25 02:08 Phenol Throat [place] 177 Ml MM Q4HR PRN Mouth Sore Pain Polyethylene Glycol 17 gm 03/04/25 09:00 03/16/25 08:46 Polyethylene Glycol 3350 17 Gm Packet PO 17 gm DAILY BART Administration Multivit/Folic Acid/Iron 1 tab 02/23/25 20:18 03/16/25 08:46 Vitamin Tablet PO 1 tab DAILYWM BART Administration Sodium Chloride 10 ml 02/23/25 20:18 03/11/25 11:22 Sodium Chloride Flush 0.9% 10 Ml Syringe IVP 10 ml PRN PRN Administration NEEDED PER PROVIDER ORDERS Sodium Chloride 10 ml 02/24/25 01:00 03/16/25 08:47 Sodium Chloride Flush 0.9% 10 Ml Syringe IVP 10 ml 0100,0900,1700 BART Administration Thiamine HCl 100 mg 02/24/25 09:00 03/16/25 08:46 Thiamine 100 Mg Tablet PO 100 mg DAILY BART Administration Throat Lozenges 1 lozenge 03/06/25 02:08 Benzocaine/Menthol Lozenge MM Q2HR PRN Mouth Sore Pain Zinc Oxide 113 gm 03/08/25 07:04 03/13/25 05:18 Cod Liver Oil/Zinc Oxide 113 Gm Tube TOP 1 applic PRN PRN Administration Skin Care Objective Vital Signs/Intake & Output Reviewed Vital Signs: Yes Vital Signs: Vital Signs x48h Temp Pulse Resp BP Pulse Ox 03/16/25 08:22 36.7 C 64 16 140/71 H 95 Intake & Output: Intake & Output 03/13/25 03/14/25 03/15/25 03/16/25 23:59 23:59 23:59 23:59 Intake Total 2695 / 2695 710 / 710 780 / 780 340 / 340 Output Total 2350 / 2350 1150 / 1150 650 / 650 150 / 150 Balance 345 / 345 -440 / -440 130 / 130 190 / 190 Weight (kg) 59.5 kg 59.5 kg 59 kg 58.5 kg Objective General Appearance: positive No acute distress and Alert Eyes Bilateral: positive Normal inspection and Conjunctivae nml ENT: positive ENT inspection nml Neck: positive Nml inspection Respiratory: positive No respiratory distress and Breath sounds nml Cardiovascular: positive Regular rate & rhythm and No murmur Abdomen: positive No distention Skin: positive Color nml and No rash Extremities: positive Non-tender and No pedal edema Neurologic/Psychiatric: positive Other (oriented to self, place and situation, but not time. ) Lab Results 03/14/25 11:47 03/14/25 11:47 Other Labs: Lab Results x24hrs 03/14/25 Range/Units 11:47 WBC 9.5 (4.8-10.8) x10^3/uL RBC 3.49 L (4.20-5.40) 10^6/uL Hgb 10.7 L (12.0-16.0) g/dL Hct 32.9 L (37.0-47.0) % MCV 94.3 (81.0-99.0) fL MCH 30.7 (27.0-31.0) pg MCHC 32.5 (32.0-36.0) g/dL RDW 13.5 (12.0-15.0) % Plt Count 233 (130-450) 10^3/uL MPV 9.9 (7.9-10.8) fL Neut # (Auto) 6.9 H (1.5-6.6) 10^3/uL Lymph # (Auto) 1.7 (1.5-3.5) 10^3/uL [place] # (Auto) 0.7 (0.0-1.0) 10^3/uL Eos # (Auto) 0.1 (0.0-0.7) 10^3/uL Baso # (Auto) 0.1 (0.0-0.1) 10^3/uL Absolute Nucleated RBC 0.00 x10^3/uL Nucleated RBC % 0.0 /100WBC Sodium 141 (135-145) mmol/L Potassium 4.1 (3.5-4.5) mmol/L Chloride 107 (101-111) mmol/L Carbon Dioxide 29 (21-32) mmol/L Anion Gap 5.0 L (6-13) BUN 21 H (6-20) mg/dL Creatinine 1.1 (0.6-1.3) mg/dL Estimated GFR (MDRD) 48 L (>89) Glucose 125 H (74-104) mg/dL Calcium 9.2 (8.5-10.3) mg/dL Assessment/Plan Problem List (1) Bacteremia: Impression: Has an Aerococcus urinae bacteremia noted on blood cultures on 02/23/2025 She completed abx 03/13. She is medically clear to go to SNF as of 03/14. She is eating and drinking well. I have stopped IVF. i last checked labs on 03/14 Today is an avoidable day. She is medically clear. (2) Leukocytosis: Impression: this has resolved with treatment of her positive blood cultures and urinary tract infection. (3) Hypertension: Impression: No blood pressure meds listed in home meds. with her SBP mostly <160, and her health status, I will not start blood pressure meds. (4) Metabolic encephalopathy: Impression: When she is at baseline, she is typically oriented and conversant but needs help moving from bed to chair, this has been a significant change for her, and her family is well aware that she needs rehab, and it will take quite a while before she improves to previous baseline, if she does do that. She is making progress, but still requires more care than previous to her illness. She was evaluated by physical therapy, who reports that she needs max assist x 1 for any ambulation Plan to DC to SNF. Insurance auth in progress at accepting facility, we had hoped to get that completed 03/14 but we are continuing to wait. I think she will benefit greatly from a short course at SNF. She should also have speech tx while she is there, this might help with her weak voice. We do not have speech therapy here. UA, CXR, CT head, MRI brain all normal COVID-positive, Is now out of her isolation window E. coli UTI, abx complete. 03/07: Started mirtazapine for appetite stimulation. Monitoring for serotonin syndrome- no indication that this is developing. (5) COVID-19: Impression: Completed course of Decadron. Out of isolation (6) Acute cystitis: Impression: E. coli UTI. She has completed Rocephin for UTI, now finished for her bacteremia Qualifiers: Hematuria presence: with hematuria Qualified Code(s): N30.01 - Acute cystitis with hematuria (7) Lewy body dementia: Impression: Aricept has been restarted. I have spent 27 minutes in the care of this patient today. This includes time [id number], review and ordering of laboratory studies. Monitoring the patient's signs symptoms, evaluation of medication effectiveness and patient's response to treatment.
[2025-03-16 16:37] VITALS: TEMP 97.5
--- NOTE | 2025-03-17 12:02 | Discharge Summary ---
"Discharge Summary Admit Date: 02/23/25 Discharge Date: 03/17/25 Discharging Provider: Kya Atkinson PA-C Primary Care Provider: Candice Oreilly PA-C Code Status: Do Not Attempt Resuscitation DIAGNOSES Discharge Diagnoses with Status of Each Condition: Aerococcus Urinae bacteremia, treated and resolved. Hypertension, no need for treatment Encephalopathy, at baseline. COVID-19, resolved. E Coli UTI, treated and resolved. Lewy body dementia. HPI History of Present Illness: 79-year-old female with history of Lewy body dementia on Aricept, recurrent UTI presents to the hospital with altered mental status. Son reports that at baseline she is occasionally conversant and typically oriented, but usually needs significant assistance in transferring from bed to chair to toilet. He reports that he has been getting worse over the past few days, and today she would not eat or drink anything. He reports she felt warm at some point yesterday, but no objective fevers. Patient reports no fevers. She denies chest pain, dyspnea, bowel/bladder abnormalities In the ER, workup was overall unremarkable. White blood cell count normal, chemistry normal, UA with no concern for infection, ammonia level normal, CT head, chest x-ray normal. Given her history of Lewy body dementia and inability to ambulate and now she is not eating, hospitalist was contacted for observation for further Workup of AMS CONSULTS | PROCEDURES Procedures: CXR 02/23: no acute abnormality, no infiltrates. CT head: age appropriate changes Brain MRI: no subacute infarction, age appropriate changes, paranasal sinus disease CXR 03/04: no acute process. HOSPITAL COURSE Hospital Course: Presents to the ED with AMS, not taking po for several day. Baseline status is conversant, needs help with assistance in transferring. Lives at home with family. Oldest son Rojelio is caregiver to his parents (but not DPOA). Workup positive for COVID-19 infection, as well as E coli UTI (pansensitive) and blood culture in one bottle positive for Aerococcus Urinae. She received 14 d IV rocephin for blood cultures, which incidentally treated UTI. Echocardiogram for gram pos bacteremia was not remarkable. She underwent a 6 d course of decadron for her Covid. did not ever have significant hypoxia, but did have lots of cough. She was not given remdesivir for her covid. Decadron was started when she was about 6 days into her COVID symptoms and started to need supplemental oxygen. She had a prolonged hospitalization due to the waxing and waning status of her covid infection, w symptoms preventing her from taking adequate oral intake enough to be out of the acute care environment. Ultimately she did best on a puree diet with thin liquids. She has also had trouble with weakness of her voice, mumbling and trailing off her words as she speaks. She would benefit from speech therapy evaluation at SNF. Her family identifies that this is a change from previous to this illness. She had mulitple avoidable days this hospitalization due to needing to wait for isolation window for COVID to be completed for SNF transfer, then insurance declined SNF authorization. At that point, she was no longer medically clear due to rising leukocytosis. This resolved. She was then evaluated by PT. She needs SNF for rehab with a goal to get home in the care of her family. ALLERGIES Allergies Allergy/AdvReac Type Severity Reaction Status Date / Time sertraline (From Zoloft) Allergy Severe Unknown Verified 02/23/25 18:06 grass pollen Allergy Itching Verified 02/26/25 10:44 MEDICATIONS Ambulatory Orders Medication Instructions Recorded Confirmed donepezil 5 mg tablet 2.5 mg PO QPM 02/24/2502/24 acetaminophen 325 mg tablet 650 mg (2 x 325 mg) PO Q4H R PRN 03/17/25 Pain 1 to 4, or Fever #90 tabs estradiol 0.01% (0.1 mg/gram) See Rx Instructions vagi nal 03/17/25 02/24/25 vaginal cream .COMPLEX #42.5 grams mirtazapine 15 mg tablet 15 mg PO QPM #30 tabs omeprazole 20 mg capsule,delayed 20 mg PO QDAC #30 cap s 03/17/25 02/24/25 release vit,calcium 27-ferrous 1 tab PO DAILYWM #30 t abs 03/17/25 fum 60 mg iron-folic acid 1 mg tablet (Trinatal Rx 1) thiamine mononitrate (vit B1) 100 100 mg PO DAILY #30 tabs 03/17/25 mg tablet (Vitamin B-1 (mononitrate)) PHYSICAL EXAM AT DISCHARGE Physical Exam Other/Comments: General Appearance: positive No acute distress and Alert Eyes Bilateral: positive Normal inspection and Conjunctivae nml ENT: positive ENT inspection nml Neck: positive Nml inspection Respiratory: positive No respiratory distress and Breath sounds nml Cardiovascular: positive Regular rate & rhythm and No murmur Abdomen: positive No distention Skin: positive Color nml and No rash Extremities: positive Non-tender and No pedal edema Neurologic/Psychiatric: positive Other (oriented to self, place and situation, but not time. ) LABS 03/14/25 11:47 03/14/25 11:47 FOLLOW UP Follow Up: PCP on SNF dc (Candice Oreilly) TIME SPENT Time Spent in Discharge (Minutes): 45 Discharge Plan Discharge Patient Disposition: 03 [facility] DC/Xfer Condition: Good Prescriptions: New acetaminophen 325 mg Tablet 650 mg PO Q4HR PRN (Reason: Pain 1 to 4, or Fever) Qty: 90 0RF mirtazapine 15 mg Tablet 15 mg PO QPM Qty: 30 0RF Trinatal Rx 1 60 mg iron-1 mg Tablet 1 tab PO DAILYWM Qty: 30 0RF thiamine mononitrate (vit B1) [Vitamin B-1 (mononitrate)] 100 mg Tablet 100 mg PO DAILY Qty: 30 0RF Continued donepezil 5 mg tablet 2.5 mg PO QPM Rx Instructions: take 1/2 tablet by mouth every evening for memory estradiol 0.01 % (0.1 mg/gram) cream See Rx Instructions vaginal .COMPLEX Qty: 42.5 5RF Rx Instructions: vaginally; Apply pea sized amount to vaginal tissues twice weekly for UTI prevention Changed omeprazole 20 mg capsule,delayed release(DR/EC) 20 mg PO QDAC Qty: 30 0RF Activity Restrictions: Activity as Tolerated Diet: Regular Print Language: Mauritanian Patient Instructions: COVID-19 Vaccine Stand Alone Forms: SNF Discharge Follow-up Care: Candice Oreilly PA-C [Primary Care Provider, Family Practice]"
[2025-03-17 16:11] VITALS: BP 148/73; O2SAT 96
== END 2025-03-17 16:13 | DRG 689 ==
LOC: ED 17:25 → MS2 17:25
PROVIDERS: ADMIT Nurse Practitioner Acute Care; ATTEND Nurse Practitioner Acute Care

== ENCOUNTER 2025-04-06 15:46 | Observation (INO) ==
--- NOTE | 2025-04-06 15:53 | ED Physician Documentation ---
History of Present Illness Stated complaint Stated Complaint: AMS Chief complaint Chief Complaint: Neuro History obtained from History obtained from: Family and EMS Additonal information Additional information: This is a 79-year-old woman with history of Parkinson's, memory loss, Lewy body dementia on Aricept, recurrent UTIs. She is bedbound and has not walked for months. She was admitted here February 23 with decompensation and encephalopathy. She was found to be positive for COVID at that time. She was here for the bulk of the month of February and was discharged on March 17 to [facility]. And has been home now for about a week. Since being home she is reported to be very tired and at times hard to arouse. She was taken to the clinic yesterday where there was a concern for UTI. They were unable to get a urinalysis but she was prescribed Bactrim which she did not fill. Today again she was hard to arouse. All the history is from the and EMS as the patient is talking very quietly and seems confused. She is barely audible. That said she is able to say she is in no pain. Meds/Allgy Home Medications Ambulatory Orders Medication Instructions Recorded Confirmed donepezil 5 mg tablet 2.5 mg PO QPM 02/24/2504/05 acetaminophen 325 mg tablet 650 mg (2 x 325 mg) PO Q4H R PRN 03/17/25 04/05/25 Pain 1 to 4, or Fever #90 tabs estradiol 0.01% (0.1 mg/gram) See Rx Instructions vagi nal 03/17/25 04/05/25 vaginal cream .COMPLEX #42.5 grams mirtazapine 15 mg tablet 15 mg PO QPM #30 tabs 04/05/25 omeprazole 20 mg capsule,delayed 20 mg PO QDAC #30 cap s 03/17/25 04/05/25 release vit,calcium 27-ferrous 1 tab PO DAILYWM #30 t abs 03/17/25 fum 60 mg iron-folic acid 1 mg tablet (Trinatal Rx 1) thiamine mononitrate (vit B1) 100 100 mg PO DAILY #30 tabs 03/17/25 04/05/25 mg tablet (Vitamin B-1 (mononitrate)) sulfamethoxazole 800 1 tab PO BID 5 days #10 tabs 04/05/25 04/05/25 mg-trimethoprim 160 mg tablet Allergies Allergies Allergy/AdvReac Type Severity Reaction Status Date / Time sertraline (From Zoloft) Allergy Severe Unknown Verified 04/05/25 15:32 grass pollen Allergy Itching Verified 04/05/25 15:32 PFSH Active Problems All Active Problems (Updated 04/06/25 @ 18:39 by Marvin Faulkner MD) Urinary tract infection (Acute) Altered mental status (Acute) Dysuria (Acute) Hypertension (Acute) Weakness (Acute) GERD (gastroesophageal reflux disease) (Acute) Menopause (Acute) Mixed incontinence urge and stress (Acute) Hyperlipidemia (Acute) Night terrors (Acute) Memory loss (Acute) Constipation (Acute) Obstructive sleep apnea of adult (Acute) Neuropathy (Acute) Chronic renal insufficiency (Acute) Low back pain, unspecified (Acute) Lumbar back pain with radiculopathy affecting lower extremity (Acute) Hypotension (Acute) Physical deconditioning (Acute) Chronic neck pain (Acute) Weight loss (Acute) Mass of colon (Acute) Colon cancer screening (Acute) Frequency of urination (Acute) Vesicular rash (Acute) Toe pain, right (Acute) Vision changes (Acute) Hip pain, bilateral (Acute) Lewy body dementia (Acute) Abdominal pain (Acute) Renal mass (Acute) Adnexal mass (Acute) Chronic pelvic pain in female (Acute) Dysphasia (Acute) Medication side effect (Acute) Social History Social History (Updated 04/05/25 @ 15:47 by Ravindra Orlando MD) Smoking Status: Smoker current status unk Second hand tobacco smoke exposure: No Do you dip or chew tobacco?: No Do you vape?: No Patient requests smoking cessation consult: No Initiate information on smoking cessation: No Level: Dependent Do you feel safe in your home environment?: Yes History of physical, verbal, emotional, or financial abuse?: No POLST Patient has POLST: No Exam Exam Vital Signs: Vital Signs x48h Temp Pulse Resp BP Pulse Ox 04/06/25 18:15 68 19 156/107 H 95 04/06/25 15:53 36.5 C 65 15 135/77 H 95 Constitutional This is a chronically more than acutely ill-appearing woman laying in bed in no distress. When I ask her question she mumbles barely audible sounds. She has very dry mucous membranes. Respiratory breath sounds equal bilaterally, normal respiratory effort and clear to auscultation bilaterally Cardiovascular normal heart rate noted and regular rhythm noted Gastrointestinal abdomen normal to inspection, abdomen soft to palpation and nontender to palpation Results Vitals Vitals: Vital Signs - 24 hr 04/06/25 15:53 04/06/25 18:15 Temperature 36.5 C Temperature Source Temporal Artery Scan Pulse Rate 65 68 Respiratory Rate 15 19 Blood Pressure 135/77 H 156/107 H O2 Saturation 95 95 O2 Source Room air Room air Pain Intensity 0 0 Oxygen O2 Source Room air Labs Labs: Laboratory Tests 04/06/25 04/06/25 16:06 18:09 WBC 12.3 H RBC 4.53 Hgb 14.0 Hct 42.6 MCV 94.0 MCH 30.9 MCHC 32.9 RDW 12.7 Plt Count 222 MPV 10.0 Neut # (Auto) 8.6 H Lymph # (Auto) 2.8 [place] # (Auto) 0.7 Eos # (Auto) 0.1 Baso # (Auto) 0.1 Absolute Nucleated RBC 0.00 Nucleated RBC % 0.0 Sodium 138 Potassium 4.7 H Chloride 103 Carbon Dioxide 26 Anion Gap 9.0 BUN 25 H Creatinine 1.4 H Estimated GFR (MDRD) 36 L Glucose 87 Lactic Acid 1.0 Calcium 9.9 Total Bilirubin 0.6 AST 31 ALT 44 Alkaline Phosphatase 97 Total Protein 7.4 Albumin 3.8 Globulin 3.6 Albumin/Globulin Ratio 1.1 Urine Color LIGHT YELLOW Urine Clarity HAZY Urine pH 7.5 Ur Specific [place] 1.010 Urine Protein NEGATIVE Urine Glucose (UA) NEGATIVE Urine Ketones 15 H Urine Occult Blood TRACE-INTACT Urine Nitrite POSITIVE H Urine Bilirubin NEGATIVE Urine Urobilinogen 0.2 (NORMAL) Ur Leukocyte Esterase MODERATE H Urine RBC 0-5 Urine WBC 11-25 H Ur Squamous Epith Cells MOD Squamous H Urine Crystals 6-10 Triple Phos Urine Bacteria Many H Ur Microscopic Review INDICATED Urine Culture Comments NOT INDICATED Ethyl Alcohol < 10.0 Rads (name of study) CT of the head is unremarkable.: Relevant Findings:: Final report received and EMP independent interpretation of test (NAD) PD Medical Decision Making ED course ED course: 79-year-old woman with Parkinson's and dementia presents with failure to thrive at home with poor appetite, somnolence, and foul-smelling urine. Workup demonstrates leukocytosis, normal head CT, unremarkable electrolytes and positive urinalysis. Blood cultures were obtained and she was administered Rocephin. I had a long discussion about goals of care with family and they would like her admitted but I strongly recommended at some point that she have a palliative care consult. Spoke with Dr. Beaver for admission at 6:38 PM. The patient and family are counseled as to the diagnosis and need for admission. This document was made in part using voice recognition software, while efforts are made to proofread this document, sound alike an grammatical errors may occur. Discharge Plan Discharge Patient Disposition: ED Place in Observation Condition: Fair Clinical Impression: Altered mental status, Urinary tract infection Prescriptions: No Action donepezil 5 mg tablet 2.5 mg PO QPM Rx Instructions: take 1/2 tablet by mouth every evening for memory acetaminophen 325 mg Tablet 650 mg PO Q4HR PRN (Reason: Pain 1 to 4, or Fever) Qty: 90 0RF mirtazapine 15 mg Tablet 15 mg PO QPM Qty: 30 0RF Trinatal Rx 1 60 mg iron-1 mg Tablet 1 tab PO DAILYWM Qty: 30 0RF thiamine mononitrate (vit B1) [Vitamin B-1 (mononitrate)] 100 mg Tablet 100 mg PO DAILY Qty: 30 0RF omeprazole 20 mg capsule,delayed release(DR/EC) 20 mg PO QDAC Qty: 30 0RF estradiol 0.01 % (0.1 mg/gram) cream See Rx Instructions vaginal .COMPLEX Qty: 42.5 5RF Rx Instructions: vaginally; Apply pea sized amount to vaginal tissues twice weekly for UTI prevention sulfamethoxazole-trimethoprim 800-160 mg tablet 1 tab PO BID 5 Days Qty: 10 0RF Rx Instructions: May crush and give in applesauce if unable to swallow the pills. Print Language: Latvian Stand Alone Forms: PCP List
[2025-04-06] MEDS: SODIUM CHLORIDE 0.9% 1,000 ML IV STA (16:01)
--- OUTSIDE RECORDS SUMMARY | 2025-04-06 16:10 | EXTERNAL MEDICAL SUMMARY RPT | Continuity of Care Document ---
Author Organization [facility] Address [address] [place] [id number] Phone Problems date description facility 2025-02-05 12:03 Chronic kidney disease, unspeci fied [facility] 2025-02-05 12:24 Chronic kidney disease, unspeci fied The [facility] 2025-02-05 12:24 Acute cystitis with hematuria [facility] 2025-02-05 12:30 Chronic kidney disease, unspeci fied The [facility] 2025-02-05 12:30 Acute cystitis with hematuria [employer] 2025-02-06 00:04 Chronic kidney disease, unspeci fied The [facility] 2025-02-06 00:04 Acute cystitis with hematuria [employer] 2025-02-12 15:11 Weakness The [facility] 2025-02-12 15:11 Other fatigue The [facility] 2025-02-12 16:10 Dementia in other di seases classified elsewhere, unspecified severity, without behavioral disturbance, psychotic disturbance, mood disturbance, and anxiety [facility] 2025-02-12 16:10 Neurocognitive disorder with Le wy bodies The [facility] 2025-02-12 16:10 Acute cystitis with hematuria [employer] 2025-02-12 16:10 Other specified cond itions associated with female genital organs and menstrual cycle The [facility] 2025-02-12 16:10 Other amnesia The [facility] 2025-02-23 19:46 Metabolic encephalopathy [facility] 2025-02-23 20:37 Dementia in other di seases classified elsewhere, unspecified severity, without behavioral disturbance, psychotic disturbance, mood disturbance, and anxiety [facility] 2025-02-23 20:37 Neurocognitive disorder with Le wy bodies The [facility] 2025-02-23 20:37 Metabolic encephalopathy [facility] 2025-02-24 09:28 Dementia in other di seases classified elsewhere, unspecified severity, without behavioral disturbance, psychotic disturbance, mood disturbance, and anxiety [facility] 2025-02-24 09:28 Neurocognitive disorder with Le wy bodies The [facility] 2025-02-24 09:28 Metabolic encephalopathy [facility] 2025-02-24 10:33 Dementia in other di seases classified elsewhere, unspecified severity, without behavioral disturbance, psychotic disturbance, mood disturbance, and anxiety [facility] 10:33 Neurocognitive disorder with Le wy bodies [facility] 2025-02-24 10:33 Metabolic encephalopathy [facility] 2025-02-24 10:33 Weakness The [facility] 2025-02-24 10:33 Other fatigue The [facility] 2025-02-24 11:55 Dementia in other di seases classified elsewhere, unspecified severity, without behavioral disturbance, psychotic disturbance, mood disturbance, and anxiety [facility]25-[facility] 11:55 Neurocognitive disorder with Le wy bodies The [facility] 2025-02-24 11:55 [facility]25-[facility] 13:42 Dementia in other di seases classified elsewhere, unspecified severity, without behavioral disturbance, psychotic disturbance, mood disturbance, and anxiety [facility] 2025-02-24 13:42 Neurocognitive disorder with Le wy bodies The [facility] 2025-02-24 13:42 Metabolic encephalopathy [facility] 2025-02-24 14:03 Dementia in other di seases classified elsewhere, unspecified severity, without behavioral disturbance, psychotic disturbance, mood disturbance, and anxiety [facility] 2025-02-24 14:03 Neurocognitive disorder with Le wy bodies The [facility] 2025-02-24 14:03 Metabolic encephalopathy [facility] 2025-02-24 14:38 Dementia in other di seases classified elsewhere, unspecified severity, without behavioral disturbance, psychotic disturbance, mood disturbance, and anxiety [facility] 2025-02-24 14:38 Neurocognitive disorder with Le wy bodies The [facility] 2025-02-24 14:38 Metabolic encephalopathy [facility] 2025-02-25 08:22 Dementia in other di seases classified elsewhere, unspecified severity, without behavioral disturbance, psychotic disturbance, mood disturbance, and anxiety [facility] 2025-02-25 08:22 Neurocognitive disorder with Le wy bodies [facility] 2025-02-25 08:22 Metabolic encephalopathy [facility] 2025-02-25 12:32 Dementia in other di seases classified elsewhere, unspecified severity, without behavioral disturbance, psychotic disturbance, mood disturbance, and anxiety [facility] 2025-02-25 12:32 Neurocognitive disorder with Le wy bodies [facility] 2025-02-25 12:32 Metabolic encephalopathy [facility] 2025-02-25 12:32 COVID-19 [facility] 2025-02-26 10:44 Dementia in other di seases classified elsewhere, unspecified severity, without behavioral disturbance, psychotic disturbance, mood disturbance, and anxiety [facility] 2025-02-26 10:44 Neurocognitive disorder with Le wy bodies [facility] 2025-02-26 10:44 Metabolic encephalopathy [facility] 2025-02-26 10:[address] [place], [place] [id number] 2025-02-27 13:10 Transient alteration of awarene ss [facility] 2025-02-28 05:33 Dementia in other di seases classified elsewhere, unspecified severity, without behavioral disturbance, psychotic disturbance, mood disturbance, and anxiety [facility] 2025-02-28 05:33 Neurocognitive disorder with Le wy bodies [facility] 2025-02-28 05:33 Metabolic encephalopathy [facility] 2025-02-28 05:33 [address] [place], [place] [id number] 2025-03-01 05:52 Dementia in other di seases classified elsewhere, unspecified severity, without behavioral disturbance, psychotic disturbance, mood disturbance, and anxiety [facility] 2025-03-01 05:52 Neurocognitive disorder with Le wy bodies [facility] 2025-03-01 05:52 Metabolic encephalopathy [facility] 2025-03-01 05:52 [facility] 2025-03-01 05:52 COVID-[address] [place], [place] [id number] 2025-03-02 06:40 Dementia in other di seases classified elsewhere, unspecified severity, without behavioral disturbance, psychotic disturbance, mood disturbance, and anxiety [facility] 2025-03-02 06:40 Neurocognitive disorder with Le wy bodies The [facility] 2025-03-02 06:40 Metabolic encephalopathy [facility] 2025-03-02 06:40 Acute cystitis with hematuria [facility] 2025-03-02 06:40 COVID-19 [facility] 2025-03-03 06:39 Dementia in other di seases classified elsewhere, unspecified severity, without behavioral disturbance, psychotic disturbance, mood disturbance, and anxiety [facility] 2025-03-03 06:39 Neurocognitive disorder with Le wy bodies The [facility] 2025-03-03 06:39 [facility]opathy [facility] 2025-03-03 06:39 Acute cystitis with hematuria [facility] 2025-03-03 06:39 COVID-19 [facility] 2025-03-04 05:58 Elevated white blood cell count , unspecified [facility] 2025-03-04 05:58 Dementia in other di seases classified elsewhere, unspecified severity, without behavioral disturbance, psychotic disturbance, mood disturbance, and anxiety [facility] 2025-03-04 05:58 Neurocognitive disorder with Le wy bodies The [facility] 2025-03-04 05:58 Met[facility] encephalopathy [facility] 2025-03-04 05:58 Acute cystitis with hematuria [facility] 2025-03-04 05:58 COVID-19 [facility] 2025-03-05 06:53 Elevated white blood cell count , unspecified The [facility] 2025-03-05 06:53 Dementia in other di seases classified elsewhere, unspecified severity, without behavioral disturbance, psychotic disturbance, mood disturbance, and anxiety [facility] 2025-03-05 06:53 Neurocognitive disorder with Le wy bodies The [facility] 2025-03-05 06:53 Metabolic encephalopathy [facility] 2025-03-05 06:53 Acute cystitis with hematuria [employer] 2025-03-05 06:53 COVID-19 [facility] 2025-03-06 06:17 Elevated white blood cell count , unspecified The [facility] 2025-03-06 06:17 Dementia in other di seases classified elsewhere, unspecified severity, without behavioral disturbance, psychotic disturbance, mood disturbance, and anxiety [facility] 2025-03-06 06:17 Neurocognitive disorder with Le wy bodies [facility] 2025-03-06 06:17 Metabolic encephalopathy [facility] 2025-03-06 06:17 Acute cystitis with hematuria [facility] 2025-03-06 06:17 COVID-19 [facility] 2025-03-07 05:43 Elevated white blood cell count , unspecified [facility] 2025-03-07 05:43 Dementia in other di seases classified elsewhere, unspecified severity, without behavioral disturbance, psychotic disturbance, mood disturbance, and anxiety [facility] 2025-03-07 05:43 Neurocognitive disorder with Le wy bodies The [facility] 2025-03-07 05:43 Metabolic encephalopathy [facility] 2025-03-07 05:43 Acute cystitis with hematuria [facility] 2025-03-07 05:43 Bacteremia The [facility] 2025-03-07 05:43 COVID-19 [facility] 2025-03-08 06:26 Elevated white blood cell count , unspecified [facility] 2025-03-08 06:26 Dementia in other di seases classified elsewhere, unspecified severity, without behavioral disturbance, psychotic disturbance, mood disturbance, and anxiety [facility] 2025-03-08 06:26 Neurocognitive disorder with Le wy bodies The [facility] 2025-03-08 06:26 Metabolic encephalopathy [facility] 2025-03-08 06:26 Acute cystitis with hematuria [facility] 2025-03-08 06:26 Bacteremia [facility] 2025-03-08 06:26 COVID-19 [facility] 2025-03-09 07:08 Elevated white blood cell count , unspecified [facility] 2025-03-09 07:08 Dementia in other di seases classified elsewhere, unspecified severity, without behavioral disturbance, psychotic disturbance, mood disturbance, and anxiety [facility] 2025-03-09 07:08 Neurocognitive disorder with Le wy bodies The [facility] 2025-03-09 07:08 Metabolic encephalopathy [facility] 2025-03-09 07:08 Acute cystitis with hematuria [facility] 2025-03-09 07:08 Bacteremia The [facility] 2025-03-09 07:08 COVID-19 The [facility] 2025-03-10 06:04 Elevated white blood cell count , unspecified The [facility] 2025-03-10 06:04 Dementia in other di seases classified elsewhere, unspecified severity, without behavioral disturbance, psychotic disturbance, mood disturbance, and anxiety [facility] 2025-03-10 06:04 Neurocognitive disorder with Le wy bodies The [facility] 2025-03-10 06:04 Metabolic encephalopathy [facility] 2025-03-10 06:04 Acute cystitis with hematuria [employer] 2025-03-10 06:04 Bacteremia The [facility] 2025-03-10 06:04 COVID-19 The [facility] 2025-03-10 06:46 Elevated white blood cell count , unspecified The [facility] 2025-03-10 06:46 Dementia in other di seases classified elsewhere, unspecified severity, without behavioral disturbance, psychotic disturbance, mood disturbance, and anxiety [facility] 2025-03-10 06:46 Neurocognitive disorder with Le wy bodies The [facility] 2025-03-10 06:46 Metabolic encephalopathy [facility] 2025-03-10 06:46 Acute cystitis with hematuria [facility] 2025-03-10 06:46 Bacteremia The [facility] 2025-03-10 06:46 COVID-19 The [facility] 2025-03-11 05:36 Elevated white blood cell count , unspecified [facility] 2025-03-11 05:36 Dementia in other di seases classified elsewhere, unspecified severity, without behavioral disturbance, psychotic disturbance, mood disturbance, and anxiety [facility] 2025-03-11 05:36 Neurocognitive disorder with Le wy bodies The [facility] 2025-03-11 05:36 Metabolic encephalopathy [facility] 2025-03-11 05:36 Essential (primary) hypertensio n The [facility] 2025-03-11 05:36 Acute cystitis with hematuria [employer] 2025-03-11 05:36 Bacteremia The [facility] 2025-03-11 05:36 COVID-19 The [facility] 2025-03-12 20:38 Elevated white blood cell count , unspecified [facility] 2025-03-12 20:38 Dementia in other di seases classified elsewhere, unspecified severity, without behavioral disturbance, psychotic disturbance, mood disturbance, and anxiety [facility] 2025-03-12 20:38 Neurocognitive disorder with Le wy bodies [facility] 2025-03-12 20:38 Metabolic encephalopathy [facility] 2025-03-12 20:38 Essential (primary) hypertensio n [facility] 2025-03-12 20:38 Acute cystitis with hematuria [facility] 2025-03-12 20:38 Bacteremia [facility] 2025-03-12 20:38 COVID-19 [facility] 2025-03-15 06:18 Elevated white blood cell count , unspecified [facility] 2025-03-15 06:18 Dementia in other di seases classified elsewhere, unspecified severity, without behavioral disturbance, psychotic disturbance, mood disturbance, and anxiety [facility] 2025-03-15 06:18 Neurocognitive disorder with Le wy bodies [facility] 2025-03-15 06:18 Metabolic encephalopathy [facility] 2025-03-15 06:18 Essential (primary) hypertensio n [facility] 2025-03-15 06:18 Acute cystitis with hematuria [facility] 2025-03-15 06:18 Bacteremia [facility] 2025-03-15 06:18 COVID-19 [facility] 2025-03-16 06:00 Elevated white blood cell count , unspecified [facility] 2025-03-16 06:00 Dementia in other di seases classified elsewhere, unspecified severity, without behavioral disturbance, psychotic disturbance, mood disturbance, and anxiety [facility] 2025-03-16 06:00 Neurocognitive disorder with Le wy bodies [facility] 2025-03-16 06:00 [facility] 2025-03-16 06:00 Essential (primary) hypertensio n [facility] 2025-03-16 06:00 Acute cystitis with hematuria [facility] 2025-03-16 06:00 Bacteremia [facility] 2025-03-16 06:00 COVID-19 [facility] 2025-03-17 12:02 Elevated white blood cell count , unspecified [facility] 2025-03-17 12:02 Dementia in other di seases classified elsewhere, unspecified severity, without behavioral disturbance, psychotic disturbance, mood disturbance, and anxiety [facility] 2025-03-17 12:02 Neurocognitive disorder with Le wy bodies [facility] 2025-03-17 12:02 Metabolic encephalopathy [facility] 2025-03-17 12:02 Essential (primary) hypertensio n [facility] 2025-03-17 12:02 Acute cystitis with hematuria [facility] 2025-03-17 12:02 [facility]remia [facility] 2025-03-17 12:02 [facility]19 [facility] 2025-03-17 13:20 Elevated white blood cell count , unspecified [facility] 2025-03-17 13:20 Dementia in other di seases classified elsewhere, unspecified severity, without behavioral disturbance, psychotic disturbance, mood disturbance, and anxiety [facility] 2025-03-17 13:20 Neurocognitive disorder with Le wy bodies [facility] 2025-03-17 13:20 Metabolic encephalopathy [facility] 2025-03-17 13:20 Essential (primary) hypertensio n [facility] 2025-03-17 13:20 Acute cystitis with hematuria [facility] 2025-03-17 13:20 [facility]acteremia [facility] 2025-03-17 13:20 COVID-19 [facility] 2025-03-17 13:37 Elevated white blood cell count , unspecified [facility] 2025-03-17 13:37 Dementia in other di seases classified elsewhere, unspecified severity, without behavioral disturbance, psychotic disturbance, mood disturbance, and anxiety [facility] 2025-03-17 13:37 Neurocognitive disorder with Le wy bodies [facility] 2025-03-17 13:37 Metabolic encephalopathy [facility] 2025-03-17 13:37 Essential (primary) hypertensio n [facility] 2025-03-17 13:37 Acute cystitis with hematuria [facility] 2025-03-17 13:37 Bacteremia [facility] 2025-03-17 13:37 COVID-19 [facility] 2025-03-17 14:49 Elevated white blood cell count , unspecified [facility] 2025-03-17 14:49 Dementia in other di seases classified elsewhere, unspecified severity, without behavioral disturbance, psychotic disturbance, mood disturbance, and anxiety [facility] 2025-03-17 14:49 Neurocognitive disorder with Le wy bodies [facility] 2025-03-17 14:49 Metabolic encephalopathy [facility] 2025-03-17 14:49 Essential (primary) hypertensio n [facility] 2025-03-17 14:49 Acute cystitis with hematuria [facility] 2025-03-17 14:49 Bacteremia [facility] 2025-03-17 14:49 COVID-[address] [place], [place] [id number] 2025-03-17 16:13 Elevated white blood cell count , unspecified [facility] 2025-03-17 16:13 Dementia in other di seases classified elsewhere, unspecified severity, without behavioral disturbance, psychotic disturbance, mood disturbance, and anxiety [facility] 2025-03-17 16:13 Neurocognitive disorder with Le wy bodies [facility] 2025-03-17 16:13 Metabolic encephalopathy [facility] 2025-03-17 16:13 Essential (primary) hypertensio n [facility] 2025-03-17 16:13 Acute cystitis with hematuria [facility] 2025-03-17 16:13 Bacteremia [facility] 2025-03-17 16:13 COVID-19 [facility] 2025-03-18 05:54 Elevated white blood cell count , unspecified [facility] 2025-03-18 05:54 Dementia in other di seases classified elsewhere, unspecified severity, without behavioral disturbance, psychotic disturbance, mood disturbance, and anxiety [facility] 2025-03-18 05:54 Neurocognitive disorder with Le wy bodies [facility] 2025-03-18 05:54 Metabolic encephalopathy [facility] 2025-03-18 05:54 Essential (primary) hypertensio n [facility] 2025-03-18 05:54 Acute cystitis with hematuria [facility] 2025-03-18 05:54 Altered mental status, unspecif ied [facility] 2025-03-18 05:54 Weakness [facility] 2025-03-18 05:54 Bacteremia [facility] 2025-03-18 05:54 COVID-19 [facility] 2025-03-18 13:44 Elevated white blood cell count , unspecified [facility] 2025-03-18 13:44 Dementia in other di seases classified elsewhere, unspecified severity, without behavioral disturbance, psychotic disturbance, mood disturbance, and anxiety [facility] 2025-03-18 13:44 Neurocognitive disorder with Le wy bodies The [facility] 2025-03-18 13:44 Metabolic encephalopathy [facility] 2025-03-18 13:44 Essential (primary) hypertensio n [facility] 2025-03-18 13:44 Acute cystitis with hematuria [facility] 2025-03-18 13:44 Urinary tract infection, site n ot specified [facility] 2025-03-18 13:44 Altered mental status, unspecif ied [facility] 2025-03-18 13:44 Weakness [facility] 2025-03-18 13:44 Bacteremia [facility] 2025-03-18 13:44 COVID-19 [facility] 2025-03-18 13:45 Elevated white blood cell count , unspecified [facility] 2025-03-18 13:45 Dementia in other di seases classified elsewhere, unspecified severity, without behavioral disturbance, psychotic disturbance, mood disturbance, and anxiety [facility] 2025-03-18 13:45 Neurocognitive disorder with Le wy bodies The [facility] 2025-03-18 13:45 Metabolic encephalopathy [facility] 2025-03-18 13:45 Essential (primary) hypertensio n The [facility] 2025-03-18 13:45 Acute cystitis with hematuria [facility] 2025-03-18 13:45 Altered mental status, unspecif ied The [facility] 2025-03-18 13:45 Weakness The [address] 2025-03-18 13:45 Bacteremia The [facility] 2025-03-18 13:45 COVID-19 The [address] [facility] 2025-03-18 13:56 Elevated white blood cell count , unspecified [facility] 2025-03-18 13:56 Dementia in other di seases classified elsewhere, unspecified severity, without behavioral disturbance, psychotic disturbance, mood disturbance, and anxiety [facility] [address] [facility] 2025-03-18 13:56 Neurocognitive disorder with Le wy bodies [facility] 2025-03-18 13:56 [facility] 2025-03-18 13:56 Essential (primary) hypertensio n The [facility] 2025-03-18 13:56 Acute cystitis with hematuria [facility] 2025-03-18 13:56 Altered mental status, unspecif ied [facility] 2025-03-18 13:56 Weakness [facility] 2025-03-18 13:56 Bacteremia [facility] 2025-03-18 13:56 [employer] 2025-03-20 14:03 Pain in right hip [facility] 2025-03-20 14:14 Hyperlipidemia, unspecified [facility] 2025-03-20 14:19 Other fatigue [facility] 2025-03-28 11:00 Other fatigue [facility] Results/Labs test date facility value unit notes Result panel 1 BILIRUBIN,TOTAL 2025-02-05 11:01 [facility] [address] 0.4 mg /dl As of January 2023 testing method has changed, this may include reference ranges. ALBUMIN/GLOBULIN RATIO 2025-02-05 11:01 [facility] [address] 1.3 (missing) (missing) CREATININE 2025-02-05 11:01 The [address] 1.3 mg/dl As of January 2023 testing method has changed, this may include reference ranges. CHLORIDE 2025-02-05 11:01 The [address] [address] 107 mmol/l As of January 2023 testing method has changed, this may include reference ranges. GLUCOSE 2025-02-05 11:01 The [facility] [address] 121 mg/dl As of January 2023 testing method has changed, this may include reference ranges. SODIUM 2025-02-05 11:01 The [address] [address] 139 mmol/l Unknown AST ASPARTATE AMINOTRANSFERASE 2025-02-05 11: The [address] 18 iu/l As of January 2023 testing method has changed, this may include reference ranges. GLOBULIN 2025-02-05 11: The [address] 2.9 g/dl (missing) ALT ALANINE AMINOTRANSFERASE 2025-02-05 11: The [address] 21 iu/l As of January 2023 testing method has changed, this may include reference ranges. BUN - BLOOD UREA NITROGEN 2025-02-05 11: The [address] Floor 27 mg/dl As of Jan testing method has changed, this may include reference ranges. CARBON DIOXIDE - CO2 2025-02-05 11: The [address] 28 mmol/l As of January 2023 testing method has changed, this may include reference ranges. ALBUMIN 2025-02-05 11: The [address] 3.7 g/dl As of January 2023 testing method has changed, this may include reference ranges. ANION GAP 2025-02-05 11: The [facility] 4.0 (missing ) (missing) POTASSIUM 2025-02-05 11:01 The [address] 4.2 mmol/l As of January 2023 testing method has changed, this may include reference ranges. GFR - MDRD 2025-02-05 11:01 The [address] 40 (montana rubio) Social History date description facility
[2025-04-06 16:13] LABS: HCT - HEMATOCRIT 42.6 % (37.0-47.0); HGB - HEMOGLOBIN 14.0 g/dL (12.0-16.0); MEAN PLATELET VOLUME 10.0 fL (7.9-10.8); NRBC ABSOLUTE COUNT (AUTO) 0.00 x10^3/uL; NUCLEATED RED BLOOD CELLS AUTO 0.0 /100WBC; PLT - PLATELET COUNT 222 10^3/uL (130-450); RED CELL DISTRIBUTION WIDTH 12.7 % (12.0-15.0)
[2025-04-06 16:29] LABS: ALT ALANINE AMINOTRANSFERASE 44 IU/L (10-60); AST ASPARTATE AMINOTRANSFERASE 31 IU/L (10-42); BUN - BLOOD UREA NITROGEN 25 mg/dL (6-20); CARBON DIOXIDE - CO2 26 mmol/L (21-32); CREATININE 1.4 mg/dL (0.6-1.3); ETOH - ETHANOL < 10.0 mg/dL; GFR - MDRD 36 (>89)
--- NOTE | 2025-04-06 16:53 | CT Report ---
PROCEDURE: CT Head WO INDICATIONS: ams TECHNIQUE: CT of the head was performed, without intravenous contrast. Reformats: Coronal and sagittal. For radiation dose reduction, the following was used: automated exposure control, adjustment of mA and/or kV according to patient size. COMPARISON: 02/23/2025. FINDINGS: Image quality: Diagnostic. CSF spaces: Basal cisterns are patent. No extra-axial fluid collections. Ventricles are normal in size and shape. Brain: No midline shift. No intracranial mass effect or hemorrhage. Padilla- white matter interface is normal. There is mild global atrophy with compensatory enlargement of the CSF spaces. Patchy periventricular and subcortical white matter hypoattenuation is likely the sequela of microangiopathy. Skull and face: Calvarium and visualized facial bones are intact, without suspicious lesions. Sinuses: Visualized sinuses and mastoids are clear. IMPRESSION: No acute intracranial pathology. Reviewed by: Iveth Acevedo MD on 04/06/2025 3:52 PM HARESH Approved by: Iveth Acevedo MD on 04/06/2025 3:52 PM HARESH Station ID: [id number]
[2025-04-06 18:18] LABS: GLUCOSE, URINE (UA) NEGATIVE (NEGATIVE); KETONES,URINE (UA) 15 mg/dL (NEGATIVE); OCCULT BLOOD,URINE TRACE-INTACT (NEGATIVE)
[2025-04-06 18:31] LABS: SQUAMOUS EPITHELIAL CELL,UR MOD Squamous (<= Few)
[2025-04-06 18:33] LABS: CRYSTALS,URINE 6-10 Triple Phos /LPF
--- NOTE | 2025-04-06 18:45 | HISTORY & PHYSICAL EXAMINATION ---
Chief Complaint Chief Complaint Chief Complaint: Lethargy History of Present Illness Admitted From Admitted From:: Home with and son History Obtained From History obtained from: Interview with family at bedside History of Present Illness HPI Comment/Other: 79-year-old female with PMH significant for Lewy body dementia on Aricept, recurrent UTI who again presents to the hospital with altered mentation. She presented to the walk-in clinic yesterday for UTI symptoms Bactrim was ordered. The prescription for Bactrim has not been filled yet. Family reports that she is at times difficult to arouse. This morning, she was completely unarousable, so EMS was called and patient was brought into the ER. Family reports she had 1 episode of fever. Denies chest pain, dyspnea, nausea, vomiting diarrhea. In the ER, UA was obtained which shows nitrites, leukocyte esterase, WBCs, bacteria indicating UTI. She was given a liter of normal saline and 1 g of Rocephin, and hospitalist was contacted for observation for altered mental status secondary to UTI Meds/Allgy Home Medications Ambulatory Orders Medication Instructions Recorded Confirmed donepezil 5 mg tablet 2.5 mg PO QPM 02/24/2504/05 acetaminophen 325 mg tablet 650 mg (2 x 325 mg) PO Q4H R PRN 03/17/25 04/05/25 Pain 1 to 4, or Fever #90 tabs estradiol 0.01% (0.1 mg/gram) See Rx Instructions vagi nal 03/17/25 04/05/25 vaginal cream .COMPLEX #42.5 grams mirtazapine 15 mg tablet 15 mg PO QPM #30 tabs 04/05/25 omeprazole 20 mg capsule,delayed 20 mg PO QDAC #30 cap s 03/17/25 04/05/25 release vit,calcium 27-ferrous 1 tab PO DAILYWM #30 t abs 03/17/25 fum 60 mg iron-folic acid 1 mg tablet (Trinatal Rx 1) thiamine mononitrate (vit B1) 100 100 mg PO DAILY #30 tabs 03/17/25 04/05/25 mg tablet (Vitamin B-1 (mononitrate)) sulfamethoxazole 800 1 tab PO BID 5 days #10 tabs 04/05/25 04/05/25 mg-trimethoprim 160 mg tablet Allergies Allergies Allergy/AdvReac Type Severity Reaction Status Date / Time sertraline (From Zoloft) Allergy Severe Unknown Verified 04/05/25 15:32 grass pollen Allergy Itching Verified 04/05/25 15:32 PFSH Active Problems All Active Problems (Updated 04/06/25 @ 18:47 by ) Urinary tract infection (Acute) Altered mental status (Acute) Dysuria (Acute) Hypertension (Acute) Weakness (Acute) GERD (gastroesophageal reflux disease) (Acute) Menopause (Acute) Mixed incontinence urge and stress (Acute) Hyperlipidemia (Acute) Night terrors (Acute) Memory loss (Acute) Constipation (Acute) Obstructive sleep apnea of adult (Acute) Neuropathy (Acute) Chronic renal insufficiency (Acute) Low back pain, unspecified (Acute) Lumbar back pain with radiculopathy affecting lower extremity (Acute) Hypotension (Acute) Physical deconditioning (Acute) Chronic neck pain (Acute) Weight loss (Acute) Mass of colon (Acute) Colon cancer screening (Acute) Frequency of urination (Acute) Vesicular rash (Acute) Toe pain, right (Acute) Vision changes (Acute) Hip pain, bilateral (Acute) Lewy body dementia (Acute) Abdominal pain (Acute) Renal mass (Acute) Adnexal mass (Acute) Chronic pelvic pain in female (Acute) Dysphasia (Acute) Medication side effect (Acute) Social History Social History (Updated 04/05/25 @ 15:47 by Ravindra Orlando MD) Smoking Status: Smoker current status unk Second hand tobacco smoke exposure: No Do you dip or chew tobacco?: No Do you vape?: No Patient requests smoking cessation consult: No Initiate information on smoking cessation: No Level: Dependent Do you feel safe in your home environment?: Yes History of physical, verbal, emotional, or financial abuse?: No POLST Patient has POLST: No Review of Systems Status of ROS: 10 or more systems reviewed and unremarkable except as noted in history and below (Limited by dementia) Exam Exam Vital Signs: Vital Signs x48h Temp Pulse Resp BP Pulse Ox 04/06/25 19:02 75 15 156/88 H 96 04/06/25 18:15 68 19 156/107 H 95 04/06/25 15:53 36.5 C 65 15 135/77 H 95 Constitutional Frail, elderly appearing female in no acute distress. Dry mucous membranes HENMT normocephalic and head/scalp atraumatic Eyes PERRL Neck/C-Spine visual inspection normal Lymph no lymphadenopathy noted Chest inspection of chest normal Respiratory breath sounds equal bilaterally and normal respiratory effort Cardiovascular normal heart rate noted Gastrointestinal abdomen normal to inspection and abdomen soft to palpation Back/Pelvis spine normal to inspection Extremities normal to inspection Neurology Tracks with eyes, mumbles responses to questions. Moves all extremities Skin Dry, flaky skin Conclusion/Plan Problem List (1) Altered mental status: Plan: Patient is demented at baseline CT head negative Family reports she is maintaining diet with some coaching Family reports she has been more more lethargic over the past few days, and today they could not wake her up Her acute decompensation is likely from dehydration and UTI Manage UTI as below LR at 100 (2) Urinary tract infection: Plan: UA suggest UTI Received 1 g Rocephin in the ER Continue Rocephin 1 g IV push daily Anticipate discharge on Augmentin Plan Placed in observation DNR/DNI Her sons are her surrogate decision makers and DPOA Lab Results Lab results reviewed: Yes 04/06/25 16:06 04/06/25 16:06
[2025-04-06] MEDS: cefTRIAXone 1 GM VIAL IVP STA (18:54)
[2025-04-06 19:27] LABS: B. PARAPERTUSSIS- RESP PCR PAN NOT DETECTED; B. PERTUSSIS- RESP PCR PANEL NOT DETECTED; C. PNEUMONIAE- RESP PCR PANEL NOT DETECTED; CORONAVIRUS 229E-RESP PCR NOT DETECTED; CORONAVIRUS HKU1-RESP PCR NOT DETECTED; CORONAVIRUS NL63-RESP PCR NOT DETECTED; CORONAVIRUS OC43-RESP PCR NOT DETECTED; HUMAN METAPNEUMOVIRUS NOT DETECTED; INFLUENZA A- RESP PCR PANEL NOT DETECTED; INFLUENZA B - RESP PCR PANEL NOT DETECTED; M. PNEUMONIAE- RESP PCR PANEL NOT DETECTED; PARAINFLUENZA VIRUS 1 NOT DETECTED; PARAINFLUENZA VIRUS 2 NOT DETECTED; PARAINFLUENZA VIRUS 4 NOT DETECTED; RHINOVIRUS/ENTEROVIRUS NOT DETECTED; RSV- RESP PCR PANEL NOT DETECTED; SARS-CoV-2 -RESP PCR PANEL NOT DETECTED
[2025-04-06] MEDS ORDERED: SODIUM CHLORIDE FLUSH 0.9% 10 ML SYRINGE IVP PRN (19:33)
[2025-04-06] MEDS ORDERED: ACETAMINOPHEN 325 MG TABLET PO PRN (19:33)
[2025-04-06] MEDS ORDERED: ONDANSETRON 4 MG/2 ML VIAL IVP PRN (19:33)
[2025-04-06] MEDS ORDERED: ONDANSETRON ODT 4 MG TABLET TL PRN (19:33)
[2025-04-06] MEDS: LACTATED RINGERS 1,000 ML IV SCH (20:29)
[2025-04-06] MEDS: DONEPEZIL 5 MG TABLET PO SCH (22:04)
[2025-04-06] MEDS: SODIUM CHLORIDE FLUSH 0.9% 10 ML SYRINGE IVP SCH (23:59)
[2025-04-07 05:16] LABS: HCT - HEMATOCRIT 36.3 % (37.0-47.0); HGB - HEMOGLOBIN 12.1 g/dL (12.0-16.0); MEAN PLATELET VOLUME 10.3 fL (7.9-10.8); NRBC ABSOLUTE COUNT (AUTO) 0.00 x10^3/uL; NUCLEATED RED BLOOD CELLS AUTO 0.0 /100WBC; PLT - PLATELET COUNT 196 10^3/uL (130-450); RED CELL DISTRIBUTION WIDTH 12.6 % (12.0-15.0)
[2025-04-07 05:30] LABS: BUN - BLOOD UREA NITROGEN 22.0 mg/dL (6-20); CARBON DIOXIDE - CO2 26.0 mmol/L (21-32); CREATININE 1.1 mg/dL (0.6-1.3); GFR - MDRD 48.0 (>89)
[2025-04-07] MEDS: ENOXAPARIN 40 MG/0.4 ML SYRINGE SUBQ SCH (08:19)
--- NOTE | 2025-04-07 08:59 | PHARMACY PROGRESS NOTE ---
Best Possible Medication History Admit Date and Time: 04/06/25 1840 Home Medications Medication Instructions Recorded Confirmed Type donepezil 5 mg tablet 2.5 mg PO QPM 02/24/2504/06 History acetaminophen 325 mg tablet 650 mg (2 x 325 mg) PO Q4H R PRN 03/17/25 04/06/25 Rx Pain 1 to 4, or Fever #90 tabs estradiol 0.01% (0.1 mg/gram) See Rx Instructions vagi nal 03/17/25 04/06/25 Rx vaginal cream .COMPLEX #42.5 grams mirtazapine 15 mg tablet 15 mg PO QPM #30 tabs 04/06/25 Rx omeprazole 20 mg capsule,delayed 20 mg PO QDAC #30 cap s 03/17/25 04/06/25 Rx release vit,calcium 27-ferrous 1 tab PO DAILYWM #30 t abs 03/17/25 04/06/25 Rx fum 60 mg iron-folic acid 1 mg tablet (Trinatal Rx 1) thiamine mononitrate (vit B1) 100 100 mg PO DAILY #30 tabs 03/17/25 04/06/25 Rx mg tablet (Vitamin B-1 (mononitrate)) sulfamethoxazole 800 1 tab PO BID 5 days #10 tabs 04/05/25 04/06/25 Rx mg-trimethoprim 160 mg tablet Processed by: Nursing Medications reviewed in ED?: Yes Medication History completed: Yes Patient Interview: Completed Secondary Source(s): Other family member, Pharmacy records and Insurance records [facility] Statement: As the person ultimately responsible for medication therapy, providers are able to order a medication from an existing home medication list in [facility] via the "Reconcile Routine" prior to Confirmation of that medication by web support engineer. Such practice is discouraged except when the physician, in their clinical judgment, deems that a medical need exists for a medication without regard to previous use.
[2025-04-07] MEDS: cefTRIAXone 1 GM VIAL IVP SCH (11:12)
--- NOTE | 2025-04-07 14:13 | Discharge Summary ---
Discharge Summary Admit Date: 04/06/25 Discharge Date: 04/07/25 Discharging Provider: Abel Marrero Primary Care Provider: Candice Oreilly Code Status: Do Not Attempt Resuscitation DIAGNOSES Admission Diagnoses: Altered mental status UTI Discharge Diagnoses with Status of Each Condition: Altered mental statusback to baseline UTIdischarging on antibiotics HPI History of Present Illness: 79-year-old female with PMH significant for Lewy body dementia on Aricept, recurrent UTI who again presents to the hospital with altered mentation. She presented to the walk-in clinic yesterday for UTI symptoms Bactrim was ordered. The prescription for Bactrim has not been filled yet. Family reports that she is at times difficult to arouse. This morning, she was completely unarousable, so EMS was called and patient was brought into the ER. Family reports she had 1 episode of fever. Denies chest pain, dyspnea, nausea, vomiting diarrhea. In the ER, UA was obtained which shows nitrites, leukocyte esterase, WBCs, bacteria indicating UTI. She was given a liter of normal saline and 1 g of Rocephin, and hospitalist was contacted for observation for altered mental status secondary to UTI HOSPITAL COURSE Hospital Course: Patient was placed in observation and received IV fluids and Rocephin overnight. Today, she is much more alert, and family reports she is back to baseline. She is being discharged home to follow-up with her primary care provider. Brief goals of care discussion was had with family, and recommendation was made for palliative care referral in the outpatient setting ALLERGIES Allergies Allergy/AdvReac Type Severity Reaction Status Date / Time sertraline (From Zoloft) Allergy Severe Unknown Verified 04/05/25 15:32 grass pollen Allergy Itching Verified 04/05/25 15:32 MEDICATIONS Ambulatory Orders Medication Instructions Recorded Confirmed donepezil 5 mg tablet 2.5 mg PO QPM 02/24/2504/06 acetaminophen 325 mg tablet 650 mg (2 x 325 mg) PO Q4H R PRN 03/17/25 04/06/25 Pain 1 to 4, or Fever #90 tabs estradiol 0.01% (0.1 mg/gram) See Rx Instructions vagi nal 03/17/25 04/06/25 vaginal cream .COMPLEX #42.5 grams mirtazapine 15 mg tablet 15 mg PO QPM #30 tabs 04/06/25 omeprazole 20 mg capsule,delayed 20 mg PO QDAC #30 cap s 03/17/25 04/06/25 release vit,calcium 27-ferrous 1 tab PO DAILYWM #30 t abs 03/17/25 04/06/25 fum 60 mg iron-folic acid 1 mg tablet (Trinatal Rx 1) thiamine mononitrate (vit B1) 100 100 mg PO DAILY #30 tabs 03/17/25 04/06/25 mg tablet (Vitamin B-1 (mononitrate)) cephalexin 250 mg/5 mL oral 500 mg (10 mL) PO BID 7 da ys #140 04/07/25 suspension mL PHYSICAL EXAM AT DISCHARGE General Appearance: positive No acute distress Eyes Bilateral: positive Other (Eyelids crusted) Respiratory: positive Chest non-tender and No respiratory distress Cardiovascular: positive Regular rate & rhythm Peripheral Pulses: positive 2+ Abdomen: positive Non-tender Skin: positive Color nml Extremities: positive Non-tender Neurologic/Psychiatric: positive Other (Withdrawn. Oriented x 1. Moves all extremities) LABS 04/07/25 04:54 04/07/25 04:54 FOLLOW UP Follow Up: With PCP TIME SPENT Time Spent in Discharge (Minutes): 37 Discharge Plan Discharge Patient Disposition: Home, Self Care Condition: Fair Prescriptions: New cephalexin 250 mg/5 mL suspension for reconstitution 500 mg PO BID 7 Days Qty: 140 0RF Continued donepezil 5 mg tablet 2.5 mg PO QPM Rx Instructions: take 1/2 tablet by mouth every evening for memory acetaminophen 325 mg Tablet 650 mg PO Q4HR PRN (Reason: Pain 1 to 4, or Fever) Qty: 90 0RF mirtazapine 15 mg Tablet 15 mg PO QPM Qty: 30 0RF Trinatal Rx 1 60 mg iron-1 mg Tablet 1 tab PO DAILYWM Qty: 30 0RF thiamine mononitrate (vit B1) [Vitamin B-1 (mononitrate)] 100 mg Tablet 100 mg PO DAILY Qty: 30 0RF omeprazole 20 mg capsule,delayed release(DR/EC) 20 mg PO QDAC Qty: 30 0RF estradiol 0.01 % (0.1 mg/gram) cream See Rx Instructions vaginal .COMPLEX Qty: 42.5 5RF Rx Instructions: vaginally; Apply pea sized amount to vaginal tissues twice weekly for UTI prevention Discontinued sulfamethoxazole-trimethoprim 800-160 mg tablet 1 tab PO BID 5 Days Qty: 10 0RF Rx Instructions: May crush and give in applesauce if unable to swallow the pills. Diet: Regular Health Concerns: You came into the hospital because you were unarousable by your family. You were held in the hospital and received IV fluids and antibiotics for your UTI. Today, you are back at your baseline level of function so I am discharging you back home with your family. I am reordering your home health care services. I have ordered a medication called Keflex that I would like for you to take twice daily as directed. Goals of care were discussed with your family briefly, and recommendation was made for palliative care referral in the outpatient setting. I would like for you to follow-up with your PCP regarding this Print Language: Luxembourgish Patient Instructions: ED Cystitis Female Adult Stand Alone Forms: PCP List Follow-up Care: Candice Oreilly PA-C [Primary Care Provider, Family Practice] Vitals documented within 30 minutes of discharge?: Yes
--- NOTE | 2025-04-07 14:37 | ADVANCE CARE PLANNING NOTE ---
Advance Care Planning Planning Encounter Date: 04/07/25 Purpose: To discuss long-term plan of care Parties in Attendance: Patient and son Decisional Capacity of the Patient: None Diagnosis for Encounter (1) Altered mental status: Summary: History of Lewy body dementia, follows with neurology outpatient. Exacerbated by UTI (2) Urinary tract infection: Summary: Likely E. coli UTI. On Rocephin Encounter Subjective/Patient's Story: Patient lives with her son who is her primary caregiver. They have about 4 hours a day of additional caregiver help. Her sons all live fairly close to her, and 2 of them were present when she came to the ER. Her sons report that she does require some coaching with eating, and at times has not drink as much water as her family would like. Objective/Medical Story: Patient has Lewy body dementia and is following with neurology. She was recently admitted here for UTI and bacteremia and had a short stay at a halfway after that. Goals of Care: Family would like to take her home and continue caring for her as they have been. They recognize that her condition is slowly worsening, but they feel she still has some quality of life Plan: Patient is follow-up outpatient for palliative care referral Code Status: Do Not Attempt Resuscitation Time spent on advance care plannin
[2025-04-07 16:18] VITALS: BP 147/76; TEMP 97.5; O2SAT 96
== END 2025-04-07 16:00 | disposition home or self-care (01) ==
LOC: MS2 15:46 → ED 15:46 → MS2 19:18
PROVIDERS: ADMIT Nurse Practitioner Acute Care; ATTEND Nurse Practitioner Acute Care
DX: R41.82 Altered mental status, unspecified; F02.80 Dementia in other diseases classified elsewhere, unspecified severity, without behavioral disturbance, psychotic disturbance, mood disturbance, and anxiety; Z68.25 Body mass index [BMI] 25.0-25.9, adult; N39.0 Urinary tract infection, site not specified; E86.0 Dehydration; R63.0 Anorexia; R62.7 Adult failure to thrive; G20.A1 Parkinson's disease without dyskinesia, without mention of fluctuations; Z66 Do not resuscitate; G31.83 Neurocognitive disorder with Lewy bodies